=== PATIENT | male | born 1960 | race Caucasian/White ===

== ENCOUNTER 2018-01-18 13:53 | Outpatient (REF) | payer OTHER, SELFPAY ==
[2018-01-18 18:58] LABS: Iron 99 ug/dL (50-175); Total Iron Binding Capacity 292 ug/dL (250-450); Transferrin Sat 34 % (20-55)
[2018-01-18 19:47] LABS: COMMENT (LAB VIEW ONLY) 59.36 mg/dL; Microalb ug/mg Crea 23.8 ug/mg Cr
[2018-01-23 16:55] LABS: Testosterone, Bioavailable 18 ng/dL (50-190); Testosterone, Free 2.06 ng/dL (3.87-14.7); Testosterone, Total 42 ng/dL (240-950)
== END 2018-01-18 14:13 ==
LOC: NCHCN 13:53
PROVIDERS: PCP Family Medicine; Visit Provider Family Medicine
DX: E11.9 Type 2 diabetes mellitus without complications (principal); D64.9 Anemia, unspecified; E29.1 Testicular hypofunction
CPT/HCPCS: 84402; 84403; 84410; 82043; 82570; 83540; 83550

== ENCOUNTER 2018-02-23 00:25 | Outpatient (CLI) | payer OTHER, SELFPAY ==
--- NOTE | 2018-02-23 09:50 | DI.MRI_ITS ---
SYMPTOMS/DIAGNOSIS: ARM WEAKNESS, CERVICAL RADICULOPATHY, DECREASED DEXTERITY, HAND WEAKNESS, R29.898, M54.12, R27.8 MRI OF THE CERVICAL SPINE: Routine noncontrast examination. Comparison is 05/14/17. The study is compromised due to patient motion artifact. There is a scoliotic curvature of the cervical spine. Note is also again made of reversal of the normal cervical lordosis centered at C4-C5. There is normal signal in the spinal cord. No tonsillar ectopia is present. At C7-T1, there is 5 mm of anterolisthesis of C7 on T1. There is severe bilateral neural foraminal stenosis present. Mild narrowing of the central spinal canal is noted. At C6-C7, 2 mm of retrolisthesis of C6 on C7 is noted. There is marked bilateral neural foraminal stenosis present. No significant central spinal canal stenosis is seen. At C5-C6, 2 mm of retrolisthesis is noted. Marked bilateral neural foraminal stenosis is seen. There is mild central spinal canal stenosis with effacement of the anterior subarachnoid space noted. At C4-C5, there is prominence of the osteophyte-disc complex with effacement of the anterior subarachnoid space. There is CSF seen surrounding the cord. Marked bilateral neural foraminal stenosis is present. At C3-C4, there is 2 mm of anterolisthesis of C3 on C4. No significant central spinal canal stenosis is seen. Moderately severe bilateral neural foraminal stenosis is present. At C2-C3, no focal disc herniation or central spinal canal stenosis is seen. Mild bilateral neural foraminal stenosis is present. IMPRESSION: 1. Stable scoliosis and reversal of the normal cervical lordosis is seen. 2. Multilevel degenerative changes in the cervical spine are noted resulting in multilevel central spinal canal and neural foraminal stenosis as described above.
== END 2018-02-23 00:45 ==
PROVIDERS: PCP Family Medicine; Visit Provider Neurological Surgery
DX: M54.12 Radiculopathy, cervical region (principal); R27.8 Other lack of coordination; R29.898 Other symptoms and signs involving the musculoskeletal system; M50.120 Mid-cervical disc disorder, unspecified level; M25.78 Osteophyte, vertebrae; M99.41 Connective tissue stenosis of neural canal of cervical region
CPT/HCPCS: 72141

== ENCOUNTER 2018-03-31 01:17 | Outpatient (CLI) | payer OTHER, SELFPAY ==
--- NOTE | 2018-03-31 10:00 | DI.RAD_ITS ---
SYMPTOM/DIAGNOSIS: S/P C4, C5 CORPECTOMIES W/C7 TI. HAND WEAKNESS 728.87, R29.898 LIMITED CERVICAL SPINE: 03/31/18 AP and lateral views were obtained. The patient has reportedly had C4 and C5 corpectomies since most recent cervical spine MRI of 02/2018. There is fixation plate and screw anteriorly with vertebral body prosthesis in position from C3 through what appears to be C6 and there is anterior fixation plate also present in what appears to be C7-T1. There is approximately 5 mm anterior subluxation of C2 on C3, this is increased from approximately 4 mm seen on previous MR of 02/23/18. C3 vertebral body appears to be subluxed anteriorly on remaining C4 vertebral body elements by about 4 mm, probably unchanged from previous exam. Correlation with immediate post operative films suggested if there is a question of instability. I would note that the bone of C3 and C6 adjacent to the fixation screws is poorly defined and I cannot accurately assess for potential loosening of the fixation screws. Again, correlation with immediate postoperative imaging is recommended.
== END 2018-03-31 01:37 ==
PROVIDERS: PCP Family Medicine; Visit Provider Neurological Surgery
DX: R29.898 Other symptoms and signs involving the musculoskeletal system (principal); M54.12 Radiculopathy, cervical region; Z98.1 Arthrodesis status
CPT/HCPCS: 72040

== ENCOUNTER 2018-04-02 13:21 | Emergency (ER) | payer OTHER, SELFPAY ==
[2018-04-02 13:26] VITALS: BP 113/81; PULSE 100; RESP 18; TEMP 36.4
[2018-04-02 14:09] LABS: Bilirubin Negative (Negative); Blood Moderate (Negative); Clarity Cloudy; Glucose 100 mg/dL (Negative); Ketones Negative (Negative); Leukocyte Esterase Large (Negative); Nitrite Positive (Negative); Specific Gravity 1.025 (1.005-1.025); Urobilinogen 0.2 EU/dL (Up TO 0.2)
--- NOTE | 2018-04-02 14:12 | ED.GENADUL_ITS ---
Discharge Plan Disposition Patient Disposition: HOME Discharge Details Chief Complaint: Urinary Clinical Impression: Acute UTI Reason For Visit: urine discomfort Primary Care Provider: Garcia Fonseca ED Provider: Sd Jimenez Home Meds and New Rx's Prescriptions: New cephalexin [Keflex] 500 mg capsule 500 mg PO QID 7 Days Qty: 28 RF: 0 No Action folic acid 1 MG tablet 1.5 mg PO HS RF: 0 apixaban [Eliquis] 5 MG tablet 5 mg PO BID RF: 0 mirabegron [Myrbetriq] 50 MG tablet extended release 24 hr 50 mg PO DAILY Qty: 90 RF: 4 aspirin [Adult Low Dose Aspirin] 81 MG tablet,delayed release (DR/EC) 81 mg PO DAILY RF: 0 ascorbic acid (vitamin C) [Vitamin C] 500 MG tablet 500 mg PO QPM RF: 0 metformin [Glucophage] 1,000 MG tablet 1,000 mg PO BID RF: 0 testosterone cypionate [Depo-Testosterone] 200 MG/ML oil 200 mg IM Q14D RF: 0 multivitamin 1 EACH capsule 1 ea PO DAILY RF: 0 cholecalciferol (vitamin D3) 1,000 UNITS tablet 2,000 units PO QPM RF: 0 metoprolol tartrate 25 MG tablet 50 mg PO HS RF: 0 gabapentin 600 MG tablet 1,200 mg PO TID RF: 0 atorvastatin [Lipitor] 40 MG tablet 40 mg PO HS RF: 0 oxybutynin chloride 15 MG tablet extended release 24hr 15 mg PO DAILY RF: 0 ferrous sulfate 325 MG tablet 325 mg PO HS RF: 0 omega-3 fatty acids 1,250 mg Capsule 1 cap PO DAILY RF: 0 bupropion HCl 450 mg Tablet Extended Release 24 Hr 450 mg PO DAILY RF: 0 lisinopril 5 MG tablet 5 mg PO DAILY RF: 0 magnesium 200 MG tablet 400 mg PO RF: 0 hydrocodone-acetaminophen 1 EACH tablet 1 tab PO Q6H PRN PRNQty: 5 RF: 0 ibuprofen 600 MG tablet 600 mg PO Q8H PRN PRNQty: 30 RF: 0 acetaminophen [Mapap Extra Strength] 500 MG tablet 1,000 mg PO Q8H PRN PRNQty: 100 RF: 0 Discharge Instructions Instructions: Urinary Tract Infection in Men (ED) Additional Instructions: Please contact your primary care physician to arrange follow-up. Call on Wednesday. Return to the ER for any worsening or new concerning symptoms. Referrals: Garcia Fonseca [Primary Care Provider] - Medical Decision Making 14:10 -- 57yo m 3 weeks s/p cervical spinal decompression surgery, remote UTI, DM, here with dysuria and urgency. Not septic appearing. Fingerstick nl. Plan to check UA. 16:25 -- UA consistent with UTI. Will treat with keflex 500mg QID x 7 days. Urine cx pending. Will have patient follow-up with PCP. HPI General Mode of arrival: ambulatory . Date/Time Provider Initiated Documentation: 04/02/18 13:36 . Limitations to Documentation: no limitations . Information obtained by: patient . HPI Narrative: 57-year-old male here with painful urination. Patient states that over the past 48 hours he has had burning discomfort with urination. He notes that he has sense of urgency, increased frequency and low volume urination. He does not feel as though his bladder is full. No associated fever but does note he has had some chills recently. He also notes that a few years ago he had a urinary tract infection that was treated with abx. No flank pain. No nausea/vomiting. Related Data Home Medications Medication Instructions Recorded Confirmed ascorbic acid (vitamin C) [Vitamin 500 mg PO QPM 05/11/14 04/02/18 C] aspirin [Adult Low Dose Aspirin] 81 mg PO DAILY 05/11/14 04/02/18 cholecalciferol (vitamin D3) 2,000 units PO QPM 05/11/14 04/02/18 metformin [Glucophage] 1,000 mg PO BID 05/11/14 04/02/18 multivitamin 1 ea PO DAILY 05/11/14 04/02/18 testosterone cypionate 200 mg IM Q14D 05/11/14 04/02/18 [Depo-Testosterone] metoprolol tartrate 50 mg PO HS 06/14/15 04/02/18 gabapentin 1,200 mg PO TID 12/13/15 04/02/18 atorvastatin [Lipitor] 40 mg PO HS 04/13/17 04/02/18 ferrous sulfate 325 mg PO HS 04/13/17 04/02/18 oxybutynin chloride 15 mg PO DAILY 04/13/17 04/02/18 folic acid 1.5 mg PO HS tab-cap 04/19/17 04/02/18 lisinopril 5 mg PO DAILY 06/15/17 04/02/18 acetaminophen [Mapap Extra 1,000 mg PO Q8H PRN PRN #100 tab 06/17/17 04/02/18 Strength] hydrocodone-acetaminophen 1 tab PO Q6H PRN PRN #5 tablet 06/17/17 04/02/18 ibuprofen 600 mg PO Q8H PRN PRN #30 tablet 06/17/17 04/02/18 magnesium 400 mg PO 06/17/17 apixaban [Eliquis] 5 mg PO BID 07/14/17 04/02/18 mirabegron [Myrbetriq] 50 mg PO DAILY #90 tab-cap 11/09/17 04/02/18 bupropion HCl 450 mg PO DAILY 04/02/18 04/02/18 cephalexin [Keflex] 500 mg PO QID 7 Days #28 cap 04/02/18 omega-3 fatty acids 1 cap PO DAILY 04/02/18 04/02/18 Previous Rx's Medication Instructions Recorded acetaminophen [Mapap Extra 1,000 mg PO Q8H PRN PRN #100 tab 06/17/17 Strength] hydrocodone-acetaminophen 1 tab PO Q6H PRN PRN #5 tablet 06/17/17 ibuprofen 600 mg PO Q8H PRN PRN #30 tablet 06/17/17 mirabegron [Myrbetriq] 50 mg PO DAILY #90 tab-cap 11/09/17 cephalexin [Keflex] 500 mg PO QID 7 Days #28 cap 04/02/18 Allergies Allergy/AdvReac Type Severity Reaction Status Date / Time nitroglycerin Allergy Hives Unverified 04/02/18 13:32 pioglitazone HCl [From Actos] AdvReac Mild leg Unverified 04/02/18 13:32 swelling General Stated Complaint: Urinary PORTILLO: 3 Review of Systems Review of Systems All systems reviewed & are unremarkable except as noted in HPI and below Constitutional Reports chills and Reports weakness Genitourinary Reports as per HPI Neurologic Reports weakness PFSH Medical History Anxiety and depression Diabetes mellitus type II, controlled Diabetic neuropathy Essential hypertension History of colon polyps History of gastroesophageal reflux (GERD) Hyperlipidemia Hypogonadism in male Urge incontinence Social History Smoking/Tobacco Use Status: Never Surgical History Cholecystectomy Colonoscopy - IV Sedation (10/28/16) EGD - IV Sedation Kallie Fundoplication Exam Const General: cooperative and no acute distress HENMT Head: normocephalic and atraumatic Mouth: moist mucous membranes Eyes Conjunctivae: normal conjunctivae Sclera: normal sclerae Neck Lymphatic: other (ccollar intact) Resp Auscultation: clear to auscultation bilaterally, no rales, no rhonchi and no wheezes Cardio Jugular venous pressure: no JVD Rate: regular rate and not tachycardic Rhythm: regular rhythm GI Palpation: soft, not firm, no guarding, no masses, not rigid and nontender Male General Exam: No edema and No lesions Meatus: meatus normal (mild erythema) Scrotum: scrotum normal Testes: normal Skin General skin exam: no rashes or lesions noted Neuro General: alert, awake, oriented x3 and tone normal Extrem General: no edema Psych Appearance: grossly normal Mental Status: mental status grossly normal Course Vital Signs Temperature 36.4 C L 04/02/18 13:26 Pulse 100 H 04/02/18 13:26 Respiratory Rate 18 04/02/18 13:26 Blood Pressure 113/81 04/02/18 13:26 Temperature 36.4 C L 04/02/18 13:26 Temperature Source Temporal Artery Scan 04/02/18 13:26 Pulse 100 H 04/02/18 13:26 Respiratory Rate 18 04/02/18 13:26 Blood Pressure 113/81 04/02/18 13:26 Blood Pressure Position Sitting 04/02/18 13:26 Oxygen Delivery Method Room Air 04/02/18 13:26 Oxygen Flow Rate 0 04/02/18 13:26 Pain Level 0 04/02/18 13:26
[2018-04-02 14:20] LABS: C & S Indicated? Yes
[2018-04-02] MEDS: Cephalexin 500 MG CAP PO (16:30)
[2018-04-02 16:55] VITALS: BP 143/87; PULSE 110; RESP 16; TEMP 37.3; O2SAT 94
== END 2018-04-02 16:52 | disposition home or self-care (01) ==
PROVIDERS: Emergency Provider Student in an Organized Health Care Education/Training Program; PCP Family Medicine
DX: N39.0 Urinary tract infection, site not specified (principal); B95.61 Methicillin susceptible Staphylococcus aureus infection as the cause of diseases classified elsewhere; E11.9 Type 2 diabetes mellitus without complications; Z79.84 Long term (current) use of oral hypoglycemic drugs; I10 Essential (primary) hypertension
CPT/HCPCS: 36416; 82947; 82962; 87077; 99283; 81003; 81015; 87086; 87186

== ENCOUNTER 2018-04-06 00:32 | Outpatient (CLI) | payer OTHER, SELFPAY ==
--- NOTE | 2018-04-06 06:46 | DI.COMBO_ITS ---
SYMPTOM/DIAGNOSIS: SPINAL STENOSIS, M48.02, S/P SURGERY, INCREASED WEAKNESS AND DECONDITIONING, NUMBNESS LT LEG AND ARM. CERVICAL SPINE CT: CT examination of the cervical spine was performed utilizing multi slice acquisition and multi planar reconstruction. The examination is compared with preoperative CT of 03/11/18. The patient appears to have had an interval anterior fusion with bone graft placement. The fixation screws in the C 3 and C 6 vertebral bodies appear well seated with no evidence of loosening. The anterior fusion at C 7-T 1 also shows no evidence of screw loosening. The overall posterior vertebral contour in comparison with the preoperative images appears grossly unchanged. No evidence of bone erosion or destruction. Partial resection of vertebral bodies C 4 and C 5 centrally is noted. CONCLUSION: Apparent intact fusion hardware and graft in position, please see above discussion. CERVICAL SPINE MRI: MRI examination of the cervical spine was performed according to the usual protocol with additional pre and post contrast T 1 fat sat axial and sagittal imaging. The examination is compared with preoperative MR of 02/23/18. No gross enhancing lesion identified on the current examination. The degree of curvature of the cervical spinal cord appears grossly unchanged or mildly decreased. No cord compression identified. Intra cord signal abnormality appears within normal limits. Anterior fusion and graft from C 3 through C 6 noted although more clearly visualized on CT examination. No overall change in alignment of the posterior aspects over the vertebral bodies through the cervical region. CONCLUSION: Anterior C spine fusion in place from C 3 to C 6 and also at C 7- T 1. No evidence of cord edema, compression, or significant change in the spinal canal contour since examination of 02/23/18.
[2018-04-06] MEDS: Gadoterate meglumine 20 ML VIAL 14 ML IVP (11:41)
== END 2018-04-06 00:52 ==
PROVIDERS: PCP Family Medicine; Visit Provider Internal Medicine
DX: M48.02 Spinal stenosis, cervical region (principal); Z98.890 Other specified postprocedural states; R20.0 Anesthesia of skin; Z98.1 Arthrodesis status; R68.89 Other general symptoms and signs
CPT/HCPCS: 72125; 72156

== ENCOUNTER 2018-04-27 14:37 | Outpatient (REF) | payer OTHER, SELFPAY ==
[2018-04-27 18:37] LABS: Bilirubin Negative (Negative); Blood Trace-intact (Negative); Clarity Cloudy; Glucose Negative (Negative); Ketones Negative (Negative); Leukocyte Esterase Large (Negative); Nitrite Negative (Negative); Specific Gravity 1.025 (1.005-1.025); Urobilinogen 0.2 EU/dL (Up TO 0.2); pH 5.5 (5-8)
[2018-04-27 18:57] LABS: WBC >50 HPF (0-5)
[2018-04-27 18:58] LABS: C & S Indicated? C&S Done As Ordered
== END 2018-04-27 14:57 ==
LOC: NCHCN 14:37
PROVIDERS: PCP Family Medicine; Visit Provider Family Medicine
DX: N39.0 Urinary tract infection, site not specified (principal)
CPT/HCPCS: 87077; 81003; 81015; 87086; 87186

== ENCOUNTER 2018-05-02 00:21 | Outpatient (CLI) | payer OTHER, SELFPAY ==
--- NOTE | 2018-05-02 15:43 | DI.US_ITS ---
SYMPTOM/DIAGNOSIS: RECURRENT UTI, N39.0 RENAL ULTRASOUND: The right kidney measures 10.4 x 4.7 x 5.5 cm There are small nonobstructing hyperechoic foci suspicious for multiple calculi. The left kidney measures 10.7 x 5.1 x 4.7 cm. Again noted are multiple small hyperechoic foci and no evidence of obstruction is seen. The prostate measures 4.8 x 4.8 x 5.7 cm with a volume of 69 cm cubed. Also the gland is irregular and heterogeneous with calcifications identified. The pre-void bladder contains 101 cc. The post-void bladder is 76 cc. The bladder wall measures 6.9 mm in thickness. There is no localized bladder wall mass. SUMMARY: Findings consistent with bilateral nephrolithiasis and prostatic enlargement. There is no evidence of obstruction (incidentally bilateral ureteral jets were visualized in this patient). The evaluation of the bladder would be consistent with bladder outlet obstruction.
== END 2018-05-02 00:41 ==
PROVIDERS: PCP Family Medicine; Visit Provider Family Medicine
DX: N39.0 Urinary tract infection, site not specified (principal); N20.0 Calculus of kidney; N40.1 Benign prostatic hyperplasia with lower urinary tract symptoms
CPT/HCPCS: 76770

== ENCOUNTER 2018-06-16 12:03 | Emergency (ER) | payer OTHER, SELFPAY ==
[2018-06-16 12:08] VITALS: BP 125/83; PULSE 69; RESP 16; TEMP 36.8; O2SAT 98
--- NOTE | 2018-06-16 12:29 | DI.RAD_ITS ---
SYMPTOM/DIAGNOSIS: SWELLING, PAIN, REDNESS RIGHT SECOND TOE; There are no prior comparison exams. There is soft tissue swelling of the distal aspect of the second toe. There is air within the soft tissue swelling. There is destruction of the tuft of the distal phalanx, consistent with osteomyelitis. There has been previous resection of the first metatarsal head. There is also callous formation around the mid second metatarsal and proximal phalanx of the third toe. IMPRESSION: The findings are consistent with osteomyelitis of the tuft of the distal phalanx of the second toe.
--- NOTE | 2018-06-16 12:30 | W.ED.GENAD ---
Discharge Plan Disposition Patient Disposition: HOME Discharge Details Chief Complaint: Cellulitis Clinical Impression: Osteomyelitis of toe of right foot Primary Care Provider: Garcia Fonseca ED Provider: Sd Jimenez Home Meds and New Rx's Prescriptions: New amoxicillin-pot clavulanate [Augmentin] 875-125 mg tablet 1 tab PO BID Qty: 19 RF: 0 Continued folic acid 1 MG tablet 1.5 mg PO HS RF: 0 Eliquis 5 MG tablet 5 mg PO BID RF: 0 Myrbetriq 50 MG tablet extended release 24 hr 50 mg PO DAILY Qty: 90 RF: 4 ascorbic acid (vitamin C) [Vitamin C] 500 MG tablet 500 mg PO QPM RF: 0 metformin [Glucophage] 1,000 MG tablet 1,000 mg PO BID RF: 0 testosterone cypionate [Depo-Testosterone] 200 MG/ML oil 200 mg IM Q14D RF: 0 multivitamin 1 EACH capsule 1 ea PO DAILY RF: 0 cholecalciferol (vitamin D3) 1,000 UNITS tablet 2,000 units PO QPM RF: 0 metoprolol tartrate 25 MG tablet 50 mg PO HS RF: 0 gabapentin 600 MG tablet 1,200 mg PO TID RF: 0 atorvastatin [Lipitor] 40 MG tablet 40 mg PO HS RF: 0 oxybutynin chloride 15 MG tablet extended release 24hr 15 mg PO DAILY RF: 0 bupropion HCl 450 mg Tablet Extended Release 24 Hr 450 mg PO DAILY RF: 0 Myrbetriq 50 mg Tablet Extended Release 24 Hr 50 mg PO DAILY RF: 0 lisinopril 5 MG tablet 5 mg PO DAILY RF: 0 ibuprofen 600 MG tablet 600 mg PO Q8H PRN PRNQty: 30 RF: 0 acetaminophen [Mapap Extra Strength] 500 MG tablet 1,000 mg PO Q8H PRN PRNQty: 100 RF: 0 Discharge Instructions Additional Instructions: Please follow-up tomorrow with Dr. Aleman, podiatry, at 10:45a in his office. Please contact your primary care physician to arrange follow-up. Return to the ER for any worsening or new concerning symptoms. Referrals: Garcia Fonseca [Primary Care Provider] - Aniceto Aleman DPM [[facility] STAFF PHYSICIAN] - Medical Decision Making 57-year-old male with non-insulin dependent diabetes, here with ulcer of his right second toe over the past 2-3 months and now with associated cellulitis extending up to his mid foot. Otherwise well appearing. Afebrile with no systemic illness. Patient has not been on oral antibiotics for this infection. Concern for osteomyelitis. foot xray reviewed and interpreted by radiology: Osteomyelitis of the distal tuft of the second digit I called and spoke with Dr. Aleman, podiatry, who agrees with starting Augmentin and recommends outpatient follow-up in clinic tomorrow. Patient notes glucose was 98 when he checked this AM and has been monitored and well controlled. HPI General Mode of arrival: ambulatory. Date/Time Provider Initiated Documentation: 06/16/18 12:18. Limitations to Documentation: no limitations. Information obtained by: patient. HPI Narrative: 57yo m with history of type 2 diabetes, controlled on metformin, here with right second toe inflammation. He notes he had a ulcer bottom of his distal right second toe for 2-3 months. He was seen by podiatry 06/13/17 at [facility] and started on antibiotic cream. He states that over the past couple days he has developed worsening redness of the toe and dorsal foot. Inflammation is moderate. No modifiers. No associated fevers. Related Data Home Medications Medication Instructions Recorded Confirmed ascorbic acid (vitamin C) [Vitamin 500 mg PO QPM 05/11/14 06/16/18 C] cholecalciferol (vitamin D3) 2,000 units PO QPM 05/11/14 06/16/18 metformin [Glucophage] 1,000 mg PO BID 05/11/14 06/16/18 multivitamin 1 ea PO DAILY 05/11/14 06/16/18 testosterone cypionate 200 mg IM Q14D 05/11/14 06/16/18 [Depo-Testosterone] metoprolol tartrate 50 mg PO HS 06/14/15 06/16/18 gabapentin 1,200 mg PO TID 12/13/15 06/16/18 atorvastatin [Lipitor] 40 mg PO HS 04/13/17 06/16/18 oxybutynin chloride 15 mg PO DAILY 04/13/17 06/16/18 folic acid 1.5 mg PO HS tab-cap 04/19/17 06/16/18 lisinopril 5 mg PO DAILY 06/15/17 06/16/18 acetaminophen [Mapap Extra 1,000 mg PO Q8H PRN PRN #100 tab 06/17/17 06/16/18 Strength] ibuprofen 600 mg PO Q8H PRN PRN #30 tab 06/17/17 06/16/18 Eliquis 5 mg PO BID 07/14/17 06/16/18 Myrbetriq 50 mg PO DAILY #90 tab-cap 11/09/17 06/16/18 bupropion HCl 450 mg PO DAILY 04/02/18 06/16/18 Myrbetriq 50 mg PO DAILY 06/16/18 06/16/18 amoxicillin-pot clavulanate 1 tab PO BID #19 tab 06/16/18 [Augmentin] Previous Rx's Medication Instructions Recorded acetaminophen [Mapap Extra 1,000 mg PO Q8H PRN PRN #100 tab 06/17/17 Strength] ibuprofen 600 mg PO Q8H PRN PRN #30 tab 06/17/17 Myrbetriq 50 mg PO DAILY #90 tab-cap 11/09/17 amoxicillin-pot clavulanate 1 tab PO BID #19 tab 06/16/18 [Augmentin] Allergies Allergy/AdvReac Type Severity Reaction Status Date / Time nitroglycerin Allergy Hives Unverified 06/16/18 12:15 pioglitazone HCl [From Actos] AdvReac Mild leg Unverified 06/16/18 12:15 swelling General Stated Complaint: Cellulitis PORTILLO: 3 Review of Systems Constitutional Denies fever(s) Musculoskeletal Reports as per HPI Integumentary/Breasts Reports as per HPI and Reports skin ulcer PFSH Medical History Anxiety and depression Diabetes mellitus type II, controlled Diabetic neuropathy Essential hypertension History of colon polyps History of gastroesophageal reflux (GERD) Hyperlipidemia Hypogonadism in male Urge incontinence Surgical History Cholecystectomy Colonoscopy - IV Sedation (10/28/16) EGD - IV Sedation Kallie Fundoplication Social History Smoking/Tobacco Use Status: Never Exam Const General: cooperative and no acute distress HENMT Mouth: moist mucous membranes Cardio Rate: regular rate and not tachycardic Rhythm: regular rhythm Skin Rashes: rashes noted (erythema right 2nd toe and dorsal foot) Neuro General: alert, awake, oriented x3 and tone normal Extrem General: no edema Right lower extremity: foot Details: normal capillary refill, vascular exam Details: posterior tibial pulse present (2+) and other (1cm ulcer distal 2nd toe, no d/c, erythema extending up to dorsal midfoot) Course Vital Signs Temperature 36.8 C 06/16/18 12:08 Pulse 69 06/16/18 12:08 Respiratory Rate 16 06/16/18 12:08 Blood Pressure 125/83 06/16/18 12:08 Pulse Oximetry 98 06/16/18 12:08 Temperature 36.8 C 06/16/18 12:08 Temperature Source Temporal Artery Scan 06/16/18 12:08 Pulse 69 06/16/18 12:08 Respiratory Rate 16 06/16/18 12:08 Respiratory Effort Non-Labored 06/16/18 12:14 Blood Pressure 125/83 06/16/18 12:08 Blood Pressure Position Supine 06/16/18 12:08 Pulse Oximetry 98 06/16/18 12:08 Oxygen Delivery Method Room Air 06/16/18 12:08 Oxygen Flow Rate 0 06/16/18 12:08 Pain Level 1 06/16/18 12:08
--- NOTE | 2018-06-16 12:34 | ED.GENADUL_ITS ---
Discharge Plan Disposition Patient Disposition: HOME Discharge Details Chief Complaint: Cellulitis Clinical Impression: Osteomyelitis of toe of right foot Primary Care Provider: Garcia Fonseca ED Provider: Sd Jimenez Home Meds and New Rx's Prescriptions: New amoxicillin-pot clavulanate [Augmentin] 875-125 mg tablet 1 tab PO BID Qty: 19 RF: 0 Continued folic acid 1 MG tablet 1.5 mg PO HS RF: 0 Eliquis 5 MG tablet 5 mg PO BID RF: 0 Myrbetriq 50 MG tablet extended release 24 hr 50 mg PO DAILY Qty: 90 RF: 4 ascorbic acid (vitamin C) [Vitamin C] 500 MG tablet 500 mg PO QPM RF: 0 metformin [Glucophage] 1,000 MG tablet 1,000 mg PO BID RF: 0 testosterone cypionate [Depo-Testosterone] 200 MG/ML oil 200 mg IM Q14D RF: 0 multivitamin 1 EACH capsule 1 ea PO DAILY RF: 0 cholecalciferol (vitamin D3) 1,000 UNITS tablet 2,000 units PO QPM RF: 0 metoprolol tartrate 25 MG tablet 50 mg PO HS RF: 0 gabapentin 600 MG tablet 1,200 mg PO TID RF: 0 atorvastatin [Lipitor] 40 MG tablet 40 mg PO HS RF: 0 oxybutynin chloride 15 MG tablet extended release 24hr 15 mg PO DAILY RF: 0 bupropion HCl 450 mg Tablet Extended Release 24 Hr 450 mg PO DAILY RF: 0 Myrbetriq 50 mg Tablet Extended Release 24 Hr 50 mg PO DAILY RF: 0 lisinopril 5 MG tablet 5 mg PO DAILY RF: 0 ibuprofen 600 MG tablet 600 mg PO Q8H PRN PRNQty: 30 RF: 0 acetaminophen [Mapap Extra Strength] 500 MG tablet 1,000 mg PO Q8H PRN PRNQty: 100 RF: 0 Discharge Instructions Additional Instructions: Please follow-up tomorrow with Dr. Aleman, podiatry, at 10:45a in his office. Please contact your primary care physician to arrange follow-up. Return to the ER for any worsening or new concerning symptoms. Referrals: Garcia Fonseca [Primary Care Provider] - Aniceto lAeman DPM [[facility] STAFF PHYSICIAN] - Medical Decision Making 57-year-old male with non-insulin dependent diabetes, here with ulcer of his right second toe over the past 2-3 months and now with associated cellulitis extending up to his mid foot. Otherwise well appearing. Afebrile with no systemic illness. Patient has not been on oral antibiotics for this infection. Concern for osteomyelitis. foot xray reviewed and interpreted by radiology: Osteomyelitis of the distal tuft of the second digit I called and spoke with Dr. Aleman, podiatry, who agrees with starting Augmentin and recommends outpatient follow-up in clinic tomorrow. Patient notes glucose was 98 when he checked this AM and has been monitored and well controlled. HPI General Mode of arrival: ambulatory . Date/Time Provider Initiated Documentation: 06/16/18 12:18 . Limitations to Documentation: no limitations . Information obtained by: patient . HPI Narrative: 57yo m with history of type 2 diabetes, controlled on metformin, here with right second toe inflammation. He notes he had a ulcer bottom of his distal right second toe for 2-3 months. He was seen by podiatry 06/13/17 at [facility] and started on antibiotic cream. He states that over the past couple days he has developed worsening redness of the toe and dorsal foot. Inflammation is moderate. No modifiers. No associated fevers. Related Data Home Medications Medication Instructions Recorded Confirmed ascorbic acid (vitamin C) [Vitamin 500 mg PO QPM 05/11/14 06/16/18 C] cholecalciferol (vitamin D3) 2,000 units PO QPM 05/11/14 06/16/18 metformin [Glucophage] 1,000 mg PO BID 05/11/14 06/16/18 multivitamin 1 ea PO DAILY 05/11/14 06/16/18 testosterone cypionate 200 mg IM Q14D 05/11/14 06/16/18 [Depo-Testosterone] metoprolol tartrate 50 mg PO HS 06/14/15 06/16/18 gabapentin 1,200 mg PO TID 12/13/15 06/16/18 atorvastatin [Lipitor] 40 mg PO HS 04/13/17 06/16/18 oxybutynin chloride 15 mg PO DAILY 04/13/17 06/16/18 folic acid 1.5 mg PO HS tab-cap 04/19/17 06/16/18 lisinopril 5 mg PO DAILY 06/15/17 06/16/18 acetaminophen [Mapap Extra 1,000 mg PO Q8H PRN PRN #100 tab 06/17/17 06/16/18 Strength] ibuprofen 600 mg PO Q8H PRN PRN #30 tab 06/17/17 06/16/18 Eliquis 5 mg PO BID 07/14/17 06/16/18 Myrbetriq 50 mg PO DAILY #90 tab-cap 11/09/17 06/16/18 bupropion HCl 450 mg PO DAILY 04/02/18 06/16/18 Myrbetriq 50 mg PO DAILY 06/16/18 06/16/18 amoxicillin-pot clavulanate 1 tab PO BID #19 tab 06/16/18 [Augmentin] Previous Rx's Medication Instructions Recorded acetaminophen [Mapap Extra 1,000 mg PO Q8H PRN PRN #100 tab 06/17/17 Strength] ibuprofen 600 mg PO Q8H PRN PRN #30 tab 06/17/17 Myrbetriq 50 mg PO DAILY #90 tab-cap 11/09/17 amoxicillin-pot clavulanate 1 tab PO BID #19 tab 06/16/18 [Augmentin] Allergies Allergy/AdvReac Type Severity Reaction Status Date / Time nitroglycerin Allergy Hives Unverified 06/16/18 12:15 pioglitazone HCl [From Actos] AdvReac Mild leg Unverified 06/16/18 12:15 swelling General Stated Complaint: Cellulitis PORTILLO: 3 Review of Systems Constitutional Denies fever(s) Musculoskeletal Reports as per HPI Integumentary/Breasts Reports as per HPI and Reports skin ulcer PFSH Medical History Anxiety and depression Diabetes mellitus type II, controlled Diabetic neuropathy Essential hypertension History of colon polyps History of gastroesophageal reflux (GERD) Hyperlipidemia Hypogonadism in male Urge incontinence Surgical History Cholecystectomy Colonoscopy - IV Sedation (10/28/16) EGD - IV Sedation Kallie Fundoplication Social History Smoking/Tobacco Use Status: Never Exam Const General: cooperative and no acute distress HENMT Mouth: moist mucous membranes Cardio Rate: regular rate and not tachycardic Rhythm: regular rhythm Skin Rashes: rashes noted (erythema right 2nd toe and dorsal foot) Neuro General: alert, awake, oriented x3 and tone normal Extrem General: no edema Right lower extremity: foot Details: normal capillary refill, vascular exam Details: posterior tibial pulse present (2+) and other (1cm ulcer distal 2nd toe, no d/c, erythema extending up to dorsal midfoot) Course Vital Signs Temperature 36.8 C 06/16/18 12:08 Pulse 69 06/16/18 12:08 Respiratory Rate 16 06/16/18 12:08 Blood Pressure 125/83 06/16/18 12:08 Pulse Oximetry 98 06/16/18 12:08 Temperature 36.8 C 06/16/18 12:08 Temperature Source Temporal Artery Scan 06/16/18 12:08 Pulse 69 06/16/18 12:08 Respiratory Rate 16 06/16/18 12:08 Respiratory Effort Non-Labored 06/16/18 12:14 Blood Pressure 125/83 06/16/18 12:08 Blood Pressure Position Supine 06/16/18 12:08 Pulse Oximetry 98 06/16/18 12:08 Oxygen Delivery Method Room Air 06/16/18 12:08 Oxygen Flow Rate 0 06/16/18 12:08 Pain Level 1 06/16/18 12:08
[2018-06-16] MEDS: Amoxicillin 875/Clav. 125 TAB PO (13:02)
== END 2018-06-16 13:22 | disposition home or self-care (01) ==
PROVIDERS: Emergency Provider Student in an Organized Health Care Education/Training Program; PCP Family Medicine
DX: M86.171 Other acute osteomyelitis, right ankle and foot (principal); E11.9 Type 2 diabetes mellitus without complications; Z79.84 Long term (current) use of oral hypoglycemic drugs
CPT/HCPCS: 99283; 73660

== ENCOUNTER 2018-06-17 13:17 | Inpatient (IN) | payer OTHER, SELFPAY ==
[2018-06-17 12:53] VITALS: BP 142/97; PULSE 107; RESP 20; TEMP 37.2; O2SAT 100
[2018-06-17 13:12] VITALS: BP 142/97; PULSE 107; RESP 20; TEMP 37.2; O2SAT 100
--- NOTE | 2018-06-17 16:16 | W.PM.HP.N ---
Date of service: 06/17/18 Time of Service: 16:15 Assessment and Plan (1) Osteomyelitis: Current visit: Yes Status: Acute Evidence of Osteo of the right second toe, with signs of surrounding infection. Admit and initiate broad spectrum antibiotics in diabetic male with a non-healing foot ulcer, Osteo, and surrounding cellulitis. Please note history of MSSA and VRE - will need to rely on tissue culture post-op for final determination of antibiotic regimen. Will check blood cultures as well. (2) History of DVT (deep vein thrombosis): Current visit: Yes Status: Chronic Prior history of DVT in the right leg 07/2017, unknown circumstances surrounding this. Patient was anticoagulated until October, and upon stoppage developed recurrence of swelling in the RLE. He was restarted on blood thinners, and according to him a repeat ultrasound was not ordered. Currently with evidence of mild erythema overlying the right calf as well as some swelling in the effected limb - unsure if this is recurrence of DVT or if related to current infection. Discussed with Podiatry - plan is to check an ultrasound of the leg, hold anticoagulation until tomorrow morning, and reinitiate promptly after surgery pending results of the ultrasound. Monitor. (3) Hypertension: Current visit: Yes Status: Chronic Continue VADIM-I with hold parameters. Check renal function. (4) Dyslipidemia: Current visit: Yes Status: Chronic (5) Diabetes mellitus: Current visit: Yes Status: Chronic Check HgA1C, hold metformin, monitor blood sugars, and consider initiation of sliding scale if warranted. ADA diet, but with NPO > midnight. History of Present Illness Chief Complaint: Toe infection, osteomyelitis Narrative: Very pleasant 57-year-old man with past medical history significant for diabetes presents to [facility] as a direct admission from Dr. Aniceto Aleman of podiatry, for planned debridement and potential resection of a second digit, right foot osteomyelitis. is a with a 28-year former service in the [employer]. He has a history of diabetes, hypertension, and dyslipidemia. He was diagnosed with a DVT in his right leg in July of 2017, and restarted on anticoagulation 4 months after for presumed recurrence of a blood clot with discontinuation of blood thinners. Review of his prior culture data shows evidence of infections in the past with both MSSA and VRE. He also has a history of depression, hypogonadism, DJD, urinary incontinence, nephrolithiasis, and BPH. Prior history of GERD was treated with Kallie fundoplication per verbal history. Mr. Agosto has reportedly had an ulcer of his right second toe over the last 2-3 months. He initially was seen at the [facility] 4 days ago, and prescribed topical therapy and advised to go to the ED if his symptoms worsen. Yesterday he presented to [facility] emergency department with evidence of worsening symptoms, including what appeared to be potential surrounding cellulitis. At that time he underwent imaging that showed likely osteomyelitis of the distal phalanx of the second toe. He was prescribed Augmentin, and discharged with scheduled for today follow-up with podiatry. After his evaluation by Dr. Aleman from podiatry, direct admission to the hospital was recommended for a planned debridement and likely resection of the affected digit. He presents in stable condition and appearing nontoxic. He currently denies any fevers, chills, or systemic symptoms. 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) History of cellulitis (Chronic) Thermal injury (Acute) Cellulitis of right hand (Resolved 12/23/15) Anxiety and depression Diabetes mellitus type II, controlled Diabetic neuropathy Essential hypertension History of colon polyps History of gastroesophageal reflux (GERD) Hyperlipidemia Hypogonadism in male Urge incontinence Surgical History H/O hand surgery (Chronic) History of repair of hiatal hernia (Chronic) History of cholecystectomy (Chronic) History of lumbosacral spine surgery (Chronic) H/O cervical spine surgery (Chronic) History of Kallie fundoplication (Chronic) Cholecystectomy Colonoscopy - IV Sedation (10/28/16) EGD - IV Sedation Kallie Fundoplication Social History household members: spouse Smoking/Tobacco Use Status: Never additional social history: Patient is and has 2 grown daughters. Originally from [place], moved to [place] approximately a decade ago. 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 He also denies any illicit drug use. Meds Home Medications Medication Instructions Recorded Confirmed Type ascorbic acid (vitamin C) [Vitamin 500 mg PO QPM 05/11/14 06/17/18 History C] cholecalciferol (vitamin D3) 2,000 units PO QPM 05/11/14 06/17/18 History metformin [Glucophage] 1,000 mg PO BID 05/11/14 06/17/18 History multivitamin 1 ea PO DAILY 05/11/14 06/17/18 History testosterone cypionate 200 mg IM Q14D 05/11/14 06/17/18 History [Depo-Testosterone] metoprolol tartrate 50 mg PO HS 06/14/15 06/17/18 History gabapentin 1,200 mg PO TID 12/13/15 06/17/18 History atorvastatin [Lipitor] 40 mg PO HS 04/13/17 06/17/18 History oxybutynin chloride 15 mg PO DAILY 04/13/17 06/17/18 History folic acid 1.5 mg PO DAILY tab-cap 04/19/17 06/17/18 History lisinopril 5 mg PO DAILY 06/15/17 06/17/18 History acetaminophen [Mapap Extra 1,000 mg PO Q8H PRN PRN #100 tab 06/17/17 06/17/18 Rx Strength] ibuprofen 600 mg PO Q8H PRN PRN #30 tab 06/17/17 06/17/18 Rx Eliquis 5 mg PO BID 07/14/17 06/17/18 History Myrbetriq 50 mg PO DAILY #90 tab-cap 11/09/17 06/16/18 Rx bupropion HCl 450 mg PO DAILY 04/02/18 06/17/18 History Myrbetriq 50 mg PO DAILY 06/16/18 06/17/18 History amoxicillin-pot clavulanate 1 tab PO BID #19 tab 06/16/18 06/17/18 Rx [Augmentin] Allergies Allergy/AdvReac Type Severity Reaction Status Date / Time nitroglycerin Allergy Hives Unverified 06/16/18 12:15 pioglitazone HCl [From Actos] AdvReac Mild leg Unverified 06/16/18 12:15 swelling Exam Narrative Exam Narrative: General: Patient appears comfortable, AAOX3, NAD Neck: Supple CV: Regular, minimally tachycardic, S1S2, No rubs, murmurs, or gallops. Pulmonary: Clear to auscultation bilaterally, no crackles, wheezing, or rhonchi Abdomen: + Bowel Sounds, soft, nontender, nondistended Vascular: Mild RLE edema Skin: Mild area of erythema without warmth overlying right medial gordillo, at site of prior DVT. Musculoskeletal: Right food with bandage in place, c/d/i. Neurologic: CN II-XII grossly intact. No focal deficits. Psych: Normal mood and affect. Results Imaging Additional studies: Exam(s) a RAD:XR toe RT second SYMPTOM/DIAGNOSIS: SWELLING, PAIN, REDNESS RIGHT SECOND TOE; There are no prior comparison exams. There is soft tissue swelling of the distal aspect of the second toe. There is air within the soft tissue swelling. There is destruction of the tuft of the distal phalanx, consistent with osteomyelitis. There has been previous resection of the first metatarsal head. There is also callous formation around the mid second metatarsal and proximal phalanx of the third toe. IMPRESSION: The findings are consistent with osteomyelitis of the tuft of the distal phalanx of the second toe. Last Vital Signs Temp 37.2 C 06/17/18 13:12 Pulse 107 H 06/17/18 13:12 Resp 20 06/17/18 13:12 BP 142/97 H 06/17/18 13:12 Pulse Ox 100 06/17/18 13:12
--- NOTE | 2018-06-17 16:21 | HPE_ITS ---
Date of service: 06/17/18 Time of Service: 16:15 Assessment and Plan (1) Osteomyelitis: Current visit: Yes Status: Acute Evidence of Osteo of the right second toe, with signs of surrounding infection. Admit and initiate broad spectrum antibiotics in diabetic male with a non-healing foot ulcer, Osteo, and surrounding cellulitis. Please note history of MSSA and VRE - will need to rely on tissue culture post-op for final determination of antibiotic regimen. Will check blood cultures as well. (2) History of DVT (deep vein thrombosis): Current visit: Yes Status: Chronic Prior history of DVT in the right leg 07/2017, unknown circumstances surrounding this. Patient was anticoagulated until October, and upon stoppage developed recurrence of swelling in the RLE. He was restarted on blood thinners, and according to him a repeat ultrasound was not ordered. Currently with evidence of mild erythema overlying the right calf as well as some swelling in the effected limb - unsure if this is recurrence of DVT or if related to current infection. Discussed with Podiatry - plan is to check an ultrasound of the leg, hold anticoagulation until tomorrow morning, and reinitiate promptly after surgery pending results of the ultrasound. Monitor. (3) Hypertension: Current visit: Yes Status: Chronic Continue VADIM-I with hold parameters. Check renal function. (4) Dyslipidemia: Current visit: Yes Status: Chronic (5) Diabetes mellitus: Current visit: Yes Status: Chronic Check HgA1C, hold metformin, monitor blood sugars, and consider initiation of sliding scale if warranted. ADA diet, but with NPO > midnight. History of Present Illness Chief Complaint: Toe infection, osteomyelitis Narrative: Very pleasant 57-year-old man with past medical history significant for diabetes presents to [facility] as a direct admission from Dr. Aniceto Aleman of podiatry, for planned debridement and potential resection of a second digit, right foot osteomyelitis. is a with a 28-year former service in the [employer]. He has a history of diabetes, hypertension, and dyslipidemia. He was diagnosed with a DVT in his right leg in July of 2017, and restarted on anticoagulation 4 months after for presumed recurrence of a blood clot with discontinuation of blood thinners. Review of his prior culture data shows evidence of infections in the past with both MSSA and VRE. He also has a history of depression, hypogonadism, DJD, urinary incontinence, nephrolithiasis, and BPH. Prior history of GERD was treated with Kallie fundoplication per verbal history. Mr. Agosto has reportedly had an ulcer of his right second toe over the last 2-3 months. He initially was seen at the [facility] 4 days ago, and prescribed topical therapy and advised to go to the ED if his symptoms worsen. Yesterday he presented to [facility] emergency department with evidence of worsening symptoms, including what appeared to be potential surrounding cellulitis. At that time he underwent imaging that showed likely osteomyelitis of the distal phalanx of the second toe. He was prescribed Augmentin, and discharged with scheduled for today follow-up with podiatry. After his evaluation by Dr. Aleman from podiatry, direct admission to the hospital was recommended for a planned debridement and likely resection of the affected digit. He presents in stable condition and appearing nontoxic. He currently denies any fevers, chills, or systemic symptoms. 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) History of cellulitis (Chronic) Thermal injury (Acute) Cellulitis of right hand (Resolved 12/23/15) Anxiety and depression Diabetes mellitus type II, controlled Diabetic neuropathy Essential hypertension History of colon polyps History of gastroesophageal reflux (GERD) Hyperlipidemia Hypogonadism in male Urge incontinence Surgical History H/O hand surgery (Chronic) History of repair of hiatal hernia (Chronic) History of cholecystectomy (Chronic) History of lumbosacral spine surgery (Chronic) H/O cervical spine surgery (Chronic) History of Kallie fundoplication (Chronic) Cholecystectomy Colonoscopy - IV Sedation (10/28/16) EGD - IV Sedation Kallie Fundoplication Social History household members: spouse Smoking/Tobacco Use Status: Never additional social history: Patient is and has 2 grown daughters. Originally from [place], moved to [place] approximately a decade ago. 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 He also denies any illicit drug use. Meds Home Medications Medication Instructions Recorded Confirmed Type ascorbic acid (vitamin C) [Vitamin 500 mg PO QPM 05/11/14 06/17/18 History C] cholecalciferol (vitamin D3) 2,000 units PO QPM 05/11/14 06/17/18 History metformin [Glucophage] 1,000 mg PO BID 05/11/14 06/17/18 History multivitamin 1 ea PO DAILY 05/11/14 06/17/18 History testosterone cypionate 200 mg IM Q14D 05/11/14 06/17/18 History [Depo-Testosterone] metoprolol tartrate 50 mg PO HS 06/14/15 06/17/18 History gabapentin 1,200 mg PO TID 12/13/15 06/17/18 History atorvastatin [Lipitor] 40 mg PO HS 04/13/17 06/17/18 History oxybutynin chloride 15 mg PO DAILY 04/13/17 06/17/18 History folic acid 1.5 mg PO DAILY tab-cap 04/19/17 06/17/18 History lisinopril 5 mg PO DAILY 06/15/17 06/17/18 History acetaminophen [Mapap Extra 1,000 mg PO Q8H PRN PRN #100 tab 06/17/17 06/17/18 Rx Strength] ibuprofen 600 mg PO Q8H PRN PRN #30 tab 06/17/17 06/17/18 Rx Eliquis 5 mg PO BID 07/14/17 06/17/18 History Myrbetriq 50 mg PO DAILY #90 tab-cap 11/09/17 06/16/18 Rx bupropion HCl 450 mg PO DAILY 04/02/18 06/17/18 History Myrbetriq 50 mg PO DAILY 06/16/18 06/17/18 History amoxicillin-pot clavulanate 1 tab PO BID #19 tab 06/16/18 06/17/18 Rx [Augmentin] Allergies Allergy/AdvReac Type Severity Reaction Status Date / Time nitroglycerin Allergy Hives Unverified 06/16/18 12:15 pioglitazone HCl [From Actos] AdvReac Mild leg Unverified 06/16/18 12:15 swelling Exam Narrative Exam Narrative: General: Patient appears comfortable, AAOX3, NAD Neck: Supple CV: Regular, minimally tachycardic, S1S2, No rubs, murmurs, or gallops. Pulmonary: Clear to auscultation bilaterally, no crackles, wheezing, or rhonchi Abdomen: + Bowel Sounds, soft, nontender, nondistended Vascular: Mild RLE edema Skin: Mild area of erythema without warmth overlying right medial gordillo, at site of prior DVT. Musculoskeletal: Right food with bandage in place, c/d/i. Neurologic: CN II-XII grossly intact. No focal deficits. Psych: Normal mood and affect. Results Imaging Additional studies: Exam(s) a RAD:XR toe RT second SYMPTOM/DIAGNOSIS: SWELLING, PAIN, REDNESS RIGHT SECOND TOE; There are no prior comparison exams. There is soft tissue swelling of the distal aspect of the second toe. There is air within the soft tissue swelling. There is destruction of the tuft of the distal phalanx, consistent with osteomyelitis. There has been previous resection of the first metatarsal head. There is also callous formation around the mid second metatarsal and proximal phalanx of the third toe. IMPRESSION: The findings are consistent with osteomyelitis of the tuft of the distal phalanx of the second toe. Last Vital Signs Temp 37.2 C 06/17/18 13:12 Pulse 107 H 06/17/18 13:12 Resp 20 06/17/18 13:12 BP 142/97 H 06/17/18 13:12 Pulse Ox 100 06/17/18 13:12
[2018-06-17 16:47] VITALS: BP 108/68; PULSE 110; RESP 18; TEMP 37.2; O2SAT 96
--- NOTE | 2018-06-17 17:03 | DI.US_ITS ---
SYMPTOM/DIAGNOSIS: DVT RT LOWER EXTREMITY ULTRASOUND: Femoral and popliteal veins and visualized calf veins are freely compressible. No thrombus is visible. Doppler venous wave form augments normally. No Rodriguez's cyst or hematoma is seen. IMPRESSION: Negative right lower extremity ultrasound No evidence of DVT.
--- NOTE | 2018-06-17 17:43 | DI.VRAD_ITS ---
EXAM: US Duplex Right Lower Extremity Veins, Limited EXAM DATE/TIME: 06/17/2018 5:05 PM CLINICAL HISTORY: 57 years old, male; Condition or disease; Other: History of dvt, calf swelling TECHNIQUE: Real-time Duplex ultrasound of the Right Lower Extremity with 2-D herrera scale, color Doppler flow and spectral waveform analysis. Limited exam was focused on the right lower extremity veins. COMPARISON: No relevant prior studies available. FINDINGS: No evidence of deep venous thrombosis. No abnormal fluid collections. IMPRESSION: No evidence of deep venous thrombosis. Dictated and Authenticated by: Robson Arora MD. Ordering:JAIMEE Siddiqi MD
[2018-06-17 19:53] VITALS: BP 131/87; PULSE 101; RESP 19; TEMP 37.2; O2SAT 95
[2018-06-17] MEDS: Metoprolol 25 MG TAB 50 MG PO (20:30)
[2018-06-17] MEDS: PIPERACILLIN/TAZO 3.375 GM in Normal Saline 50 ML IVPB (20:44)
[2018-06-17] MEDS: Ascorbic Acid 500 MG TAB PO (20:58)
[2018-06-17] MEDS: Gabapentin 600 MG TAB 1200 MG PO (20:58)
[2018-06-17] MEDS: Acetaminophen 325 MG TAB PO (21:00)
[2018-06-17] MEDS: SODIUM CHLORIDE 0.45% 1,000 ML 75 ML IV (22:00)
[2018-06-17] MEDS: Atorvastatin 40 MG TAB PO (22:21)
[2018-06-18 00:17] VITALS: BP 118/80; PULSE 65; RESP 17; TEMP 36.6; O2SAT 97
[2018-06-18] MEDS: PIPERACILLIN/TAZO 3.375 GM in Normal Saline 50 ML IVPB ×4 (00:58→17:23)
[2018-06-18] MEDS: Acetaminophen 325 MG TAB PO ×4 (02:39→20:09)
[2018-06-18 07:30] LABS: Abs Immature Grans 0.12 k/cumm (0.0-0.09); Absolute Basophil Count 0.04 k/cumm (0.0-0.2); Absolute Eosinophil Count 0.31 k/cumm (0.0-0.7); Absolute Lymphocyte Count 0.93 k/cumm (1.2-3.4); Absolute Monocyte Count 0.64 k/cumm (0.11-0.7); Absolute Neutrophil Count 5.12 k/cumm (1.2-6.7); Basophils % 0.6; Eosinophils % 4.3; HCT 43.4 % (40.0-50.0); Immature Grans % 1.7; Mean Corpuscular Hemoglobin 28.9 pg (27.0-33.0); Mean Corpuscular Volume 96.4 fL (80-95); Mean Platelet Volume 10.7 fL (8.0-11.0); Monocytes % 8.9; Neutrophils % 71.5; Platelet Count 235 x1000/uL (130-400); RBC Distribution Width 17.4 % (11.8-14.1); White Blood Cell Count 7.16 k/cumm (4.4-10.8)
[2018-06-18 07:36] VITALS: BP 134/91; PULSE 58; RESP 18; TEMP 36.7; O2SAT 94
[2018-06-18 07:52] LABS: Anion Gap 8.6 mmol/L (3-11); BUN 17 mg/dL (7-18); CO2 28.4 mmol/L (21.0-32.0); Calcium 9.2 mg/dL (8.5-10.1); Chloride 104 mmol/L (98-107); Glucose 160 mg/dL (70-100); Potassium 4.1 mmol/L (3.5-5.1); Sodium 141 mmol/L (136-145)
--- NOTE | 2018-06-18 08:24 | W.PODCONSULT ---
Date of service: 06/18/18 Time of Service: 08:25 History of Present Illness Chief Complaint: Ulceration right second toe with osteomyelitis Narrative: Benigno is a 57-year-old white male who I had seen in July 2017 for hammertoe deformity with pre-ulcerative callusing at the distal tip of the digit. Palliative treatments were initiated and a recommendation for surgical repair of the hammertoe was recommended. He failed to keep any of his follow-up appointments and subsequently resurfaced in the emergency department and 2 days ago with cellulitis ulceration with clinical and radiologic signs of osteomyelitis affecting the right second toe. He was admitted to the hospital yesterday from my office and is being prepared for debridement of his right foot?amputation of the right second toe. 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) History of cellulitis (Chronic) Thermal injury (Acute) Cellulitis of right hand (Resolved 12/23/15) Anxiety and depression Diabetes mellitus type II, controlled Diabetic neuropathy Essential hypertension History of colon polyps History of gastroesophageal reflux (GERD) Hyperlipidemia Hypogonadism in male Urge incontinence Surgical History H/O hand surgery (Chronic) History of repair of hiatal hernia (Chronic) History of cholecystectomy (Chronic) History of lumbosacral spine surgery (Chronic) H/O cervical spine surgery (Chronic) History of Kallie fundoplication (Chronic) Cholecystectomy Colonoscopy - IV Sedation (10/28/16) EGD - IV Sedation Kallie Fundoplication Social History household members: spouse Smoking/Tobacco Use Status: Never additional social history: Patient is and has 2 grown daughters. Originally from [place], moved to [place] approximately a decade ago. 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 He also denies any illicit drug use. Exam Narrative Exam Narrative: Benigno is a pleasant white male looking older than his stated age in no acute distress. Vitals BP is 134/91, pulse 58, respiration 18, temp 36.7, O2 sat at room air is 94% Morning labs show WBCs normal at 7.16 RBCs 4.5 hemoglobin 13 MCV 96.4 glucose 160 Peripheral pulses are palpable at the ankle. Open wound is noted at the distal tip of the right second toe with bone exposed. Necrosis of the distal and plantar aspect of the digit is occurring. The erythema and cellulitis that was originally marked off in the emergency department approximately 2 days ago has markedly receded secondary to bedrest elevation and IV antibiotics. Muscle groups are 5 out of 5 bilaterally although he does ambulate with the use of a cane. Skeletal examination reveals a rigidly contracted right second hammertoe deformity. The distal tip of the toe is degloved with the distal phalanx exposed. There is no necrosis appreciated affecting the tip and plantar aspect of the skin. Erythema is noted extending to the MPJ level. This has cooled down significantly since yesterday's exam. Neurologically he displays peripheral neuropathy likely secondary to his diabetes History of DVT in his right lower extremity is appreciated and has been discussed with Dr. Hamilton. Chart review previous cultures reveals methicillin sensitive staph aureus and VRE. His current antibiotics will continue pending results of bone cultures which we will obtain today. Patient understands potential risks and complications of surgery pertaining the pain, scarring, persistent infection requiring revision and multiple debridements as well as more proximal loss of tissue. He understands that today's debridement will most likely result in the loss of the second toe. The permanency of the procedure is understood. All questions have been answered in detail. Informed consent is obtained. Results Last Vital Signs Temp 36.7 C 06/18/18 07:36 Pulse 58 L 06/18/18 07:36 Resp 18 06/18/18 07:36 BP 134/91 H 06/18/18 07:36 Pulse Ox 94 L 06/18/18 07:36 Labs : 06/18/18 06:45 06/18/18 06:45 Laboratory Results - last 24 hr 06/18/18 06/18/18 06:45 06:45 WBC 7.16 RBC 4.50 Hgb 13.0 L Hct 43.4 MCV 96.4 H MCH 28.9 MCHC 30.0 L RDW 17.4 H Plt Count 235 MPV 10.7 Immature Gran % 1.7 Neutrophils % 71.5 Lymphocytes % 13.0 Monocytes % 8.9 Eosinophils % 4.3 Basophils % 0.6 Absolute Neutrophils 5.12 Absolute Lymphocytes 0.93 L Absolute Monocytes 0.64 Absolute Eosinophils 0.31 Absolute Basophils 0.04 Sodium 141 Potassium 4.1 Chloride 104 Carbon Dioxide 28.4 Anion Gap 8.6 BUN 17 Creatinine 0.80 Estimated GFR/1.73 m2 >= 60.00 Glucose 160 H Calcium 9.2 Magnesium 2.0
[2018-06-18] MEDS: Lisinopril 5 MG TAB PO (08:47)
[2018-06-18] MEDS: Normal Saline Flush 10 ML SYR (08:47)
[2018-06-18] MEDS: Metoprolol CR 50 MG TABCR PO (08:47)
[2018-06-18] MEDS: Pantoprazole 40 MG VIAL IVP (08:47)
[2018-06-18] MEDS: Lactated Ringers 1,000 ML 75 ML IV (09:10)
[2018-06-18] MEDS: Lidocaine 1% Pres-Free 5 ML VIAL (09:20)
[2018-06-18] MEDS: Bupivacaine 0.5% Pres-Free 30 ML VIAL (09:20)
--- NOTE | 2018-06-18 09:43 | AMP_PTH ---
PATIENT: BRANDIN SANTIAGO LOC: U#:[id number] AGE/SX: 57/M ROOM: 215 RE06/17/[address]: Devang Lazo : 1960 BED: A DIS: 06/21/2018 SPEC #: [id number] RECD: 06/20/18 12:50 STATUS: WINTER FREEMAN #: [id number] KRISTOFER: 06/18/18 09:[address]: Devang Lazo DEPT: Surgical Specimen RECD BY: Sobeida Chisholm ENTERED: 06/20/18 12:51 SP TYPE: Amputation OTHR DR: Garcia Fonseca Craig S Tissues: 1 - AMPUTATION FINGERS/TOES(NOT TRAUMA) Procedures: GROSS AND MICRO LEVEL 4 DECALCIFICATION Comments: [id number]
[2018-06-18 10:10] VITALS: BP 117/79; PULSE 76; RESP 17; TEMP 36.5; O2SAT 92
--- NOTE | 2018-06-18 10:41 | PDOC.CMIN ---
- If Service Date Differs Date of service: 06/18/18 Time of Service: 10:41 Care Management Initial Assess REASON FOR HOSPITALIZATION:: Osteomyelitis (R) Foot PAST MEDICAL HISTORY/PAST SURGICAL HISTORY:: Recurrent UTI (urinary tract infection) (Chronic). BPH (benign prostatic hyperplasia) (Chronic). Nephrolithiasis (Chronic). History of DVT (deep vein thrombosis) (Chronic). GERD (gastroesophageal reflux disease) (Chronic). Urinary incontinence (Chronic). DJD (degenerative joint disease) (Chronic). Hypogonadism (Chronic). Dyslipidemia (Chronic). Hypertension (Chronic). Depression (Chronic). Diabetes mellitus (Chronic). 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 History of cellulitis (Chronic). Thermal injury (Acute). Cellulitis of right hand (Resolved 12/23/15). Anxiety and depression. Diabetes mellitus type II, controlled. Diabetic neuropathy. Essential hypertension. History of colon polyps. History of gastroesophageal reflux (GERD). Hyperlipidemia. Hypogonadism in male. Urge incontinence. H/O hand surgery (Chronic). History of repair of hiatal hernia (Chronic). History of cholecystectomy (Chronic). History of lumbosacral spine surgery (Chronic). H/O cervical spine surgery (Chronic). History of Kallie fundoplication (Chronic). Cholecystectomy. Colonoscopy - IV Sedation (10/28/16). EGD - IV Sedation. Kallie Fundoplication PREVIOUS FUNCTIONAL STATUS/SOCIAL/FAMILY SUPPORTS:: Benigno resides with his Oma in [place]. He has a daughter Anabel in [place], and another daughter Na whom resides in their home. Benigno has recently been cleared to drive. CURRENT FUNCTIONAL STATUS:: Benigno is lying in bed when this freelance writer visits. He is pleasant and receptive to discussion. Benigno's Oma is in the room with him, both are pleasant and receptive to discussion. ADVANCE DIRECTIVES:: ON file - Oma Agosto is agent. Anabel Jaime alternate agent. Has patient been provided with information about the portal?: Yes Did the patient sign up for the portal?: No (Already signed up) CODE STATUS:: Full Code INSURANCE COVERAGE / FINANCIAL ISSUES:: [facility], [facility], [facility] CURRENT HOME/COMMUNITY SERVICES/EQUIPMENT:: Cane, Walker, Glucometer. Benigno is receiving home health RN services through the [place]. He states that he was receiving PT/OT, however this has been discontinued. PRIMARY CARE PHYSICIAN:: Dr. Fonseca POTENTIAL DISCHARGE NEEDS:: F/U appointment with Dr. Aleman. [facility] - RN/PT/OT. PATIENT/FAMILY EDUCATION NEEDS:: Review DC instructions, any limitations, and ongoing DC planning discussion. Discuss 'Ask Me Three' ANTICIPATED BARRIERS TO DISCHARGE:: None identified at this time. TRANSPORTATION:: Via private vehicle with family PLAN:: Benigno will return home with an increase in his home health services. He currently receives RN services, and will need PT/OT at time of DC. Benigno will F/U with Dr. Aleman and plan of care as prescribed. His family will transport him when ready.
--- NOTE | 2018-06-18 11:04 | INITIAL_ITS ---
- If Service Date Differs Date of service: 06/18/18 Time of Service: 10:41 Care Management Initial Assess REASON FOR HOSPITALIZATION:: Osteomyelitis (R) Foot PAST MEDICAL HISTORY/PAST SURGICAL HISTORY:: Recurrent UTI (urinary tract infection) (Chronic). BPH (benign prostatic hyperplasia) (Chronic). Nephrolithiasis (Chronic). History of DVT (deep vein thrombosis) (Chronic). GERD (gastroesophageal reflux disease) (Chronic). Urinary incontinence (Chron ic). DJD (degenerative joint disease) (Chronic). Hypogonadism (Chronic). Dyslipidemia (Chronic). Hypertension (Chronic). Depression (Chronic). Diabetes mellitus (Chronic). 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 History of cellulitis (Chronic). Thermal injury (Acute). Cellulitis of right hand (Resolved 12/23/15). Anxiety and depression. Diabetes mellitus type II, controlled. Diabetic neuropathy. Essential hypertension. History of colon polyps. History of gastroesophageal reflux (GERD). Hyperlipidemia. Hypogonadism in male. Urge incontinence. H/O hand surgery (Chronic). History of repair of hiatal hernia (Chronic). History of cholecystectomy (Chronic). History of lumbosacral spine surgery (Chronic). H/O cervical spine surgery (Chronic). History of Kallie fundoplication (Chronic). Cholecystectomy. Colonoscopy - IV Sedation (10/28/16). EGD - IV Sedation. Kallie Fundoplication PREVIOUS FUNCTIONAL STATUS/SOCIAL/FAMILY SUPPORTS:: Benigno resides with his Oma in [place]. He has a daughter Anabel in [place], and another daughter Na whom resides in their home. Benigno has recently been cleared to drive. CURRENT FUNCTIONAL STATUS:: Benigno is lying in bed when this sign writer letterer or painter visits. He is pleasant and receptive to discussion. Benigno's Oma is in the room with him, both are pleasant and receptive to discussion. ADVANCE DIRECTIVES:: ON file - Oma Agosto is agent. Anabel Jaime alternate agent. Has patient been provided with information about the portal?: Yes Did the patient sign up for the portal?: No (Already signed up) CODE STATUS:: Full Code INSURANCE COVERAGE / FINANCIAL ISSUES:: [facility], [facility], [facility] CURRENT HOME/COMMUNITY SERVICES/EQUIPMENT:: Cane, Walker, Glucometer. Benigno is receiving home health RN services through the [place]. He states that he was receiving PT/OT, however this has been discontinued. PRIMARY CARE PHYSICIAN:: Dr. Fonseca POTENTIAL DISCHARGE NEEDS:: F/U appointment with Dr. Aleman. [facility] - RN/PT/OT. PATIENT/FAMILY EDUCATION NEEDS:: Review DC instructions, any limitations, and ongoing DC planning discussion. Discuss 'Ask Me Three' ANTICIPATED BARRIERS TO DISCHARGE:: None identified at this time. TRANSPORTATION:: Via private vehicle with family PLAN:: Benigno will return home with an increase in his home health services. He currently receives RN services, and will need PT/OT at time of DC. Benigno will F/U with Dr. Aleman and plan of care as prescribed. His family will transport him when ready.
[2018-06-18 11:15] VITALS: BP 147/85; PULSE 64; RESP 18; TEMP 36.2; O2SAT 98
[2018-06-18] MEDS: Gabapentin 600 MG TAB 1200 MG PO ×2 (13:15→20:09)
[2018-06-18 15:58] VITALS: BP 135/87; PULSE 82; RESP 20; TEMP 36.5; O2SAT 95
--- NOTE | 2018-06-18 17:01 | W.PM.PROGNOT ---
Date of Service Date of service: 06/18/18 Time of Service: 17:01 Assessment and Plan (1) Osteomyelitis: Current visit: Yes Status: Acute Of the 2nd digit RLE, s/p I&D today, doing better. Continue empiric vancomycin/zosyn (h/o MSSA and VRE ), f/u cultures, CRP (2) History of DVT (deep vein thrombosis): Current visit: Yes Status: Chronic Venous doppler done this morning is negative for DVT. Per podiatry, safe to resume anticoagulation today. Would continue until follow up with hematology as outpatient. (3) Hypertension: Current visit: Yes Status: Chronic Continue VADIM-I with hold parameters. (4) Dyslipidemia: Current visit: Yes Status: Chronic No change in tx (5) Diabetes mellitus: Current visit: Yes Status: Chronic So far not requiring insulin - will continue to monitor Subjective Interval history since last seen: S/p I&D of his R 2nd toe today - uncomplicated. Postoperatively, he has no pain. Denies dizziness, chest pain, shortness of breath, nausea, vomiting. US RLE venous was negative for a DVT. Exam Narrative Exam Narrative: General: very pleasant male, sitting up in bed HEENT: EOMI, MMM Heart: RRR, no m/r/g Lungs: CTAB GI: abdomen is soft, nontender, nondistended Extremities: R foot dressed - c/d/i Objective Objective Clinical Data: Abnormal lab results 06/18/18 06/18/18 Range/Units 06:45 06:45 Hgb 13.0 L (13.5-17.5) g/dL MCV 96.4 H (80-95) fL MCHC 30.0 L (32.0-36.0) g/dL RDW 17.4 H (11.8-14.1) % Absolute Lymphocytes 0.93 L (1.2-3.4) k/cumm Glucose 160 H (70-100) mg/dL Vital Signs Temperature 36.5 C 06/18/18 15:58 Temperature Source Tympanic 06/18/18 15:58 Pulse 82 06/18/18 15:58 Pulse Rhythm Regular 06/18/18 08:40 Respiratory Rate 20 06/18/18 15:58 Respiratory Effort Non-Labored 06/18/18 08:40 Respiratory Depth Normal 06/18/18 08:40 Respiratory Pattern Normal 06/18/18 08:40 Blood Pressure 135/87 06/18/18 15:58 Pulse Oximetry 95 06/18/18 15:58 Oxygen Delivery Method Room Air 06/18/18 15:58 Oxygen Flow Rate 0 06/18/18 15:58 Pain Level 0 06/17/18 13:12 Intake & Output 06/17/18 06/18/18 06/18/18 23:59 11:59 23:59 Intake Total 850 / 850 1763.75 / 2053.75 290 / 2053.75 Output Total 900 / 900 480 / 1480 1000 / 1480 Balance -50 / -50 1283.75 / 573.75 -710 / 573.75 Weight 63.8 kg Intake: IV 250 / 250 1763.75 / 1813.75 50 / 1813.75 Oral 600 / 600 240 / 240 Output: Urine 900 / 900 480 / 1480 1000 / 1480 Other: Urine Color Yellow Yellow Yellow Urine Appearance Clear Clear Clear Urine Odor Normal Normal Comment Pt voiding in urinal, can be incontinent at times. Stool Size Moderate Stool Characteristics Soft Formed Brown Voiding Methods Urinal Urinal Urinal Laboratory Results WBC 7.16 k/cumm (4.4-10.8) 06/18/18 06:45 RBC 4.50 m/cumm (4.50-6.00) 06/18/18 06:45 Hgb 13.0 g/dL (13.5-17.5) L 06/18/18 06:45 Hct 43.4 % (40.0-50.0) 06/18/18 06:45 MCV 96.4 fL (80-95) H 06/18/18 06:45 MCH 28.9 pg (27.0-33.0) 06/18/18 06:45 MCHC 30.0 g/dL (32.0-36.0) L 06/18/18 06:45 RDW 17.4 % (11.8-14.1) H 06/18/18 06:45 Plt Count 235 x1000/uL (130-400) 06/18/18 06:45 MPV 10.7 fL (8.0-11.0) 06/18/18 06:45 Immature Gran % 1.7 06/18/18 06:45 Neutrophils % 71.5 06/18/18 06:45 Lymphocytes % 13.0 06/18/18 06:45 Monocytes % 8.9 06/18/18 06:45 Eosinophils % 4.3 06/18/18 06:45 Basophils % 0.6 06/18/18 06:45 Absolute Neutrophils 5.12 k/cumm (1.2-6.7) 06/18/18 06:45 Absolute Lymphocytes 0.93 k/cumm (1.2-3.4) L 06/18/18 06:45 Absolute Monocytes 0.64 k/cumm (0.11-0.7) 06/18/18 06:45 Absolute Eosinophils 0.31 k/cumm (0.0-0.7) 06/18/18 06:45 Absolute Basophils 0.04 k/cumm (0.0-0.2) 06/18/18 06:45 Sodium 141 mmol/L (136-145) 06/18/18 06:45 Potassium 4.1 mmol/L (3.5-5.1) 06/18/18 06:45 Chloride 104 mmol/L (98-107) 06/18/18 06:45 Carbon Dioxide 28.4 mmol/L (21.0-32.0) 06/18/18 06:45 Anion Gap 8.6 mmol/L (3-11) 06/18/18 06:45 BUN 17 mg/dL (7-18) 06/18/18 06:45 Creatinine 0.80 mg/dL (0.70-1.30) 06/18/18 06:45 Estimated GFR/1.73 m2 >= 60.00 (mL/min/1.73m2) 06/18/18 06:45 Glucose 160 mg/dL (70-100) H 06/18/18 06:45 Calcium 9.2 mg/dL (8.5-10.1) 06/18/18 06:45 Magnesium 2.0 mg/dL (1.8-2.4) 06/18/18 06:45
[2018-06-18] MEDS: SODIUM CHLORIDE 0.45% 1,000 ML 75 ML IV (17:22)
[2018-06-18] MEDS: Apixaban 5 MG TAB PO (20:05)
[2018-06-18] MEDS: Ascorbic Acid 500 MG TAB PO (20:09)
[2018-06-18] MEDS: Atorvastatin 40 MG TAB PO (21:59)
[2018-06-18 23:31] VITALS: BP 122/85; PULSE 67; RESP 18; TEMP 36; O2SAT 94
[2018-06-19] MEDS: PIPERACILLIN/TAZO 3.375 GM in Normal Saline 50 ML IVPB ×5 (00:23→23:44)
[2018-06-19] MEDS: Acetaminophen 325 MG TAB PO ×3 (02:45→21:31)
[2018-06-19 07:14] LABS: Abs Immature Grans 0.14 k/cumm (0.0-0.09); Absolute Basophil Count 0.03 k/cumm (0.0-0.2); Absolute Eosinophil Count 0.08 k/cumm (0.0-0.7); Absolute Lymphocyte Count 0.81 k/cumm (1.2-3.4); Absolute Monocyte Count 0.63 k/cumm (0.11-0.7); Absolute Neutrophil Count 4.38 k/cumm (1.2-6.7); Basophils % 0.5; Eosinophils % 1.3; HCT 43.7 % (40.0-50.0); HGB 13.1 g/dL (13.5-17.5); Immature Grans % 2.3; Lymphocytes % 13.3; Mean Corpuscular Hemoglobin 28.9 pg (27.0-33.0); Mean Corpuscular Volume 96.5 fL (80-95); Mean Platelet Volume 10.6 fL (8.0-11.0); Monocytes % 10.4; Neutrophils % 72.2; Platelet Count 248 x1000/uL (130-400); RBC 4.53 m/cumm (4.50-6.00); RBC Distribution Width 17.4 % (11.8-14.1); White Blood Cell Count 6.07 k/cumm (4.4-10.8)
[2018-06-19 07:30] VITALS: BP 136/92; PULSE 64; RESP 18; TEMP 36; O2SAT 96
[2018-06-19 07:32] LABS: Anion Gap 4.2 mmol/L (3-11); BUN 18 mg/dL (7-18); C-Reactive Protein 0.86 mg/dL (0.0-0.3); CO2 31.8 mmol/L (21.0-32.0); CREATININE 0.85 mg/dL (0.70-1.30); Calcium 9.1 mg/dL (8.5-10.1); Chloride 105 mmol/L (98-107); Glucose 193 mg/dL (70-100); Magnesium 2.1 mg/dL (1.8-2.4); Sodium 141 mmol/L (136-145)
[2018-06-19 08:04] LABS: Diff Comment Agrees w/ Instrument
[2018-06-19 08:06] LABS: Poikilocytes 1+
[2018-06-19] MEDS: Mirabegron 50 MG TABCR PO (09:01)
[2018-06-19] MEDS: buPROPion-XL 150 MG TABCR 450 MG PO (09:01)
[2018-06-19] MEDS: Lisinopril 5 MG TAB PO (09:01)
[2018-06-19] MEDS: Folic Acid 1 MG TAB 1.5 MG PO (09:01)
[2018-06-19] MEDS: Multivitamin TAB 1 TAB PO (09:01)
[2018-06-19] MEDS: Apixaban 5 MG TAB PO ×2 (09:01→19:26)
[2018-06-19] MEDS: Oxybutynin-CR 5 MG TABCR 15 MG PO (09:01)
[2018-06-19] MEDS: Pantoprazole 40 MG VIAL IVP (09:02)
[2018-06-19] MEDS: Normal Saline Flush 10 ML SYR ×2 (09:02→11:54)
[2018-06-19] MEDS: Gabapentin 600 MG TAB 1200 MG PO ×3 (09:02→19:25)
[2018-06-19] MEDS: Metoprolol CR 50 MG TABCR PO (09:02)
--- NOTE | 2018-06-19 09:28 | PHARADMIT ---
Admission Pharmacy Clinical Review OSTEOMYE;ITIS RIGHT FOOT Code Status Full Code Current Weight Wgt- 63.8 kg Renally Cleared and Narrow Therapeutic Index Meds CrCl~ 85 mL/min Meds-OK QTc Value / Action Taken none BP Control, Fever BP- 122/85 Tmax- 37.2C Electrolytes reviewed Na- 141 K+4.0 Mag-2.1 DVT Prophylaxis Apixaban Opiate Usage / Scheduled Bowel Regimen Ordered No Yes Plt/SCr for Heparin / Enoxaparin Plts-248 SCr-0.85 INR for Warfarin H/H stable, WBC/Bands H&H- 13.1/43.7 WBC- 6.07 Antibiotic appropriateness Zosyn, Vancomycin Cultures and Sensitivities Foot,Blood, Toe-Pending Surgical ABX d/c within 24 hr NA DM control / Insulin Dosing BG- 193 Heart Failure (Check EF%) (VADIM's, B-Block, Diuretics) Lisinopril, Toprol-XL IV to PO Switch No Home Meds Reviewed Yes Home Meds Not Ordered AUGMENTIN, IBUPROFEN, METFORMIN, Depo-Testosterone Comments
--- NOTE | 2018-06-19 11:17 | W.PM.PROGNOT ---
Date of Service Date of service: 06/19/18 Time of Service: 11:17 Subjective Patient reports: no new complaints Interval history since last seen: Wolf is seen at bedside. Right lower extremity is elevated. He has no complaints of pain in his right foot at all. Exam Narrative Exam Narrative: Subjective: Postop day #1. Benigno is seen in his room, he is lying in bed comfortably. Right lower extremity is elevated on 2 pillows. A surgical shoe is on the foot. He has no complaints of pain or discomfort in his right foot or lower extremities. Objective: Vitals BP is 136/92 pulse 64 respiration 18 temp 36 O2 sat at room air is 96%. Morning labs WBCs remained normal at 6.07, hemoglobin 13.1 MCV 96.5 glucose 193 CRP 0.86. The dressings were clean dry and intact. The dressings are removed and the incision looks good. The skin margins are pink, no cellulitis is appreciated and the erythema is minimal. Microbiology Gram stain shows WBCs no organisms; ultrasound right lower extremity negative for DVT Assessment: Postop day #1 uncomplicated status post debridement?amputation right second toe Plan: Betadine was applied to the incision followed by Xeroform gauze fluff compression dressings. Dressings should be left intact unless they become soiled. He may ambulate ad denise. in a surgical shoe but I would like to keep the activity down to a minimum to promote healing of the incision. He indicates he is scheduled to be seen at podiatry at the [place] on as well as 2 other medical appointments and they can certainly reassess the wound at that time. I am happy to see him back in the office sometime in the next 2 weeks. I would recommend 2 weeks of oral antibiotics at discharge. Decision for antibiotic coverage will need to wait until microbiology results, hopefully tomorrow. I did discuss the case with Dr. Chiang. Objective Objective Clinical Data: Abnormal lab results 06/19/18 06/19/18 Range/Units 06:40 06:40 Hgb 13.1 L (13.5-17.5) g/dL MCV 96.5 H (80-95) fL MCHC 30.0 L (32.0-36.0) g/dL RDW 17.4 H (11.8-14.1) % Absolute Lymphocytes 0.81 L (1.2-3.4) k/cumm Glucose 193 H (70-100) mg/dL C-Reactive Protein 0.86 H (0.0-0.3) mg/dL Vital Signs Temperature 36 C L 06/19/18 07:30 Temperature Source Tympanic 06/19/18 07:30 Pulse 64 06/19/18 07:30 Pulse Rhythm Regular 06/19/18 03:36 Respiratory Rate 18 06/19/18 07:30 Respiratory Effort Non-Labored 06/19/18 03:36 Respiratory Depth Normal 06/19/18 03:36 Respiratory Pattern Normal 06/19/18 03:36 Blood Pressure 136/92 H 06/19/18 07:30 Pulse Oximetry 96 06/19/18 07:30 Oxygen Delivery Method Room Air 06/19/18 07:30 Oxygen Flow Rate 0 06/19/18 07:30 Pain Level 4 06/19/18 07:30 Intake & Output 06/18/18 06/19/18 06/19/18 18:59 06:59 18:59 Intake Total 2265.00 / 2565.00 300 / 2565.00 Output Total 1880 / 3180 1300 / 3180 550 / 550 Balance 385.00 / -615.00 -1000 / -615.00 -550 / -550 Intake: IV 2025.00 / 2325.00 300 / 2325.00 Oral 240 / 240 Output: Urine 1880 / 3180 1300 / 3180 550 / 550 Other: Urine Color Yellow Yellow Pale Yellow Urine Appearance Clear Clear Clear Urine Odor Normal Normal None Comment Pt voiding in urinal, can be incontinent at times. Void x1 in the toilet. Stool Size Moderate Moderate Moderate Stool Characteristics Soft Soft Soft Liquid Formed Liquid Brown Brown Brown Voiding Methods Toilet Urinal Toilet Urinal Laboratory Results WBC 6.07 k/cumm (4.4-10.8) 06/19/18 06:40 RBC 4.53 m/cumm (4.50-6.00) 06/19/18 06:40 Hgb 13.1 g/dL (13.5-17.5) L 06/19/18 06:40 Hct 43.7 % (40.0-50.0) 06/19/18 06:40 MCV 96.5 fL (80-95) H 06/19/18 06:40 MCH 28.9 pg (27.0-33.0) 06/19/18 06:40 MCHC 30.0 g/dL (32.0-36.0) L 06/19/18 06:40 RDW 17.4 % (11.8-14.1) H 06/19/18 06:40 Plt Count 248 x1000/uL (130-400) 06/19/18 06:40 MPV 10.6 fL (8.0-11.0) 06/19/18 06:40 Immature Gran % 2.3 06/19/18 06:40 Neutrophils % 72.2 06/19/18 06:40 Lymphocytes % 13.3 06/19/18 06:40 Monocytes % 10.4 06/19/18 06:40 Eosinophils % 1.3 06/19/18 06:40 Basophils % 0.5 06/19/18 06:40 Absolute Neutrophils 4.38 k/cumm (1.2-6.7) 06/19/18 06:40 Absolute Lymphocytes 0.81 k/cumm (1.2-3.4) L 06/19/18 06:40 Absolute Monocytes 0.63 k/cumm (0.11-0.7) 06/19/18 06:40 Absolute Eosinophils 0.08 k/cumm (0.0-0.7) 06/19/18 06:40 Absolute Basophils 0.03 k/cumm (0.0-0.2) 06/19/18 06:40 Differential Comment Agrees w/ instrument 06/19/18 06:40 RBC Morphology See below 06/19/18 06:40 Poikilocytosis 1+ 06/19/18 06:40 Sodium 141 mmol/L (136-145) 06/19/18 06:40 Potassium 4.0 mmol/L (3.5-5.1) 06/19/18 06:40 Chloride 105 mmol/L (98-107) 06/19/18 06:40 Carbon Dioxide 31.8 mmol/L (21.0-32.0) 06/19/18 06:40 Anion Gap 4.2 mmol/L (3-11) 06/19/18 06:40 BUN 18 mg/dL (7-18) 06/19/18 06:40 Creatinine 0.85 mg/dL (0.70-1.30) 06/19/18 06:40 Estimated GFR/1.73 m2 >= 60.00 (mL/min/1.73m2) 06/19/18 06:40 Glucose 193 mg/dL (70-100) H 06/19/18 06:40 Calcium 9.1 mg/dL (8.5-10.1) 06/19/18 06:40 Magnesium 2.1 mg/dL (1.8-2.4) 06/19/18 06:40 C-Reactive Protein 0.86 mg/dL (0.0-0.3) H 06/19/18 06:40
--- NOTE | 2018-06-19 13:15 | PDOC.CMPRO ---
- If Service Date Differs Date of service: 06/19/18 Time of Service: 13:15 Care Management Progress Note S/O: Benigno is in the restroom today when this commercial underwriter visits. Per morning meeting ? length of need of antibiotics as well as whether antibiotics will be PO or IV. Awaiting cultures at this time to determine the above. A: 57 y/o male admitted 06/17/18 for osteomyelitis of (R) foot P: Benigno will return home with home health RN/PT/[facility] Benigno will F/U with Dr. Aleman and plan of care as prescribed. Benigno's Oma to transport when ready.
--- NOTE | 2018-06-19 13:26 | CMPROGNOTE_ITS ---
- If Service Date Differs Date of service: 06/19/18 Time of Service: 13:15 Care Management Progress Note S/O: Benigno is in the restroom today when this fiction and nonfiction prose writer visits. Per morning meeting ? length of need of antibiotics as well as whether antibiotics will be PO or IV. Awaiting cultures at this time to determine the above. A: 57 y/o male admitted 06/17/18 for osteomyelitis of (R) foot P: Benigno will return home with home health RN/PT/OT [facility]. Benigno will F/U with Dr. Aleman and plan of care as prescribed. Benigno's Oma to transport when ready.
[2018-06-19 15:36] VITALS: BP 118/77; PULSE 87; RESP 20; TEMP 36.4; O2SAT 96
--- NOTE | 2018-06-19 17:25 | W.PM.PROGNOT ---
Date of Service Date of service: 06/19/18 Time of Service: 17:25 Assessment and Plan (1) Osteomyelitis: Current visit: Yes Status: Acute Of the 2nd digit RLE, s/p I&D 06/18/18, Clinically doing well Continue empiric vancomycin/zosyn until sensitivites are known. Growing Staph aureus (?MRSA) and strep spp. (2) History of DVT (deep vein thrombosis): Current visit: Yes Status: Chronic RLE venous doppler negative. Continue anticoagulation until follow up with hematology as outpatient. (3) Hypertension: Current visit: Yes Status: Chronic Continue VADIM-I with hold parameters. (4) Dyslipidemia: Current visit: Yes Status: Chronic No change in tx (5) Diabetes mellitus: Current visit: Yes Status: Chronic So far not requiring insulin - will continue to monitor (6) DVT prophylaxis: Current visit: Yes Status: Acute therapeutic eliquis (7) Discharge planning issues: Current visit: Yes Status: Acute Depending on cultures/sensitivities, the need for IV abx may need to be discussed. To get a total of 2 weeks of antibiotics. Subjective Interval history since last seen: Mr Agosto denies any pain in his foot. He was evaluated today and his dressing was changed by Dr Aleman. He denies dizziness, chest pain, shortness of breath, nausea, vomiting. Exam Narrative Exam Narrative: General: very pleasant male, sitting up in bed HEENT: EOMI, MMM Heart: RRR, no m/r/g Lungs: CTAB GI: abdomen is soft, nontender, nondistended Extremities: R foot dressed - c/d/i Objective Objective Clinical Data: Abnormal lab results 06/19/18 06/19/18 Range/Units 06:40 06:40 Hgb 13.1 L (13.5-17.5) g/dL MCV 96.5 H (80-95) fL MCHC 30.0 L (32.0-36.0) g/dL RDW 17.4 H (11.8-14.1) % Absolute Lymphocytes 0.81 L (1.2-3.4) k/cumm Glucose 193 H (70-100) mg/dL C-Reactive Protein 0.86 H (0.0-0.3) mg/dL Vital Signs Temperature 36.4 C L 06/19/18 15:36 Temperature Source Tympanic 02/03/19 15:36 Pulse 87 06/19/18 15:36 Pulse Rhythm Regular 06/19/18 09:00 Respiratory Rate 20 06/19/18 15:36 Respiratory Effort Non-Labored 06/19/18 09:00 Respiratory Depth Normal 06/19/18 09:00 Respiratory Pattern Normal 06/19/18 09:00 Blood Pressure 118/77 06/19/18 15:36 Pulse Oximetry 96 06/19/18 15:36 Oxygen Delivery Method Room Air 06/19/18 15:36 Oxygen Flow Rate 0 06/19/18 15:36 Pain Level 4 06/19/18 07:30 Intake & Output 06/18/18 06/19/18 06/19/18 23:59 11:59 23:59 Intake Total 601.25 / 2365.00 690 / 1190 500 / 1190 Output Total 2200 / 2680 1350 / 1550 200 / 1550 Balance -1598.75 / -315.00 -660 / -360 300 / -360 Intake: IV 361.25 / 2125.00 330 / 590 260 / 590 Oral 240 / 240 360 / 600 240 / 600 Output: Urine 2200 / 2680 1350 / 1550 200 / 1550 Other: Urine Color Pale Yellow Yellow Yellow Urine Appearance Clear Clear Urine Odor None None Comment Void x1 in the toilet. Stool Size Moderate Moderate Stool Characteristics Soft Soft Formed Liquid Brown Brown Voiding Methods Urinal Urinal Urinal Laboratory Results WBC 6.07 k/cumm (4.4-10.8) 06/19/18 06:40 RBC 4.53 m/cumm (4.50-6.00) 06/19/18 06:40 Hgb 13.1 g/dL (13.5-17.5) L 06/19/18 06:40 Hct 43.7 % (40.0-50.0) 06/19/18 06:40 MCV 96.5 fL (80-95) H 06/19/18 06:40 MCH 28.9 pg (27.0-33.0) 06/19/18 06:40 MCHC 30.0 g/dL (32.0-36.0) L 06/19/18 06:40 RDW 17.4 % (11.8-14.1) H 06/19/18 06:40 Plt Count 248 x1000/uL (130-400) 06/19/18 06:40 MPV 10.6 fL (8.0-11.0) 06/19/18 06:40 Immature Gran % 2.3 06/19/18 06:40 Neutrophils % 72.2 06/19/18 06:40 Lymphocytes % 13.3 06/19/18 06:40 Monocytes % 10.4 06/19/18 06:40 Eosinophils % 1.3 06/19/18 06:40 Basophils % 0.5 06/19/18 06:40 Absolute Neutrophils 4.38 k/cumm (1.2-6.7) 06/19/18 06:40 Absolute Lymphocytes 0.81 k/cumm (1.2-3.4) L 06/19/18 06:40 Absolute Monocytes 0.63 k/cumm (0.11-0.7) 06/19/18 06:40 Absolute Eosinophils 0.08 k/cumm (0.0-0.7) 06/19/18 06:40 Absolute Basophils 0.03 k/cumm (0.0-0.2) 06/19/18 06:40 Differential Comment Agrees w/ instrument 06/19/18 06:40 RBC Morphology See below 06/19/18 06:40 Poikilocytosis 1+ 06/19/18 06:40 Sodium 141 mmol/L (136-145) 06/19/18 06:40 Potassium 4.0 mmol/L (3.5-5.1) 06/19/18 06:40 Chloride 105 mmol/L (98-107) 06/19/18 06:40 Carbon Dioxide 31.8 mmol/L (21.0-32.0) 06/19/18 06:40 Anion Gap 4.2 mmol/L (3-11) 06/19/18 06:40 BUN 18 mg/dL (7-18) 06/19/18 06:40 Creatinine 0.85 mg/dL (0.70-1.30) 06/19/18 06:40 Estimated GFR/1.73 m2 >= 60.00 (mL/min/1.73m2) 06/19/18 06:40 Glucose 193 mg/dL (70-100) H 06/19/18 06:40 Calcium 9.1 mg/dL (8.5-10.1) 06/19/18 06:40 Magnesium 2.1 mg/dL (1.8-2.4) 06/19/18 06:40 C-Reactive Protein 0.86 mg/dL (0.0-0.3) H 06/19/18 06:40 Vancomycin Trough 16.0 ug/mL (10.0-20.0) 06/19/18 11:10 Surgical culture: Staph Aureus/Strep spp, sensitivities pending
[2018-06-19] MEDS: Normal Saline Flush 10 ML SYR IVP ×2 (17:53→21:32)
[2018-06-19] MEDS: Ascorbic Acid 500 MG TAB PO (19:25)
[2018-06-19 20:11] VITALS: BP 105/72; PULSE 79; RESP 17; TEMP 36.8; O2SAT 95
[2018-06-19] MEDS: Atorvastatin 40 MG TAB PO (21:31)
[2018-06-19 23:55] VITALS: BP 133/93; PULSE 64; RESP 18; TEMP 37.2; O2SAT 95
[2018-06-20] MEDS: Acetaminophen 325 MG TAB PO ×3 (03:46→14:21)
[2018-06-20] MEDS: PIPERACILLIN/TAZO 3.375 GM in Normal Saline 50 ML IVPB ×4 (06:15→23:36)
[2018-06-20] MEDS: Normal Saline Flush 10 ML SYR IVP ×5 (06:24→23:36)
[2018-06-20 07:25] LABS: Abs Immature Grans 0.18 k/cumm (0.0-0.09); HCT 42.4 % (40.0-50.0); HGB 12.7 g/dL (13.5-17.5); Mean Corpuscular Hemoglobin 29.5 pg (27.0-33.0); Mean Corpuscular Volume 98.4 fL (80-95); Mean Platelet Volume 10.5 fL (8.0-11.0); Platelet Count 254 x1000/uL (130-400); RBC 4.31 m/cumm (4.50-6.00); RBC Distribution Width 17.3 % (11.8-14.1); White Blood Cell Count 6.22 k/cumm (4.4-10.8)
[2018-06-20 07:41] LABS: Anion Gap 4.4 mmol/L (3-11); BUN 18 mg/dL (7-18); C-Reactive Protein 0.36 mg/dL (0.0-0.3); CO2 32.6 mmol/L (21.0-32.0); CREATININE 0.82 mg/dL (0.70-1.30); Calcium 8.7 mg/dL (8.5-10.1); Chloride 101 mmol/L (98-107); Glucose 219 mg/dL (70-100); Potassium 3.5 mmol/L (3.5-5.1); Sodium 138 mmol/L (136-145)
--- NOTE | 2018-06-20 07:51 | ROE_ITS ---
REPORT OF OPERATIVE PROCEDURE DATE OF SURGERY June 18, 2018 PREOPERATIVE DIAGNOSES Osteomyelitis, diabetic ulceration right second toe. POSTOPERATIVE DIAGNOSES Osteomyelitis, diabetic ulceration right second toe. PROCEDURE Debridement of the right second toe through the proximal phalanx. Surgeon Aniceto Aleman DPM ANESTHESIA Monitored Anesthesia Care with local block of the second toe utilizing 9 cc of a 50:50 mixture 1% lidocaine plain, 0.5% Marcaine plain. ANETHESIA PROVIDER Imtiaz García C.R.N.A. OPERATIVE INDICATIONS A 57-year-old diabetic male with ulceration affecting the distal tip of the right second toe with subsequent osteomyelitis, erythema, cellulitis of the toe. He is being brought to the OR for debridement of the right second toe. He understands the permanency of the procedure. The risks and complications including ongoing infection, wound dehiscence, more proximal debridement required, all discussed. Informed consent has been obtained. No promises made to the final outcome of surgery. REPORT OF OPERATION Benigno was brought to the Operative Suite, placed in the supine position. The right foot prepped and draped in the usual podiatric fashion. Anesthesia being obtained, the right foot was addressed. The right second toe, the erythema and cellulitis has resolved for the most part, now being confined to the distal aspect of the digit. A large ulcer with local necrosis is appreciated. The bone is noted at the base of the wound. Undermining is appreciated. The digit is rigidly contracted at the DIPJ and semiflexibly at the PIPJ. A towel clamp was then used to mechanically support the toe through the distal tip of the toe. Dorsal and plantar incisions were placed so as to create a dorsal and plantar flap. The dorsal incision was made through the skin retracting proximally. The extensor tendon was severed. The joint capsule was released. The medial and lateral collaterals were released. No purulence was identified at this level and modest bleeding was encountered. The incision was then carried down plantarly, going plantar distal so as to raise a plantar flap. The incision was carried through the skin with the flexor tendons being released. The plantar joint capsule at the PIPJ was released and the distal portion of the toe removed from the field and placed on the back table. With double action bone cutting forceps, I resected the head of the proximal phalanx at its anatomic neck. All roughened bony edges were rasped smooth. Copious irrigation was performed. Once again, good bleeding tissue was appreciated. There were no obvious signs of sepsis at this level. I decided to close the wound. The extensor and flexor tendons were repaired end-to-end with #4-0 Vicryl. The skin was then coapted with a combination of [id number] suture in simple interrupted, all #3-0 Nylon. Good opposition of the skin edges was appreciated. No blanching noted. Xeroform gauze fluff, compression dressings were applied. I then addressed the back table. The bone through the ulcer was nipped with a rongeur and specimens obtained for cultures both aerobic and anaerobic sent to microbiology. The remaining portion of toe was then sent in formalin to Pathology. Benigno left the OR with vital signs stable, vascular status intact. Sharp and sponge counts were correct. He will remain in house for bed rest, IV antibiotics.
[2018-06-20] MEDS: Pantoprazole 40 MG VIAL IVP (07:59)
[2018-06-20] MEDS: Lisinopril 5 MG TAB PO (08:00)
[2018-06-20] MEDS: buPROPion-XL 150 MG TABCR 450 MG PO (08:00)
[2018-06-20] MEDS: Mirabegron 50 MG TABCR PO (08:00)
[2018-06-20] MEDS: Oxybutynin-CR 5 MG TABCR 15 MG PO (08:00)
[2018-06-20] MEDS: Metoprolol CR 50 MG TABCR PO (08:00)
[2018-06-20] MEDS: Apixaban 5 MG TAB PO ×2 (08:00→19:38)
[2018-06-20] MEDS: Gabapentin 600 MG TAB 1200 MG PO ×3 (08:00→19:38)
[2018-06-20] MEDS: Folic Acid 1 MG TAB 1.5 MG PO (08:00)
[2018-06-20] MEDS: Multivitamin TAB 1 TAB PO (08:01)
[2018-06-20 08:05] LABS: Absolute Eosinophil Count 0.25 k/cumm (0.0-0.7); Absolute Lymphocyte Count 0.93 k/cumm (1.2-3.4); Absolute Monocyte Count 0.62 k/cumm (0.11-0.7); Absolute Neutrophil Count 4.23 k/cumm (1.2-6.7); Atypical Lymphocytes % 2
[2018-06-20 08:06] LABS: Diff Comment Manual Differential; Poikilocytes 2+
[2018-06-20 08:56] VITALS: BP 155/85; PULSE 60; RESP 18; TEMP 35.6; O2SAT 94
--- NOTE | 2018-06-20 12:52 | PDOC.CMPRO ---
Care Management Progress Note S/O: Benigno was sitting up on the side of the bed when CM met with him. He was pleasant in interaction and reported hoping he could discharge soon, CM reviewed need for sensitivities of cultures collected; per MD. CM will continue to follow. A: 57 y/o male admitted 06/17/18 for osteomyelitis of (R) foot P: Benigno will return home with home health RN/PT/OT [facility] Benigno will F/U with Dr. Aleman and plan of care as prescribed. Benigno's [facility] to transport when ready.
[2018-06-20 15:30] VITALS: BP 114/72; PULSE 74; RESP 18; TEMP 35.8; O2SAT 98
--- NOTE | 2018-06-20 17:22 | W.PM.PROGNOT ---
Date of Service Date of service: 06/20/18 Time of Service: 17:22 Assessment and Plan (1) Osteomyelitis: Current visit: Yes Status: Acute S/p partial amputation of the right second toe. Clinically doing well. Continue empiric IV vancomycin and Zosyn pending sensitivities. Wound culture currently growing staph aureus and strep species. He will need a 2-week course of antibiotics. (2) History of DVT (deep vein thrombosis): Current visit: Yes Status: Chronic He had a right lower extremity ultrasound on admission which was negative for DVT. Continue apixaban. He will follow-up with hematology as scheduled as an outpatient. (3) Hypertension: Current visit: Yes Status: Chronic Blood pressure within acceptable range. Continue VADIM inhibitor. (4) Diabetes mellitus: Current visit: Yes Status: Chronic Blood glucose glucose has been within acceptable range. Consider adding mealtime insulin if blood glucose is elevated. Continue to monitor blood glucose before meals and at bedtime. Continue ADA diet. (5) DVT prophylaxis: Current visit: Yes Status: Acute On therapeutic apixaban. (6) Discharge planning issues: Current visit: Yes Status: Acute He is a full code. Continue to monitor cultures/sensitivities. He will need a 2-week course of antibiotics. This case was discussed with Dr. Chinag who is in agreement. Subjective Interval history since last seen: Mr. Agosto is a 57 year old man with a history of diabetes, HTN, dyslipidemia, DVT on anticoagulation currently being treated for osteomyelitis. He is status post partial amputation of the right second toe by Dr. Aleman. He is currently being treated with IV vanco and zosyn pending sensitivities. He reports that he is doing well today. He denies any pain in the right foot. He denies any bleeding at the surgical site. He denies shortness of breath, cough, wheezing, chest pain/pressure, palpitations. He reports that his appetite is decreased but he is eating and drinking and tolerating his diet. He had some loose stools yesterday. No nausea or vomiting. He is eager for discharge home. Exam Narrative Exam Narrative: General: very pleasant male, sitting up in bed with right foot elevated, in NAD. HEENT: atraumatic, normocephalic, EOMs intact, pupils equal and round, mucous membranes moist. Heart: regular rate and rhythm, no murmur appreciated. Lungs: respirations even and unlabored, lung sounds clear throughout. GI: normoactive bowel sounds, abdomen is soft, nontender, nondistended Extremities: R foot with dressing clean, dry and intact. No edema to lower extremities. Objective Objective Clinical Data: Abnormal lab results 06/20/18 06/20/18 Range/Units 06:30 06:30 RBC 4.31 L (4.50-6.00) m/cumm Hgb 12.7 L (13.5-17.5) g/dL MCV 98.4 H (80-95) fL MCHC 30.0 L (32.0-36.0) g/dL RDW 17.3 H (11.8-14.1) % Absolute Lymphocytes 0.93 L (1.2-3.4) k/cumm Carbon Dioxide 32.6 H (21.0-32.0) mmol/L Glucose 219 H (70-100) mg/dL C-Reactive Protein 0.36 H (0.0-0.3) mg/dL Vital Signs Temperature 35.8 C L 06/20/18 15:30 Temperature Source Tympanic 06/20/18 15:30 Pulse 74 06/20/18 15:30 Pulse Rhythm Regular 06/20/18 08:00 Respiratory Rate 18 06/20/18 15:30 Respiratory Effort Non-Labored 06/20/18 08:00 Respiratory Depth Normal 06/20/18 08:00 Respiratory Pattern Normal 06/20/18 08:00 Blood Pressure 114/72 06/20/18 15:30 Pulse Oximetry 98 06/20/18 15:30 Oxygen Delivery Method Room Air 06/20/18 15:30 Oxygen Flow Rate 0 06/20/18 15:30 Pain Level 0 06/20/18 15:30 Intake & Output 06/19/18 06/20/18 06/20/18 23:59 11:59 23:59 Intake Total 1270 / 1960 880 / 1190 310 / 1190 Output Total 800 / 2150 850 / 1300 450 / 1300 Balance 470 / -190 30 / -110 -140 / -110 Intake: IV 550 / 880 340 / 410 70 / 410 Oral 720 / 1080 540 / 780 240 / 780 Output: Urine 800 / 2150 850 / 1300 450 / 1300 Other: Urine Color Yellow Yellow Yellow Urine Appearance Clear Clear Clear Urine Odor Normal Voiding Methods Urinal Urinal Urinal Laboratory Results WBC 6.22 k/cumm (4.4-10.8) 06/20/18 06:30 RBC 4.31 m/cumm (4.50-6.00) L 06/20/18 06:30 Hgb 12.7 g/dL (13.5-17.5) L 06/20/18 06:30 Hct 42.4 % (40.0-50.0) 06/20/18 06:30 MCV 98.4 fL (80-95) H 06/20/18 06:30 MCH 29.5 pg (27.0-33.0) 06/20/18 06:30 MCHC 30.0 g/dL (32.0-36.0) L 06/20/18 06:30 RDW 17.3 % (11.8-14.1) H 06/20/18 06:30 Plt Count 254 x1000/uL (130-400) 06/20/18 06:30 MPV 10.5 fL (8.0-11.0) 06/20/18 06:30 Immature Gran % See Differential 06/20/18 06:30 Neutrophils % 68.0 06/20/18 06:30 Lymphocytes % 13.0 06/20/18 06:30 Atypical Lymphs % 2 06/20/18 06:30 Monocytes % 10.0 06/20/18 06:30 Eosinophils % 4.0 06/20/18 06:30 Basophils % 0.0 06/20/18 06:30 Absolute Neutrophils 4.23 k/cumm (1.2-6.7) 06/20/18 06:30 Absolute Lymphocytes 0.93 k/cumm (1.2-3.4) L 06/20/18 06:30 Absolute Monocytes 0.62 k/cumm (0.11-0.7) 06/20/18 06:30 Absolute Eosinophils 0.25 k/cumm (0.0-0.7) 06/20/18 06:30 Absolute Basophils 0.00 k/cumm (0.0-0.2) 06/20/18 06:30 Metamyelocytes 2.0 % 06/20/18 06:30 Myelocytes 1.0 % 06/20/18 06:30 Differential Comment Manual differential 06/20/18 06:30 RBC Morphology See below 06/20/18 06:30 Poikilocytosis 2+ 06/20/18 06:30 Sodium 138 mmol/L (136-145) 06/20/18 06:30 Potassium 3.5 mmol/L (3.5-5.1) 06/20/18 06:30 Chloride 101 mmol/L (98-107) 06/20/18 06:30 Carbon Dioxide 32.6 mmol/L (21.0-32.0) H 06/20/18 06:30 Anion Gap 4.4 mmol/L (3-11) 06/20/18 06:30 BUN 18 mg/dL (7-18) 06/20/18 06:30 Creatinine 0.82 mg/dL (0.70-1.30) 06/20/18 06:30 Estimated GFR/1.73 m2 >= 60.00 (mL/min/1.73m2) 06/20/18 06:30 Glucose 219 mg/dL (70-100) H 06/20/18 06:30 Calcium 8.7 mg/dL (8.5-10.1) 06/20/18 06:30 Magnesium 2.0 mg/dL (1.8-2.4) 06/20/18 06:30 C-Reactive Protein 0.36 mg/dL (0.0-0.3) H 06/20/18 06:30 Vancomycin Trough 16.0 ug/mL (10.0-20.0) 06/19/18 11:10
[2018-06-20] MEDS: Ascorbic Acid 500 MG TAB PO (19:38)
[2018-06-20] MEDS: Lactobacillus Acidophilus CAP 1 CAP PO (19:38)
[2018-06-20] MEDS: Atorvastatin 40 MG TAB PO (20:33)
[2018-06-21 00:08] VITALS: BP 115/72; PULSE 72; RESP 17; TEMP 36.3; O2SAT 95
[2018-06-21] MEDS: Acetaminophen 325 MG TAB PO ×4 (00:15→15:04)
[2018-06-21] MEDS: PIPERACILLIN/TAZO 3.375 GM in Normal Saline 50 ML IVPB ×3 (05:34→17:07)
[2018-06-21] MEDS: Gabapentin 600 MG TAB 1200 MG PO ×2 (07:37→14:06)
[2018-06-21] MEDS: Folic Acid 1 MG TAB 1.5 MG PO (07:37)
[2018-06-21] MEDS: buPROPion-XL 150 MG TABCR 450 MG PO (07:38)
[2018-06-21] MEDS: Lisinopril 5 MG TAB PO (07:38)
[2018-06-21] MEDS: Oxybutynin-CR 5 MG TABCR 15 MG PO (07:38)
[2018-06-21] MEDS: Normal Saline Flush 10 ML SYR IVP ×4 (07:38→17:07)
[2018-06-21] MEDS: Apixaban 5 MG TAB PO (07:38)
[2018-06-21] MEDS: Multivitamin TAB 1 TAB PO (07:38)
[2018-06-21] MEDS: Mirabegron 50 MG TABCR PO (07:38)
[2018-06-21] MEDS: Lactobacillus Acidophilus CAP 1 CAP PO ×2 (07:38→14:06)
[2018-06-21] MEDS: Metoprolol CR 50 MG TABCR PO (07:38)
[2018-06-21] MEDS: Pantoprazole 40 MG VIAL IVP (07:39)
[2018-06-21 07:55] VITALS: BP 136/86; PULSE 52; RESP 18; TEMP 36.5; O2SAT 98
[2018-06-21 09:15] VITALS: O2SAT 96
[2018-06-21 13:21] LABS: Vancomycin, Trough 18.4 ug/mL (10.0-20.0)
--- NOTE | 2018-06-21 14:53 | W.PM.DS.N ---
Date of service: 06/21/18 Time of Service: 14:53 DS: Diagnosis Discharge Diagnosis (1) Osteomyelitis: Status: Acute (2) History of DVT (deep vein thrombosis): Status: Chronic (3) Hypertension: Status: Chronic (4) Diabetes mellitus: Status: Chronic Discharge Plan Disposition Patient Disposition: HOME Condition: Improving Discharge Details Reason For Visit: OSTEOMYELITIS RIGHT FOOT Admit Date/Time: 06/17/18 17:20 Admit Provider: Devang Lazo Attending Provider: Devang Lazo [facility] Course: Mr. Agosto is a 57 year old man with a past medical history significant for diabetes, hypertension, and dyslipidemia, depression, hypogonadism, DJD, urinary incontinence, nephrolithiasis, and BPH. Prior history of GERD was treated with Kallie fundoplication. He was diagnosed with a DVT in his right leg in July of 2017, and restarted on anticoagulation 4 months after for presumed recurrence of a blood clot with discontinuation of anticoagulation. He had a RLE ultrasound which was negative for DVT. He was directly admitted to the Med/surg floor on 06/17/18 for a planned debridement of the right second toe due to osteomyelitis of the digit. He had been [facility] by at [facility] and then in the emergency department and had follow up with Podiatry prior to this for a diabetic ulceration to the right second toe. He went to the operating room the following day on 06/18/2018 for debridement of the right second toe through the proximal phalanx by Dr. Aleman. He was initiated on broad-spectrum antibiotics with vancomycin and Zosyn, he is currently on day #5 of antibiotic therapy. Surgical cultures grew MSSA and group B strep. Blood cultures yielded no growth at 72 hours. CRP improved. Renal function remained within normal limits. He had no leukocytosis. He will transition to oral Keflex for discharge home to complete a full 14 day course. He remained on an ADA diet, his blood glucose was monitored and remained within an acceptable range. He will resume his oral diabetic regimen upon discharge home. Dr. Aleman recommends Dressings remain in place unless they become soiled, he may ambulate ad denise. in a surgical shoe but keep the activity down to a minimum to promote healing of the incision. Elevate the right lower extremity at rest. [facility]. He will follow-up with podiatry as scheduled on 06/27/2018. He will have home health services to include PT/OT and nursing. Home Meds and New Rx's Prescriptions: New acidophilus-pectin, citrus 25 million cell -100 mg Tablet 1 cap PO TID Qty: 60 RF: 0 cephalexin [Keflex] 500 mg capsule 500 mg PO TID Qty: 27 RF: 0 omeprazole 40 mg capsule,delayed release(DR/EC) 40 mg PO DAILY Qty: 30 RF: 0 Continued folic acid 1 MG tablet 1.5 mg PO DAILY RF: 0 Eliquis 5 MG tablet 5 mg PO BID RF: 0 ascorbic acid (vitamin C) [Vitamin C] 500 MG tablet 500 mg PO QPM RF: 0 metformin [Glucophage] 1,000 MG tablet 1,000 mg PO BID RF: 0 testosterone cypionate [Depo-Testosterone] 200 MG/ML oil 200 mg IM Q14D RF: 0 multivitamin 1 EACH capsule 1 ea PO DAILY RF: 0 cholecalciferol (vitamin D3) 1,000 UNITS tablet 2,000 units PO QPM RF: 0 metoprolol tartrate 25 MG tablet 50 mg PO HS RF: 0 gabapentin 600 MG tablet 1,200 mg PO TID RF: 0 atorvastatin [Lipitor] 40 MG tablet 40 mg PO HS RF: 0 oxybutynin chloride 15 MG tablet extended release 24hr 15 mg PO DAILY RF: 0 bupropion HCl 450 mg Tablet Extended Release 24 Hr 450 mg PO DAILY RF: 0 Myrbetriq 50 mg Tablet Extended Release 24 Hr 50 mg PO DAILY RF: 0 lisinopril 5 MG tablet 5 mg PO DAILY RF: 0 acetaminophen [Mapap Extra Strength] 500 MG tablet 1,000 mg PO Q8H PRN PRNQty: 100 RF: 0 Discontinued Myrbetriq 50 MG tablet extended release 24 hr 50 mg PO DAILY Qty: 90 RF: 4 amoxicillin-pot clavulanate [Augmentin] 875-125 mg tablet 1 tab PO BID Qty: 19 RF: 0 ibuprofen 600 MG tablet 600 mg PO Q8H PRN PRNQty: 30 RF: 0 Discharge Instructions Instructions: Osteomyelitis (DC) Additional Instructions: Take all of the antibiotics until they are gone, 9 more days. You will need to start taking Omeprazole to protect your stomach. Take Probiotics 3 times daily while taking antibiotics, may help with diarrhea. Eat yogurt. Ambulate with surgical shoe, limit walking. Elevated Right foot when at rest. Watch for bleeding. Resume your regular medications. Follow up at [facility] and with Podiatry as scheduled. Take care! Stand Alone Forms: Nursing Discharge Form Referrals: Garcia Fonseca [Primary Care Provider] - 07/05/18 11:20 am Activity:: Activity as Tolerated Equipment/Supplies:: No Equipment Needed Diet:: Carb Counting Discharge Orders Discharge Orders: Discharge Order (Routine); Ordered 06/21/18 Ordered By: Gena Tipton Exam Narrative Exam Narrative: General: very pleasant male, sitting up in bed with right foot elevated, in NAD. HEENT: atraumatic, normocephalic, EOMs intact, pupils equal and round, mucous membranes moist. Heart: regular rate and rhythm, no murmur appreciated. Lungs: respirations even and unlabored, lung sounds clear throughout. GI: normoactive bowel sounds, abdomen is soft, nontender, nondistended Extremities: R foot with dressing clean, dry and intact. No edema to lower extremities. DS: Data Vitals/I&O Vitals and I&O: Vital Signs Temperature 36.5 C 06/21/18 07:55 Temperature Source Tympanic 06/21/18 07:55 Pulse 52 L 06/21/18 07:55 Pulse Rhythm Regular 06/21/18 07:30 Respiratory Rate 18 06/21/18 07:55 Respiratory Effort Non-Labored 06/21/18 07:30 Respiratory Depth Normal 06/21/18 07:30 Respiratory Pattern Normal 06/21/18 07:30 Blood Pressure 136/86 06/21/18 07:55 Pulse Oximetry 96 06/21/18 09:15 Oxygen Delivery Method Room Air 06/21/18 09:15 Oxygen Flow Rate 0 06/21/18 09:15 Pain Level 3 06/21/18 10:42 Intake & Output 06/20/18 06/21/18 06/21/18 23:59 11:59 23:59 Intake Total 820 / 1700 1080 / 1500 420 / 1500 Output Total 1350 / 2200 1800 / 2500 700 / 2500 Balance -530 / -500 -720 / -1000 -280 / -1000 Intake: IV 340 / 680 340 / 410 70 / 410 Oral 480 / 1020 740 / 1090 350 / 1090 Output: Urine 1350 / 2200 1800 / 2500 700 / 2500 Other: Urine Color Yellow Pale Yellow Yellow Urine Appearance Clear Clear Clear Urine Odor Normal Normal Normal Stool Size Moderate Stool Characteristics Soft Brown Voiding Methods Toilet Urinal Toilet Urinal Completed studies during hospitalization [Text1]: 06/17/18: RT LOWER EXTREMITY ULTRASOUND: Femoral and popliteal veins and visualized calf veins are freely compressible. No thrombus is visible. Doppler venous wave form augments normally. No Rodriguez's cyst or hematoma is seen. IMPRESSION: Negative right lower extremity ultrasound No evidence of DVT. Labs on day of discharge: Labs from last 24 hours 06/21/18 12:55 Vancomycin Trough 18.4 Preliminary micro results at discharge 06/18/18 10:30 Anaerobic Culture - Preliminary Foot - Right 06/18/18 10:30 Surgical Culture - Preliminary Foot - Right Staphylococcus Aureus Streptococcus Agalactiae(Gp B) 06/17/18 17:52 Blood Culture - Preliminary Blood NO GROWTH 72 HOURS 06/17/18 17:45 Blood Culture - Preliminary Blood NO GROWTH 72 HOURS [facility] Medical History Osteomyelitis (Acute) Recurrent UTI (urinary tract infection) (Chronic) BPH (benign prostatic hyperplasia) (Chronic) Nephrolithiasis (Chronic) History of DVT (deep vein thrombosis) (Chronic) GERD (gastroesophageal reflux disease) (Chronic) Urinary incontinence (Chronic) DJD (degenerative joint disease) (Chronic) Hypogonadism (Chronic) Dyslipidemia (Chronic) Hypertension (Chronic) Depression (Chronic) Diabetes mellitus (Chronic) 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) History of cellulitis (Chronic) Thermal injury (Acute) Cellulitis of right hand (Resolved 12/23/15) Anxiety and depression Diabetes mellitus type II, controlled Diabetic neuropathy Essential hypertension History of colon polyps History of gastroesophageal reflux (GERD) Hyperlipidemia Hypogonadism in male Urge incontinence Surgical History H/O hand surgery (Chronic) History of repair of hiatal hernia (Chronic) History of cholecystectomy (Chronic) History of lumbosacral spine surgery (Chronic) H/O cervical spine surgery (Chronic) History of Kallie fundoplication (Chronic) Cholecystectomy Colonoscopy - IV Sedation (10/28/16) EGD - IV Sedation Kallie Fundoplication Social History household members: spouse Smoking/Tobacco Use Status: Never additional social history: Patient is and has 2 grown daughters. Originally from [place], moved to [place] approximately a decade ago. 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 He also denies any illicit drug use.
--- NOTE | 2018-06-21 15:05 | DSE_ITS ---
Date of service: 06/21/18 Time of Service: 14:53 DS: Diagnosis Discharge Diagnosis (1) Osteomyelitis: Status: Acute (2) History of DVT (deep vein thrombosis): Status: Chronic (3) Hypertension: Status: Chronic (4) Diabetes mellitus: Status: Chronic Discharge Plan Disposition Patient Disposition: HOME Condition: Improving Discharge Details Reason For Visit: OSTEOMYELITIS RIGHT FOOT Admit Date/Time: 06/17/18 17:20 Admit Provider: Devang Lazo Attending Provider: Devang Lazo [facility]: Mr. Agosto is a 57 year old man with a past medical history significant for diabetes, hypertension, and dyslipidemia, depression, hypogonadism, DJD, urinary incontinence, nephrolithiasis, and BPH. Prior history of GERD was treated with Kallie fundoplication. He was diagnosed with a DVT in his right leg in July of 2017, and restarted on anticoagulation 4 months after for presumed recurrence of a blood clot with discontinuation of anticoagulation. He had a RLE ultrasound which was negative for DVT. He was directly admitted to the Med/surg floor on 06/17/18 for a planned debridement of the right second toe due to osteomyelitis of the digit. He had been seen by at the OR and then in the emergency department and had follow up with Podiatry prior to this for a diabetic ulceration to the right second toe. He went to the operating room the following day on 06/18/2018 for debridement of the right second toe through the proximal phalanx by Dr. Aleman. He was initiated on broad-spectrum antibiotics with vancomycin and Zosyn, he is currently on day #5 of antibiotic therapy. Surgical cultures grew MSSA and group B strep. Blood cultures yielded no growth at 72 hours. CRP improved. Renal function remained within normal limits. He had no leukoc ytosis. He will transition to oral Keflex for discharge home to complete a full 14 day course. He remained on an ADA diet, his blood glucose was monitored and remained within an acceptable range. He will resume his oral diabetic regimen upon discharge home. Dr. Aleman recommends Dressings remain in place unless they become soiled, he may ambulate ad denise. in a surgical shoe but keep the activity down to a minimum to promote healing of the incision. Elevate the right lower extremity at rest. He will have follow-up at the OR in 2 days time on 06/23/2018. He will follow-up with podiatry as scheduled on 06/27/2018. He will have home health services to include PT/OT and nursing. Home Meds and New Rx's Prescriptions: New acidophilus-pectin, citrus 25 million cell -100 mg Tablet 1 cap PO TID Qty: 60 RF: 0 cephalexin [Keflex] 500 mg capsule 500 mg PO TID Qty: 27 RF: 0 omeprazole 40 mg capsule,delayed release(DR/EC) 40 mg PO DAILY Qty: 30 RF: 0 Continued folic acid 1 MG tablet 1.5 mg PO DAILY RF: 0 Eliquis 5 MG tablet 5 mg PO BID RF: 0 ascorbic acid (vitamin C) [Vitamin C] 500 MG tablet 500 mg PO QPM RF: 0 metformin [Glucophage] 1,000 MG tablet 1,000 mg PO BID RF: 0 testosterone cypionate [Depo-Testosterone] 200 MG/ML oil 200 mg IM Q14D RF: 0 multivitamin 1 EACH capsule 1 ea PO DAILY RF: 0 cholecalciferol (vitamin D3) 1,000 UNITS tablet 2,000 units PO QPM RF: 0 metoprolol tartrate 25 MG tablet 50 mg PO HS RF: 0 gabapentin 600 MG tablet 1,200 mg PO TID RF: 0 atorvastatin [Lipitor] 40 MG tablet 40 mg PO HS RF: 0 oxybutynin chloride 15 MG tablet extended release 24hr 15 mg PO DAILY RF: 0 bupropion HCl 450 mg Tablet Extended Release 24 Hr 450 mg PO DAILY RF: 0 Myrbetriq 50 mg Tablet Extended Release 24 Hr 50 mg PO DAILY RF: 0 lisinopril 5 MG tablet 5 mg PO DAILY RF: 0 acetaminophen [Mapap Extra Strength] 500 MG tablet 1,000 mg PO Q8H PRN PRNQty: 100 RF: 0 Discontinued Myrbetriq 50 MG tablet extended release 24 hr 50 mg PO DAILY Qty: 90 RF: 4 amoxicillin-pot clavulanate [Augmentin] 875-125 mg tablet 1 tab PO BID Qty: 19 RF: 0 ibuprofen 600 MG tablet 600 mg PO Q8H PRN PRNQty: 30 RF: 0 Discharge Instructions Instructions: Osteomyelitis (DC) Additional Instructions: Take all of the antibiotics until they are gone, 9 more days. You will need to start taking Omeprazole to protect your stomach. Take Probiotics 3 times daily while taking antibiotics, may help with diarrhea. Eat yogurt. Ambulate with surgical shoe, limit walking. Elevated Right foot when at rest. Watch for bleeding. Resume your regular medications. Follow up at OR and with Podiatry as scheduled. Take care! Stand Alone Forms: Nursing Discharge Form Referrals: Garcia Fonseca [Primary Care Provider] - 07/05/18 11:20 am Activity:: Activity as Tolerated Equipment/Supplies:: No Equipment Needed Diet:: Carb Counting Discharge Orders Discharge Orders: Discharge Order (Routine); Ordered 06/21/18 Ordered By: Gena Tipton Exam Narrative Exam Narrative: General: very pleasant male, sitting up in bed with right foot elevated, in NAD. HEENT: atraumatic, normocephalic, EOMs intact, pupils equal and round, mucous membranes moist. Heart: regular rate and rhythm, no murmur appreciated. Lungs: respirations even and unlabored, lung sounds clear throughout. GI: normoactive bowel sounds, abdomen is soft, nontender, nondistended Extremities: R foot with dressing clean, dry and intact. No edema to lower extremities. DS: Data Vitals/I&O Vitals and I&O: Vital Signs Temperature 36.5 C 06/21/18 07:55 Temperature Source Tympanic 06/21/18 07:55 Pulse 52 L 06/21/18 07:55 Pulse Rhythm Regular 06/21/18 07:30 Respiratory Rate 18 06/21/18 07:55 Respiratory Effort Non-Labored 06/21/18 07:30 Respiratory Depth Normal 06/21/18 07:30 Respiratory Pattern Normal 06/21/18 07:30 Blood Pressure 136/86 06/21/18 07:55 Pulse Oximetry 96 06/21/18 09:15 Oxygen Delivery Method Room Air 06/21/18 09:15 Oxygen Flow Rate 0 06/21/18 09:15 Pain Level 3 06/21/18 10:42 Intake & Output 06/20/18 06/21/18 06/21/18 23:59 11:59 23:59 Intake Total 820 / 1700 1080 / 1500 420 / 1500 Output Total 1350 / 2200 1800 / 2500 700 / 2500 Balance -530 / -500 -720 / -1000 -280 / -1000 Intake: IV 340 / 680 340 / 410 70 / 410 Oral 480 / 1020 740 / 1090 350 / 1090 Output: Urine 1350 / 2200 1800 / 2500 700 / 2500 Other: Urine Color Yellow Pale Yellow Yellow Urine Appearance Clear Clear Clear Urine Odor Normal Normal Normal Stool Size Moderate Stool Characteristics Soft Brown Voiding Methods Toilet Urinal Toilet Urinal Completed studies during hospitalization [Text1]: 06/17/18: RT LOWER EXTREMITY ULTRASOUND: Femoral and popliteal veins and visualized calf veins are freely compressible. No thrombus is visible. Doppler venous wave form augments normally. No Rodriguez's cyst or hematoma is seen. IMPRESSION: Negative right lower extremity ultrasound No evidence of DVT. Labs on day of discharge: Labs from last 24 hours 06/21/18 12:55 Vancomycin Trough 18.4 Preliminary micro results at discharge 06/18/18 10:30 Anaerobic Culture - Preliminary Foot - Right 06/18/18 10:30 Surgical Culture - Preliminary Foot - Right Staphylococcus Aureus Streptococcus Agalactiae(Gp B) 06/17/18 17:52 Blood Culture - Preliminary Blood NO GROWTH 72 HOURS 06/17/18 17:45 Blood Culture - Preliminary Blood NO GROWTH 72 HOURS [facility] Medical History Osteomyelitis (Acute) Recurrent UTI (urinary tract infection) (Chronic) BPH (benign prostatic hyperplasia) (Chronic) Nephrolithiasis (Chronic) History of DVT (deep vein thrombosis) (Chronic) GERD (gastroesophageal reflux disease) (Chronic) Urinary incontinence (Chronic) DJD (degenerative joint disease) (Chronic) Hypogonadism (Chronic) Dyslipidemia (Chronic) Hypertension (Chronic) Depression (Chronic) Diabetes mellitus (Chronic) 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) History of cellulitis (Chronic) Thermal injury (Acute) Cellulitis of right hand (Resolved 12/23/15) Anxiety and depression Diabetes mellitus type II, controlled Diabetic neuropathy Essential hypertension History of colon polyps History of gastroesophageal reflux (GERD) Hyperlipidemia Hypogonadism in male Urge incontinence Surgical History H/O hand surgery (Chronic) History of repair of hiatal hernia (Chronic) History of cholecystectomy (Chronic) History of lumbosacral spine surgery (Chronic) H/O cervical spine surgery (Chronic) History of Kallie fundoplication (Chronic) Cholecystectomy Colonoscopy - IV Sedation (10/28/16) EGD - IV Sedation Kallie Fundoplication Social History household members: spouse Smoking/Tobacco Use Status: Never additional social history: Patient is and has 2 grown daughters. Originally from [place], moved to [place] approximately a decade ago. 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 He also denies any illicit drug use.
[2018-06-21 16:00] VITALS: BP 152/78; PULSE 76; RESP 20; TEMP 36.1; O2SAT 98
--- NOTE | 2018-06-21 18:04 | PDOC.CMDIS ---
LACE Index Scoring Tool - Questions: Length of Stay (in days): 4 - 6 Acuity (Admit via E.D.?): Yes Comorbidities: Diabetes w/o Complication E.D. 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 Aleman. CM notified Rhianna Spears CM at [facility] who requested clincial information; CM faxed information for follow up. Benigno's Oma will transport via private vehicle when ready. Patient/Family Education Needs: Review discharge instructions, discuss self care needs upon discharge. Services Needed at Discharge: Home Health Care Services (New orders-resumption)
--- NOTE | 2018-06-21 18:20 | CMDISCH_ITS ---
LACE Index Scoring Tool - Questions: Length of Stay (in days): 4 - 6 Acuity (Admit via E.D.?): Yes Comorbidities: Diabetes w/o Complication E.D. 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 Aleman. CM notified Rhianna Spears CM at [facility] who requested clincial information; CM faxed information for follow up. Benigno's Oma will transport via private vehicle when ready. Patient/Family Education Needs: Review discharge instructions, discuss self care needs upon discharge. Services Needed at Discharge: Home Health Care Services (New orders-resumption)
== END 2018-06-21 17:55 | disposition home or self-care (01) | DRG 617 ==
PROVIDERS: Internal Medicine; Podiatrist; Admitting Provider Internal Medicine; PCP Family Medicine; Visit Provider Internal Medicine
PROC: 0Y6R0Z1 Detachment at Right 2nd Toe, High, Open Approach (ICD-10-PCS; CPT 28825; principal; 2018-06-18 09:00)
DX: E11.69 Type 2 diabetes mellitus with other specified complication (principal); M86.171 Other acute osteomyelitis, right ankle and foot; E11.621 Type 2 diabetes mellitus with foot ulcer; L97.514 Non-pressure chronic ulcer of other part of right foot with necrosis of bone; L03.031 Cellulitis of right toe; B95.61 Methicillin susceptible Staphylococcus aureus infection as the cause of diseases classified elsewhere; B95.1 Streptococcus, group B, as the cause of diseases classified elsewhere; Z16.29 Resistance to other single specified antibiotic; Z79.84 Long term (current) use of oral hypoglycemic drugs; E11.42 Type 2 diabetes mellitus with diabetic polyneuropathy; I10 Essential (primary) hypertension; E78.5 Hyperlipidemia, unspecified; Z86.718 Personal history of other venous thrombosis and embolism
CPT/HCPCS: 28825; 36415; 80048; 87040; 87077; 88300; 88305; 99222; 99232; 99233; 99239; 80202; 83735; 85025; 86140; 87070; 87075; 87186; 87205; 88311; 93971; J2543

== ENCOUNTER 2018-07-05 13:07 | Day surgery (SDC) | payer OTHER, SELFPAY ==
[2018-07-05 13:40] VITALS: BP 115/74; PULSE 93; RESP 18; TEMP 36.1; O2SAT 92
[2018-07-05] MEDS: Lactated Ringers 1,000 ML 80 ML IV (14:00)
[2018-07-05] MEDS: Lidocaine 1% Multi-Dose 50 ML VIAL (14:42)
[2018-07-05] MEDS: Bupivacaine 0.25% Pres-Free 30 ML VIAL (15:02)
--- NOTE | 2018-07-05 15:14 | PDOC.DSDIS_ITS ---
Discharge Plan Disposition Patient Disposition: HOME Condition: Good Discharge Details Reason For Visit: Right Thumb Thermal Necrosis Attending Provider: Pasquale Allen Primary Care Provider: Garcia Fonseca Arnold Meds and New Rx's Prescriptions: Continued folic acid 1 MG tablet 1.5 mg PO DAILY RF: 0 Eliquis 5 MG tablet 5 mg PO BID RF: 0 ascorbic acid (vitamin C) [Vitamin C] 500 MG tablet 500 mg PO QPM RF: 0 metformin [Glucophage] 1,000 MG tablet 1,000 mg PO BID RF: 0 testosterone cypionate [Depo-Testosterone] 200 MG/ML oil 200 mg IM Q14D RF: 0 multivitamin 1 EACH capsule 1 ea PO DAILY RF: 0 cholecalciferol (vitamin D3) 1,000 UNITS tablet 2,000 units PO QPM RF: 0 metoprolol tartrate 25 MG tablet 50 mg PO HS RF: 0 gabapentin 600 MG tablet 1,200 mg PO TID RF: 0 atorvastatin [Lipitor] 40 MG tablet 40 mg PO HS RF: 0 oxybutynin chloride 15 MG tablet extended release 24hr 15 mg PO DAILY RF: 0 bupropion HCl 450 mg Tablet Extended Release 24 Hr 450 mg PO DAILY RF: 0 Myrbetriq 50 mg Tablet Extended Release 24 Hr 50 mg PO DAILY RF: 0 lisinopril 5 MG tablet 5 mg PO DAILY RF: 0 acetaminophen [Mapap Extra Strength] 500 MG tablet 1,000 mg PO Q8H PRN PRNQty: 100 RF: 0 hydroxychloroquine 200 mg Tablet 200 mg PO BID RF: 0 sulfasalazine 500 mg Tablet 0.5 g PO BID RF: 0 acidophilus-pectin, citrus 25 million cell -100 mg Tablet 1 cap PO TID Qty: 60 RF: 0 cephalexin [Keflex] 500 mg capsule 500 mg PO TID Qty: 27 RF: 0 omeprazole 40 mg capsule,delayed release(DR/EC) 40 mg PO DAILY Qty: 30 RF: 0 Discharge Instructions Additional Instructions: Activity: Keep the initial dressing on for 2-3 days. With the dressing on, you may use the thumb but avoid direct pressure or heavy gripping/grasping. Dressings: Your operative dressing should stay on for 2-3 days. After this time it may be removed. It may get wet after the initial dressing is removed. You should keep the wound covered with bandaid or light gauze. Referrals: Pasquale Allen MD [ [facility] STAFF PHYSICIAN] - Activity:: Elevate Remove Dressings/Wound Care:: 72 hours Shower/Bathe:: 72 hours Diet:: As Tolerated Discharge Orders Discharge Orders: Discharge Order (Routine); Ordered 07/05/18 Ordered By: Pasquale Allen DS: Diagnosis Discharge Diagnosis (1) Thermal injury: Status: Acute
--- NOTE | 2018-07-06 09:44 | ROE_ITS ---
REPORT OF OPERATIVE PROCEDURE DATE OF SURGERY July 05, 2018 PREOPERATIVE DIAGNOSIS Right thumb tip thermal necrosis. POSTOPERATIVE DIAGNOSIS Right thumb tip thermal necrosis. SURGERY Right thumb tip revision amputation. SURGEON Pasquale Allen M.D. ESTIMATED BLOOD LOSS 5 cc ANESTHESIA Local. COMPLICATIONS None. DISPOSITION The patient was taken back to the Same Day Surgery in stable condition. INDICATION FOR PROCEDURE Benigno is a 57-year old, who has multiple medical issues. He has been dealing with some hand contrac tures. In the efforts to work on his hand contractures, he was using a heating pad. Unfortunately, he fell asleep with the heating pad on the fingers. When he awoke, he noted significant pain about the tips of his thumb, index and ring fingers. Over the few weeks that followed, he noted blistering and eventual necrosis developed. The ring finger and index finger were able to be treated conservatively. However, the thumb continued to necrose and was left with a mummified tip of the thumb. Given this a ppearance, I recommended completion amputation of the right thumb tip. I reviewed the risks of the pr ocedure to include bleeding, infection, pain, stiffness, need for repeat procedures, nail deformity. Despite these risks, he elected to proceed. PROCEDURE DESCRIPTION Benigno was greeted in the preoperative holding area. His identity was confirmed and the correct side was identified and marked. The consent was reviewed with the patient and signed. He was taken back to the Operating Room and placed in the supine position. All bony prominences were well padded. The r ight arm was placed onto the hand table. The right hand was prepped with ChloraPrep and draped in a s tandard fashion. Prophylactic antibiotics in the form of cefazolin were given. He does have a history of infections with other surgeries and therefore I administered antibiotics. Timeout was performed f or safe surgery. The right thumb was identified as the correct site and a digital block was performed using 1% lidocaine. After the digital block had set up fully, I then evaluated the thumb tip. The mu mmified tip was slowly removed from the base of the thumb. There was excellent bleeding tissue seen. The nail did have significant deformity and was quite soft. This nail was resected back to just proxi mal to the level of the mummified skin. The tip of the thumb was fully removed using sharp dissection . This exposed healthy, bleeding tissue underneath. There was a small amount of bone, which was palp able and prominent. Therefore, this needed to be resected. In general, I was quite pleased with the l ook of the tissue. There was bleeding edges seen throughout and therefore I did not perform any signi ficant resection, nor did I perform any Preet or other advancement flap for coverage. Using bone rongeurs, I removed bone from the wound and resected it about 3 to 4 millimeters proximal to the skin edge. I used a freer and a knife to free up the soft tissue from around the palmar aspect of the distal phalanx. I also incised the skin at the level of the paronychia to allow some advancem ent of the volar tissue. The bone was smoothed with a rasp. The nail bed seemed to be intact; however , the nail plate itself was significantly dysmorphic, thickened and soft. However, then this allowed me to place sutures through it quite easily, which I did use to pull the palmar skin over the edge of the thumb tip. I was able to utilize his palmar skin to reapproximate to the edge of the nail bed wi thout any tension on the nail bed itself. The wound was thoroughly irrigated. Two Chromic sutures wer e placed through the nail and through the volar tip of the thumb in order to reapproximate this tissu e. There was no excessive bleeding. The wound was dressed with Xeroform, 4x4s and a confirm dressing. At the end of the case, all counts were correct. Benigno was taken back to the Same Day Surgery in s table condition.
== END 2018-07-05 16:05 | disposition home or self-care (01) ==
PROVIDERS: PCP Family Medicine; Visit Provider Student in an Organized Health Care Education/Training Program
PROC: (CPT 26951; principal; 2018-07-05 14:30)
DX: T23.311A Burn of third degree of right thumb (nail), initial encounter (principal); T31.0 Burns involving less than 10% of body surface; X16.XXXA Contact with hot heating appliances, radiators and pipes, initial encounter
CPT/HCPCS: 26236; 99211; J0690

== ENCOUNTER 2018-08-30 18:44 | Inpatient (IN) | payer OTHER, SELFPAY ==
[2018-08-30] VITALS (9 sets, daily range): BP systolic 126–150; BP diastolic 75–91; PULSE 88–96; RESP 16–22; TEMP 37.1–37.2; O2SAT 94–96
--- NOTE | 2018-08-30 18:56 | W.ED.GENAD ---
Discharge Plan Disposition Patient Disposition: [facility] INPATIENT Condition: Fair Discharge Details Chief Complaint: GenMedical Clinical Impression: Diabetic infection of right foot Primary Care Provider: Garcia Fonseca ED Provider: Kt Browning [place] Meds and New Rx's Prescriptions: No Action folic acid 1 MG tablet 1.5 mg PO DAILY RF: 0 Eliquis 5 MG tablet 5 mg PO BID RF: 0 ascorbic acid (vitamin C) [Vitamin C] 500 MG tablet 500 mg PO QPM RF: 0 testosterone cypionate [Depo-Testosterone] 200 MG/ML oil 200 mg IM Q14D RF: 0 multivitamin 1 EACH capsule 1 ea PO DAILY RF: 0 cholecalciferol (vitamin D3) 1,000 UNITS tablet 2,000 units PO QPM RF: 0 metoprolol tartrate 25 MG tablet 50 mg PO HS RF: 0 gabapentin 600 MG tablet 1,200 mg PO TID RF: 0 atorvastatin [Lipitor] 40 MG tablet 40 mg PO HS RF: 0 bupropion HCl 450 mg Tablet Extended Release 24 Hr 450 mg PO DAILY RF: 0 Myrbetriq 50 mg Tablet Extended Release 24 Hr 50 mg PO DAILY RF: 0 lisinopril 5 MG tablet 5 mg PO DAILY RF: 0 acetaminophen [Mapap Extra Strength] 500 MG tablet 1,000 mg PO Q8H PRN PRNQty: 100 RF: 0 hydroxychloroquine 200 mg Tablet 200 mg PO BID RF: 0 sulfasalazine 500 mg Tablet 0.5 g PO BID RF: 0 sertraline [Zoloft] 50 mg Tablet 50 mg PO DAILY RF: 0 alogliptin 12.5 mg Tablet 12.5 mg PO QAM RF: 0 Medical Decision Making Patient looks chronically ill. He is not in distress. He is afebrile. He has acute worsening of chronic pain in the upper extremities with significant atrophy which I cannot really address in the ED. However, he has a diabetic right foot infection which in my opinion is pretty significant. In 24 hours he has gone from essentially no symptoms to a right foot that is swollen, red with ulceration to the big toe. There is a foul smell emanating from it. He has a prior history of getting septic and ill relatively quickly with infections. Going to place an IV and repeat labs. We will give some fluids and a CT scan of the foot. Unasyn ordered. I plan on admitting to hospitalist with podiatry consult for tomorrow. Patient's white count, sed rate and C-reactive protein are normal suggesting soft tissue infection only. Kidney function is normal. Hemoglobin has dropped since last month. He is on Eliquis but denies bleeding, black stool. CT scan of the foot shows no abscess. Questionable changes to the first and second metatarsal. Spoke with nursing water maintenance supervisor [place]. Patient has and can be admitted here under that as private insurance. Discussed with hospitalist. Patient accepted for admission. Medical Records Medical records reviewed: Yes I reviewed the patient's medical records. Lab Data Lab results reviewed: Yes I reviewed the patient's lab results. HPI General Mode of arrival: ambulatory (with walker). Date/Time Provider Initiated Documentation: 08/30/18 18:45. Limitations to Documentation: no limitations. Information obtained by: patient and family. HPI Narrative: Patient presents to ED for evaluation of right foot pain and swelling. He also has right shoulder pain with pain running down the right arm. The shoulder and upper extremity pain is chronic although worse. The right foot was recently operated on by podiatry. Infection did clear up although has had some discomfort in it. In the last 24 hours his big toe and second toe has become swollen and red. The foot has become swollen. He has not had fevers or chills. He was seen at [facility] today. He was referred up to the primary care clinic. There was no podiatry or orthopedics available. He had appointments scheduled for tomorrow. His brought him here for evaluation after going back down to the [place] to pick him up and bring him home. He has no complaint of chest pain, shortness of breath, cough, abdominal pain. He has chronic wasting and muscle atrophy which is been an issue since back and spinal surgery. Related Data Home Medications Medication Instructions Recorded Confirmed ascorbic acid (vitamin C) [Vitamin 500 mg PO QPM 05/11/14 08/30/18 C] cholecalciferol (vitamin D3) 2,000 units PO QPM 05/11/14 08/30/18 multivitamin 1 ea PO DAILY 05/11/14 08/30/18 testosterone cypionate 200 mg IM Q14D 05/11/14 08/30/18 [Depo-Testosterone] metoprolol tartrate 50 mg PO HS 06/14/15 08/30/18 gabapentin 1,200 mg PO TID 12/13/15 08/30/18 atorvastatin [Lipitor] 40 mg PO HS 04/13/17 08/30/18 folic acid 1.5 mg PO DAILY tab-cap 04/19/17 08/30/18 lisinopril 5 mg PO DAILY 06/15/17 08/30/18 acetaminophen [Mapap Extra 1,000 mg PO Q8H PRN PRN #100 tab 06/17/17 08/30/18 Strength] Eliquis 5 mg PO BID 07/14/17 08/30/18 bupropion HCl 450 mg PO DAILY 04/02/18 08/30/18 Myrbetriq 50 mg PO DAILY 06/16/18 08/30/18 hydroxychloroquine 200 mg PO BID 07/05/18 08/30/18 sulfasalazine 0.5 g PO BID 07/05/18 08/30/18 alogliptin 12.5 mg PO QAM 08/30/18 08/30/18 sertraline [Zoloft] 50 mg PO DAILY 08/30/18 08/30/18 Previous Rx's Medication Instructions Recorded acetaminophen [Mapap Extra 1,000 mg PO Q8H PRN PRN #100 tab 06/17/17 Strength] Allergies Allergy/AdvReac Type Severity Reaction Status Date / Time nitroglycerin Allergy Hives Unverified 08/30/18 18:56 pioglitazone HCl [From Actos] AdvReac Mild leg Unverified 08/30/18 18:56 swelling General Stated Complaint: GenMedical PORTILLO: 3 Review of Systems Review of Systems 02/27 Review of Systems completed and is negative except as stated above in HPI (Systems reviewed: Const, Eyes, ENT, Resp, CV, GI, , MSK, Skin, Neuro) [facility] Medical History Osteomyelitis (Acute) Recurrent UTI (urinary tract infection) (Chronic) BPH (benign prostatic hyperplasia) (Chronic) Nephrolithiasis (Chronic) History of DVT (deep vein thrombosis) (Chronic) GERD (gastroesophageal reflux disease) (Chronic) Urinary incontinence (Chronic) DJD (degenerative joint disease) (Chronic) Hypogonadism (Chronic) Dyslipidemia (Chronic) Hypertension (Chronic) Depression (Chronic) Diabetes mellitus (Chronic) 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) Thermal injury (Resolved) Cellulitis of right hand (Resolved 12/23/15) Diabetic neuropathy (Chronic) History of colon polyps (Chronic) Surgical History H/O hand surgery (Chronic) History of repair of hiatal hernia (Chronic) History of cholecystectomy (Chronic) History of lumbosacral spine surgery (Chronic) H/O cervical spine surgery (Chronic) History of Kallie fundoplication (Chronic) Colonoscopy - IV Sedation (Inactive 10/28/16) EGD - IV Sedation (Inactive) Social History Smoking/Tobacco Use Status: Never Drug use: Never Household members: spouse Do you feel safe at home: Yes Do you feel safe in your relationship?: Yes Additional Social history: Patient is and has 2 grown daughters. Originally from [place], moved to [place] approximately a decade ago. 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 He also denies any illicit drug use. Exam Narrative Exam Narrative: Vitals: Patient mildly tachy and hypertensive. He is afebrile. He looks chronically ill. Const: Frail appearing male in NAD. HEENT: NC/AT. Normal facial exam. Eyes: Normal conjunctiva and sclera. Neck: Supple. Trachea midline. Lungs: Normal respiratory effort. Lungs are clear. Cor: RRR without murmur/gallop. Good distal pulses palpated including in feet. GI: Soft. NT/ND. No guarding or rebound. Back: No CVAT. Neuro: A+O x 3. CN grossly in tact. No focal motor deficit. Decreased sensation in feet chronic. Ext: No C/C. RLE larger than LLE (chronic and unchanged). Right foot with ulcer at tip of big toe. Redness of 1st, 2nd, 3rd toe with swelling of 1st and 2nd toe extending down into foot. Foul smell present. No drainage. Severe muscle atrophy of upper extremities. Skin: Warm and dry. Erythema of right foot. Course Vital Signs Temperature 98.8 F 08/30/18 18:49 Pulse 94 H 08/30/18 18:49 Respiratory Rate 16 08/30/18 18:49 Blood Pressure 146/89 H 08/30/18 18:49 Pulse Oximetry 95 08/30/18 18:49 Temperature 98.8 F 08/30/18 18:49 Temperature Source Skin 08/30/18 18:49 Pulse 94 H 08/30/18 18:49 Respiratory Rate 16 08/30/18 18:49 Respiratory Effort Non-Labored 08/30/18 18:53 Blood Pressure 146/89 H 08/30/18 18:49 Blood Pressure Position Sitting 08/30/18 18:49 Pulse Oximetry 95 08/30/18 18:49 Oxygen Delivery Method Room Air 08/30/18 18:49 Oxygen Flow Rate 0 08/30/18 18:49 Pain Level 8 08/30/18 18:49
--- NOTE | 2018-08-30 19:02 | ED.GENADUL_ITS ---
Discharge Plan Disposition Patient Disposition: [facility] INPATIENT Condition: Fair Discharge Details Chief Complaint: GenMedical Clinical Impression: Diabetic infection of right foot Primary Care Provider: Garcia Fonseca ED Provider: Kt Browning [place] Meds and New Rx's Prescriptions: No Action folic acid 1 MG tablet 1.5 mg PO DAILY RF: 0 Eliquis 5 MG tablet 5 mg PO BID RF: 0 ascorbic acid (vitamin C) [Vitamin C] 500 MG tablet 500 mg PO QPM RF: 0 testosterone cypionate [Depo-Testosterone] 200 MG/ML oil 200 mg IM Q14D RF: 0 multivitamin 1 EACH capsule 1 ea PO DAILY RF: 0 cholecalciferol (vitamin D3) 1,000 UNITS tablet 2,000 units PO QPM RF: 0 metoprolol tartrate 25 MG tablet 50 mg PO HS RF: 0 gabapentin 600 MG tablet 1,200 mg PO TID RF: 0 atorvastatin [Lipitor] 40 MG tablet 40 mg PO HS RF: 0 bupropion HCl 450 mg Tablet Extended Release 24 Hr 450 mg PO DAILY RF: 0 Myrbetriq 50 mg Tablet Extended Release 24 Hr 50 mg PO DAILY RF: 0 lisinopril 5 MG tablet 5 mg PO DAILY RF: 0 acetaminophen [Mapap Extra Strength] 500 MG tablet 1,000 mg PO Q8H PRN PRNQty: 100 RF: 0 hydroxychloroquine 200 mg Tablet 200 mg PO BID RF: 0 sulfasalazine 500 mg Tablet 0.5 g PO BID RF: 0 sertraline [Zoloft] 50 mg Tablet 50 mg PO DAILY RF: 0 alogliptin 12.5 mg Tablet 12.5 mg PO QAM RF: 0 Medical Decision Making Patient looks chronically ill. He is not in distress. He is afebrile. He has acute worsening of chronic pain in the upper extremities with significant atrophy which I cannot really address in the ED. However, he has a diabetic right foot infection which in my opinion is pretty significant. In 24 hours he has gone from essentially no symptoms to a right foot that is swollen, red with ulceration to the big toe. There is a foul smell emanating from it. He has a prior history of getting septic and ill relatively quickly with infections. Going to place an IV and repeat labs. We will give some fluids and a CT scan of the foot. Unasyn ordered. I plan on admitting to hospitalist with podiatry consult for tomorrow. Patient's white count, sed rate and C-reactive protein are normal suggesting sof t tissue infection only. Kidney function is normal. Hemoglobin has dropped since last month. He is on Eliquis but denies bleeding, black stool. CT scan of the foot shows no abscess. Questionable changes to the first and second metatarsal. 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 Patient has and can be admitted here under that as private insurance. Discussed with hospitalist. Patient accepted for admission. Medical Records Medical records reviewed: Yes I reviewed the patient's medical records. Lab Data Lab results reviewed: Yes I reviewed the patient's lab results. HPI General Mode of arrival: ambulatory (with walker) . Date/Time Provider Initiated Documentation: 08/30/18 18:45 . Limitations to Documentation: no limitations . Information obtained by: patient and family . HPI Narrative: Patient presents to ED for evaluation of right foot pain and swelling. He also has right shoulder pain with pain running down the right arm. The shoulder and upper extremity pain is chronic although worse. The right foot was recently operated on by podiatry. Infection did clear up although has had some discomfort in it. In the last 24 hours his big toe and second toe has become swollen and red. The foot has become swollen. He has not had fevers or chills. He was seen at [facility] today. He was referred up to the primary care clinic. There was no podiatry or orthopedics available. He had appointments scheduled for tomorrow. His brought him here for evaluation after going back down to the [place] to pick him up and bring him home. He has no complaint of chest pain, shortness of breath, cough, abdominal pain. He has chronic wasting and muscle atrophy which is been an issue since back and spinal surgery. Related Data Home Medications Medication Instructions Recorded Confirmed ascorbic acid (vitamin C) [Vitamin 500 mg PO QPM 05/11/14 08/30/18 C] cholecalciferol (vitamin D3) 2,000 units PO QPM 05/11/14 08/30/18 multivitamin 1 ea PO DAILY 05/11/14 08/30/18 testosterone cypionate 200 mg IM Q14D 05/11/14 08/30/18 [Depo-Testosterone] metoprolol tartrate 50 mg PO HS 06/14/15 08/30/18 gabapentin 1,200 mg PO TID 12/13/15 08/30/18 atorvastatin [Lipitor] 40 mg PO HS 04/13/17 08/30/18 folic acid 1.5 mg PO DAILY tab-cap 04/19/17 08/30/18 lisinopril 5 mg PO DAILY 06/15/17 08/30/18 acetaminophen [Mapap Extra 1,000 mg PO Q8H PRN PRN #100 tab 06/17/17 08/30/18 Strength] Eliquis 5 mg PO BID 07/14/17 08/30/18 bupropion HCl 450 mg PO DAILY 04/02/18 08/30/18 Myrbetriq 50 mg PO DAILY 06/16/18 08/30/18 hydroxychloroquine 200 mg PO BID 07/05/18 08/30/18 sulfasalazine 0.5 g PO BID 07/05/18 08/30/18 alogliptin 12.5 mg PO QAM 08/30/18 08/30/18 sertraline [Zoloft] 50 mg PO DAILY 08/30/18 08/30/18 Previous Rx's Medication Instructions Recorded acetaminophen [Mapap Extra 1,000 mg PO Q8H PRN PRN #100 tab 06/17/17 Strength] Allergies Allergy/AdvReac Type Severity Reaction Status Date / Time nitroglycerin Allergy Hives Unverified 08/30/18 18:56 pioglitazone HCl [From Actos] AdvReac Mild leg Unverified 08/30/18 18:56 swelling General Stated Complaint: GenMedical PORTILLO: 3 Review of Systems Review of Systems 02/27 Review of Systems completed and is negative except as stated above in HPI (Systems reviewed: Const, Eyes, ENT, Resp, CV, GI, , MSK, Skin, Neuro) [facility] Medical History Osteomyelitis (Acute) Recurrent UTI (urinary tract infection) (Chronic) BPH (benign prostatic hyperplasia) (Chronic) Nephrolithiasis (Chronic) History of DVT (deep vein thrombosis) (Chronic) GERD (gastroesophageal reflux disease) (Chronic) Urinary incontinence (Chronic) DJD (degenerative joint disease) (Chronic) Hypogonadism (Chronic) Dyslipidemia (Chronic) Hypertension (Chronic) Depression (Chronic) Diabetes mellitus (Chronic) 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) Thermal injury (Resolved) Cellulitis of right hand (Resolved 12/23/15) Diabetic neuropathy (Chronic) History of colon polyps (Chronic) Surgical History H/O hand surgery (Chronic) History of repair of hiatal hernia (Chronic) History of cholecystectomy (Chronic) History of lumbosacral spine surgery (Chronic) H/O cervical spine surgery (Chronic) History of Kallie fundoplication (Chronic) Colonoscopy - IV Sedation (Inactive 10/28/16) EGD - IV Sedation (Inactive) Social History Smoking/Tobacco Use Status: Never Drug use: Never Household members: spouse Do you feel safe at home: Yes Do you feel safe in your relationship?: Yes Additional Social history: Patient is and has 2 grown daughters. Originally from [place], moved to [place] approximately a decade ago. 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 He also denies any illicit drug use. Exam Narrative Exam Narrative: Vitals: Patient mildly tachy and hypertensive. He is afebrile. He looks chronically ill. Const: Frail appearing male in NAD. HEENT: NC/AT. Normal facial exam. Eyes: Normal conjunctiva and sclera. Neck: Supple. Trachea midline. Lungs: Normal respiratory effort. Lungs are clear. Cor: RRR without murmur/gallop. Good distal pulses palpated including in feet. GI: Soft. NT/ND. No guarding or rebound. Back: No CVAT. Neuro: A+O x 3. CN grossly in tact. No focal motor deficit. Decreased sensation in feet chronic. Ext: No C/C. RLE larger than LLE (chronic and unchanged). Right foot with ulcer at tip of big toe. Redness of 1st, 2nd, 3rd toe with swelling of 1st and 2nd toe extending down into foot. Foul smell present. No drainage. Severe muscle atrophy of upper extremities. Skin: Warm and dry. Erythema of right foot. Course Vital Signs Temperature 98.8 F 08/30/18 18:49 Pulse 94 H 08/30/18 18:49 Respiratory Rate 16 08/30/18 18:49 Blood Pressure 146/89 H 08/30/18 18:49 Pulse Oximetry 95 08/30/18 18:49 Temperature 98.8 F 08/30/18 18:49 Temperature Source Skin 08/30/18 18:49 Pulse 94 H 08/30/18 18:49 Respiratory Rate 16 08/30/18 18:49 Respiratory Effort Non-Labored 08/30/18 18:53 Blood Pressure 146/89 H 08/30/18 18:49 Blood Pressure Position Sitting 08/30/18 18:49 Pulse Oximetry 95 08/30/18 18:49 Oxygen Delivery Method Room Air 08/30/18 18:49 Oxygen Flow Rate 0 08/30/18 18:49 Pain Level 8 08/30/18 18:49
--- NOTE | 2018-08-30 19:14 | DI.CT_ITS ---
SYMPTOM/DIAGNOSIS: RT FOOT INFECTION RIGHT FOOT CT: The study was carried out with an intravenous administration of 100 cc's of Omnipaque 350. The patient is status post partial amputation of the second toe. Post surgical changes involving the distal aspect of the first metatarsal are identified. There is deformity of the second metatarsal bone where there is a possible healing fracture. Soft tissue swelling is identified. Vascular calcifications are noted. There is no localized soft tissue abnormality. If there is a strong further clinical question regarding the possibility of osteomyelitis in this patient, then an MRI could be considered.
[2018-08-30 19:28] LABS: Abs Immature Grans 0.03 k/cumm (0.0-0.09); Absolute Basophil Count 0.02 k/cumm (0.0-0.2); Absolute Eosinophil Count 0.12 k/cumm (0.0-0.7); Absolute Lymphocyte Count 0.77 k/cumm (1.2-3.4); Absolute Monocyte Count 0.55 k/cumm (0.11-0.7); Absolute Neutrophil Count 6.57 k/cumm (1.2-6.7); Basophils % 0.2; Eosinophils % 1.5; HCT 31.9 % (40.0-50.0); Immature Grans % 0.4; Lymphocytes % 9.6; Mean Corp. HGB Concentration 28.2 g/dL (32.0-36.0); Mean Corpuscular Hemoglobin 27.7 pg (27.0-33.0); Mean Corpuscular Volume 98.2 fL (80-95); Mean Platelet Volume 9.2 fL (8.0-11.0); Monocytes % 6.8; Neutrophils % 81.5; Platelet Count 294 x1000/uL (130-400); RBC 3.25 m/cumm (4.50-6.00); RBC Distribution Width 16.8 % (11.8-14.1); White Blood Cell Count 8.06 k/cumm (4.4-10.8)
[2018-08-30] MEDS: Omnipaque 350 MG/ML 100 ML BTL IV (19:36)
[2018-08-30 19:37] LABS: Anion Gap 9.4 mmol/L (3-11); BUN 18 mg/dL (7-18); C-Reactive Protein 0.09 mg/dL (0.0-0.3); CO2 26.6 mmol/L (21.0-32.0); CREATININE 0.79 mg/dL (0.70-1.30); Calcium 8.6 mg/dL (8.5-10.1); Chloride 104 mmol/L (98-107); Glucose 232 mg/dL (70-100); Potassium 3.6 mmol/L (3.5-5.1); Sodium 140 mmol/L (136-145)
[2018-08-30] MEDS: Normal Saline 1,000 ML 125 ML IV (19:41)
[2018-08-30 20:00] LABS: ESR 16 MM/HR (1-20)
[2018-08-30] MEDS: PIPERACILLIN/TAZO 4.5 GM in Normal Saline 100 ML IVPB (20:00)
[2018-08-30 20:08] LABS: Diff Comment Diff Reviewed; Nucleated RBC 2 /100WBC
[2018-08-30 20:09] LABS: Hypochromasia 2+
--- NOTE | 2018-08-30 20:22 | DI.VRAD_ITS ---
EXAM: CT Right Lower Extremity With Contrast, Foot EXAM DATE/TIME: 08/30/2018 7:16 PM CLINICAL HISTORY: 57 years old, male; Pain; Foot and toes; Right; Patient HX: Right foot infection, pain, most of the pain in the first and second phalanges/metatarsals. ; Additional info: PT is diabetic TECHNIQUE: Imaging protocol: CT of the Right lower extremity with intravenous contrast was performed. Exam focused on the foot. Coronal and sagittal reformatted images were created and reviewed. Radiation optimization: All CT scans at this facility use at least one of these dose optimization techniques: automated exposure control; mA and/or kV adjustment per patient size (includes targeted exams where dose is matched to clinical indication); or iterative reconstruction. Contrast material: Omnipaque 350 Contrast volume: 100 ml Contrast route: IV COMPARISON: CR XR toe RT second 06/16/2018 12:39 PM FINDINGS: Bones/joints: Status post partial amputation of the second digit. Postsurgical changes involving distal aspect of the first metatarsal bone. Deformity of the second metatarsal bone, possible healing fracture. Soft tissues: Soft tissue swelling. Vasculature: Vascular arterial calcifications. IMPRESSION: 1. Status post resection/debridement of the distal aspect of the first metatarsal bone. 2. Status post partial amputation of the second digit. 3. Periosteal reaction and possibly healing fracture involving the second metatarsal bone. If further evaluation for osteomyelitis is desired, consider MRI Dictated and Authenticated by: Forest Goodman MD. Ordering:DEMETRICE Meraz MD
--- NOTE | 2018-08-30 22:02 | W.PM.HP.N ---
Date of service: 08/30/18 Time of Service: 22:03 Assessment and Plan (1) Cellulitis: Current visit: Yes Status: Acute cellulitis iin setting of diabetic foot ulcer. Unclear whether might be underlying osteo. Will continue broad specttrum antibiotics and consult podiatry. History of Present Illness Chief Complaint: swollen toe Narrative: 57 male with DM, neuropathy, here with three days of increasing pain and swelling in right hallux -- this is beyond what is otherwise a chronic swelling. Seen at [place], advised f/u podiatry, comes here for further evaluation. In ER findings c/w cellulitis noted, patient given dose of Zosyn and admitted for furtheer management. 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) Thermal injury (Resolved) Cellulitis of right hand (Resolved 12/23/15) Diabetic neuropathy (Chronic) History of colon polyps (Chronic) Surgical History H/O hand surgery (Chronic) History of repair of hiatal hernia (Chronic) History of cholecystectomy (Chronic) History of lumbosacral spine surgery (Chronic) H/O cervical spine surgery (Chronic) History of Kallie fundoplication (Chronic) Colonoscopy - IV Sedation (Inactive 10/28/16) EGD - IV Sedation (Inactive) Social History Smoking/Tobacco Use Status: Never Drug use: Never Household members: spouse Do you feel safe at home: Yes Do you feel safe in your relationship?: Yes Additional Social history: Patient is and has 2 grown daughters. Originally from [place], moved to [place] approximately a decade ago. 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 He also denies any illicit drug use. Meds Home Medications Medication Instructions Recorded Confirmed Type ascorbic acid (vitamin C) [Vitamin 500 mg PO QPM 05/11/14 08/30/18 History C] cholecalciferol (vitamin D3) 2,000 units PO QPM 05/11/14 08/30/18 History multivitamin 1 ea PO DAILY 05/11/14 08/30/18 History testosterone cypionate 200 mg IM Q14D 05/11/14 08/30/18 History [Depo-Testosterone] metoprolol tartrate 50 mg PO HS 06/14/15 08/30/18 History gabapentin 1,200 mg PO TID 12/13/15 08/30/18 History atorvastatin [Lipitor] 40 mg PO HS 04/13/17 08/30/18 History folic acid 1.5 mg PO DAILY tab-cap 04/19/17 08/30/18 History lisinopril 5 mg PO DAILY 06/15/17 08/30/18 History acetaminophen [Mapap Extra 1,000 mg PO Q8H PRN PRN #100 tab 06/17/17 08/30/18 Rx Strength] Eliquis 5 mg PO BID 07/14/17 08/30/18 History bupropion HCl 450 mg PO DAILY 04/02/18 08/30/18 History Myrbetriq 50 mg PO DAILY 06/16/18 08/30/18 History hydroxychloroquine 200 mg PO BID 07/05/18 08/30/18 History sulfasalazine 0.5 g PO BID 07/05/18 08/30/18 History alogliptin 12.5 mg PO QAM 08/30/18 08/30/18 History sertraline [Zoloft] 50 mg PO DAILY 08/30/18 08/30/18 History Allergies Allergy/AdvReac Type Severity Reaction Status Date / Time nitroglycerin Allergy Hives Unverified 08/30/18 18:56 pioglitazone HCl [From Actos] AdvReac Mild leg Unverified 08/30/18 18:56 swelling Exam Narrative Exam Narrative: 37.1, 126/75, 95, 20. HEENT unremarkable. Neck supple. Lungs clear. Heart occasional ecttopic. Abdomen soft and non-tendeer. Extremities: right hallux swollen, with mild erythema involving entire digit but no warmth or tenderness, with scab or eschar overlying the distal aspect of the toe. right pedal pulses only faintly palpable if at all but capillary refill prompt. There is a right femoral bruit. Results Labs : 08/30/18 19:20 08/30/18 19:20 Laboratory Results - last 24 hr 08/30/18 08/30/18 19:20 19:20 WBC 8.06 RBC 3.25 L Hgb 9.0 L Hct 31.9 L MCV 98.2 H MCH 27.7 MCHC 28.2 L RDW 16.8 H Plt Count 294 MPV 9.2 Immature Gran % 0.4 Neutrophils % 81.5 Lymphocytes % 9.6 Monocytes % 6.8 Eosinophils % 1.5 Basophils % 0.2 Absolute Neutrophils 6.57 Absolute Lymphocytes 0.77 L Absolute Monocytes 0.55 Absolute Eosinophils 0.12 Absolute Basophils 0.02 Nucleated RBCs 2 Differential Comment Diff reviewed RBC Morphology See below Hypochromasia 2+ ESR 16 Sodium 140 Potassium 3.6 Chloride 104 Carbon Dioxide 26.6 Anion Gap 9.4 BUN 18 Creatinine 0.79 Estimated GFR/1.73 m2 >= 60.00 Glucose 232 H Calcium 8.6 C-Reactive Protein 0.09 Last Vital Signs Temp 37.1 C 08/30/18 18:49 Pulse 95 H 08/30/18 21:30 Resp 20 08/30/18 21:00 BP 126/75 08/30/18 21:30 Pulse Ox 95 08/30/18 21:30
[2018-08-30] MEDS: Gabapentin 600 MG TAB 1200 MG PO (23:52)
[2018-08-30] MEDS: oxyCODONE 5 MG TAB PO (23:52)
[2018-08-30] MEDS: Acetaminophen 500 MG TAB 1000 MG PO (23:56)
--- NOTE | 2018-08-31 00:14 | NUR.NOTE ---
Patient was admitted to the Med/Surg unit from the Emergency Room. He is AxOx3. [facility] pain that radiates down the arm. He also has what he feels beginings of an infection in his right foot. On assessment patient noted with inability to fully extend bilateral arms, swelling noted to his finger joints. Swelling, redness noted to bilateral knees, scratch brittani noted to the right gordillo, said lower extremity warm to touch and purulent secretion noted in the right under great toe, and partial amputation noted to the second toe. Pt voice decrease sensation to both upper and lower extremities. He is oriented to the room and made comfortable in bed
[2018-08-31 00:35] VITALS: BP 150/91; PULSE 92; RESP 16; TEMP 37.2; O2SAT 96
[2018-08-31] MEDS: Normal Saline 1,000 ML 125 ML IV ×2 (01:29→10:55)
[2018-08-31] MEDS: PIPERACILLIN/TAZO 3.375 GM in Normal Saline 50 ML IVPB ×4 (01:30→19:15)
[2018-08-31] MEDS: oxyCODONE 5 MG TAB PO ×4 (05:13→19:52)
[2018-08-31 07:15] VITALS: BP 161/97; PULSE 76; RESP 19; TEMP 37; O2SAT 98
[2018-08-31] MEDS: Sertraline 50 MG TAB PO (08:40)
[2018-08-31] MEDS: Mirabegron 50 MG TABCR PO (08:40)
[2018-08-31] MEDS: Hydroxychloroquine 200 MG TAB PO ×2 (08:40→19:14)
[2018-08-31] MEDS: Apixaban 5 MG TAB PO ×2 (08:40→19:14)
[2018-08-31] MEDS: buPROPion-XL 150 MG TABCR 450 MG PO (08:41)
[2018-08-31] MEDS: Gabapentin 600 MG TAB 1200 MG PO ×3 (08:41→19:14)
[2018-08-31] MEDS: sulfaSALAzine 500 MG TAB PO ×2 (08:42→19:14)
[2018-08-31] MEDS: Multivitamin TAB 1 TAB PO (08:42)
[2018-08-31] MEDS: Folic Acid 1 MG TAB 1.5 MG PO (08:42)
[2018-08-31] MEDS: Lisinopril 5 MG TAB PO (08:42)
[2018-08-31] MEDS: Normal Saline Flush 10 ML SYR IVP (08:43)
[2018-08-31] MEDS: Pantoprazole 40 MG VIAL IVP (08:43)
--- NOTE | 2018-08-31 09:41 | PDOC.CMIN ---
Care Management Initial Assess REASON FOR HOSPITALIZATION:: Diabetic Foot Infection PAST MEDICAL HISTORY/PAST SURGICAL HISTORY:: Recurrent UTI (urinary tract infection) (Chronic). BPH (benign prostatic hyperplasia) (Chronic). Nephrolithiasis (Chronic). History of DVT (deep vein thrombosis) (Chronic). GERD (gastroesophageal reflux disease) (Chronic). Urinary incontinence (Chronic). DJD (degenerative joint disease) (Chronic). Hypogonadism (Chronic). Dyslipidemia (Chronic). Hypertension (Chronic). Depression (Chronic). Diabetes mellitus (Chronic). 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 History of cellulitis (Chronic). Thermal injury (Acute). Cellulitis of right hand (Resolved 12/23/15). Anxiety and depression. Diabetes mellitus type II, controlled. Diabetic neuropathy. Essential hypertension. History of colon polyps. History of gastroesophageal reflux (GERD). Hyperlipidemia. Hypogonadism in male. Urge incontinence. H/O hand surgery (Chronic). History of repair of hiatal hernia (Chronic). History of cholecystectomy (Chronic). History of lumbosacral spine surgery (Chronic). H/O cervical spine surgery (Chronic). History of Kallie fundoplication (Chronic). Cholecystectomy. Colonoscopy - IV Sedation (10/28/16). EGD - IV Sedation. Kallie Fundoplication PREVIOUS FUNCTIONAL STATUS/SOCIAL/FAMILY SUPPORTS:: Benigno resides with his Oma in [place]. He has a daughter Anabel in [place], and another daughter Na whom resides in their home. Benigno has recently been cleared to drive. CURRENT FUNCTIONAL STATUS:: Benigno was ambulating independently in his room. He sat down in the chair for CM meeting. He was pleasant in interaction and forthcoming with information. ADVANCE DIRECTIVES:: On file - Oma Harveyilleux is agent. Anabel Sandoval alternate agent. Has patient been provided with information about the portal?: Yes Did the patient sign up for the portal?: Yes (Previously ) CODE STATUS:: Full Code INSURANCE COVERAGE / FINANCIAL ISSUES:: [facility], [facility], [facility] CURRENT HOME/COMMUNITY SERVICES/EQUIPMENT:: Cane, Walker, Glucometer. Benigno reports HC RN continues; will need to confirm with [facility] as roster listed only MOW which Benigno reports he discontinued two weeks ago. He also reports PT/OT were discontinued as well. PRIMARY CARE PHYSICIAN:: Dr. Fonseca POTENTIAL DISCHARGE NEEDS:: F/U appointment with Dr. Aleman. PALMAA - RN/PT/OT. PATIENT/FAMILY EDUCATION NEEDS:: Review DC instructions, any limitations, and ongoing DC planning discussion. Discuss 'Ask Me Three' ANTICIPATED BARRIERS TO DISCHARGE:: None identified at this time. TRANSPORTATION:: Via private vehicle with family PLAN:: Benigno will be closely monitored; plan for podiatry consult. Per MD, in event consult unavailable-resulting consideration for [facility]. CM will continue to follow and confirm current service supports and further needs per discharge plan.
--- NOTE | 2018-08-31 09:49 | INITIAL_ITS ---
Care Management Initial Assess REASON FOR HOSPITALIZATION:: Diabetic Foot Infection PAST MEDICAL HISTORY/PAST SURGICAL HISTORY:: Recurrent UTI (urinary tract infection) (Chronic). BPH (benign prostatic hyperplasia) (Chronic). Nephrolithiasis (Chronic). History of DVT (deep vein thrombosis) (Chronic). GERD (gastroesophageal reflux disease) (Chronic). Urinary incontinence (Chronic). DJD (degenerative joint disease) (Chronic). Hypogonadism (Chronic). Dyslipidemia (Chronic). Hypertension (Chronic). Depression (Chronic). Diabetes mellitus (Chronic). 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 History of cellulitis (Chronic). Thermal injury (Acute). Cellulitis of right hand (Resolved 12/23/15). Anxiety and depression. Diabetes mellitus type II, controlled. Diabetic neuropathy. Essential hypertension. History of colon polyps. History of gastroesophageal reflux (GERD). Hyperlipidemia. Hypogonadism in male. Urge incontinence. H/O hand surgery (Chronic). History of repair of hiatal hernia (Chronic). History of cholecystectomy (Chronic). History of lumbosacral spine surgery (Chronic). H/O cervical spine surgery (Chronic). History of Kallie fundoplication (Chronic). Cholecystectomy. Colonoscopy - IV Sedation (10/28/16). EGD - IV Sedation. Kallie Fundoplication PREVIOUS FUNCTIONAL STATUS/SOCIAL/FAMILY SUPPORTS:: Benigno resides with his Oma in [place]. He has a daughter Anabel in [place], and another daughter Na whom resides in their home. Benigno has recently been cleared to drive. CURRENT FUNCTIONAL STATUS:: Benigno was ambulating independently in his room. He sat down in the chair for CM meeting. He was pleasant in interaction and forthcoming with information. ADVANCE DIRECTIVES:: On file - Oma Harveyilleux is agent. Anabel Sandoval alternate agent. Has patient been provided with information about the portal?: Yes Did the patient sign up for the portal?: Yes (Previously ) CODE STATUS:: Full Code INSURANCE COVERAGE / FINANCIAL ISSUES:: [facility], [facility], [facility] CURRENT HOME/COMMUNITY SERVICES/EQUIPMENT:: Cane, Walker, Glucometer. Benigno reports HC RN continues; will need to confirm with [facility] as roster listed only MOW which Benigno reports he discontinued two weeks ago. He also reports PT/OT were discontinued as well. PRIMARY CARE PHYSICIAN:: Dr. Fonseca POTENTIAL DISCHARGE NEEDS:: F/U appointment with Dr. Aleman. PALMAA - RN/PT/OT. PATIENT/FAMILY EDUCATION NEEDS:: Review DC instructions, any limitations, and ongoing DC planning discussion. Discuss 'Ask Me Three' ANTICIPATED BARRIERS TO DISCHARGE:: None identified at this time. TRANSPORTATION:: Via private vehicle with family PLAN:: Benigno will be closely monitored; plan for podiatry consult. Per MD, in event consult unavailable-resulting consideration for [facility]. CM will continue to follow and confirm current service supports and further needs per discharge plan.
[2018-08-31] MEDS: Potassium Chloride 20 MEQ TABCR 40 MEQ PO (10:55)
[2018-08-31] MEDS: Magnesium Oxide 400 MG TAB PO (10:56)
--- NOTE | 2018-08-31 11:26 | W.PM.PROGNOT ---
Date of Service Date of service: 08/31/18 Time of Service: 12:18 Assessment and Plan (1) Diabetic foot ulcer: Current visit: Yes Status: Acute Non-healing diabetic wound to right great toe with surrounding cellulitis. With CT showing soft tissue swelling, no findings to suggest osteomyelitis. CRP normal at 0.09, ESR normal at 16, no leukocytosis, afebrile. Appears to be localized, superficial infection. Podiatry consulted but not available at this time. Wound consult placed. Culture drainage. Previous culture grew Group B strep and MSSA. Continue broad spectrum antibiotics with Vanco and Zosyn. Monitor culture results. Elevate lower extremities. (2) Cellulitis: Current visit: Yes Status: Acute Treat as above. (3) Right arm pain: Current visit: Yes Status: Acute In the setting of recent cervical spine surgery in 03/2018. Continue ocycodone for pain, consult PT/OT. Consider imaging as indicated. Will need outpatient follow up with cervical spine surgeon, Dr. Donovan. (4) H/O cervical spine surgery: Current visit: No Status: Chronic As above. Will need follow up with Dr. Donovan, [facility]. (5) Diabetes mellitus: Current visit: No Status: Chronic Blood glucose 124 this morning. Continue sliding scale insulin and carbohydrate counting diet. Monitor blood glucose at . Hgb A1c in the morning. (6) Hypogonadism: Current visit: No Status: Chronic Testosterone as ordered. (7) Hypertension: Current visit: No Status: Chronic Continue lisinopril and metoprolol. Discontinue IV fluids. Continue to monitor blood pressures. (8) BPH (benign prostatic hyperplasia): Current visit: No Status: Chronic Continue myrbetriq. (9) GERD (gastroesophageal reflux disease): Current visit: No Status: Chronic Does not appear to be on PPI therapy as an outpatient. Protonix 40 mg IV q24 hours. (10) Anemia: Current visit: Yes Status: Chronic Labs reveal worsening anemia. Assess Iron/TIBC, ferritin, folate, B12, TSH, hematest stools. PPI for GI protection. (11) History of DVT (deep vein thrombosis): Current visit: No Status: Chronic Continue eliquis. (12) DVT prophylaxis: Current visit: No Status: Acute Therapeutic on eliquis. (13) Discharge planning issues: Current visit: No Status: Acute He is a Full code. This case was discussed with Dr. Lazo who is in agreement. Subjective Interval history since last seen: Mr. Agosto continues to report shooting pain down his right arm, the pain is 4/10 at rest and up to 9/10 with activity after taking oxycodone. He recently (03/2018) had cervical spine surgery at [facility]. He reports that since his surgery he has had bilateral upper arm weakness and numbness and tingling to his fingertips. He reports onset of right arm pain over the past 2 weeks that has progressively worsened. He also reports that he noticed a wound to his right great toe beginning 5 days ago with progressively worsening edema and erythema extending into his second toe and foot. He now notes thick, green drainage on the dressing. He does not have pain in the right toes due to diabetic neuropathy. He was seen yesterday [facility] the [facility], he left there and came to the [facility] ED for further treatment. He denies any other concerns such as fever, chills, dizziness, shortness of breath, wheezing, coughing, chest pain/pressure, palpitations, he is eating and drinking and tolerating his diet, no nausea, vomiting or diarrhea. His bowels are moving normally. Denies dysuria or hematuria. Exam Narrative Exam Narrative: General: Awake and alert, sitting up in the chair, in NAD. Answers questions appropriately. HEENT: normocephalic, atraumatic, pupils equal and round, EOMI, mucous membranes moist. Neck: supple, no JVD, no pain or symptom reproduction on palpation of posterior neck/cervical spine. Cardiovascular: heart has regular rate and rhythm, no murmur appreciated. Respiratory: respirations even and unlabored, lung sounds clear to auscultation throughout. Abdomen: normoactive bowel sounds, soft, nondistended, nontender on plapation. Extremities: great toe to right foot edematous, with erythema, approximately 2 cm wound with 1 cm oval area of eschar, thick green drainage on dressing, no active drainage, no expressible drainage. Second toe on right foot with erythema and edema, no drainage. 2+ pitting edema to right foot. Left foot without edema or wounds. Pedal pulses palpable bilaterally. Objective Objective Clinical Data: Abnormal lab results 08/30/18 08/30/18 Range/Units 19:20 19:20 RBC 3.25 L (4.50-6.00) m/cumm Hgb 9.0 L (13.5-17.5) g/dL Hct 31.9 L (40.0-50.0) % MCV 98.2 H (80-95) fL MCHC 28.2 L (32.0-36.0) g/dL RDW 16.8 H (11.8-14.1) % Absolute Lymphocytes 0.77 L (1.2-3.4) k/cumm Glucose 232 H (70-100) mg/dL Vital Signs Temperature 37.0 C 08/31/18 07:15 Temperature Source Tympanic 08/31/18 07:15 Pulse 76 08/31/18 07:15 Pulse Rhythm Regular 08/31/18 07:30 Respiratory Rate 19 08/31/18 07:15 Respiratory Effort Non-Labored 08/31/18 07:30 Respiratory Depth Normal 08/31/18 07:30 Respiratory Pattern Normal 08/31/18 07:30 Blood Pressure 161/97 H 08/31/18 07:15 Blood Pressure Position Sitting 08/30/18 18:49 Pulse Oximetry 98 08/31/18 07:15 Oxygen Delivery Method Room Air 08/31/18 07:15 Oxygen Flow Rate 0 08/31/18 07:15 Pain Level 8 08/31/18 10:56 Intake & Output 08/30/18 08/30/18 08/31/18 11:59 23:59 11:59 Intake Total 100 / 100 2605 / 2605 Output Total 200 / 200 1800 / 1800 Balance -100 / -100 805 / 805 Weight 66.7 kg Intake: IV 100 / 100 1775 / 1775 Oral 830 / 830 Output: Urine 200 / 200 1800 / 1800 Other: Urine Color Pale Yellow Urine Appearance Clear Urine Odor Normal Voiding Methods Urinal Laboratory Results WBC 8.06 k/cumm (4.4-10.8) 08/30/18 19:20 RBC 3.25 m/cumm (4.50-6.00) L 08/30/18 19:20 Hgb 9.0 g/dL (13.5-17.5) L 08/30/18 19:20 Hct 31.9 % (40.0-50.0) L 08/30/18 19:20 MCV 98.2 fL (80-95) H 08/30/18 19:20 MCH 27.7 pg (27.0-33.0) 08/30/18 19:20 MCHC 28.2 g/dL (32.0-36.0) L 08/30/18 19:20 RDW 16.8 % (11.8-14.1) H 08/30/18 19:20 Plt Count 294 x1000/uL (130-400) 08/30/18 19:20 MPV 9.2 fL (8.0-11.0) 08/30/18 19:20 Immature Gran % 0.4 08/30/18 19:20 Neutrophils % 81.5 08/30/18 19:20 Lymphocytes % 9.6 08/30/18 19:20 Monocytes % 6.8 08/30/18 19:20 Eosinophils % 1.5 08/30/18 19:20 Basophils % 0.2 08/30/18 19:20 Absolute Neutrophils 6.57 k/cumm (1.2-6.7) 08/30/18 19:20 Absolute Lymphocytes 0.77 k/cumm (1.2-3.4) L 08/30/18 19:20 Absolute Monocytes 0.55 k/cumm (0.11-0.7) 08/30/18 19:20 Absolute Eosinophils 0.12 k/cumm (0.0-0.7) 08/30/18 19:20 Absolute Basophils 0.02 k/cumm (0.0-0.2) 08/30/18 19:20 Nucleated RBCs 2 /100WBC 08/30/18 19:20 Differential Comment Diff reviewed 08/30/18 19:20 RBC Morphology See below 08/30/18 19:20 Hypochromasia 2+ 08/30/18 19:20 ESR 16 MM/HR (1-20) 08/30/18 19:20 Sodium 140 mmol/L (136-145) 08/30/18 19:20 Potassium 3.6 mmol/L (3.5-5.1) 08/30/18 19:20 Chloride 104 mmol/L (98-107) 08/30/18 19:20 Carbon Dioxide 26.6 mmol/L (21.0-32.0) 08/30/18 19:20 Anion Gap 9.4 mmol/L (3-11) 08/30/18 19:20 BUN 18 mg/dL (7-18) 08/30/18 19:20 Creatinine 0.79 mg/dL (0.70-1.30) 08/30/18 19:20 Estimated GFR/1.73 m2 >= 60.00 (mL/min/1.73m2) 08/30/18 19:20 Glucose 232 mg/dL (70-100) H 08/30/18 19:20 Calcium 8.6 mg/dL (8.5-10.1) 08/30/18 19:20 C-Reactive Protein 0.09 mg/dL (0.0-0.3) 08/30/18 19:20
[2018-08-31 11:30] VITALS: BP 158/90; PULSE 78; RESP 20; TEMP 36.5; O2SAT 97
[2018-08-31] MEDS: Acetaminophen 500 MG TAB 1000 MG PO (15:53)
--- NOTE | 2018-08-31 16:09 | CHAPLAIN ---
Benigno was sitting up in his bed watching tv when visited. He said he has received good news that the bone in his foot is not infected, however he needs to be seen by a tree driller and Dr. Tai isn't available until Wednesday. Benigno's will visit after work and Benigno has been passing the time by watching tv.
--- NOTE | 2018-08-31 16:50 | PHARADMIT ---
Addendum entered by Golden Moreno III 09/02/18 14:55: Pharmacy Note Subjective Diabetic foot ulcer (Great right toe) improving, Vancomycin & Zosyn dc'd changed to Keflex Objective VS-OK pain: 09/23 K+3.8 Mag-1.9 SCr, H&H,,Plts,WBC-OK CRP-normal Assessment Nursing noted Heme(+) stool (not documented) MD started Carafate & PPi Iron deficient Iron & Vit-C added Plan PT working on arm & neck pain (chronic). Podiatry consult as outpatient. Original Note: Admission Pharmacy Clinical Review DIABETIC FOOT INFECTION Code Status Full Code Current Weight 66.7 kg Renally Cleared and Narrow Therapeutic Index Meds CRCL ~90ML/MIN QTc Value / Action Taken NA BP Control, Fever 158/90 AFEBRILE Electrolytes reviewed OK DVT Prophylaxis APIXABAN Opiate Usage / Scheduled Bowel Regimen Ordered PRN/NO Plt/SCr for Heparin / Enoxaparin 294/0.79 INR for Warfarin NA H/H stable, WBC/Bands 9.0/31.9 WBC 8.06 Antibiotic appropriateness PIP/TAZO AND VANCOMYCIN Cultures and Sensitivities WOUND CULTURE PENDING Surgical ABX d/c within 24 hr NA DM control / Insulin Dosing FS 102, INSULIN ASPART, PATIENTS OWN ALOGLIPTIN TO BE BROUGHT IN Heart Failure (Check EF%) (VADIM's, B-Block,Diuretics) IV to PO Switch IV ABX Home Meds Reviewed Home Meds Not Ordered ALL ORDERED Comments
[2018-08-31 16:51] VITALS: BP 133/82; PULSE 92; RESP 18; TEMP 36.3; O2SAT 97
--- NOTE | 2018-08-31 17:30 | PT.INIE ---
Date of service: 08/31/18 Time of Service: 15:38 PT Notes Inpatient Physical Therapy Evaluation Date: 08/31/2018 Referring Doctor: Gena Tipton NP PT Orders: PT CONSULT: R UE pain, history of cervical spine surgery 03/2018 Precautions: Fall. Standard. WBAT on right LE Patient Profile/Admitting Diagnosis: Patient is a 57-year-old right-hand dominant male with diabetes mellitus who is admitted for management of right hallux cellulitis. CT scan result suggested no findings of osteomyelitis. Patient has also complained of shooting right arm pain that started Wednesday night with intensity of about 3-4/10 at rest but goes up to 9/10 with movement and with placement of right UE in a dependent position. Patient had cervical spine surgery on March 14, 2018 at the [place] and was prescribed by orthopedic surgeon to wear a cervical collar until seen for follow-up after 3 months post operatively. Patient stated that after said surgery, he has had worsening bilateral upper extremities with the right being more affected than the left. He further reports that for the past 2 weeks weakness, numbness, and tingling to BUE have gotten worse as well. 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) Thermal injury (Resolved) Cellulitis of right hand (Resolved 12/23/15) Diabetic neuropathy (Chronic) History of colon polyps (Chronic) Surgical History H/O hand surgery (Chronic) History of repair of hiatal hernia (Chronic) History of cholecystectomy (Chronic) History of lumbosacral spine surgery (Chronic) H/O cervical spine surgery (Chronic) History of Kallie fundoplication (Chronic) Colonoscopy - IV Sedation (Inactive 10/28/16) EGD - IV Sedation (Inactive) Social History/Home Situation: Patient lives with a in a house in [place] with 1 step to enter. Benigno states that home health PT had been seeing him for 3 months and discontinued him from services 3 weeks ago with an exercise program. He states that he gets Meals on Wheels. Current Functional Limitations: Patient requires an assistive ambulatory device to reduce fall risk for all transfers and ambulation task performance. Equipment Owned/DME: 4WW, SC, glucometer. Subjective: Patient is pleasant and cooperative, very much welcoming of PT evaluation and consult. He states that the shooting pain started on the night of Wednesday with the right upper extremity more affected than the left. He states that pain radiates from the neck down to the tips of his fingers. Objective: General Observation: Patient seen lying in bed with HOB elevated. 2 pillows under the right LE. IV in the right UE. Swelling and erythema noted on bilateral knees with left knee more affected than the right. Arthritic finger deformity seen on both sides. Mental Status: Alert and oriented x3 Pain: 4/10 at rest from neck down to the tips of fingers, 9/10 with movement, Right UE >> L UE. ROM: Right Upper Extremity: Unable to hold right shoulder forward in flexion due to pain and weakness. Unable to extend elbow from a fully flexed position. Fingers on the right unable to extend at the MCP joints. Functional closing of of fingers present. Left Upper Extremity: Shoulder Flexion WFL. Shoulder abduction WFL. Elbow flexion WFL. Wrist flexion WFL. Functional opening and closing of hand WFL. Right Lower Extremity: Hip flexion WFL. Hip abduction WFL. Knee flexion WFL. Ankle dorsiflexion WFL. Ankle plantarflexion WFL. Left Lower Extremity: Hip flexion WFL. Hip abduction WFL. Knee flexion WFL. Ankle dorsiflexion WFL. Ankle plantarflexion WFL. Strength: Right Upper Extremity: Shoulder flexors 3 /5. Shoulder abductors 3- /5. Elbow flexors 3+/5. Elbow extensors 2-/5. Wrist extensors 2-/5. Final Tester weak but functional. Left Upper Extremity: Shoulder flexors 4-/5. Shoulder abductors 3-/5. Elbow flexors 3+/5. Elbow extensors 3+/5. Wrist extensors 3-/5. Final Tester strong. Right Lower Extremity: Hip flexors 4/5. Hip abductor 4/5. Knee flexors 4- /5. Knee extensors 4- /5. Ankle dorsiflexors 4 /5. Ankle plantarflexors 4/5. Left Lower Extremity: Hip flexors 4/5. Hip abductor 4/5. Knee flexors 4- /5. Knee extensors 4- /5. Ankle dorsiflexors 4 /5. Ankle plantarflexors 4/5. Sensation: Patient complains of increasing numbness and tingling on bilateral upper extremities with right being more affected than the left. BED MOBILITY LEVELS/TRANSFERS Rolling independent Supine to sit CGA Sit to supine CGA Sit to stand CGA Stand to sit CGA Bed to chair CGA Chair to bed CGA Gait: Patient is able to tolerate ambulation from bedside to bathroom without an assistive device while holding onto IV pole with SBA, WBAT on right LE. Balance: Static Sitting: Good Dynamic Sitting: Good Static Standing: Good Dynamic Standing: Fair Special Tests: Mobility Limitations Standardized Measure [facility] 6 clicks Basic Mobility Inpatient Short Form: Raw Score: 19 CMS Score: 42% deficit Upper Limb Tension Test positive for both sides suggestive of C6-C7 cervical radiculopathy which may have resulted from progression of pre-existing cervical spine pathology. Imaging studies may provide true extent of existing pathology. Patient may benefit from consultation with [place] orthopedic surgeon for appropriate follow-up. Informed Consent/Education: Patient instructed in purpose of PT consult and plan of care. Assessment: Patient is a 57 year old male referred to physical therapy services with the diagnosis of progression of her right hallux diabetic foot ulcer and cellulitis. Patient presents with clinical signs and symptoms consistent with cervical radiculopathy and current/admitting diagnoses that have resulted to mobility limitations, gait instability, generalized weakness, and impairment of motor control as demonstrated by the following impairment level findings: 1. Decreased strength to right elbow extensors, right wrist extensors and be LE major muscle groups 2. Impaired sitting/standing balance 3. Impaired activity tolerance 4. Limitation of joint range of motion in right elbow extension Impairments are contributing to the following functional limitations: 1. Dependent bed mobility skills 2. Increased dependence with transfers 3. Inability to safely ambulate without assistive device and physical assistance 4. Increase completion time for mobility ADL performance 5. Increased fall risk 6. Inability to negotiate steps alone safely Patient is assessed as a Moderate 63027 complexity based on the following: History: 57-year old male with right upper extremity pain and history of cervical spine surgery in February 2018 along with past medical history and co-morbidities as indicated above Examination: Underlying impairments and functional limitations with AM-PAC score of 19 and a CMS equivalent score of 42% deficit Presentation: Evolving Decision Makin moderate complexity Goals: Goals X1 week 1. Patient will report 0-1/10 pain in bilateral upper extremities during functional mobility tasks performance 2. Patient will increase right elbow extensor strength to 3/5 in order to increase functional performance 3. Supine-Sit independent 4. Sit-Supine independent 5. Sit-Stand independent 6. Stand-Sit independent 7. Bed-Chair independent 8. Chair-Bed independent 9. Independent gait on level surface with use of least restrictive device for at least 100 feet without report of pain nor dyspnea 10. Independent stair negotiation while holding onto bilateral rails for at least 3 steps without report of pain nor dyspnea 11. Independent with home exercise program 12. Good static and dynamic standing balance/tolerance Plan of Care/Treatment Plan: 1-2x/day, 7 days/week x 1 week. Plan of care has been reviewed with the VALVING MACHINE OPERATOR providing the service under Physical Therapy direction. Initiate Physical Therapy intervention for strengthening, bed mobility, transfers, gait, stairs, balance training, use of assistive device. DISCHARGE RECOMMENDATIONS: Patient may benefit from resumption of home health physical therapy services in order to manage BUE pain, maximize home safety, or establish functional maintenance program for strengthening and fall reduction. No anticipated equipment needs at this time. TREATMENT CODE/TIME: 9716 225 minutes, 65031 25 minutes, beginning at 15:38 PM. Thank you for this referral. Brianne Eugene, PT, DPT, CLT [facility]
--- NOTE | 2018-08-31 17:33 | IN_ITS ---
Date of service: 08/31/18 Time of Service: 15:38 PT Notes Inpatient Physical Therapy Evaluation Date: 08/31/2018 Referring Doctor: Gena Tipton NP PT Orders: PT CONSULT: R UE pain, history of cervical spine surgery 03/2018 Precautions: Fall. Standard. WBAT on right LE Patient Profile/Admitting Diagnosis: Patient is a 57-year-old right-hand dominant male with diabetes mellitus who is admitted for management of right hallux cellulitis. CT scan result suggested no findings of osteomyelitis. Patient has also complained of shooting right arm pain that started Wednesday night with intensity of about 3-4/10 at rest but goes up to 9/10 with movement and w ith placement of right UE in a dependent position. Patient had cervical spine surgery on March 14, 2018 at the [place] and was prescribed by orthopedic surgeon to wear a cervical collar until seen for follow-up after 3 months post operatively. Patient stated that after said surgery, he has had worsening bilateral upper extremities with the right being more affected than the left. He further reports that for the past 2 weeks weakness, numbness, and tingling to BUE have gotten worse as well. 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) Thermal injury (Resolved) Cellulitis of right hand (Resolved 12/23/15) Diabetic neuropathy (Chronic) History of colon polyps (Chronic) Surgical History H/O hand surgery (Chronic) History of repair of hiatal hernia (Chronic) History of cholecystectomy (Chronic) History of lumbosacral spine surgery (Chronic) H/O cervical spine surgery (Chronic) History of Kallie fundoplication (Chronic) Colonoscopy - IV Sedation (Inactive 10/28/16) EGD - IV Sedation (Inactive) Social History/Home Situation: Patient lives with a in a house in [place] with 1 step to enter. Benigno states that home health PT had been seeing him for 3 months and discontinued him from services 3 weeks ago with an exercise program. He states that he gets Meals on Wheels. Current Functional Limitations: Patient requires an assistive ambulatory device to reduce fall risk for all transfers and ambulation task performance. Equipment Owned/DME: 4WW, SC, glucometer. Subjective: Patient is pleasant and cooperative, very much welcoming of PT evaluation and consult. He states that the shooting pain started on the night of Wednesday with the right upper extremity more affected than the left. He states that pain radiates from the neck down to the tips of his fingers. Objective: General Observation: Patient seen lying in bed with HOB elevated. 2 pillows under the right LE. IV in the right UE. Swelling and erythema noted on bilateral knees with left knee more affected than the right. Arthritic finger deformity seen on both sides. Mental Status: Alert and oriented x3 Pain: 4/10 at rest from neck down to the tips of fingers, 9/10 with movement, Right UE >> L UE. ROM: Right Upper Extremity: Unable to hold right shoulder forward in flexion due to pain and weakness. Unable to extend elbow from a fully flexed position. Fingers on the right unable to extend at the MCP joints. Functional closing of of fingers present. Left Upper Extremity: Shoulder Flexion WFL. Shoulder abduction WFL. Elbow flexion WFL. Wrist flexion WFL. Functional opening and closing of hand WFL. Right Lower Extremity: Hip flexion WFL. Hip abduction WFL. Knee flexion WFL. Ankle dorsiflexion WFL. Ankle plantarflexion WFL. Left Lower Extremity: Hip flexion WFL. Hip abduction WFL. Knee flexion WFL. Ankle dorsiflexion WFL. Ankle plantarflexion WFL. Strength: Right Upper Extremity: Shoulder flexors 3 /5. Shoulder abductors 3- /5. Elbow flexors 3+/5. Elbow extensors 2-/5. Wrist extensors 2-/5. Taper/Finisher weak but functional. Left Upper Extremity: Shoulder flexors 4-/5. Shoulder abductors 3-/5. Elbow flexors 3+/5. Elbow extensors 3+/5. Wrist extensors 3-/5. Taper/Finisher strong. Right Lower Extremity: Hip flexors 4/5. Hip abductor 4/5. Knee flexors 4- /5. Knee extensors 4- /5. Ankle dorsiflexors 4 /5. Ankle plantarflexors 4/5. Left Lower Extremity: Hip flexors 4/5. Hip abductor 4/5. Knee flexors 4- /5. Knee extensors 4- /5. Ankle dorsiflexors 4 /5. Ankle plantarflexors 4/5. Sensation: Patient complains of increasing numbness and tingling on bilateral upper extremities with right being more affected than the left. BED MOBILITY LEVELS/TRANSFERS Rolling independent Supine to sit CGA Sit to supine CGA Sit to stand CGA Stand to sit CGA Bed to chair CGA Chair to bed CGA Gait: Patient is able to tolerate ambulation from bedside to bathroom without an assistive device while holding onto IV pole with SBA, WBAT on right LE. Balance: Static Sitting: Good Dynamic Sitting: Good Static Standing: Good Dynamic Standing: Fair Special Tests: Mobility Limitations Standardized Measure [facility] 6 clicks Basic Mobility Inpatient Short Form: Raw Score: 19 CMS Score: 42% deficit Upper Limb Tension Test positive for both sides suggestive of C6-C7 cervical radiculopathy which may have resulted from progression of pre-existing cervical spine pathology. Imaging studies may provide true extent of existing pathology. Patient may benefit from consultation with [place] orthopedic surgeon for appropriate follow-up. Informed Consent/Education: Patient instructed in purpose of PT consult and plan of care. Assessment: Patient is a 57 year old male referred to physical therapy services with the diagnosis of progression of her right hallux diabetic foot ulcer and cellulitis. Patient presents with clinical signs and symptoms consistent with cervical radiculopathy and current/admitting diagnoses that have resulted to mobility limitations, gait instability, generalized weakness, and impairment of motor control as demonstrated by the following impairment level findings: 1. Decreased strength to right elbow extensors, right wrist extensors and be LE major muscle groups 2. Impaired sitting/standing balance 3. Impaired activity tolerance 4. Limitation of joint range of motion in right elbow extension Impairments are contributing to the following functional limitations: 1. Dependent bed mobility skills 2. Increased dependence with transfers 3. Inability to safely ambulate without assistive device and physical assistance 4. Increase completion time for mobility ADL performance 5. Increased fall risk 6. Inability to negotiate steps alone safely Patient is assessed as a Moderate 22883 complexity based on the following: History: 57-year old male with right upper extremity pain and history of cervical spine surgery in February 2018 along with past medical history and co- morbidities as indicated above Examination: Underlying impairments and functional limitations with AM-PAC score of 19 and a CMS equivalent score of 42% deficit Presentation: Evolving Decision Makin moderate complexity Goals: Goals X1 week 1. Patient will report 0-1/10 pain in bilateral upper extremities during functional mobility tasks performance 2. Patient will increase right elbow extensor strength to 3/5 in order to increase functional performance 3. Supine-Sit independent 4. Sit-Supine independent 5. Sit-Stand independent 6. Stand-Sit independent 7. Bed-Chair independent 8. Chair-Bed independent 9. Independent gait on level surface with use of least restrictive device for at least 100 feet without report of pain nor dyspnea 10. Independent stair negotiation while holding onto bilateral rails for at least 3 steps without report of pain nor dyspnea 11. Independent with home exercise program 12. Good static and dynamic standing balance/tolerance Plan of Care/Treatment Plan: 1-2x/day, 7 days/week x 1 week. Plan of care has been reviewed with the PHOTO PRINT SPECIALIST providing the service under Physical Therapy direction. Initiate Physical Therapy intervention for strengthening, bed mobility, transfers, gait, stairs, balance training, use of assistive device. DISCHARGE RECOMMENDATIONS: Patient may benefit from resumption of home health physical therapy services in order to manage BUE pain, maximize home safety, or establish functional maintenance program for strengthening and fall reduction. No anticipated equipment needs at this time. TREATMENT CODE/TIME: 9716 225 minutes, 95069 25 minutes, beginning at 15:38 PM. Thank you for this referral. Brianne Eugene, PT, DPT, CLT [facility]
[2018-08-31] MEDS: Ascorbic Acid 500 MG TAB PO (19:14)
--- NOTE | 2018-08-31 19:23 | WOUNDCARE ---
Wound Care Report: This nurse was consulted on the care of this patient's right great toe wound. This was discussed with Gena Tipton, LABEL FOLDER, and Dr. Lazo, and the goal of the consult was to provide patient with wound care until podiatry is available on Wednesday to consult on wound care. Chart review completed, including medical history, vital signs, labs, and medications. Noted to patient's right great toe is a diabetic ulcer measuring 1 x 1.6 x <0.1 cm. Upon inspection of wound this morning prior to consultation, wound bed appeared dry but appeared to draft roller picker quite a few fibers from his nonskid socks. At that time, wound was cleansed with saline and gauze, fibers were successfully removed, and mepilex with borders was placed to wound for protection. At time of consultation, dressing was removed to reveal a minimal amount of creamy drainage and the wound bed is now moist and 100% white firmly adherent slough. In slough is noted to be some blue fibers imbedded in wound, which patient identifies as being from his diabetic socks that he wears at home. This nurse used debrisoft to assist in cleaning the wound bed and successfully removed all of the blue fibers. After debrisoft use the wound bed is now 80% firmly adherent white slough and 20% red nongranulating tissue. Wound edges are callused. Periwound skin is dry and callused. Redness to foot has significantly receded from drawn borders and there is now a dark pink area noted to the superior aspect of right great toe. This nurse recommends the followin. Wash bilateral feet with soap and water, avoiding contact with right great toe wound, and dry thoroughly. 2. Cleanse wound with anasept cleanser and gauze. 3. Apply skin prep to periwound skin and allow to dry. 4. Apply mepilex with borders to wound and change QD and PRN. This nurse discussed with patient and his the importance of daily foot care and inspections, and the importance of protecting any wounds from contamination by covering with a dressing until he can be seen by his parking ramp attendant/PCP.
[2018-08-31] MEDS: Metoprolol 25 MG TAB 50 MG PO (21:13)
[2018-08-31] MEDS: Atorvastatin 40 MG TAB PO (21:13)
[2018-08-31 23:56] VITALS: BP 133/84; PULSE 78; RESP 18; TEMP 36; O2SAT 97
[2018-09-01] MEDS: Acetaminophen 500 MG TAB 1000 MG PO ×3 (00:06→16:19)
[2018-09-01] MEDS: oxyCODONE 5 MG TAB PO ×5 (00:06→20:16)
[2018-09-01] MEDS: PIPERACILLIN/TAZO 3.375 GM in Normal Saline 50 ML IVPB ×4 (02:03→19:38)
[2018-09-01 07:26] LABS: Abs Immature Grans 0.04 k/cumm (0.0-0.09); Absolute Basophil Count 0.03 k/cumm (0.0-0.2); Absolute Lymphocyte Count 1.04 k/cumm (1.2-3.4); Absolute Monocyte Count 0.85 k/cumm (0.11-0.7); Absolute Neutrophil Count 4.58 k/cumm (1.2-6.7); Basophils % 0.4; HCT 33.5 % (40.0-50.0); HGB 9.3 g/dL (13.5-17.5); Immature Grans % 0.6; Lymphocytes % 15.4; Mean Corp. HGB Concentration 27.8 g/dL (32.0-36.0); Mean Corpuscular Hemoglobin 27.1 pg (27.0-33.0); Mean Corpuscular Volume 97.7 fL (80-95); Mean Platelet Volume 9.7 fL (8.0-11.0); Monocytes % 12.6; Platelet Count 284 x1000/uL (130-400); RBC 3.43 m/cumm (4.50-6.00); RBC Distribution Width 16.9 % (11.8-14.1); White Blood Cell Count 6.74 k/cumm (4.4-10.8)
[2018-09-01 07:44] LABS: Anion Gap 7.1 mmol/L (3-11); BUN 11 mg/dL (7-18); CO2 28.9 mmol/L (21.0-32.0); CREATININE 0.76 mg/dL (0.70-1.30); Calcium 8.9 mg/dL (8.5-10.1); Chloride 103 mmol/L (98-107); Ferritin 13 ng/mL (8-388); Glucose 128 mg/dL (70-100); Potassium 4.4 mmol/L (3.5-5.1); Sodium 139 mmol/L (136-145); TSH 1.27 uIU/mL (0.358-3.74)
[2018-09-01 07:55] LABS: Hemoglobin A1C 6.5 % (4.5-6.2)
[2018-09-01 08:15] VITALS: BP 143/98; PULSE 65; RESP 16; TEMP 36; O2SAT 98
[2018-09-01 08:31] LABS: Iron 15 ug/dL (50-175); Total Iron Binding Capacity 366 ug/dL (250-450)
[2018-09-01 09:03] LABS: Vitamin B12 433 pg/mL (193-986)
[2018-09-01 09:04] LABS: Folate > 20.0 ng/mL (8.6-20.0)
[2018-09-01] MEDS: Normal Saline Flush 10 ML SYR IVP ×3 (09:05→14:37)
[2018-09-01] MEDS: buPROPion-XL 150 MG TABCR 450 MG PO (09:07)
[2018-09-01] MEDS: Mirabegron 50 MG TABCR PO (09:07)
[2018-09-01] MEDS: Gabapentin 600 MG TAB 1200 MG PO ×3 (09:07→19:39)
[2018-09-01] MEDS: sulfaSALAzine 500 MG TAB PO ×2 (09:08→19:39)
[2018-09-01] MEDS: Folic Acid 1 MG TAB 1.5 MG PO (09:08)
[2018-09-01] MEDS: Sertraline 50 MG TAB PO (09:08)
[2018-09-01] MEDS: Hydroxychloroquine 200 MG TAB PO ×2 (09:08→19:39)
[2018-09-01] MEDS: Multivitamin TAB 1 TAB PO (09:09)
[2018-09-01] MEDS: Apixaban 5 MG TAB PO ×2 (09:09→19:39)
[2018-09-01] MEDS: Lisinopril 5 MG TAB PO (09:09)
[2018-09-01] MEDS: Pantoprazole 40 MG VIAL IVP (10:27)
--- NOTE | 2018-09-01 12:36 | PT.INTREAT ---
Date of service: 09/01/18 Time of Service: 12:36 PT Notes Inpatient Physical Therapy Treatment Note [facility] Date: 09/01/18 PRECAUTIONS: Fall, WBAT on R SUBJECTIVE: Benigno is pleasant and agreeable to participating in PT. He reports that he has been working with [facility] PT, prior to his admission. OBJECTIVE: PAIN: Patient c/o R UE pain BED MOBILITY/TRANSFERS Supine-sit: I Sit-stand: I Stand-sit:I GAIT Assistive Device: 4WW Weight bearing: WBAT R Assist: S Distance: Approx. 400'; approx. 300' THEREX: Patient completed an UE and LE strengthening program, in both seated and standing positions, as per flow sheet. Patient was issued green Theraband for UE exercises. ASSESSMENT: Patient tolerated session with c/o increased fatigue and R UE pain. He was able to tolerate a progression in gait distance with 4WW support and supervision. He would benefit from continued participation in a global strengthening program for improved ability to perform daily functional tasks and activity tolerance. PLAN: Continue with PT's POC TREATMENT CODE/TIME: 30 minutes; 70908, 93576 40 minutes; 55139, 03958 x2
--- NOTE | 2018-09-01 12:43 | W.PM.PROGNOT ---
Date of Service Date of service: 09/01/18 Time of Service: 12:43 Assessment and Plan (1) Diabetic foot ulcer: Current visit: Yes Status: Acute Non-healing diabetic wound to right great toe with surrounding cellulitis. With CT showing soft tissue swelling, no findings to suggest osteomyelitis. CRP normal at 0.09, ESR normal at 16, no leukocytosis on admission. Remains afebrile. Appears to be localized, superficial infection. Podiatry consulted but not available at this time. Wound consult placed. Wound Culture growing Staph Aureus. Previous culture grew Group B strep and MSSA. Continue broad spectrum antibiotics with Vanco and Zosyn. Conintue to monitor culture results. Consider transition to oral antibiotics. Elevate lower extremities. Will need close follow up with Podiatry after discharge. (2) Cellulitis: Current visit: Yes Status: Acute Treat as above. (3) Right arm pain: Current visit: Yes Status: Acute Imporving. In the setting of recent cervical spine surgery in 03/2018. Continue oxycodone for pain, continue PT/OT. Hold off on imaging as pain improving. Will need outpatient follow up with cervical spine surgeon, Dr. Donovan. (4) H/O cervical spine surgery: Current visit: No Status: Chronic As above. Will need follow up with Dr. Donovan, [facility]. (5) Diabetes mellitus: Current visit: No Status: Chronic Blood glucose 123 this morning. Hgb A1c 6.5. Continue sliding scale insulin and carbohydrate counting diet. Monitor blood glucose at . (6) Hypogonadism: Current visit: No Status: Chronic Received Testosterone as ordered outpatient. (7) Hypertension: Current visit: No Status: Chronic Blood pressure acceptable. Continue lisinopril and metoprolol. Continue to monitor blood pressures. (8) BPH (benign prostatic hyperplasia): Current visit: No Status: Chronic Continue myrbetriq. (9) GERD (gastroesophageal reflux disease): Current visit: No Status: Chronic Does not appear to be on PPI therapy as an outpatient. Protonix 40 mg IV q24 hours. (10) Anemia: Current visit: Yes Status: Chronic Labs reveal worsening anemia from baseline. Heme + stools. Iron low. Add iron supplement. PPI for GI protection. Monitor H&H. (11) History of DVT (deep vein thrombosis): Current visit: No Status: Chronic Continue eliquis. (12) DVT prophylaxis: Current visit: No Status: Acute Therapeutic on eliquis. (13) Discharge planning issues: Current visit: No Status: Acute He is a Full code. This case was discussed with Dr. Lazo who is in agreement. Subjective Interval history since last seen: Mr. Agosto reports that his right arm feels OK today. He reports some discomfort in his RUE when he is getting up and moving it but at rest it is comfortable. He continues to have bilateral upper arm weakness, and numbness and tingling to his fingers which has been present since his cervical spine surgery 5 months ago. He had a wound consult on his right great toe wound. He has peripheral neuropathy and denies any discomfort to the foot/right great toe. He denies any other concerns including fever, chills, dizziness, shortness of breath, wheezing, coughing, chest pain/pressure, palpitations, he is eating and drinking and tolerating his diet, no nausea, vomiting or diarrhea. His bowels have been loose. Denies dysuria or hematuria. Exam Narrative Exam Narrative: General: Awake and alert, sitting up in bed, in NAD. Answers questions appropriately. HEENT: normocephalic, atraumatic, pupils equal and round, EOMI, mucous membranes moist. Neck: supple, no JVD, no pain or symptom reproduction on palpation of posterior neck/cervical spine. Cardiovascular: heart has regular rate and rhythm, no murmur appreciated. Respiratory: respirations even and unlabored, lung sounds clear to auscultation throughout. Abdomen: normoactive bowel sounds, soft, nondistended, nontender on plapation. Extremities: Moves BUEs freely, weakness noted bilaterally, atrophy noted to BUEs. Great toe to right foot edematous, with erythema, approximately 2 cm wound, wound bed with adherent slough, no eschar, no active drainage, no expressible drainage. Second toe on right foot with erythema and edema, no drainage. 1-2+ pitting edema to right foot. Left foot without edema or wounds. Pedal pulses faint but palpable bilaterally. Objective Objective Clinical Data: Abnormal lab results 09/01/18 09/01/18 09/01/18 Range/Units 07:02 07:02 07:02 RBC 3.43 L (4.50-6.00) m/cumm Hgb 9.3 L (13.5-17.5) g/dL Hct 33.5 L (40.0-50.0) % MCV 97.7 H (80-95) fL MCHC 27.8 L (32.0-36.0) g/dL RDW 16.9 H (11.8-14.1) % Absolute Lymphocytes 1.04 L (1.2-3.4) k/cumm Absolute Monocytes 0.85 H (0.11-0.7) k/cumm Glucose 128 H D (70-100) mg/dL Hemoglobin A1c (4.5-6.2) % Iron 15 L (50-175) ug/dL Folate (8.6-20.0) ng/mL 09/01/18 09/01/18 Range/Units 07:02 07:02 RBC (4.50-6.00) m/cumm Hgb (13.5-17.5) g/dL Hct (40.0-50.0) % MCV (80-95) fL MCHC (32.0-36.0) g/dL RDW (11.8-14.1) % Absolute Lymphocytes (1.2-3.4) k/cumm Absolute Monocytes (0.11-0.7) k/cumm Glucose (70-100) mg/dL Hemoglobin A1c 6.5 H (4.5-6.2) % Iron (50-175) ug/dL Folate > 20.0 H (8.6-20.0) ng/mL Vital Signs Temperature 36.0 C L 09/01/18 08:15 Temperature Source Tympanic 09/01/18 08:15 Pulse 65 09/01/18 08:15 Pulse Rhythm Regular 09/01/18 07:50 Respiratory Rate 16 09/01/18 08:15 Respiratory Effort Non-Labored 09/01/18 07:50 Respiratory Depth Normal 09/01/18 07:50 Respiratory Pattern Normal 09/01/18 07:50 Blood Pressure 143/98 H 09/01/18 08:15 Blood Pressure Position Sitting 08/30/18 18:49 Pulse Oximetry 98 09/01/18 08:15 Oxygen Delivery Method Room Air 09/01/18 08:15 Oxygen Flow Rate 0 09/01/18 08:15 Pain Level 7 09/01/18 09:55 Intake & Output 08/31/18 09/01/18 09/01/18 23:59 11:59 23:59 Intake Total 1350 / 4255 550 / 550 Output Total 650 / 2450 1000 / 1000 Balance 700 / 1805 -450 / -450 Intake: IV 1350 / 3425 300 / 300 Oral 250 / 250 Output: Urine 650 / 2450 1000 / 1000 Other: Urine Color Yellow Yellow Urine Appearance Clear Clear Urine Odor Normal Normal Voiding Methods Urinal Urinal Laboratory Results WBC 6.74 k/cumm (4.4-10.8) 09/01/18 07:02 RBC 3.43 m/cumm (4.50-6.00) L 09/01/18 07:02 Hgb 9.3 g/dL (13.5-17.5) L 09/01/18 07:02 Hct 33.5 % (40.0-50.0) L 09/01/18 07:02 MCV 97.7 fL (80-95) H 09/01/18 07:02 MCH 27.1 pg (27.0-33.0) 09/01/18 07:02 MCHC 27.8 g/dL (32.0-36.0) L 09/01/18 07:02 RDW 16.9 % (11.8-14.1) H 09/01/18 07:02 Plt Count 284 x1000/uL (130-400) 09/01/18 07:02 MPV 9.7 fL (8.0-11.0) 09/01/18 07:02 Immature Gran % 0.6 09/01/18 07:02 Neutrophils % 68.0 09/01/18 07:02 Lymphocytes % 15.4 09/01/18 07:02 Monocytes % 12.6 09/01/18 07:02 Eosinophils % 3.0 09/01/18 07:02 Basophils % 0.4 09/01/18 07:02 Absolute Neutrophils 4.58 k/cumm (1.2-6.7) 09/01/18 07:02 Absolute Lymphocytes 1.04 k/cumm (1.2-3.4) L 09/01/18 07:02 Absolute Monocytes 0.85 k/cumm (0.11-0.7) H 09/01/18 07:02 Absolute Eosinophils 0.20 k/cumm (0.0-0.7) 09/01/18 07:02 Absolute Basophils 0.03 k/cumm (0.0-0.2) 09/01/18 07:02 Nucleated RBCs 2 /100WBC 08/30/18 19:20 Differential Comment Diff reviewed 08/30/18 19:20 RBC Morphology See below 08/30/18 19:20 Hypochromasia 2+ 08/30/18 19:20 ESR 16 MM/HR (1-20) 08/30/18 19:20 Sodium 139 mmol/L (136-145) 09/01/18 07:02 Potassium 4.4 mmol/L (3.5-5.1) D 09/01/18 07:02 Chloride 103 mmol/L (98-107) 09/01/18 07:02 Carbon Dioxide 28.9 mmol/L (21.0-32.0) 09/01/18 07:02 Anion Gap 7.1 mmol/L (3-11) 09/01/18 07:02 BUN 11 mg/dL (7-18) D 09/01/18 07:02 Creatinine 0.76 mg/dL (0.70-1.30) 09/01/18 07:02 Estimated GFR/1.73 m2 >= 60.00 (mL/min/1.73m2) 09/01/18 07:02 Glucose 128 mg/dL (70-100) H D 09/01/18 07:02 Hemoglobin A1c 6.5 % (4.5-6.2) H 09/01/18 07:02 Calcium 8.9 mg/dL (8.5-10.1) 09/01/18 07:02 Magnesium 2.0 mg/dL (1.8-2.4) 09/01/18 07:02 Iron 15 ug/dL (50-175) L 09/01/18 07:02 TIBC 366 ug/dL (250-450) 09/01/18 07:02 Ferritin 13 ng/mL (8-388) 09/01/18 07:02 C-Reactive Protein 0.09 mg/dL (0.0-0.3) 08/30/18 19:20 Vitamin B12 433 pg/mL (193-986) 09/01/18 07:02 Folate > 20.0 ng/mL (8.6-20.0) H 09/01/18 07:02 TSH 1.27 uIU/mL (0.358-3.74) 09/01/18 07:02 Vancomycin Trough Cancelled 09/01/18 15:00
--- NOTE | 2018-09-01 12:45 | PTTR_ITS ---
Date of service: 09/01/18 Time of Service: 12:36 PT Notes Inpatient Physical Therapy Treatment Note [facility] Date: 09/01/18 PRECAUTIONS: Fall, WBAT on R SUBJECTIVE: Benigno is pleasant and agreeable to participating in PT. He re ports that he has been working with [facility] PT, prior to his admission. OBJECTIVE: PAIN: Patient c/o R UE pain BED MOBILITY/TRANSFERS Supine-sit: I Sit-stand: I Stand-sit:I GAIT Assistive Device: 4WW Weight bearing: WBAT R Assist: S Distance: Approx. 400'; approx. 300' THEREX: Patient completed an UE and LE strengthening program, in both seated and standing positions, as per flow sheet. Patient was issued green Theraband for UE exercises. ASSESSMENT: Patient tolerated session with c/o increased fatigue and R UE pain. He was able to tolerate a progression in gait distance with 4WW support and supervision. He would benefit from continued participation in a global strengthening program for improved ability to perform daily functional tasks and activity tolerance. PLAN: Continue with PT's POC TREATMENT CODE/TIME: 30 minutes; 33363, 72301 40 minutes; [id number], 14649 x2
[2018-09-01] MEDS: Ferrous Sulfate 325 MG TAB PO (14:38)
[2018-09-01] MEDS: Lactobacillus Acidophilus CAP 1 CAP PO ×2 (14:39→19:39)
[2018-09-01 15:50] VITALS: BP 122/79; PULSE 86; RESP 16; TEMP 36.8; O2SAT 93
[2018-09-01 17:03] LABS: Vancomycin, Trough 24.2 ug/mL (10.0-20.0)
--- NOTE | 2018-09-01 17:07 | PDOC.CMPRO ---
Care Management Progress Note S/O: Benigno was sitting up in his chair when CM met with him. He remains pleasant in interaction. He reported being open to the idea of transfer if recommended. Per provider, Benigno will discharge [facility] with [facility]. CM will continue to follow. A: 57 year old male admitted to [facility] P: Benigno will discharge home with [facility] follow up per MD. No additional services anticipated at this time. He will transport via private vehicle with family.
--- NOTE | 2018-09-01 17:10 | CMPROGNOTE_ITS ---
Care Management Progress Note S/O: Benigno was sitting up in his chair when CM met with him. He remains pleasant in interaction. He reported being open to the idea of transfer if recommended. Per provider, Bneigno will discharge with close follow up with [facility] providers. CM will continue to follow. A: 57 year old male admitted to [facility] P: Benigno will discharge home with [facility] follow up per MD. No additional services anticipated at this time. He will transport via private vehicle with family.
[2018-09-01] MEDS: Insulin Aspart 300 UNITS/3 ML PEN SC (17:32)
[2018-09-01] MEDS: Ascorbic Acid 500 MG TAB PO (19:39)
[2018-09-01] MEDS: Metoprolol 25 MG TAB 50 MG PO (21:49)
[2018-09-01] MEDS: Atorvastatin 40 MG TAB PO (21:49)
[2018-09-02] MEDS: Acetaminophen 500 MG TAB 1000 MG PO ×3 (00:35→21:16)
[2018-09-02] MEDS: oxyCODONE 5 MG TAB PO ×5 (00:35→21:16)
[2018-09-02] MEDS: PIPERACILLIN/TAZO 3.375 GM in Normal Saline 50 ML IVPB ×2 (02:35→08:34)
[2018-09-02 07:11] LABS: Abs Immature Grans 0.05 k/cumm (0.0-0.09); Absolute Basophil Count 0.04 k/cumm (0.0-0.2); Absolute Eosinophil Count 0.21 k/cumm (0.0-0.7); Absolute Lymphocyte Count 1.39 k/cumm (1.2-3.4); Absolute Monocyte Count 0.93 k/cumm (0.11-0.7); Basophils % 0.5; Eosinophils % 2.8; HGB 9.2 g/dL (13.5-17.5); Immature Grans % 0.7; Lymphocytes % 18.7; Mean Corp. HGB Concentration 27.9 g/dL (32.0-36.0); Mean Corpuscular Hemoglobin 27.1 pg (27.0-33.0); Mean Corpuscular Volume 97.1 fL (80-95); Mean Platelet Volume 9.7 fL (8.0-11.0); Monocytes % 12.5; Neutrophils % 64.8; Platelet Count 296 x1000/uL (130-400); RBC Distribution Width 16.8 % (11.8-14.1); White Blood Cell Count 7.42 k/cumm (4.4-10.8)
[2018-09-02 07:20] VITALS: BP 149/94; PULSE 77; RESP 20; TEMP 36.8; O2SAT 99
[2018-09-02 07:21] LABS: Anion Gap 7.8 mmol/L (3-11); BUN 9 mg/dL (7-18); CO2 28.2 mmol/L (21.0-32.0); CREATININE 0.81 mg/dL (0.70-1.30); Calcium 8.8 mg/dL (8.5-10.1); Chloride 104 mmol/L (98-107); Glucose 136 mg/dL (70-100); Magnesium 1.9 mg/dL (1.8-2.4); Potassium 3.8 mmol/L (3.5-5.1); Sodium 140 mmol/L (136-145)
--- NOTE | 2018-09-02 08:22 | PDOC.CMPRO ---
Care Management Progress Note S/O: Benigno was sitting up in his chair when CM met with him. He remains pleasant in interaction. He reported being open to the idea of transfer if recommended. Per provider, Benigno will discharge with close follow up with [facility] providers. CM will continue to follow. A: 57 year old male admitted to [facility] P: Benigno will discharge home with [facility] follow up per MD. No additional services anticipated at this time. He will transport via private vehicle with family.
[2018-09-02] MEDS: Hydroxychloroquine 200 MG TAB PO ×2 (08:32→19:48)
[2018-09-02] MEDS: buPROPion-XL 150 MG TABCR 450 MG PO (08:32)
[2018-09-02] MEDS: Mirabegron 50 MG TABCR PO (08:33)
[2018-09-02] MEDS: sulfaSALAzine 500 MG TAB PO ×2 (08:33→19:49)
[2018-09-02] MEDS: Ascorbic Acid 500 MG TAB PO ×2 (08:33→19:48)
[2018-09-02] MEDS: Lisinopril 5 MG TAB PO (08:33)
[2018-09-02] MEDS: Sertraline 50 MG TAB PO (08:33)
[2018-09-02] MEDS: Lactobacillus Acidophilus CAP 1 CAP PO ×3 (08:34→19:49)
[2018-09-02] MEDS: Gabapentin 600 MG TAB 1200 MG PO ×3 (08:34→19:50)
[2018-09-02] MEDS: Ferrous Sulfate 325 MG TAB PO (08:34)
[2018-09-02] MEDS: Folic Acid 1 MG TAB 1.5 MG PO (08:34)
[2018-09-02] MEDS: Normal Saline Flush 10 ML SYR IVP (08:34)
[2018-09-02] MEDS: Apixaban 5 MG TAB PO ×2 (08:34→19:48)
[2018-09-02] MEDS: Multivitamin TAB 1 TAB PO (08:34)
[2018-09-02] MEDS: Pantoprazole 40 MG VIAL IVP (08:35)
--- NOTE | 2018-09-02 08:44 | PDOC.CMPRO ---
Care Management Progress Note S/O: Benigno was lying in bed, visiting with his neighbor when CM met with him. He remains pleasant in interaction. Per MD, he will switch to orals today and continue to be monitored. He has had heme positive stools though his H&H remains stable at this time per MD. He verbalized understanding of his discharge plan and anticipates he will discharge home tomorrow if he remains stable overnight. CM will continue to follow. A: 57 year old male admitted to [facility] P: Benigno will discharge home with [facility] follow up per MD. Discharge summary will be faxed to Dr. Donovan's office at time of discharge at [phone] and they will then contact Benigno with follow up appointment. No additional services anticipated at this time. He will transport via private vehicle with family.
--- NOTE | 2018-09-02 08:57 | CMPROGNOTE_ITS ---
Care Management Progress Note S/O: Benigno was sitting up in his chair when CM met with him. He remains pleasant in interaction. He reported being open to the idea of transfer if recommended. Per provider, Benigno will discharge with close follow up with [facility] providers. CM will continue to follow. A: 57 year old male admitted to [facility] P: Benigno will discharge home with [facility] follow up per MD. No additional services anticipated at this time. He will transport via private vehicle with family.
[2018-09-02] MEDS: Potassium Chloride 20 MEQ TABCR PO (09:20)
[2018-09-02] MEDS: Magnesium Oxide 400 MG TAB PO (09:20)
--- NOTE | 2018-09-02 11:09 | PT.INTREAT ---
Date of service: 09/02/18 Time of Service: 11:09 PT Notes Inpatient Physical Therapy Treatment Note [facility] Date: 09/02/18 PRECAUTIONS: Fall, WBAT on R SUBJECTIVE: Benigno is pleasant and agreeable to participating in PT. He reports feeling a little tired and sore following yesterday's PT sessions. OBJECTIVE: PAIN: Patient c/o R UE pain BED MOBILITY/TRANSFERS Supine-sit: I Sit-supine: I Sit-stand: I Stand-sit:I GAIT Assistive Device: 4WW Weight bearing: WBAT R Assist: I Distance: Approx. 400' THEREX: Patient completed an UE and LE strengthening program, in seated, supine, and standing positions, as per flow sheet. Patient utilized green Theraband for UE exercises, as well as 4WW for UE balance and minimal support with standing LE exercises. He tolerated the addition of bridging and alternating hook-lying marches, well, without complaint. ASSESSMENT: Patient tolerated session with c/o increased fatigue and R UE pain. He was able to tolerate a progression in his ther ex program, tolerating the addition of core strengthening exercises, as well as increase repetitions, as noted on flow sheet. He would benefit from continued participation in a global strengthening program for improved ability to perform daily functional tasks and activity tolerance. PLAN: Continue with PT's POC TREATMENT CODE/TIME: 40 minutes; 14485, [id number] x2
--- NOTE | 2018-09-02 11:14 | PTTR_ITS ---
Date of service: 09/02/18 Time of Service: 11:09 PT Notes Inpatient Physical Therapy Treatment Note [facility] Date: 09/02/18 PRECAUTIONS: Fall, WBAT on R SUBJECTIVE: Benigno is pleasant and agreeable to participating in PT. He re ports feeling a little tired and sore following yesterday's PT sessions. OBJECTIVE: PAIN: Patient c/o R UE pain BED MOBILITY/TRANSFERS Supine-sit: I Sit-supine: I Sit-stand: I Stand-sit:I GAIT Assistive Device: 4WW Weight bearing: WBAT R Assist: I Distance: Approx. 400' THEREX: Patient completed an UE and LE strengthening program, in seated, supine, and standing positions, as per flow sheet. Patient utilized green Theraband for UE exercises, as well as 4WW for UE balance and minimal support with standing LE exercises. He tolerated the addition of bridging and alternating hook-lying marches, well, without complaint. ASSESSMENT: Patient tolerated session with c/o increased fatigue and R UE pain. He was able to tolerate a progression in his ther ex program, tolerating the addition of core strengthening exercises, as well as increase repetitions, as noted on flow sheet. He would benefit from continued participation in a global strengthening program for improved ability to perform daily functional tasks and activity tolerance. PLAN: Continue with PT's POC TREATMENT CODE/TIME: 40 minutes; 00336, [id number] x2
--- NOTE | 2018-09-02 11:16 | PGE_ITS ---
Date of Service Date of service: 09/02/18 Time of Service: 11:09 Assessment and Plan (1) Diabetic foot ulcer: Current visit: Yes Status: Acute Non-healing diabetic wound to right great toe with surrounding cellulitis. With CT showing soft tissue swelling, no findings to suggest osteomyelitis. CRP normal at 0.09, ESR normal at 16, no leukocytosis on admission. Remains afebrile. Appears to be localized, superficial infection. Podiatry consulted but not available at this time. Wound consult placed. Wound Culture growing MSSA. Previous culture grew Group B strep and MSSA. Transition to oral Keflex. Elevate lower extremities. Will need close follow up with Podiatry after discharge- scheduled to see Dr. Aleman on 09/08. (2) Cellulitis: Current visit: Yes Status: Acute Improving. Treat as above. (3) Right arm pain: Current visit: Yes Status: Acute Imporving. In the setting of recent cervical spine surgery in 03/[address] Spine surgeon, Dr. Donovan's office was contacted and her nurse reports that the patient was seen in May 2018 and reported symptoms of pain, numbness and tingling. Dr. Donovan's office states that these are not new symptoms, they are aware of his symptoms, and state that this may take one year to resolve. They request discharge summary be faxed to Dr. Donovan's office at time of discharge at [phone] and they will contact the patient with follow up appointment. Continue oxycodone for pain, continue PT/OT. Hold off on imaging as pain improving and this appears chronic. Will need to follow up with cervical spine surgeon, Dr. Donovan. (4) H/O cervical spine surgery: Current visit: No Status: Chronic As above. Will need follow up with Dr. Donovan, [facility]. (5) Diabetes mellitus: Current visit: No Status: Chronic Blood glucose 136 this morning. Hgb A1c 6.5. Continue sliding scale insulin and carbohydrate counting diet. Monitor blood glucose at . (6) Hypogonadism: Current visit: No Status: Chronic Received Testosterone as ordered outpatient. (7) Hypertension: Current visit: No Status: Chronic Blood pressure acceptable. Continue lisinopril and metoprolol. Continue to monitor blood pressures. (8) BPH (benign prostatic hyperplasia): Current visit: No Status: Chronic Continue myrbetriq. (9) GERD (gastroesophageal reflux disease): Current visit: No Status: Chronic Does not appear to be on PPI therapy as an outpatient. Protonix 40 mg IV q24 hours. (10) Anemia: Current visit: Yes Status: Chronic Stable. Labs reveal worsening anemia from baseline. Appears to be iron deficient with Heme + stools. Add iron supplement with vitamin C. PPI for GI protection. Add carafate. Monitor H&H. (11) History of DVT (deep vein thrombosis): Current visit: No Status: Chronic Continue eliquis. (12) DVT prophylaxis: Current visit: No Status: Acute Therapeutic on eliquis. (13) Discharge planning issues: Current visit: No Status: Acute He is a Full code. This case was discussed with Dr. Lazo who is in agreement. Subjective Interval history since last seen: Mr. Agosto reports doing better today. He reports improvement in his right upper extremity pain, he describes the pain as shooting and sharp with activity, improves with rest. The pain is now 5/10 at most, it was up to 10/10 when he presented to the ED. He continues to have bilateral upper arm weakness, and numbness and tingling to his fingers which has been present since his cervical spine surgery 5 months ago. He has not tried heat or ice yet. He is working with PT. He reports decrease edema in his right foot, the erythema has resolved. He has no pain in the right foot/toe, he has periperal neuropathy. He denies any other concerns including fever, chills, dizziness, shortness of breath, wheezing, coughing, chest pain/pressure, pal pitations, he is eating and drinking and tolerating his diet, no nausea, vomiting or diarrhea. He is having normal bowel movements, no dysuria or hematuria. Exam Narrative Exam Narrative: General: Awake and alert, sitting at edge of bed, in NAD. Answers questions appropriately. HEENT: normocephalic, atraumatic, pupils equal and round, EOMI, mucous membranes moist. Neck: supple, no JVD, no pain or symptom reproduction on palpation of posterior neck/cervical spine. Cardiovascular: heart has regular rate and rhythm, no murmur appreciated. Respiratory: respirations even and unlabored, lung sounds clear to auscultation throughout. Abdomen: normoactive bowel sounds, soft, nondistended, nontender on palpation. Extremities: Moves BUEs freely, weakness noted bilaterally, atrophy noted to BUEs. Erythema and edema to right great toe largely resolved. Right great toe wound not visualized today. Second toe on right foot without erythema or edema, no drainage. Erythema to dorsal aspect of right foot resolved, trace RLE edema. Left foot without open wounds, callous to left great toe. Pedal pulses +1 bilaterally. Objective Objective Clinical Data: Abnormal lab results 09/01/18 09/02/18 09/02/18 Range/Units 16:25 06:45 06:45 RBC 3.40 L (4.50-6.00) m/cumm Hgb 9.2 L (13.5-17.5) g/dL Hct 33.0 L (40.0-50.0) % MCV 97.1 H (80-95) fL MCHC 27.9 L (32.0-36.0) g/dL RDW 16.8 H (11.8-14.1) % Absolute Monocytes 0.93 H (0.11-0.7) k/cumm Glucose 136 H (70-100) mg/dL Vancomycin Trough 24.2 H* (10.0-20.0) ug/mL Vital Signs Temperature 36.8 C 09/02/18 07:20 Temperature Source Tympanic 09/02/18 07:20 Pulse 77 09/02/18 07:20 Pulse Rhythm Regular 09/02/18 09:31 Respiratory Rate 20 09/02/18 07:20 Respiratory Effort Non-Labored 09/02/18 09:31 Respiratory Depth Normal 09/02/18 09:31 Respiratory Pattern Normal 09/02/18 09:31 Blood Pressure 149/94 H 09/02/18 07:20 Blood Pressure Position Sitting 08/30/18 18:49 Pulse Oximetry 99 09/02/18 07:20 Oxygen Delivery Method Room Air 09/02/18 07:20 Oxygen Flow Rate 0 09/02/18 07:20 Pain Level 5 09/02/18 08:33 Intake & Output 09/01/18 09/01/18 09/02/18 11:59 23:59 11:59 Intake Total 550 / 1580 1030 / 1580 1230 / 1230 Output Total 1000 / 2300 1300 / 2300 1900 / 1900 Balance -450 / -720 -270 / -720 -670 / -670 Intake: IV 300 / 850 550 / 850 270 / 270 Oral 250 / 730 480 / 730 960 / 960 Output: Urine 1000 / 2300 1300 / 2300 1900 / 1900 Other: Urine Color Yellow Pale Yellow Urine Appearance Clear Clear Clear Urine Odor Normal Voiding Methods Urinal Urinal Urinal Laboratory Results WBC 7.42 k/cumm (4.4-10.8) 09/02/18 06:45 RBC 3.40 m/cumm (4.50-6.00) L 09/02/18 06:45 Hgb 9.2 g/dL (13.5-17.5) L 09/02/18 06:45 Hct 33.0 % (40.0-50.0) L 09/02/18 06:45 MCV 97.1 fL (80-95) H 09/02/18 06:45 MCH 27.1 pg (27.0-33.0) 09/02/18 06:45 MCHC 27.9 g/dL (32.0-36.0) L 09/02/18 06:45 RDW 16.8 % (11.8-14.1) H 09/02/18 06:45 Plt Count 296 x1000/uL (130-400) 09/02/18 06:45 MPV 9.7 fL (8.0-11.0) 09/02/18 06:45 Immature Gran % 0.7 09/02/18 06:45 Neutrophils % 64.8 09/02/18 06:45 Lymphocytes % 18.7 09/02/18 06:45 Monocytes % 12.5 09/02/18 06:45 Eosinophils % 2.8 09/02/18 06:45 Basophils % 0.5 09/02/18 06:45 Absolute Neutrophils 4.80 k/cumm (1.2-6.7) 09/02/18 06:45 Absolute Lymphocytes 1.39 k/cumm (1.2-3.4) 09/02/18 06:45 Absolute Monocytes 0.93 k/cumm (0.11-0.7) H 09/02/18 06:45 Absolute Eosinophils 0.21 k/cumm (0.0-0.7) 09/02/18 06:45 Absolute Basophils 0.04 k/cumm (0.0-0.2) 09/02/18 06:45 Nucleated RBCs 2 /100WBC 08/30/18 19:20 Differential Comment Diff reviewed 08/30/18 19:20 RBC Morphology See below 08/30/18 19:20 Hypochromasia 2+ 08/30/18 19:20 ESR 16 MM/HR (1-20) 08/30/18 19:20 Sodium 140 mmol/L (136-145) 09/02/18 06:45 Potassium 3.8 mmol/L (3.5-5.1) 09/02/18 06:45 Chloride 104 mmol/L (98-107) 09/02/18 06:45 Carbon Dioxide 28.2 mmol/L (21.0-32.0) 09/02/18 06:45 Anion Gap 7.8 mmol/L (3-11) 09/02/18 06:45 BUN 9 mg/dL (7-18) 09/02/18 06:45 Creatinine 0.81 mg/dL (0.70-1.30) 09/02/18 06:45 Estimated GFR/1.73 m2 >= 60.00 (mL/min/1.73m2) 09/02/18 06:45 Glucose 136 mg/dL (70-100) H 09/02/18 06:45 Hemoglobin A1c 6.5 % (4.5-6.2) H 09/01/18 07:02 Calcium 8.8 mg/dL (8.5-10.1) 09/02/18 06:45 Magnesium 1.9 mg/dL (1.8-2.4) 09/02/18 06:45 Iron 15 ug/dL (50-175) L 09/01/18 07:02 TIBC 366 ug/dL (250-450) 09/01/18 07:02 Ferritin 13 ng/mL (8-388) 09/01/18 07:02 C-Reactive Protein 0.09 mg/dL (0.0-0.3) 08/30/18 19:20 Vitamin B12 433 pg/mL (193-986) 09/01/18 07:02 Folate > 20.0 ng/mL (8.6-20.0) H 09/01/18 07:02 TSH 1.27 uIU/mL (0.358-3.74) 09/01/18 07:02 Vancomycin Trough 24.2 ug/mL (10.0-20.0) H* 09/01/18 16:25 Path Cons Comment See comment 08/30/18 19:20
[2018-09-02] MEDS: Cephalexin 500 MG CAP PO ×3 (12:03→19:50)
[2018-09-02] MEDS: Sucralfate 1 GM TAB PO ×3 (12:03→21:17)
--- NOTE | 2018-09-02 13:49 | PT.INTREAT ---
Date of service: 09/02/18 Time of Service: 12:50 PT Notes Inpatient Physical Therapy Treatment Note [facility] Date: 09/02/18 PRECAUTIONS:Fall, standard SUBJECTIVE: Benigno states that he is feeling well. He has had ongoing right UE pain, although states that he can get it to quiet down with positional changes. He's feeling good about his UE exercises and has been working on his closing manager strength with foam cubes between PT sessions. He is currently in the process of having his dressing changed on his right foot. OBJECTIVE: BED MOBILITY/TRANSFERS Deferred on transfers due to undressed wound on right foot. GAIT: Held pending dressing change THEREX: Patient was instructed in a therapeutic exercise program as noted on flowsheet. He was able to tolerate introduction of active triceps activation in gravity eliminated position on the right; tolerated with Thera-Band resistance on the left. Modified his foam cube exercises to include pinching exercises, which patient dependently between sessions. He was instructed in chin tuck exercises for centralization of symptoms, although without significant pain reduction; these were discontinued after 5 repetitions due to parascapular pain. Performed suboccipital release with gentle unloading of the cervical spine, where he gets immediate symptom alleviation. ASSESSMENT: Patient is tolerating treatment well. Although he continues to have radicular pain to the upper extremities, he is able to get rapid symptom alleviation with positional changes. We were unable to progress gait training today due to patient being mid dressing change. He was encouraged to walk with nursing if possible during the evening. PLAN: We will decrease frequency to 1 time per day, with patient continuing with his independent exercise program. He has foam cubes and Thera-Band in his room for independent completion, and has demonstrated good compliance with exercises between PT sessions. TREATMENT CODE/TIME: 72383x3 (12:45?1:15) Marianne Mercedes, PT, DPT [facility]
--- NOTE | 2018-09-02 13:57 | PTTR_ITS ---
Date of service: 09/02/18 Time of Service: 12:50 PT Notes Inpatient Physical Therapy Treatment Note [facility] Date: 09/02/18 PRECAUTIONS:Fall, standard SUBJECTIVE: Benigno states that he is feeling well. He has had ongoing right UE pain, although states that he can get it to quiet down with positional changes. 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 He is currently in the process of having his dressing changed on his right foot. OBJECTIVE: BED MOBILITY/TRANSFERS Deferred on transfers due to undressed wound on right foot. GAIT: Held pending dressing change THEREX: Patient was instructed in a therapeutic exercise program as noted on flowsheet. He was able to tolerate introduction of active triceps activation in gravity eliminated position on the right; tolerated with Thera-Band resistance on the left. Modified his foam cube exercises to include pinching exercises, which patient dependently between sessions. He was instructed in chin tuck exercises for centralization of symptoms, although without significant pain reduction; these were discontinued after 5 repetitions due to parascapular pain. Performed suboccipital release with gentle unloading of the cervical spine, where he gets immediate symptom alleviation. ASSESSMENT: Patient is tolerating treatment well. Although he continues to have radicular pain to the upper extremities, he is able to get rapid symptom alleviation with positional changes. We were unable to progress gait training today due to patient being mid dressing change. He was encouraged to walk with nursing if possible during the evening. PLAN: We will decrease frequency to 1 time per day, with patient continuing with his independent exercise program. He has foam cubes and Thera-Band in his room for independent completion, and has demonstrated good compliance with exercises between PT sessions. TREATMENT CODE/TIME: [id number] (12:45?1:15) Marianne Mercedes, PT, DPT [facility]
[2018-09-02 15:35] VITALS: BP 131/88; PULSE 92; RESP 17; TEMP 36.6; O2SAT 97
[2018-09-02] MEDS: Insulin Aspart 300 UNITS/3 ML PEN SC (16:53)
[2018-09-02] MEDS: Metoprolol 25 MG TAB 50 MG PO (21:16)
[2018-09-02] MEDS: Atorvastatin 40 MG TAB PO (21:16)
[2018-09-02 23:15] VITALS: BP 129/84; PULSE 80; RESP 16; TEMP 37; O2SAT 98
[2018-09-03] MEDS: oxyCODONE 5 MG TAB PO ×2 (01:14→07:44)
[2018-09-03 07:23] VITALS: BP 155/88; PULSE 83; RESP 19; TEMP 36.3; O2SAT 98
[2018-09-03 07:39] LABS: Abs Immature Grans 0.08 k/cumm (0.0-0.09); Absolute Basophil Count 0.03 k/cumm (0.0-0.2); Absolute Eosinophil Count 0.26 k/cumm (0.0-0.7); Absolute Lymphocyte Count 1.31 k/cumm (1.2-3.4); Absolute Neutrophil Count 5.35 k/cumm (1.2-6.7); Basophils % 0.4; Eosinophils % 3.2; HCT 34.1 % (40.0-50.0); HGB 9.7 g/dL (13.5-17.5); Lymphocytes % 16.1; Mean Corp. HGB Concentration 28.4 g/dL (32.0-36.0); Mean Corpuscular Hemoglobin 27.4 pg (27.0-33.0); Mean Corpuscular Volume 96.3 fL (80-95); Mean Platelet Volume 9.6 fL (8.0-11.0); Monocytes % 13.5; Neutrophils % 65.8; Platelet Count 312 x1000/uL (130-400); RBC 3.54 m/cumm (4.50-6.00); RBC Distribution Width 16.9 % (11.8-14.1); White Blood Cell Count 8.13 k/cumm (4.4-10.8)
[2018-09-03] MEDS: Pantoprazole 40 MG VIAL IVP (07:43)
[2018-09-03] MEDS: Normal Saline Flush 10 ML SYR IVP (07:43)
[2018-09-03] MEDS: Cephalexin 500 MG CAP PO ×2 (07:44→11:58)
[2018-09-03] MEDS: Hydroxychloroquine 200 MG TAB PO (07:44)
[2018-09-03] MEDS: Ascorbic Acid 500 MG TAB PO (07:44)
[2018-09-03] MEDS: Multivitamin TAB 1 TAB PO (07:44)
[2018-09-03] MEDS: Sertraline 50 MG TAB PO (07:44)
[2018-09-03] MEDS: Lisinopril 5 MG TAB PO (07:45)
[2018-09-03] MEDS: sulfaSALAzine 500 MG TAB PO (07:45)
[2018-09-03] MEDS: Folic Acid 1 MG TAB 1.5 MG PO (07:45)
[2018-09-03] MEDS: Ferrous Sulfate 325 MG TAB PO (07:45)
[2018-09-03] MEDS: Apixaban 5 MG TAB PO (07:45)
[2018-09-03] MEDS: buPROPion-XL 150 MG TABCR 450 MG PO (07:45)
[2018-09-03] MEDS: Acetaminophen 500 MG TAB 1000 MG PO (07:45)
[2018-09-03] MEDS: Mirabegron 50 MG TABCR PO (07:45)
[2018-09-03] MEDS: Gabapentin 600 MG TAB 1200 MG PO (07:45)
[2018-09-03] MEDS: Lactobacillus Acidophilus CAP 1 CAP PO (07:45)
[2018-09-03] MEDS: Sucralfate 1 GM TAB PO ×2 (07:45→11:57)
[2018-09-03 07:49] LABS: Anion Gap 8.1 mmol/L (3-11); BUN 11 mg/dL (7-18); CO2 28.9 mmol/L (21.0-32.0); CREATININE 0.68 mg/dL (0.70-1.30); Calcium 8.8 mg/dL (8.5-10.1); Chloride 104 mmol/L (98-107); Glucose 131 mg/dL (70-100); Magnesium 1.9 mg/dL (1.8-2.4); Potassium 3.8 mmol/L (3.5-5.1); Sodium 141 mmol/L (136-145)
--- NOTE | 2018-09-03 10:00 | PDOC.CMDIS ---
- If Service Date Differs Date of service: 09/03/18 Time of Service: 10:00 LACE Index Scoring Tool - Questions: Length of Stay (in days): 4 - 6 Acuity (Admit via E.D.?): Yes Comorbidities: Diabetes w/o Complication E.D. Visits: 3 - Answers: Total Score: 11 Risk of Readmission: High Risk Care Management Discharge Reason for Hospitalization: Diabetic Foot Infection Discharge Plan: Benigno will be discharged home today on oral antibiotics. He will follow up with podiatry as directed. [facility]. He declines any addtional services at this time he states he is feeling ready to return home. CM reviewed self management with patient including medications and follow up. Benigno will be transported home with his spouse at time of discharge. Patient/Family Education Needs: Discharge education, limitations and follow up plan of care including ask me three and self management. Services Needed at Discharge: DME Agency
--- NOTE | 2018-09-03 11:12 | W.PM.DS.N ---
Date of service: 09/03/18 Time of Service: 11:13 DS: Diagnosis Discharge Diagnosis (1) Diabetic foot ulcer: Status: Acute (2) Cellulitis: Status: Acute (3) Right arm pain: Status: Acute (4) H/O cervical spine surgery: Status: Chronic (5) Diabetes mellitus: Status: Chronic (6) Hypogonadism: Status: Chronic (7) Hypertension: Status: Chronic (8) BPH (benign prostatic hyperplasia): Status: Chronic (9) GERD (gastroesophageal reflux disease): Status: Chronic (10) Anemia: Status: Chronic (11) History of DVT (deep vein thrombosis): Status: Chronic (12) DVT prophylaxis: Status: Acute (13) Discharge planning issues: Status: Acute Discharge Plan Disposition Patient Disposition: HOME Condition: Improving Discharge Details Chief Complaint: GenMedical Reason For Visit: DIABETIC FOOT INFECTION Admit Date/Time: 08/30/18 22:14 Admit Provider: Imtiaz Rausch Attending Provider: Imtiaz Rausch Primary Care Provider: Garcia Fonseca ED Provider: Kt Brow[facility] Hospital Course: 57 male with DM, neuropathy, here with three days of increasing pain and swelling in right hallux -- this is beyond what is otherwise a chronic swelling. Seen at [facility], advised f/u podiatry, comes here for further evaluation. In ER findings c/w cellulitis noted, patient given dose of Zosyn and admitted for further management. During his course of stay he did have arm weakness and numbness, post cervical spine surgery [address] Donovan made aware per previous provider note this is possible until 1 year after surgery and recommends he continue Physical Therapy. Today he is feeling better. His right great toe appears to be healing. Very little erythema and swelling. Continue Kefelx 500 mg TID x [address] Aleman feels his foot is healed. Follow up with Dr. Rothman in 1 week. He was afebrile with a normalized WBC. Recommend off his foot as much as possible while healing and elevated foot when not mobilized. 1) Diabetic foot ulcer: Non-healing diabetic wound to right great toe with surrounding cellulitis. With CT showing soft tissue swelling, no findings to suggest osteomyelitis. CRP normal at 0.09, ESR normal at 16, no leukocytosis on admission. Remains afebrile. Appears to be localized, superficial infection. Podiatry consulted but not available at this time. Wound consult placed. Wound Culture growing Staph Aureus. Previous culture grew Group B strep and MSSA. ID at [facility] recommends Keflex 500 TID will continue for four weeks or until Dr. Rothman feels this is healed. (2) Cellulitis: Treat as above. (3) Right arm pain: Improving. In the setting of recent cervical spine surgery in 03/2018. Continue oxycodone for pain, continue PT/OT. Hold off on imaging as pain improving. Will need outpatient follow up with cervical spine surgeon, Dr. Donovan. (4) H/O cervical spine surgery: As above. Will need follow up with Dr. Donovan, [facility]. (5) Diabetes mellitus: Hgb A1c 6.5. Continue sliding scale insulin and carbohydrate counting diet. Monitor blood glucose at . (6) Hypogonadism: Received Testosterone as ordered outpatient. (7) Hypertension: Blood pressure acceptable. Continue lisinopril and metoprolol. Continue to monitor blood pressures. (8) BPH (benign prostatic hyperplasia): Continue myrbetriq. (9) GERD (gastroesophageal reflux disease): Does not appear to be on PPI therapy as an outpatient. Protonix 40 mg IV q24 hours. (10) Anemia: Labs reveal anemia H/H stable at this time Heme + stools. Iron low. Add iron supplement. PPI for GI protection. Monitor H&H. (11) History of DVT (deep vein thrombosis): Continue eliquis. (12) DVT prophylaxis: Therapeutic on eliquis. (13) Discharge planning issues: He is a Full code. Home Meds and New Rx's Prescriptions: New gabapentin [Neurontin] 600 mg Tablet 1,200 mg PO TID Qty: 60 RF: 0 sucralfate 1 gram Tablet 1 g PO AC & HS Qty: 30 RF: 0 cephalexin 500 mg Capsule 500 mg PO TID Qty: 84 RF: 0 ferrous sulfate 325 mg (65 mg iron) Tablet 325 mg PO DAILY Qty: 30 RF: 0 Continued folic acid 1 MG tablet 1.5 mg PO DAILY RF: 0 Eliquis 5 MG tablet 5 mg PO BID RF: 0 ascorbic acid (vitamin C) [Vitamin C] 500 MG tablet 500 mg PO QPM RF: 0 testosterone cypionate [Depo-Testosterone] 200 MG/ML oil 200 mg IM Q14D RF: 0 multivitamin 1 EACH capsule 1 ea PO DAILY RF: 0 cholecalciferol (vitamin D3) 1,000 UNITS tablet 2,000 units PO QPM RF: 0 metoprolol tartrate 25 MG tablet 50 mg PO HS RF: 0 gabapentin 600 MG tablet 1,200 mg PO TID RF: 0 atorvastatin [Lipitor] 40 MG tablet 40 mg PO HS RF: 0 Myrbetriq 50 mg Tablet Extended Release 24 Hr 50 mg PO DAILY RF: 0 lisinopril 5 MG tablet 5 mg PO DAILY RF: 0 acetaminophen [Mapap Extra Strength] 500 MG tablet 1,000 mg PO Q8H PRN PRNQty: 100 RF: 0 hydroxychloroquine 200 mg Tablet 200 mg PO BID RF: 0 sulfasalazine 500 mg Tablet 0.5 g PO BID RF: 0 sertraline [Zoloft] 50 mg Tablet 50 mg PO DAILY RF: 0 alogliptin 12.5 mg Tablet 12.5 mg PO QAM RF: 0 No Action bupropion HCl 450 mg Tablet Extended Release 24 Hr 450 mg PO DAILY RF: 0 Discharge Instructions Instructions: Cellulitis (GEN), Diabetic Foot Ulcers (GEN) Additional Instructions: Limit amount of time on right foot. Wear post op shoe until foot is healed. Elevate when off foot. Take keflex three times a day for four weeks or until Dr. Aleman feels you foot is healed. Follow up with Dr. Fong in 1 week. Follow up with your PCP in 1-2 weeks. Monitor blood sugars. Report to the emergency room immediately if you have fevers, chills, nausea, vomiting, chest pain, or shortness of breath. Stand Alone Forms: Nursing Discharge Form Referrals: [facility] [Other] (Fax discharge summary to when available. w/ attn: Dr Donovan) Garcia Fonseca [Primary Care Provider] - (Please call Dr. Fonseca's office for a 2 week follow up appointment. [phone]) Aniceto Aleman DPM [[facility] STAFF PHYSICIAN] - 09/08/18 3:15 pm Activity:: Activity as Tolerated Equipment/Supplies:: post op shoe Diet:: Carb Counting Discharge Orders Discharge Orders: Discharge Order (Routine); Ordered 09/03/18 Ordered By: Hope Randall Exam Narrative Exam Narrative: General: Awake and alert, sitting at edge of bed, in NAD. Answers questions appropriately. HEENT: normocephalic, atraumatic, pupils equal and round, EOMI, mucous membranes moist. Neck: supple, no JVD, no pain or symptom reproduction on palpation of posterior neck/cervical spine. Cardiovascular: heart has regular rate and rhythm, no murmur appreciated. Respiratory: respirations even and unlabored, lung sounds clear to auscultation throughout. Abdomen: normoactive bowel sounds, soft, nondistended, nontender on palpation. Extremities: Moves BUEs freely, weakness noted bilaterally, atrophy noted to BUEs. slight Erythema and edema to right great toe largely resolved. Second toe on right foot without erythema or edema, no drainage. Erythema to dorsal aspect of right foot resolved, trace RLE edema. Left foot without open wounds, callous to left great toe. Pedal pulses +1 bilaterally. DS: Data Vitals/I&O Vitals and I&O: Vital Signs Temperature 36.3 C L 09/03/18 07:23 Temperature Source Tympanic 09/03/18 07:23 Pulse 83 09/03/18 07:23 Pulse Rhythm Regular 09/03/18 08:00 Respiratory Rate 19 09/03/18 07:23 Respiratory Effort Non-Labored 09/03/18 08:00 Respiratory Depth Normal 09/03/18 08:00 Respiratory Pattern Normal 09/03/18 08:00 Blood Pressure 155/88 H 09/03/18 07:23 Blood Pressure Position Sitting 08/30/18 18:49 Pulse Oximetry 98 09/03/18 07:23 Oxygen Delivery Method Room Air 09/03/18 07:23 Oxygen Flow Rate 0 09/03/18 07:23 Pain Level 6 09/03/18 07:45 Comment 09/02/18 23:15 Intake & Output 09/02/18 09/02/18 09/03/18 11:59 23:59 11:59 Intake Total 1280 / 2477 1197 / 2477 1470 / 1470 Output Total 1900 / 3900 1999 / 3900 1750 / 1750 Balance -620 / -1423 -803 / -1423 -280 / -280 Intake: IV 320 / 320 Oral 960 / 2157 1197 / 2157 1450 / 1450 Output: Urine 1900 / 3900 2000 / 3900 1750 / 1750 Other: Urine Color Yellow Yellow Yellow Urine Appearance Clear Clear Clear Urine Odor None Normal Voiding Methods Urinal Urinal Urinal Completed studies during hospitalization [Text1]: RIGHT FOOT CT: The study was carried out with an intravenous administration of 100 cc's of Omnipaque 350. The patient is status post partial amputation of the second toe. Post surgical changes involving the distal aspect of the first metatarsal are identified. There is deformity of the second metatarsal bone where there is a possible healing fracture. Soft tissue swelling is identified. Vascular calcifications are noted. There is no localized soft tissue abnormality. If there is a strong further clinical question regarding the possibility of osteomyelitis in this patient, then an MRI could be considered. FINDINGS: Bones/joints: Status post partial amputation of the second digit. Postsurgical changes involving distal aspect of the first metatarsal bone. Deformity of the second metatarsal bone, possible healing fracture. Soft tissues: Soft tissue swelling. Vasculature: Vascular arterial calcifications. IMPRESSION: 1. Status post resection/debridement of the distal aspect of the first metatarsal bone. 2. Status post partial amputation of the second digit. 3. Periosteal reaction and possibly healing fracture involving the second metatarsal bone. If further evaluation for osteomyelitis is desired, consider MRI Labs on day of discharge: Labs from last 24 hours 09/03/18 09/03/18 07:10 07:10 WBC 8.13 RBC 3.54 L Hgb 9.7 L Hct 34.1 L MCV 96.3 H MCH 27.4 MCHC 28.4 L RDW 16.9 H Plt Count 312 MPV 9.6 Immature Gran % 1.0 Neutrophils % 65.8 Lymphocytes % 16.1 Monocytes % 13.5 Eosinophils % 3.2 Basophils % 0.4 Absolute Neutrophils 5.35 Absolute Lymphocytes 1.31 Absolute Monocytes 1.10 H Absolute Eosinophils 0.26 Absolute Basophils 0.03 Sodium 141 Potassium 3.8 Chloride 104 Carbon Dioxide 28.9 Anion Gap 8.1 BUN 11 Creatinine 0.68 L Estimated GFR/1.73 m2 >= 60.00 Glucose 131 H Calcium 8.8 Magnesium 1.9 PFSH Medical History Osteomyelitis (Acute) Recurrent UTI (urinary tract infection) (Chronic) BPH (benign prostatic hyperplasia) (Chronic) Nephrolithiasis (Chronic) History of DVT (deep vein thrombosis) (Chronic) GERD (gastroesophageal reflux disease) (Chronic) Urinary incontinence (Chronic) DJD (degenerative joint disease) (Chronic) Hypogonadism (Chronic) Dyslipidemia (Chronic) Hypertension (Chronic) Depression (Chronic) Diabetes mellitus (Chronic) 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) Thermal injury (Resolved) Cellulitis of right hand (Resolved 12/23/15) Diabetic neuropathy (Chronic) History of colon polyps (Chronic) Surgical History H/O hand surgery (Chronic) History of repair of hiatal hernia (Chronic) History of cholecystectomy (Chronic) History of lumbosacral spine surgery (Chronic) H/O cervical spine surgery (Chronic) History of Kallie fundoplication (Chronic) Colonoscopy - IV Sedation (Inactive 10/28/16) EGD - IV Sedation (Inactive) Social History Smoking/Tobacco Use Status: Never Drug use: Never Household members: spouse Do you feel safe at home: Yes Do you feel safe in your relationship?: Yes Additional Social history: Patient is and has 2 grown daughters. Originally from [place], moved to [place] approximately a decade ago. 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 He also denies any illicit drug use.
--- NOTE | 2018-09-03 11:43 | HHF2F_ITS ---
1. Encounter Date and Reason I certify that BRANDIN SANTIAGO was seen by Hope Randall on 09/03/18 and that I had a [id number] encounter with this patient that meets the physician face to face encounter requirements. 2. Clinical Findings Supporting Skilled Need and Homebound Status I certify that home health services are medically necessary, include either intermittent [place] [facility] and/or physical/speech therapy, and that this patient is homebound in that absences from the home require considerable and taxing effort and are infrequent or of short duration, or are attributable to the need to receive medical care. [X] (a) Attached documentation from encounter provides clinical findings supporting skilled need and homebound status (including what assistance patient requires to leave the home). The encounter with the patient was in whole, or in part, for the following medical condition, which is the primary reason for home health care: DIABETIC FOOT INFECTION Senior Living: Physical Therapy: Dr. Donovan recommends patient have physical therapy post cervical spine surgery to regain strength and feeling in upper extremities. Speech Therapy: Homebound: 3. Certification and Authentication I certify that I composed the above information based on my clinical judgement relating to this patient's medical condition and, if applicable, clinical findings communicated to me by the NPP or inpatient physician who performed the Home Health Referral. All further orders will be obtained through (Community Based Physician - PCP)
[2018-09-03] MEDS: Insulin Aspart 300 UNITS/3 ML PEN SC (11:58)
--- NOTE | 2018-09-09 05:51 | PT.INDS ---
Date of service: 09/03/18 PT Notes Inpatient Physical Therapy Discharge Summary Dates: 09/03/2018 Dates of Service: 08/31/2018 through 09/03/2018 Referring Doctor: Gena Tipton NP PT Orders: PT CONSULT: R UE pain, history of cervical spine surgery 03/2018 Precautions: Fall. Standard. WBAT on right LE Patient Profile/Admitting Diagnosis: Patient is a 57-year-old right-hand dominant male with diabetes mellitus who is admitted for management of right hallux cellulitis. CT scan result suggested no findings of osteomyelitis. Patient has also complained of shooting right arm pain that started Wednesday night with intensity of about 3-4/10 at rest but goes up to 9/10 with movement and with placement of right UE in a dependent position. Patient had cervical spine surgery on March 14, 2018 at the [place] and was prescribed by orthopedic surgeon to wear a cervical collar until seen for follow-up after 3 months post operatively. Patient stated that after said surgery, he has had worsening bilateral upper extremities with the right being more affected than the left. He further reports that for the past 2 weeks weakness, numbness, and tingling to BUE have gotten worse as well. 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) Thermal injury (Resolved) Cellulitis of right hand (Resolved 12/23/15) Diabetic neuropathy (Chronic) History of colon polyps (Chronic) Surgical History H/O hand surgery (Chronic) History of repair of hiatal hernia (Chronic) History of cholecystectomy (Chronic) History of lumbosacral spine surgery (Chronic) H/O cervical spine surgery (Chronic) History of Kallie fundoplication (Chronic) Colonoscopy - IV Sedation (Inactive 10/28/16) EGD - IV Sedation (Inactive) Social History/Home Situation: Patient lives with a in a house in [place] with 1 step to enter. Benigno states that home health PT had been seeing him for 3 months and discontinued him from services 3 weeks ago with an exercise program. He states that he gets Meals on Wheels. Current Functional Limitations: Patient requires an assistive ambulatory device to reduce fall risk for all transfers and ambulation task performance. Equipment Owned/DME: 4WW, SC, glucometer. This is a clinical summary of skilled services provided on the generation of dates listed above. No charge was made in completion of this documentation. Subjective: NT Objective: General Observation: NT Mental Status: Alert and oriented x3 Pain: 4/10 at rest from neck down to the tips of fingers, 9/10 with movement, Right UE >> L UE. ROM: Right Upper Extremity: Unable to hold right shoulder forward in flexion due to pain and weakness. Unable to extend elbow from a fully flexed position. Fingers on the right unable to extend at the MCP joints. Functional closing of of fingers present. Left Upper Extremity: Shoulder Flexion WFL. Shoulder abduction WFL. Elbow flexion WFL. Wrist flexion WFL. Functional opening and closing of hand WFL. Right Lower Extremity: Hip flexion WFL. Hip abduction WFL. Knee flexion WFL. Ankle dorsiflexion WFL. Ankle plantarflexion WFL. Left Lower Extremity: Hip flexion WFL. Hip abduction WFL. Knee flexion WFL. Ankle dorsiflexion WFL. Ankle plantarflexion WFL. Strength: Right Upper Extremity: Shoulder flexors 3 /5. Shoulder abductors 3- /5. Elbow flexors 3+/5. Elbow extensors 2-/5. Wrist extensors 2-/5. Hacksaw Inspector weak but functional. Left Upper Extremity: Shoulder flexors 4-/5. Shoulder abductors 3-/5. Elbow flexors 3+/5. Elbow extensors 3+/5. Wrist extensors 3-/5. Hacksaw Inspector strong. Right Lower Extremity: Hip flexors 4/5. Hip abductor 4/5. Knee flexors 4- /5. Knee extensors 4- /5. Ankle dorsiflexors 4 /5. Ankle plantarflexors 4/5. Left Lower Extremity: Hip flexors 4/5. Hip abductor 4/5. Knee flexors 4- /5. Knee extensors 4- /5. Ankle dorsiflexors 4 /5. Ankle plantarflexors 4/5. Sensation: Patient complains of increasing numbness and tingling on bilateral upper extremities with right being more affected than the left. BED MOBILITY LEVELS/TRANSFERS Rolling independent Supine to sit independent Sit to supine independent Sit to stand independent Stand to sit independent Bed to chair independent Chair to bed independent Gait: Patient is able to tolerate 300 to 400 feet supervision ambulation with 4WW per HISTORY INSTRUCTOR documentation. Balance: Static Sitting: Good Dynamic Sitting: Good Static Standing: Good Dynamic Standing: Fair Upper Limb Tension Test positive for both sides suggestive of C6-C7 cervical radiculopathy which may have resulted from progression of pre-existing cervical spine pathology. Imaging studies may provide true extent of existing pathology. Patient may benefit from consultation with [place] orthopedic surgeon for appropriate follow-up. Assessment: Patient is a 57 year old male referred to physical therapy services with the diagnosis of progression of her right hallux diabetic foot ulcer and cellulitis. Patient presents with clinical signs and symptoms consistent with cervical radiculopathy and current/admitting diagnoses that have resulted to mobility limitations, gait instability, generalized weakness, and impairment of motor control as demonstrated by the following impairment level findings: 1. Decreased strength to right elbow extensors, right wrist extensors and be LE major muscle groups 2. Impaired sitting/standing balance 3. Impaired activity tolerance 4. Limitation of joint range of motion in right elbow extension Impairments are contributing to the following functional limitations: 1. Dependent bed mobility skills 2. Increased dependence with transfers 3. Inability to safely ambulate without assistive device and physical assistance 4. Increase completion time for mobility ADL performance 5. Increased fall risk 6. Inability to negotiate steps alone safely Goals: Goals X1 week 1. Patient will report 0-1/10 pain in bilateral upper extremities during functional mobility tasks performance NOT MET 2. Patient will increase right elbow extensor strength to 3/5 in order to increase functional performance NOT MET 3. Supine-Sit independent MET 4. Sit-Supine independent MET 5. Sit-Stand independent MET 6. Stand-Sit independent MET 7. Bed-Chair independent MET 8. Chair-Bed independent MET 9. Independent gait on level surface with use of least restrictive device for at least 100 feet without report of pain nor dyspnea NOT MET 10. Independent stair negotiation while holding onto bilateral rails for at least 3 steps without report of pain nor dyspnea NOT MET 11. Independent with home exercise program MET 12. Good static and dynamic standing balance/tolerance NOT MET DISCHARGE RECOMMENDATIONS: Patient may benefit from resumption of home health physical therapy services in order to manage BUE pain, maximize home safety, or establish functional maintenance program for strengthening and fall reduction. No anticipated equipment needs at this time. TREATMENT CODE/TIME: N/A Thank you for this referral. Brianne Eugene, PT, DPT, CLT [facility]
--- NOTE | 2018-09-09 05:58 | INDS_ITS ---
Date of service: 09/03/18 PT Notes Inpatient Physical Therapy Discharge Summary Dates: 09/03/2018 Dates of Service: 08/31/2018 through 09/03/2018 Referring Doctor: Gena Tipton NP PT Orders: PT CONSULT: R UE pain, history of cervical spine surgery 03/2018 Precautions: Fall. Standard. WBAT on right LE Patient Profile/Admitting Diagnosis: Patient is a 57-year-old right-hand dominant male with diabetes mellitus who is admitted for management of right hallux cellulitis. CT scan result suggested no findings of osteomyelitis. Patient has also complained of shooting right arm pain that started Wednesday night with intensity of about 3-4/10 at rest but goes up to 9/10 with movement and with placement of right UE in a dependent position. Patient had cervical spine surgery on March 14, 2018 at the [place] and was prescribed by orthopedic surgeon to wear a cervical collar until seen for follow-up after 3 months post operatively. Patient stated that after said surgery, he has had worsening bilateral upper extremities with the right being more affected than the left. He further reports that for the past 2 weeks weakness, numbness, and tingling to BUE have gotten worse as well. 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) Thermal injury (Resolved) Cellulitis of right hand (Resolved 12/23/15) Diabetic neuropathy (Chronic) History of colon polyps (Chronic) Surgical History H/O hand surgery (Chronic) History of repair of hiatal hernia (Chronic) History of cholecystectomy (Chronic) History of lumbosacral spine surgery (Chronic) H/O cervical spine surgery (Chronic) History of Kallie fundoplication (Chronic) Colonoscopy - IV Sedation (Inactive 10/28/16) EGD - IV Sedation (Inactive) Social History/Home Situation: Patient lives with a in a house in [place] with 1 step to enter. Benigno states that home health PT had been seeing him for 3 months and discontinued him from services 3 weeks ago with an exercise program. He states that he gets Meals on Wheels. Current Functional Limitations: Patient requires an assistive ambulatory device to reduce fall risk for all transfers and ambulation task performance. Equipment Owned/DME: 4WW, SC, glucometer. This is a clinical summary of skilled services provided on the generation of dates listed above. No charge was made in completion of this documentation. Subjective: NT Objective: General Observation: NT Mental Status: Alert and oriented x3 Pain: 4/10 at rest from neck down to the tips of fingers, 9/10 with movement, Right UE >> L UE. ROM: Right Upper Extremity: Unable to hold right shoulder forward in flexion due to pain and weakness. Unable to extend elbow from a fully flexed position. Fingers on the right unable to extend at the MCP joints. Functional closing of of fingers present. Left Upper Extremity: Shoulder Flexion WFL. Shoulder abduction WFL. Elbow flexion WFL. Wrist flexion WFL. Functional opening and closing of hand WFL. Right Lower Extremity: Hip flexion WFL. Hip abduction WFL. Knee flexion WFL. Ankle dorsiflexion WFL. Ankle plantarflexion WFL. Left Lower Extremity: Hip flexion WFL. Hip abduction WFL. Knee flexion WFL. Ankle dorsiflexion WFL. Ankle plantarflexion WFL. Strength: Right Upper Extremity: Shoulder flexors 3 /5. Shoulder abductors 3- /5. Elbow flexors 3+/5. Elbow extensors 2-/5. Wrist extensors 2-/5. Proposal Review Analyst weak but functional. Left Upper Extremity: Shoulder flexors 4-/5. Shoulder abductors 3-/5. Elbow flexors 3+/5. Elbow extensors 3+/5. Wrist extensors 3-/5. Proposal Review Analyst strong. Right Lower Extremity: Hip flexors 4/5. Hip abductor 4/5. Knee flexors 4- /5. Knee extensors 4- /5. Ankle dorsiflexors 4 /5. Ankle plantarflexors 4/5. Left Lower Extremity: Hip flexors 4/5. Hip abductor 4/5. Knee flexors 4- /5. Knee extensors 4- /5. Ankle dorsiflexors 4 /5. Ankle plantarflexors 4/5. Sensation: Patient complains of increasing numbness and tingling on bilateral upper extremities with right being more affected than the left. BED MOBILITY LEVELS/TRANSFERS Rolling independent Supine to sit independent Sit to supine independent Sit to stand independent Stand to sit independent Bed to chair independent Chair to bed independent Gait: Patient is able to tolerate 300 to 400 feet supervision ambulation with 4WW per SOAPING DEPARTMENT SUPERVISOR documentation. Balance: Static Sitting: Good Dynamic Sitting: Good Static Standing: Good Dynamic Standing: Fair Upper Limb Tension Test positive for both sides suggestive of C6-C7 cervical rad iculopathy which may have resulted from progression of pre-existing cervical spine pathology. Imaging studies may provide true extent of existing pathology. Patient may benefit from consultation with [place] orthopedic surgeon for appropriate follow-up. Assessment: Patient is a 57 year old male referred to physical therapy services with the diagnosis of progression of her right hallux diabetic foot ulcer and cellulitis. Patient presents with clinical signs and symptoms consistent with cervical radiculopathy and current/admitting diagnoses that have resulted to mobility limitations, gait instability, generalized weakness, and impairment of motor control as demonstrated by the following impairment level findings: 1. Decreased strength to right elbow extensors, right wrist extensors and be LE major muscle groups 2. Impaired sitting/standing balance 3. Impaired activity tolerance 4. Limitation of joint range of motion in right elbow extension Impairments are contributing to the following functional limitations: 1. Dependent bed mobility skills 2. Increased dependence with transfers 3. Inability to safely ambulate without assistive device and physical assistance 4. Increase completion time for mobility ADL performance 5. Increased fall risk 6. Inability to negotiate steps alone safely Goals: Goals X1 week 1. Patient will report 0-1/10 pain in bilateral upper extremities during functional mobility tasks performance NOT MET 2. Patient will increase right elbow extensor strength to 3/5 in order to increase functional performance NOT MET 3. Supine-Sit independent MET 4. Sit-Supine independent MET 5. Sit-Stand independent MET 6. Stand-Sit independent MET 7. Bed-Chair independent MET 8. Chair-Bed independent MET 9. Independent gait on level surface with use of least restrictive device for at least 100 feet without report of pain nor dyspnea NOT MET 10. Independent stair negotiation while holding onto bilateral rails for at least 3 steps without report of pain nor dyspnea NOT MET 11. Independent with home exercise program MET 12. Good static and dynamic standing balance/tolerance NOT MET DISCHARGE RECOMMENDATIONS: Patient may benefit from resumption of home health physical therapy services in order to manage BUE pain, maximize home safety, or establish functional maintenance program for strengthening and fall reduction. No anticipated equipment needs at this time. TREATMENT CODE/TIME: N/A Thank you for this referral. Brianne Eugene, PT, DPT, CLT [facility]
== END 2018-09-03 13:34 | disposition home health service (06) | DRG 639 ==
LOC: ER 22:15 → MS 22:54
PROVIDERS: Internal Medicine; Nurse Practitioner; Admitting Provider General Practice; Emergency Provider Emergency Medicine; PCP Family Medicine; Visit Provider Internal Medicine
DX: L03.031 Cellulitis of right toe; B95.61 Methicillin susceptible Staphylococcus aureus infection as the cause of diseases classified elsewhere; E11.621 Type 2 diabetes mellitus with foot ulcer; E11.40 Type 2 diabetes mellitus with diabetic neuropathy, unspecified; L97.519 Non-pressure chronic ulcer of other part of right foot with unspecified severity; M79.601 Pain in right arm; Y83.8 Other surgical procedures as the cause of abnormal reaction of the patient, or of later complication, without mention of misadventure at the time of the procedure; I10 Essential (primary) hypertension; D64.9 Anemia, unspecified; R19.5 Other fecal abnormalities; Z86.718 Personal history of other venous thrombosis and embolism; Z79.01 Long term (current) use of anticoagulants; E29.1 Testicular hypofunction; Z71.3 Dietary counseling and surveillance; Z79.4 Long term (current) use of insulin
CPT/HCPCS: 36415; 80048; 85652; 87077; 96361; 96365; 97110; 97162; 97530; 99222; 99232; 99239; 99285; 73701; 80202; 82607; 82728; 82746; 83036; 83540; 83550; 83735; 84443; 85025; 86140; 87070; 87186; 87205; J2543; J3370; J3490

== ENCOUNTER 2018-10-20 18:47 | Emergency (ER) | payer OTHER, SELFPAY ==
[2018-10-20] VITALS (41 sets, daily range): BP systolic 103–133; BP diastolic 62–85; PULSE 63–117; RESP 13–27; TEMP 37.1; O2SAT 89–96
--- NOTE | 2018-10-20 19:21 | W.ED.GENAD ---
Discharge Plan Disposition Patient Disposition: HOME Condition: Good Discharge Details Chief Complaint: AMS/LOC Clinical Impression: Altered mental status, unspecified Primary Care Provider: Bruce Turner ED Provider: Kt Browning [place] Meds and New Rx's Prescriptions: Continued folic acid 1 MG tablet 1.5 mg PO DAILY RF: 0 Eliquis 5 MG tablet 5 mg PO BID RF: 0 ascorbic acid (vitamin C) [Vitamin C] 500 MG tablet 500 mg PO QPM RF: 0 testosterone cypionate [Depo-Testosterone] 200 MG/ML oil 200 mg IM Q14D RF: 0 multivitamin 1 EACH capsule 1 ea PO DAILY RF: 0 cholecalciferol (vitamin D3) 1,000 UNITS tablet 2,000 units PO QPM RF: 0 metoprolol tartrate 25 MG tablet 50 mg PO HS RF: 0 gabapentin 600 MG tablet 1,200 mg PO TID RF: 0 atorvastatin [Lipitor] 40 MG tablet 40 mg PO HS RF: 0 bupropion HCl 450 mg Tablet Extended Release 24 Hr 450 mg PO DAILY RF: 0 Myrbetriq 50 mg Tablet Extended Release 24 Hr 50 mg PO DAILY RF: 0 saxagliptin 5 mg Tablet 5 mg PO DAILY RF: 0 lisinopril 5 MG tablet 5 mg PO DAILY RF: 0 acetaminophen [Mapap Extra Strength] 500 MG tablet 1,000 mg PO Q8H PRN PRNQty: 100 RF: 0 hydroxychloroquine 200 mg Tablet 200 mg PO BID RF: 0 sulfasalazine 500 mg Tablet 0.5 g PO BID RF: 0 sertraline [Zoloft] 50 mg Tablet 50 mg PO DAILY RF: 0 alogliptin 12.5 mg Tablet 12.5 mg PO QAM RF: 0 gabapentin [Neurontin] 600 mg Tablet 1,200 mg PO TID Qty: 60 RF: 0 sucralfate 1 gram Tablet 1 g PO AC & HS Qty: 30 RF: 0 cephalexin 500 mg Capsule 500 mg PO TID Qty: 84 RF: 0 ferrous sulfate 325 mg (65 mg iron) Tablet 325 mg PO DAILY Qty: 30 RF: 0 Discharge Instructions Additional Instructions: Laboratory studies are unremarkable tonight. Head CT is unremarkable. Urinalysis is negative no sign of infection. [facility] Pursue outpatient follow up of cafeteria monitor and ECHO. Return to ED for fever, worsening mental status, focal neuro changes, other concerns. Referrals: Bruce Turner [Primary Care Provider] - Discharge Data Discharge Date/Time-TO BE ENTERED AT DEPARTURE: 10/20/18 23:10 Medical Decision Making <Sd Jimenez MD - Last Filed: 10/21/18 13:56> 19:29 --58-year-old male who presents with severe confusion today. This is an acute exacerbation of ongoing chronic mental status change. Recent work-up in [place] for neuropsychiatric illness has not been diagnostic. Patient has weakness of his right upper exterminated left lower extremity that is chronic. He notes no focal neurologic deficits. Plan to proceed to CT imaging of the brain. I will obtain labs to assess for electrolyte abnormalities. We will also check ammonia, TSH, urinalysis. Screening ECG was reviewed and interpreted by me: Sinus tachycardia 114 bpm, ST depressions noted in lead I and aVL, 1.[address] elevation noted lead III, LVH. Patient denies chest pain. He has recently had a ziopatch cafeteria monitor placed yesterday for tachycardia noted at home. I have obtained outside hospital records from the [place] [facility] system and reviewed EKG from September 27, 2018 that is limited secondary to artifact but similar to findings today. Cardiac echocardiogram that was performed at the [place] on 10/19/2018, report reviewed and interpreted by me: The left ventricle is normal in size. There is mild concentric left ventricular hypertrophy. Left ventricular systolic function is mildly to moderately reduced. The left ventricular ejection fraction is 40% by 3D assessment. There is diffuse left ventricular hypokinesis with focal hypokinesis or akinesis of the inferior and inferior lateral arceo. The right ventricle is normal in size. The global right ventricular systolic function is mildly reduced. The atria are normal in size. There is no hemodynamically significant valvular lesion. The aortic root is mildly dilated at 4.0 cm. Compared to prior study dated 05/06/2017 the global left ventricular systolic function has worsened, the inferior and inferior lateral wall motion abnormalities are new. The aortic root size has gone from 3.8 cm to 4.0 cm. <tK Browning MD - Last Filed: 10/20/18 22:35> Patient signed out to me from Dr. Jimenez for follow-up of labs. Patient had presented with exacerbation of confusion. Currently seems more back to baseline per the patient and the . Laboratory studies are unremarkable. His EKG was a little concerning but his troponin is negative. Suspect his EKG findings are related to LVH more than anything. CT head is negative. Urinalysis is completely clean and negative. At this point patient's vital signs are good. Heart rate is in the 80s. He is awake and alert and more cognizant. No indication for admission. Will be discharged [facility] I have spoke to the and patient regarding findings and plan for follow-up. Lab Data Lab results reviewed: Yes I reviewed the patient's lab results. HPI <Sd Jimenez MD - Last Filed: 10/21/18 13:56> General Mode of arrival: ambulatory. Date/Time Provider Initiated Documentation: 10/20/18 18:58. Information obtained by: patient and family (). HPI Narrative: 58-year-old male with multiple medical problems including history of unspecified neuropsychiatric illness, dxo-hqkpisa-[id number] diabetes, presents with chief complaint of confusion. Patient and his note significant increase in confusion since waking today. His notes that he has been recently worked up for neuropsychiatric illness at [place] and testing has been nondiagnostic to date. Today his confusion has been severe at times. His notes that he has been ranting and rambling and nonsensical at times. She specifically notes that he was questioning whether he was the father of his daughter and also seemed to perseverate on the #11. He notes that he has been forgetful in terms of remembering activities that he did today. Patient denies any new focal neurologic symptoms. He has no headache. No neck pain or stiffness. No recent fever. No dysuria or cough. Patient notes that he has chronic weakness of his right upper extremity as well as left lower extremity and is also had progressive muscle weakness of his hands. No new medication changes. Related Data Home Medications Medication Instructions Recorded Confirmed ascorbic acid (vitamin C) [Vitamin 500 mg PO QPM 05/11/14 10/20/18 C] cholecalciferol (vitamin D3) 2,000 units PO QPM 05/11/14 10/20/18 multivitamin 1 ea PO DAILY 05/11/14 10/20/18 testosterone cypionate 200 mg IM Q14D 05/11/14 10/20/18 [Depo-Testosterone] metoprolol tartrate 50 mg PO HS 06/14/15 10/20/18 gabapentin 1,200 mg PO TID 12/13/15 10/20/18 atorvastatin [Lipitor] 40 mg PO HS 04/13/17 10/20/18 folic acid 1.5 mg PO DAILY tab-cap 04/19/17 10/20/18 lisinopril 5 mg PO DAILY 06/15/17 10/20/18 acetaminophen [Mapap Extra 1,000 mg PO Q8H PRN PRN #100 tab 06/17/17 10/20/18 Strength] Eliquis 5 mg PO BID 07/14/17 10/20/18 bupropion HCl 450 mg PO DAILY 04/02/18 10/20/18 Myrbetriq 50 mg PO DAILY 06/16/18 10/20/18 hydroxychloroquine 200 mg PO BID 07/05/18 10/20/18 sulfasalazine 0.5 g PO BID 07/05/18 10/20/18 alogliptin 12.5 mg PO QAM 08/30/18 10/20/18 sertraline [Zoloft] 50 mg PO DAILY 08/30/18 10/20/18 cephalexin 500 mg PO TID #84 cap 09/03/18 10/20/18 ferrous sulfate 325 mg PO DAILY #30 tab 09/03/18 10/20/18 gabapentin [Neurontin] 1,200 mg PO TID #60 tab 09/03/18 10/20/18 sucralfate 1 g PO AC & HS #30 tab 09/03/18 10/20/18 saxagliptin 5 mg PO DAILY 10/20/18 10/20/18 Previous Rx's Medication Instructions Recorded acetaminophen [Mapap Extra 1,000 mg PO Q8H PRN PRN #100 tab 06/17/17 Strength] cephalexin 500 mg PO TID #84 cap 09/03/18 ferrous sulfate 325 mg PO DAILY #30 tab 09/03/18 gabapentin [Neurontin] 1,200 mg PO TID #60 tab 09/03/18 sucralfate 1 g PO AC & HS #30 tab 09/03/18 Allergies Allergy/AdvReac Type Severity Reaction Status Date / Time nitroglycerin Allergy Hives Unverified 10/20/18 19:15 pioglitazone HCl [From Actos] AdvReac Mild leg Unverified 10/20/18 19:15 swelling General Stated Complaint: AMS/LOC PORTILLO: 3 Review of Systems <Sd Jimenez MD - Last Filed: 10/21/18 13:56> Review of Systems All systems reviewed & are unremarkable except as noted in HPI and below Constitutional Denies fever(s) Integumentary/Breasts Denies rash PFSH <Sd Jimenez MD - Last Filed: 10/21/18 13:56> Medical History Osteomyelitis (Acute) Recurrent UTI (urinary tract infection) (Chronic) BPH (benign prostatic hyperplasia) (Chronic) Nephrolithiasis (Chronic) History of DVT (deep vein thrombosis) (Chronic) GERD (gastroesophageal reflux disease) (Chronic) Urinary incontinence (Chronic) DJD (degenerative joint disease) (Chronic) Hypogonadism (Chronic) Dyslipidemia (Chronic) Hypertension (Chronic) Depression (Chronic) Diabetes mellitus (Chronic) 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) Thermal injury (Resolved) Cellulitis of right hand (Resolved 12/23/15) Diabetic neuropathy (Chronic) History of colon polyps (Chronic) Surgical History H/O hand surgery (Chronic) History of repair of hiatal hernia (Chronic) History of cholecystectomy (Chronic) History of lumbosacral spine surgery (Chronic) H/O cervical spine surgery (Chronic) History of Kallie fundoplication (Chronic) Colonoscopy - IV Sedation (Inactive 10/28/16) EGD - IV Sedation (Inactive) Social History Smoking/Tobacco Use Status: Never Drug use: Never Household members: spouse Do you feel safe at home: Yes Do you feel safe in your relationship?: Yes Additional Social history: Patient is and has 2 grown daughters. Originally from [place], moved to [place] approximately a decade ago. 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 He also denies any illicit drug use. Exam <Sd Jimenez MD - Last Filed: 10/21/18 13:56> Const General: cooperative and no acute distress HENMT Head: normocephalic and atraumatic Mouth: moist mucous membranes Eyes Alignment and Position: alignment normal Conjunctivae: normal conjunctivae Sclera: normal sclerae Pupils: PERRL EOM: EOM intact bilaterally Neck Neck: trachea midline and supple Resp Auscultation: clear to auscultation bilaterally, no rales, no rhonchi and no wheezes Cardio Jugular venous pressure: no JVD Rate: regular rate and not tachycardic Rhythm: regular rhythm GI Palpation: soft, not firm, no guarding, no masses, not rigid and nontender Skin General skin exam: other (plethora of face) Neuro General: alert, awake, oriented x3 and tone normal Cognition: abnormal cognition (mild confusion) Speech: speech normal Motor: other (weakness on extension right arm 4/5, weakness on elevation LLE 4/5 ) Sensory Exam: no sensory deficits noted Extrem General: no edema Right upper extremity: hand (loss of muscle mass thenar eminence bilateral) Psych Appearance: grossly normal Mental Status: mental status grossly normal Speech and Movement: speech and movement normal Course <Sd Jimenez MD - Last Filed: 10/21/18 13:56> Vital Signs Temperature 37.1 C 10/20/18 19:04 Pulse 112 H 10/20/18 19:04 Respiratory Rate 16 10/20/18 19:04 Blood Pressure 133/85 10/20/18 19:04 Pulse Oximetry 94 L 10/20/18 19:04 Temperature 37.1 C 10/20/18 19:04 Temperature Source Temporal Artery Scan 10/20/18 19:04 Pulse 112 H 10/20/18 19:04 Respiratory Rate 16 10/20/18 19:10 Respiratory Effort 10/20/18 19:10 Respiratory Depth Normal 10/20/18 19:10 Respiratory Pattern Normal 10/20/18 19:10 Blood Pressure 133/85 10/20/18 19:04 Pulse Oximetry 94 L 10/20/18 19:04 Oxygen Delivery Method Room Air 10/20/18 19:04 Oxygen Flow Rate 0 10/20/18 19:04 Pain Level 0 10/20/18 19:04 Sign Out <Sd Jimenez MD - Last Filed: 10/21/18 13:56> Sign Out Data: Sign Out Comment: care signed out to Dr. Browning with plan to follow-up diagnostics and reassess patient for disposition. Last updated by Sd Jimenez MD at 10/20/18 20:10
[2018-10-20 19:37] LABS: Abs Immature Grans 0.12 k/cumm (0.0-0.09); Absolute Basophil Count 0.03 k/cumm (0.0-0.2); Absolute Eosinophil Count 0.13 k/cumm (0.0-0.7); Absolute Lymphocyte Count 0.84 k/cumm (1.2-3.4); Absolute Monocyte Count 0.62 k/cumm (0.11-0.7); Basophils % 0.4; Eosinophils % 1.6; HCT 44.4 % (40.0-50.0); HGB 13.2 g/dL (13.5-17.5); Immature Grans % 1.5; Lymphocytes % 10.6; Mean Corp. HGB Concentration 29.7 g/dL (32.0-36.0); Mean Corpuscular Hemoglobin 28.6 pg (27.0-33.0); Mean Corpuscular Volume 96.1 fL (80-95); Mean Platelet Volume 10.5 fL (8.0-11.0); Monocytes % 7.8; Neutrophils % 78.1; Platelet Count 255 x1000/uL (130-400); RBC 4.62 m/cumm (4.50-6.00); RBC Distribution Width 18.6 % (11.8-14.1); White Blood Cell Count 7.94 k/cumm (4.4-10.8)
--- NOTE | 2018-10-20 19:37 | ED.GENADUL_ITS ---
Discharge Plan Disposition Patient Disposition: HOME Condition: Good Discharge Details Chief Complaint: AMS/LOC Clinical Impression: Altered mental status, unspecified Primary Care Provider: Bruce Turner ED Provider: Kt Browning [place] Meds and New Rx's Prescriptions: Continued folic acid 1 MG tablet 1.5 mg PO DAILY RF: 0 Eliquis 5 MG tablet 5 mg PO BID RF: 0 ascorbic acid (vitamin C) [Vitamin C] 500 MG tablet 500 mg PO QPM RF: 0 testosterone cypionate [Depo-Testosterone] 200 MG/ML oil 200 mg IM Q14D RF: 0 multivitamin 1 EACH capsule 1 ea PO DAILY RF: 0 cholecalciferol (vitamin D3) 1,000 UNITS tablet 2,000 units PO QPM RF: 0 metoprolol tartrate 25 MG tablet 50 mg PO HS RF: 0 gabapentin 600 MG tablet 1,200 mg PO TID RF: 0 atorvastatin [Lipitor] 40 MG tablet 40 mg PO HS RF: 0 bupropion HCl 450 mg Tablet Extended Release 24 Hr 450 mg PO DAILY RF: 0 Myrbetriq 50 mg Tablet Extended Release 24 Hr 50 mg PO DAILY RF: 0 saxagliptin 5 mg Tablet 5 mg PO DAILY RF: 0 lisinopril 5 MG tablet 5 mg PO DAILY RF: 0 acetaminophen [Mapap Extra Strength] 500 MG tablet 1,000 mg PO Q8H PRN PRNQty: 100 RF: 0 hydroxychloroquine 200 mg Tablet 200 mg PO BID RF: 0 sulfasalazine 500 mg Tablet 0.5 g PO BID RF: 0 sertraline [Zoloft] 50 mg Tablet 50 mg PO DAILY RF: 0 alogliptin 12.5 mg Tablet 12.5 mg PO QAM RF: 0 gabapentin [Neurontin] 600 mg Tablet 1,200 mg PO TID Qty: 60 RF: 0 sucralfate 1 gram Tablet 1 g PO AC & HS Qty: 30 RF: 0 cephalexin 500 mg Capsule 500 mg PO TID Qty: 84 RF: 0 ferrous sulfate 325 mg (65 mg iron) Tablet 325 mg PO DAILY Qty: 30 RF: 0 Discharge Instructions Additional Instructions: Laboratory studies are unremarkable tonight. Head CT is unremarkable. Urinalysis is negative no sign of infection. [facility] Pursue outpatient follow up of freight brake operator and ECHO. Return to ED for fever, worsening mental status, focal neuro changes, other concerns. Referrals: Bruce Turner [Primary Care Provider] - Discharge Data Discharge Date/Time-TO BE ENTERED AT DEPARTURE: 10/20/18 23:10 Medical Decision Making <Sd Jimenez MD - Last Filed: 10/21/18 13:56> 19:29 --58-year-old male who presents with severe confusion today. This is an acute exacerbation of ongoing chronic mental status change. Recent work-up in [place] for neuropsychiatric illness has not been diagnostic. Patient has weakness of his right upper exterminated left lower extremity that is chronic. He notes no focal neurologic deficits. Plan to proceed to CT imaging of the brain. I will obtain labs to assess for electrolyte abnormalities. We will also check ammonia, TSH, urinalysis. Screening ECG was reviewed and interpreted by me: Sinus tachycardia 114 bpm, ST depressions noted in lead I and aVL, 1.[address] elevation noted lead III, LVH. Patient denies chest pain. He has recently had a ziopatch freight brake operator placed yesterday for tachycardia noted at home. I have obtained outside hospital records from the [place] healthcare system and revi ewed EKG from September 27, 2018 that is limited secondary to artifact but similar to findings today. Cardiac echocardiogram that was performed at the [place] on 10/19/2018, report reviewed and interpreted by me: The left ventricle is normal in size. There is mild concentric left ventricular hypertrophy. Left ventricular systolic function is mildly to moderately reduced. The left ventricular ejection fraction is 40% by 3D assessment. There is diffuse left ventricular hypokinesis with focal hypokinesis or akinesis of the inferior and inferior lateral arceo. The right ventricle is normal in size. The global right ventricular systolic function is mildly reduced. The atria are normal in size. There is no hemodynamically significant valvular lesion. The aortic root is mildly dilated at 4.0 cm. Compared to prior study dated 05/06/2017 the global left ventricular systolic function has worsened, the inferior and inferior lateral wall motion abnormalities are new. The aortic root size has gone from 3.8 cm to 4.0 cm. <Kt Browning MD - Last Filed: 10/20/18 22:35> Patient signed out to me from Dr. Jimenez for follow-up of labs. Patient had presented with exacerbation of confusion. Currently seems more back to baseline per the patient and the . Laboratory studies are unremarkable. His EKG was a little concerning but his troponin is negative. Suspect his EKG findings are related to LVH more than anything. CT head is negative. Urinalysis is completely clean and negative. At this point patient's vital signs are good. Heart rate is in the 80s. He is awake and alert and more cognizant. No indication for admission. Will be discharged [facility] I have spoke to the and patient regarding findings and plan for follow-up. Lab Data Lab results reviewed: Yes I reviewed the patient's lab results. HPI <Sd Jimenez MD - Last Filed: 10/21/18 13:56> General Mode of arrival: ambulatory . Date/Time Provider Initiated Documentation: 10/20/18 18:58 . Information obtained by: patient and family () . HPI Narrative: 58-year-old male with multiple medical problems including history of unspecified neuropsychiatric illness, swe-cpeaegf-cmlfwiinj diabetes, presents with chief complaint of confusion. Patient and his note significant increase in confusion since waking today. His notes that he has been recently worked up for neuropsychiatric illness at [place] and testing has been nondiagnostic to date. Today his confusion has been severe at times. His notes that he has been ranting and rambling and nonsensical at times. She specifically notes that he was questioning whether he was the father of his daughter and also seemed to perseverate on the #11. He notes that he has been forgetful in terms of remembering activities that he did today. Patient denies any new focal neurologic symptoms. He has no headache. No neck pain or stiffness. No recent fever. No dysuria or cough. Patient notes that he has chronic weakness of his right upper extremity as well as left lower extremity and is also had progressive muscle weakness of his hands. No new medication changes. Related Data Home Medications Medication Instructions Recorded Confirmed ascorbic acid (vitamin C) [Vitamin 500 mg PO QPM 05/11/14 10/20/18 C] cholecalciferol (vitamin D3) 2,000 units PO QPM 05/11/14 10/20/18 multivitamin 1 ea PO DAILY 05/11/14 10/20/18 testosterone cypionate 200 mg IM Q14D 05/11/14 10/20/18 [Depo-Testosterone] metoprolol tartrate 50 mg PO HS 06/14/15 10/20/18 gabapentin 1,200 mg PO TID 12/13/15 10/20/18 atorvastatin [Lipitor] 40 mg PO HS 04/13/17 10/20/18 folic acid 1.5 mg PO DAILY tab-cap 04/19/17 10/20/18 lisinopril 5 mg PO DAILY 06/15/17 10/20/18 acetaminophen [Mapap Extra 1,000 mg PO Q8H PRN PRN #100 tab 06/17/17 10/20/18 Strength] Eliquis 5 mg PO BID 07/14/17 10/20/18 bupropion HCl 450 mg PO DAILY 04/02/18 10/20/18 Myrbetriq 50 mg PO DAILY 06/16/18 10/20/18 hydroxychloroquine 200 mg PO BID 07/05/18 10/20/18 sulfasalazine 0.5 g PO BID 07/05/18 10/20/18 alogliptin 12.5 mg PO QAM 08/30/18 10/20/18 sertraline [Zoloft] 50 mg PO DAILY 08/30/18 10/20/18 cephalexin 500 mg PO TID #84 cap 09/03/18 10/20/18 ferrous sulfate 325 mg PO DAILY #30 tab 09/03/18 10/20/18 gabapentin [Neurontin] 1,200 mg PO TID #60 tab 09/03/18 10/20/18 sucralfate 1 g PO AC & HS #30 tab 09/03/18 10/20/18 saxagliptin 5 mg PO DAILY 10/20/18 10/20/18 Previous Rx's Medication Instructions Recorded acetaminophen [Mapap Extra 1,000 mg PO Q8H PRN PRN #100 tab 06/17/17 Strength] cephalexin 500 mg PO TID #84 cap 09/03/18 ferrous sulfate 325 mg PO DAILY #30 tab 09/03/18 gabapentin [Neurontin] 1,200 mg PO TID #60 tab 09/03/18 sucralfate 1 g PO AC & HS #30 tab 09/03/18 Allergies Allergy/AdvReac Type Severity Reaction Status Date / Time nitroglycerin Allergy Hives Unverified 10/20/18 19:15 pioglitazone HCl [From Actos] AdvReac Mild leg Unverified 10/20/18 19:15 swelling General Stated Complaint: AMS/LOC PORTILLO: 3 Review of Systems <Sd Jimenez MD - Last Filed: 10/21/18 13:56> Review of Systems All systems reviewed & are unremarkable except as noted in HPI and below Constitutional Denies fever(s) Integumentary/Breasts Denies rash PFSH <Sd Jimenez MD - Last Filed: 10/21/18 13:56> Medical History Osteomyelitis (Acute) Recurrent UTI (urinary tract infection) (Chronic) BPH (benign prostatic hyperplasia) (Chronic) Nephrolithiasis (Chronic) History of DVT (deep vein thrombosis) (Chronic) GERD (gastroesophageal reflux disease) (Chronic) Urinary incontinence (Chronic) DJD (degenerative joint disease) (Chronic) Hypogonadism (Chronic) Dyslipidemia (Chronic) Hypertension (Chronic) Depression (Chronic) Diabetes mellitus (Chronic) 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) Thermal injury (Resolved) Cellulitis of right hand (Resolved 12/23/15) Diabetic neuropathy (Chronic) History of colon polyps (Chronic) Surgical History H/O hand surgery (Chronic) History of repair of hiatal hernia (Chronic) History of cholecystectomy (Chronic) History of lumbosacral spine surgery (Chronic) H/O cervical spine surgery (Chronic) History of Kallie fundoplication (Chronic) Colonoscopy - IV Sedation (Inactive 10/28/16) EGD - IV Sedation (Inactive) Social History Smoking/Tobacco Use Status: Never Drug use: Never Household members: spouse Do you feel safe at home: Yes Do you feel safe in your relationship?: Yes Additional Social history: Patient is and has 2 grown daughters. Originally from [place], moved to [place] approximately a decade ago. 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 He also denies any illicit drug use. Exam <Sd Jimenez MD - Last Filed: 10/21/18 13:56> Const General: cooperative and no acute distress HENCT Head: normocephalic and atraumatic Mouth: moist mucous membranes Eyes Alignment and Position: alignment normal Conjunctivae: normal conjunctivae Sclera: normal sclerae Pupils: PERRL EOM: EOM intact bilaterally Neck Neck: trachea midline and supple Resp Auscultation: clear to auscultation bilaterally, no rales, no rhonchi and no wheezes Cardio Jugular venous pressure: no JVD Rate: regular rate and not tachycardic Rhythm: regular rhythm GI Palpation: soft, not firm, no guarding, no masses, not rigid and nontender Skin General skin exam: other (plethora of face) Neuro General: alert, awake, oriented x3 and tone normal Cognition: abnormal cognition (mild confusion) Speech: speech normal Motor: other (weakness on extension right arm 4/5, weakness on elevation LLE 4/5 ) Sensory Exam: no sensory deficits noted Extrem General: no edema Right upper extremity: hand (loss of muscle mass thenar eminence bilateral) Psych Appearance: grossly normal Mental Status: mental status grossly normal Speech and Movement: speech and movement normal Course <Sd Jimenez MD - Last Filed: 10/21/18 13:56> Vital Signs Temperature 37.1 C 10/20/18 19:04 Pulse 112 H 10/20/18 19:04 Respiratory Rate 16 10/20/18 19:04 Blood Pressure 133/85 10/20/18 19:04 Pulse Oximetry 94 L 10/20/18 19:04 Temperature 37.1 C 10/20/18 19:04 Temperature Source Temporal Artery Scan 10/20/18 19:04 Pulse 112 H 10/20/18 19:04 Respiratory Rate 16 10/20/18 19:10 Respiratory Effort 10/20/18 19:10 Respiratory Depth Normal 10/20/18 19:10 Respiratory Pattern Normal 10/20/18 19:10 Blood Pressure 133/85 10/20/18 19:04 Pulse Oximetry 94 L 10/20/18 19:04 Oxygen Delivery Method Room Air 10/20/18 19:04 Oxygen Flow Rate 0 10/20/18 19:04 Pain Level 0 10/20/18 19:04 Sign Out <Sd Jimenez MD - Last Filed: 10/21/18 13:56> Sign Out Data: Sign Out Comment: care signed out to Dr. Browning with plan to follow-up diagnostics and reassess patient for disposition. Last updated by Sd Jimenez MD at 10/20/18 20:10
[2018-10-20 19:48] LABS: Anisocytosis 2+; Diff Comment RBC Morph Reviewed; Polychromasia Present
[2018-10-20 19:49] LABS: Ammonia 18 umol/L (11-32)
[2018-10-20 19:54] LABS: ALT 44 U/L (12-78); AST 25 U/L (15-37); Albumin 2.5 g/dL (3.4-5.0); Alkaline Phosphatase 95 U/L (46-116); Anion Gap 7.7 mmol/L (3-11); BUN 23 mg/dL (7-18); Bilirubin, Total 0.1 mg/dL (0.2-1.0); CO2 30.3 mmol/L (21.0-32.0); Calcium 9.1 mg/dL (8.5-10.1); Chloride 104 mmol/L (98-107); Glucose 202 mg/dL (70-100); Magnesium 2.2 mg/dL (1.8-2.4); Potassium 3.8 mmol/L (3.5-5.1); Sodium 142 mmol/L (136-145); Total Protein 6.4 g/dL (6.4-8.2); Troponin I 0.03 ng/mL (0.00-0.06)
[2018-10-20 20:01] LABS: TSH (W/Ref FT4) 0.97 uIU/mL (0.358-3.74)
--- NOTE | 2018-10-20 20:10 | DI.CT_ITS ---
SYMPTOM/DIAGNOSIS: ALTERED MENTAL STATUS CT BRAIN: Noncontrast. No priors. The ventricles and sulci are consistent with the patient's age. There are areas of decreased attenuation in the white matter consistent with small vessel ischemic disease. No acute intracranial infarct, hemorrhage, midline shift or mass effect is identified. The visualized paranasal sinuses are clear. The mastoid air cells are well pneumatized. The calvarium is intact. IMPRESSION: No acute intracranial process.
--- NOTE | 2018-10-20 20:18 | DI.VRAD_ITS ---
EXAM: CT Head Without Contrast EXAM DATE/TIME: 10/20/2018 7:21 PM CLINICAL HISTORY: 58 years old, male; Signs and symptoms; Altered mental status/memory loss; Other: Not specified TECHNIQUE: Imaging protocol: Axial computed tomography images of the head without contrast. Coronal and sagittal reformatted images were created and reviewed. Radiation optimization: All CT scans at this facility use at least one of these dose optimization techniques: automated exposure control; mA and/or kV adjustment per patient size (includes targeted exams where dose is matched to clinical indication); or iterative reconstruction. COMPARISON: No relevant prior studies available. FINDINGS: Brain: Mild generalized atrophy with minimal periventricular white matter ischemic changes consistent with the patient's advanced age. No extra-axial fluid collections. No evidence of acute intracranial hemorrhage. No evidence of acute or subacute intracranial ischemia/infarct. No intracranial mass lesions. Midline shift: No midline shift or herniation. Ventricles: Ventricles normal. Bones/joints: The calvarium and visualized facial bones are intact. Sinuses: Visualized paranasal sinuses are clear. Mastoid air cells: Visualized mastoid air cells are clear. Orbits: Orbital contents demonstrate no evidence of acute abnormality. Soft tissues: The scalp and visualized soft tissues are unremarkable. Vasculature: The visualized major intracranial arterial segments demonstrate no gross abnormality by noncontrast CT. IMPRESSION: No acute intracranial process. Dictated and Authenticated by: Garcia Mccauley MD. Ordering:MARISSA Beaver MD
[2018-10-20 22:14] LABS: Bilirubin Negative (Negative); Blood Negative (Negative); Clarity Clear; Glucose Negative (Negative); Ketones Negative (Negative); Leukocyte Esterase Negative (Negative); Nitrite Negative (Negative); Specific Gravity 1.025 (1.005-1.025); Urobilinogen 0.2 EU/dL (Up TO 0.2)
[2018-10-20 22:23] LABS: *AMPHETAMINES SCREEN URINE Negative (Negative); *BARBITURATES SCREEN URINE Negative (Negative); *BENZODIAZEPINES SCREEN URINE Negative (Negative); Cannabinoids THC Negative (Negative); Cocaine Screen,Urine Negative (Negative); METHADONE URINE SCREEN Negative (Negative); OPIATES URINE SCREEN Negative (Negative)
[2018-10-20 22:30] LABS: Tricyclic Antidepressants Negative (Negative)
== END 2018-10-20 23:10 | disposition home or self-care (01) ==
PROVIDERS: Student in an Organized Health Care Education/Training Program; Emergency Provider Emergency Medicine; PCP Internal Medicine
DX: R41.82 Altered mental status, unspecified; R00.0 Tachycardia, unspecified
CPT/HCPCS: 36415; 36416; 80053; 80307; 93005; 99285; 70450; 81003; 82140; 83735; 84443; 84484; 85025; 93010

== ENCOUNTER 2018-11-15 19:29 | Emergency (ER) | payer OTHER, SELFPAY ==
[2018-11-15] VITALS (43 sets, daily range): BP systolic 109–141; BP diastolic 78–94; PULSE 77–100; RESP 11–32; TEMP 36.1; O2SAT 90–97
[2018-11-15 20:31] LABS: Abs Immature Grans 0.09 k/cumm (0.0-0.09); Absolute Basophil Count 0.03 k/cumm (0.0-0.2); Absolute Eosinophil Count 0.14 k/cumm (0.0-0.7); Absolute Lymphocyte Count 0.56 k/cumm (1.2-3.4); Absolute Monocyte Count 0.74 k/cumm (0.11-0.7); Absolute Neutrophil Count 6.26 k/cumm (1.2-6.7); Basophils % 0.4; Eosinophils % 1.8; HCT 44.4 % (40.0-50.0); HGB 13.3 g/dL (13.5-17.5); Immature Grans % 1.2; Lymphocytes % 7.2; Mean Corpuscular Hemoglobin 28.5 pg (27.0-33.0); Mean Corpuscular Volume 95.3 fL (80-95); Monocytes % 9.5; Neutrophils % 79.9; Platelet Count 250 x1000/uL (130-400); RBC 4.66 m/cumm (4.50-6.00); RBC Distribution Width 19.1 % (11.8-14.1); White Blood Cell Count 7.82 k/cumm (4.4-10.8)
--- NOTE | 2018-11-15 20:32 | W.ED.GENAD ---
Discharge Plan Disposition Patient Disposition: HOME Condition: Fair Discharge Details Chief Complaint: Seizure Clinical Impression: Altered mental status Primary Care Provider: Bruce Turner ED Provider: Cate Pacheco Home Meds and New Rx's Prescriptions: Continued ascorbic acid (vitamin C) [Vitamin C] 500 MG tablet 500 mg PO QPM RF: 0 testosterone cypionate [Depo-Testosterone] 200 MG/ML oil 200 mg IM Q14D RF: 0 cholecalciferol (vitamin D3) 1,000 UNITS tablet 2,000 units PO QPM RF: 0 metoprolol tartrate 25 MG tablet 50 mg PO HS RF: 0 atorvastatin [Lipitor] 40 MG tablet 40 mg PO HS RF: 0 bupropion HCl 450 mg Tablet Extended Release 24 Hr 150 mg PO DAILY RF: 0 saxagliptin 5 mg Tablet 5 mg PO DAILY RF: 0 cadexomer iodine 0.9 % Gel 1 RF: 0 apixaban 5 mg Tablet 5 mg PO BID RF: 0 tamsulosin 0.4 mg Capsule 0.4 mg PO DAILY RF: 0 carboxymethylcellulose sodium 0.5 % Drops 2 drp OPHTHALMIC (EYE) BID PRNRF: 0 mirabegron 50 mg Tablet Extended Release 24 Hr 50 mg PO DAILY RF: 0 lisinopril 5 MG tablet 5 mg PO DAILY RF: 0 sertraline [Zoloft] 50 mg Tablet 50 mg PO DAILY RF: 0 Discharge Instructions Instructions: Altered Mental Status (ED) Additional Instructions: Encourage hydration. Please keep upcoming appointment with [facility]. They should contact you with EEG appointment. If you do not hear from them please call [phone]. Please call home health to schedule follow up. Our care coordinators will contact them as well. If he develops fevers/chills, inability to stay hydrated, pain or other new/worsening symptoms please seek care urgently once again. Referrals: Bruce Turner [Primary Care Provider] - Discharge Data Discharge Date/Time-TO BE ENTERED AT DEPARTURE: 11/16/18 00:11 Medical Decision Making Patient is a 58-year-old male, brought in via EMS and accompanied by his , with chief complaint of altered mental status and seizure. reports that the patient has been having a mental decline over the past 6 months. He was recently hospitalized [facility] the [facility] with acute mental status change after being seen here last month. Patient had, per the 's report mild large work-up resulting in no definitive source of his change in mental status. He presents today after being found by his unable to speak with a repetitive motion leading her to be concerned for seizure. She reports that initially, the right leg was moving in a square on a repetitive basis. He was then stopped moving of the right leg and not his head in a repetitive beat like motion. Patient continues to have this motion with me intermittently. He does not answer questions verbally but is able to break his rhythmic movements and to shake his head yes or no as appropriate. The patient is not moving his head, he is flexing and extending his right leg. Patient is able to follow commands, is equal strength in all his extremities. Pupils are equal round and reactive. Patient does not attempt any verbal responses to questioning. Plan to obtain baseline labs and review recent discharge note from [facility] . This patient has had multiple CTs recently, I am hesitant to reimage emergently as this would require sedation with his head of motion. What I am examining at this time, is not consistent with a seizure but rather likely associated with his mental decline. was also concerned for possible stroke but exam findings at this time are not consitent with this etiology. Patient has history of inflammatory arthritis, cervical spine stenosis, DVT, anticoagulated on apixaban, diabetes, hypertension, hyperlipidemia, major depressive disorder, GERD. Recent note from the [facility] was obtained. At that time, the patient was endorsing hallucinations. At that time, is not endorsing any pain. No headache or visual changes, chest pain palpitations or shortness of breath. Patient continues to deny any pain or visual changes.At that time, evaluated CSF for autoimmune causes, PET scan, CT, MRI with and without contrast. Imaging was significant for a meningioma in the anterior aspect of the right middle cranial fossa without significant interval change from previous patient does have upcoming appointment with [facility] later this month. At the time of discharge, the working diagnosis was adverse reaction of self on the side of her hydrochlorothiazide quinolone or gabapentin, these medications were stopped prior to discharge. Patient remains off the medication. Patient spontaneously returned to baseline. He stopped his repetitive movements and speech is clear. Remains confused with reports this is baseline for him. He feels that he and I had a long discussion regarding his diabetes which is not the case. Is appropriate, aside from baseline confusion, denies any pain or feeling of unwell. Labs are reassuring without any acute changes compared to baseline. No leukocytosis. I was concerned for possible UTI exacerbating the symptoms as the patient is partially incontinent, no evidence of infection at this time. Discussed these findings with patient's . is concerned with the patient's recent decline and he may need further intervention. Plan is for patient to go to [facility] for follow-up to see Dr. Maher with EEG. Will consult with [facility]. Spoke with neurology at [facility]. Advised at this time there is no acute intervention warranted. Patient is returned to baseline and they agree that his symptoms are not consistent with stroke or typical seizure. Physician advised that they will order the EEG and attempt to have this completed the same day as the patient's upcoming appointment with neurology. Discussing this further with them, there is a possibility that this is frontal lobe seizure but unlikely as the patient never returned to baseline after his exacerbations and is continued to have this confusion for the past 6 months. Rather, they are more concern for Lewy body dementia. Discussed this plan for follow-up with the . At this point, there is no pressing reason for the patient to be admitted. is questioning if he may be admitted here for observation but as we do not have neurology available at this time, I do not feel that this is appropriate as will not add to the patient's care. I did offer to discuss this further with [facility]. However, the prefers to go home at this time. Did request rn urgent care to be involved as the needs more home resources. She reports that there is multiple referrals for home health and other resources for the patient that none of these have gone through as of yet. She seems quite frustrated with the current living situation and her 's decline. and I discussed the plan with follow-up with neurology and EEG in depth. She feels that this is an appropriate plan and feels comfortable bringing him home as he is currently back to his baseline. She was given strict return precautions and is aware that she may return anytime. All her questions and concerns were addressed and they are in agreement this plan HPI General Mode of arrival: EMS. Date/Time Provider Initiated Documentation: 11/15/18 19:43. Limitations to Documentation: altered mental status. Information obtained by: patient, family, EMS and RN notes reviewed. History of Present Illness 58 year old M presents to the emergency department with the chief complaint of AMS, seizure activity, described as moderate and similar to prior episodes (AMS ongoing x 6 months, movements are new), and is localized to the head (moving head). Patient started experiencing this minute(s) and it has been constant. No relieving factors improve symptom(s), No exacerbating factors reported . Related Data Home Medications Medication Instructions Recorded Confirmed ascorbic acid (vitamin C) [Vitamin 500 mg PO QPM 05/11/14 11/15/18 C] cholecalciferol (vitamin D3) 2,000 units PO QPM 05/11/14 11/15/18 testosterone cypionate 200 mg IM Q14D 05/11/14 11/15/18 [Depo-Testosterone] metoprolol tartrate 50 mg PO HS 06/14/15 11/15/18 atorvastatin [Lipitor] 40 mg PO HS 04/13/17 11/15/18 lisinopril 5 mg PO DAILY 06/15/17 11/15/18 bupropion HCl 150 mg PO DAILY 04/02/18 11/15/18 sertraline [Zoloft] 50 mg PO DAILY 08/30/18 11/15/18 saxagliptin 5 mg PO DAILY 10/20/18 11/15/18 apixaban 5 mg PO BID 11/15/18 11/15/18 cadexomer iodine 1 11/15/18 carboxymethylcellulose sodium 2 drp OPHTHALMIC (EYE) BID PRN 11/15/18 11/15/18 mirabegron 50 mg PO DAILY 11/15/18 11/15/18 tamsulosin 0.4 mg PO DAILY 11/15/18 11/15/18 Allergies Allergy/AdvReac Type Severity Reaction Status Date / Time nitroglycerin Allergy Hives Unverified 10/20/18 19:15 pioglitazone HCl [From Actos] AdvReac Mild leg Unverified 10/20/18 19:15 swelling General Stated Complaint: Seizure PORTILLO: 3 Review of Systems Review of Systems Unobtainable due to mental status Constitutional Denies fever(s) ( denies recent fevers/chills/illness) Integumentary/Breasts Reports wounds (chronic right great toe wound per ) Neurologic Reports as per HPI, Reports abnormal movements, Reports abnormal speech, Reports behavioral changes, Reports confusion and Denies focal weakness Psychiatric Reports behavioral changes and Reports confusion [facility] Medical History Osteomyelitis (Acute) Recurrent UTI (urinary tract infection) (Chronic) BPH (benign prostatic hyperplasia) (Chronic) Nephrolithiasis (Chronic) History of DVT (deep vein thrombosis) (Chronic) GERD (gastroesophageal reflux disease) (Chronic) Urinary incontinence (Chronic) DJD (degenerative joint disease) (Chronic) Hypogonadism (Chronic) Dyslipidemia (Chronic) Hypertension (Chronic) Depression (Chronic) Diabetes mellitus (Chronic) 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) Thermal injury (Resolved) Cellulitis of right hand (Resolved 12/23/15) Diabetic neuropathy (Chronic) History of colon polyps (Chronic) Surgical History H/O hand surgery (Chronic) History of repair of hiatal hernia (Chronic) History of cholecystectomy (Chronic) History of lumbosacral spine surgery (Chronic) H/O cervical spine surgery (Chronic) History of Kallie fundoplication (Chronic) Colonoscopy - IV Sedation (Inactive 10/28/16) EGD - IV Sedation (Inactive) Social History Smoking/Tobacco Use Status: Never Alcohol Intake: never Drug use: Never Household members: spouse Do you feel safe at home: Yes Do you feel safe in your relationship?: Yes Additional Social history: Patient is and has 2 grown daughters. Originally from [place], moved to [place] approximately a decade ago. 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 He also denies any illicit drug use. Exam Const General: cooperative, healthy appearing, uncomfortable (patient is aphasic, repetatively moving head and/or RLE), no acute distress, well developed and well groomed Nutritional Appearance: average body habitus and well nourished Orientation: alert, awake and not oriented x3 (unable/unwilling to speak at this time) [facility] Head: normal to inspection, no palpable skull fracture, normocephalic and atraumatic Ears: hearing grossly normal bilaterally, external ears normal and TM's normal bilaterally General nose exam: external nose normal Mouth: oral mucosae normal and moist mucous membranes Throat: posterior oropharynx normal Eyes General: appearance normal, both eyes and all related structures Alignment and Position: alignment normal Periorbital: periorbital findings normal Eyelids: eyelids normal Sclera: sclerae normal Cornea: corneas normal Pupils: PERRL EOM: EOM intact bilaterally Neck Neck: normal visual inspection, full ROM, no lymphadenopathy and no meningeal signs Resp Effort & Inspection: normal respiratory effort, able to speak in complete sentences and no respiratory distress Auscultation: clear to auscultation bilaterally, no rales, no rhonchi and no wheezes Cardio Rate: regular rate Rhythm: regular rhythm Heart Sounds: S1 normal and S2 normal GI Inspection: normal to inspection and non-distended Palpation: soft, no hepatosplenomegaly, not firm, no guarding, not rigid and nontender Percussion: normal to percussion Auscultation: normal bowel sounds Back/Spine/Pelvis Cervical Spine: normal cervical lordosis and cervical ROM normal Skin General skin exam: no rashes or lesions noted Neuro General: alert, awake and oriented x3 Cranial Nerves: CN's II-XI intact bilaterally Cognition: normal cognition Speech: speech normal Gait: normal gait Motor: muscle tone normal throughout, strength 5/5 throughout, no pronator drift, no movement abnormalities noted and no fasciculations Extrem General: normal to inspection, normal capillary refill, no pedal edema and no calf tenderness Psych Appearance: well kempt Mental Status: mental status grossly abnormal Speech and Movement: speech and movement abnormal Course Vital Signs Temperature 36.1 C L 11/15/18 19:31 Pulse 100 H 11/15/18 19:31 Respiratory Rate 18 11/15/18 19:31 Blood Pressure 134/94 H 11/15/18 19:31 Pulse Oximetry 96 11/15/18 19:31 Temperature 36.1 C L 11/15/18 19:31 Temperature Source Tympanic 11/15/18 19:31 Pulse 100 H 11/15/18 19:31 Pulse 95 H 11/15/18 19:53 Respiratory Rate 17 11/15/18 19:53 Respiratory Effort Non-Labored 11/15/18 19:55 Respiratory Depth Normal 11/15/18 19:55 Respiratory Pattern Normal 11/15/18 19:55 Blood Pressure 134/94 H 11/15/18 19:31 Pulse Oximetry 92 L 11/15/18 19:53 Oxygen Delivery Method Room Air 11/15/18 19:31 Oxygen Flow Rate 0 11/15/18 19:31 Pain Level 0 11/15/18 19:31
--- NOTE | 2018-11-15 20:38 | ED.GENADUL_ITS ---
Discharge Plan Disposition Patient Disposition: HOME Condition: Fair Discharge Details Chief Complaint: Seizure Clinical Impression: Altered mental status Primary Care Provider: Bruce Turner ED Provider: Cate Pacheco Home Meds and New Rx's Prescriptions: Continued ascorbic acid (vitamin C) [Vitamin C] 500 MG tablet 500 mg PO QPM RF: 0 testosterone cypionate [Depo-Testosterone] 200 MG/ML oil 200 mg IM Q14D RF: 0 cholecalciferol (vitamin D3) 1,000 UNITS tablet 2,000 units PO QPM RF: 0 metoprolol tartrate 25 MG tablet 50 mg PO HS RF: 0 atorvastatin [Lipitor] 40 MG tablet 40 mg PO HS RF: 0 bupropion HCl 450 mg Tablet Extended Release 24 Hr 150 mg PO DAILY RF: 0 saxagliptin 5 mg Tablet 5 mg PO DAILY RF: 0 cadexomer iodine 0.9 % Gel 1 RF: 0 apixaban 5 mg Tablet 5 mg PO BID RF: 0 tamsulosin 0.4 mg Capsule 0.4 mg PO DAILY RF: 0 carboxymethylcellulose sodium 0.5 % Drops 2 drp OPHTHALMIC (EYE) BID PRNRF: 0 mirabegron 50 mg Tablet Extended Release 24 Hr 50 mg PO DAILY RF: 0 lisinopril 5 MG tablet 5 mg PO DAILY RF: 0 sertraline [Zoloft] 50 mg Tablet 50 mg PO DAILY RF: 0 Discharge Instructions Instructions: Altered Mental Status (ED) Additional Instructions: Encourage hydration. Please keep upcoming [place] [facility] [place] They should contact you with EEG appointment. If you do not hear from them please call [phone]. Please call home health to schedule follow up. Our care coordinators will contact them as well. If he develops fevers/chills, inability to stay hydrated, pain or other new/worsening symptoms please seek care urgently once again. Referrals: Bruce Turner [Primary Care Provider] - Discharge Data Discharge Date/Time-TO BE ENTERED AT DEPARTURE: 11/16/18 00:11 Medical Decision Making Patient is a 58-year-old male, brought in via EMS and accompanied by his , with chief complaint of altered mental status and seizure. reports that the patient has been having a mental decline over the past 6 months. He was recently hospitalized [facility] with acute mental status change after being seen here last month. Patient had, per the 's report mild large work-up resulting in no definitive source of his change in mental status. He presents today after being found by his unable to speak with a repetitive motion leading her to be concerned for seizure. She reports that initially, the right leg was moving in a square on a repetitive basis. He was then stopped moving of the right leg and not his head in a repetitive beat like motion. Patient continues to have this motion with me intermittently. He does not answer questions verbally but is able to break his rhythmic movements and to shake his head yes or no as appropriate. The patient is not moving his head, he is flexin g and extending his right leg. Patient is able to follow commands, is equal strength in all his extremities. Pupils are equal round and reactive. Patient does not attempt any verbal responses to questioning. Plan to obtain baseline labs and review recent discharge note from [facility] . This patient has had multiple CTs recently, I am hesitant to reimage emergently as this would require sedation with his head of motion. What I am examining at this time, is not consistent with a seizure but rather likely associated with his mental decline. was also concerned for possible stroke but exam fin dings at this time are not consitent with this etiology. Patient has history of inflammatory arthritis, cervical spine stenosis, DVT, anticoagulated on apixaban, diabetes, hypertension, hyperlipidemia, major depressive disorder, GERD. Recent note from the [facility] was obtained. At that time, the patient was endorsing hallucinations. At that time, is not endorsing any pain. No headache or visual changes, chest pain palpitations or shortness of breath. Patient continues to deny any pain or visual changes.At that time, evaluated CSF for autoimmune causes, PET scan, CT, MRI with and without contrast. Imaging was significant for a meningioma in the anterior aspect of the right middle cranial fossa without significant interval change from previous patient does have upcoming appointment [place] [facility] [place] this month. At the time of discharge, the working diagnosis was adverse reaction of self on the side of her hydrochlorothiazide quinolone or gabapentin, these medications were stopped prior to discharge. Patient remains off the medication. Patient spontaneously returned to baseline. He stopped his repetitive movements and speech is clear. Remains confused with reports this is baseline for him. He feels that he and I had a long discussion regarding his diabetes which is not the case. Is appropriate, aside from baseline confusion, denies any pain or feeling of unwell. Labs are reassuring without any acute changes compared to baseline. No leukocytosis. I was concerned for possible UTI exacerbating the symptoms as the patient is partially incontinent, no evidence of infection at this time. Discussed these findings with patient's . is concerned with the patient's recent decline and he may need further intervention. Plan is for patient to go to [facility] [place] for follow-up to see Dr. Maher with EEG. Will consult with [facility] [place]. Spoke with neurology at [facility]. Advised at this time there is no acute intervention warranted. Patient is returned to baseline and they agree that his symptoms are not consistent with stroke or typical seizure. Physician advised that they will order the EEG and attempt to have this completed the same day as the patient's upcoming appointment with neurology. Discussing this further with them, there is a possibility that this is frontal lobe seizure but unlikely as the patient never returned to baseline after his exacerbations and is continued to have this confusion for the past 6 months. Rather, they are more concern for Lewy body dementia. Discussed this plan for follow-up with the . At this point, there is no pressing reason for the patient to be admitted. is questioning if he may be admitted here for observation but as we do not have neurology available at this time, I do not feel that this is appropriate as will not add to the patient's care. I did offer to discuss this further with [facility]. However, the prefers to go home at this time. Did request manager home healthcare to be involved as the needs more home resources. She reports that there is multiple referrals for home health and other resources for the patient that none of these have gone through as of yet. She seems quite frustrated with the current living situation and her 's decline. and I discussed the plan with follow-up with neurology and EEG in depth. She feels that this is an appropriate plan and feels comfortable bringing him home as he is currently back to his baseline. She was given strict return precautions and is aware that she may return anytime. All her questions and concerns were addressed and they are in agreement this plan HPI General Mode of arrival: EMS . Date/Time Provider Initiated Documentation: 11/15/18 19:43 . Limitations to Documentation: altered mental status . Information obtained by: patient, family, EMS and RN notes reviewed . History of Present Illness 58 year old M presents to the emergency department with the chief complaint of AMS, seizure activity, described as moderate and similar to prior episodes (AMS ongoing x 6 months, movements are new), and is localized to the head (moving head). Patient started experiencing this minute(s) and it has been constant. No relieving factors improve symptom(s), No exacerbating factors reported . Related Data Home Medications Medication Instructions Recorded Confirmed ascorbic acid (vitamin C) [Vitamin 500 mg PO QPM 05/11/14 11/15/18 C] cholecalciferol (vitamin D3) 2,000 units PO QPM 05/11/14 11/15/18 testosterone cypionate 200 mg IM Q14D 05/11/14 11/15/18 [Depo-Testosterone] metoprolol tartrate 50 mg PO HS 06/14/15 11/15/18 atorvastatin [Lipitor] 40 mg PO HS 04/13/17 11/15/18 lisinopril 5 mg PO DAILY 06/15/17 11/15/18 bupropion HCl 150 mg PO DAILY 04/02/18 11/15/18 sertraline [Zoloft] 50 mg PO DAILY 08/30/18 11/15/18 saxagliptin 5 mg PO DAILY 10/20/18 11/15/18 apixaban 5 mg PO BID 11/15/18 11/15/18 cadexomer iodine 1 11/15/18 carboxymethylcellulose sodium 2 drp OPHTHALMIC (EYE) BID PRN 11/15/18 11/15/18 mirabegron 50 mg PO DAILY 11/15/18 11/15/18 tamsulosin 0.4 mg PO DAILY 11/15/18 11/15/18 Allergies Allergy/AdvReac Type Severity Reaction Status Date / Time nitroglycerin Allergy Hives Unverified 10/20/18 19:15 pioglitazone HCl [From Actos] AdvReac Mild leg Unverified 10/20/18 19:15 swelling General Stated Complaint: Seizure PORTILLO: 3 Review of Systems Review of Systems Unobtainable due to mental status Constitutional Denies fever(s) ( denies recent fevers/chills/illness) Integumentary/Breasts Reports wounds (chronic right great toe wound per ) Neurologic Reports as per HPI, Reports abnormal movements, Reports abnormal speech, Reports behavioral changes, Reports confusion and Denies focal weakness Psychiatric Reports behavioral changes and Reports confusion REPLACED BY [facility] Medical History Osteomyelitis (Acute) Recurrent UTI (urinary tract infection) (Chronic) BPH (benign prostatic hyperplasia) (Chronic) Nephrolithiasis (Chronic) History of DVT (deep vein thrombosis) (Chronic) GERD (gastroesophageal reflux disease) (Chronic) Urinary incontinence (Chronic) DJD (degenerative joint disease) (Chronic) Hypogonadism (Chronic) Dyslipidemia (Chronic) Hypertension (Chronic) Depression (Chronic) Diabetes mellitus (Chronic) 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) Thermal injury (Resolved) Cellulitis of right hand (Resolved 12/23/15) Diabetic neuropathy (Chronic) History of colon polyps (Chronic) Surgical History H/O hand surgery (Chronic) History of repair of hiatal hernia (Chronic) History of cholecystectomy (Chronic) History of lumbosacral spine surgery (Chronic) H/O cervical spine surgery (Chronic) History of Kallie fundoplication (Chronic) Colonoscopy - IV Sedation (Inactive 10/28/16) EGD - IV Sedation (Inactive) Social History Smoking/Tobacco Use Status: Never Alcohol Intake: never Drug use: Never Household members: spouse Do you feel safe at home: Yes Do you feel safe in your relationship?: Yes Additional Social history: Patient is and has 2 grown daughters. Originally from [place], moved to [place] approximately a decade ago. 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 He also denies any illicit drug use. Exam Const General: cooperative, healthy appearing, uncomfortable (patient is aphasic, repetatively moving head and/or RLE), no acute distress, well developed and well groomed Nutritional Appearance: average body habitus and well nourished Orientation: alert, awake and not oriented x3 (unable/unwilling to speak at this time) [facility] Head: normal to inspection, no palpable skull fracture, normocephalic and atraumatic Ears: hearing grossly normal bilaterally, external ears normal and TM's normal bilaterally General nose exam: external nose normal Mouth: oral mucosae normal and moist mucous membranes Throat: posterior oropharynx normal Eyes General: appearance normal, both eyes and all related structures Alignment and Position: alignment normal Periorbital: periorbital findings normal Eyelids: eyelids normal Sclera: sclerae normal Cornea: corneas normal Pupils: PERRL EOM: EOM intact bilaterally Neck Neck: normal visual inspection, full ROM, no lymphadenopathy and no meningeal signs Resp Effort & Inspection: normal respiratory effort, able to speak in complete sentences and no respiratory distress Auscultation: clear to auscultation bilaterally, no rales, no rhonchi and no wheezes Cardio Rate: regular rate Rhythm: regular rhythm Heart Sounds: S1 normal and S2 normal GI Inspection: normal to inspection and non-distended Palpation: soft, no hepatosplenomegaly, not firm, no guarding, not rigid and nontender Percussion: normal to percussion Auscultation: normal bowel sounds Back/Spine/Pelvis Cervical Spine: normal cervical lordosis and cervical ROM normal Skin General skin exam: no rashes or lesions noted Neuro General: alert, awake and oriented x3 Cranial Nerves: CN's II-XI intact bilaterally Cognition: normal cognition Speech: speech normal Gait: normal gait Motor: muscle tone normal throughout, strength 5/5 throughout, no pronator drift, no movement abnormalities noted and no fasciculations Extrem General: normal to inspection, normal capillary refill, no pedal edema and no calf tenderness Psych Appearance: well kempt Mental Status: mental status grossly abnormal Speech and Movement: speech and movement abnormal Course Vital Signs Temperature 36.1 C L 11/15/18 19:31 Pulse 100 H 11/15/18 19:31 Respiratory Rate 18 11/15/18 19:31 Blood Pressure 134/94 H 11/15/18 19:31 Pulse Oximetry 96 11/15/18 19:31 Temperature 36.1 C L 11/15/18 19:31 Temperature Source Tympanic 11/15/18 19:31 Pulse 100 H 11/15/18 19:31 Pulse 95 H 11/15/18 19:53 Respiratory Rate 17 11/15/18 19:53 Respiratory Effort Non-Labored 11/15/18 19:55 Respiratory Depth Normal 11/15/18 19:55 Respiratory Pattern Normal 11/15/18 19:55 Blood Pressure 134/94 H 11/15/18 19:31 Pulse Oximetry 92 L 11/15/18 19:53 Oxygen Delivery Method Room Air 11/15/18 19:31 Oxygen Flow Rate 0 11/15/18 19:31 Pain Level 0 11/15/18 19:31
[2018-11-15] MEDS: Normal Saline 1,000 ML 150 ML IV (20:47)
[2018-11-15 20:53] LABS: ALT 49 U/L (12-78); AST 22 U/L (15-37); Albumin 3.1 g/dL (3.4-5.0); Alkaline Phosphatase 123 U/L (46-116); Anion Gap 6.1 mmol/L (3-11); BUN 11 mg/dL (7-18); Bilirubin, Total 0.3 mg/dL (0.2-1.0); CO2 28.9 mmol/L (21.0-32.0); CREATININE 0.68 mg/dL (0.70-1.30); Chloride 106 mmol/L (98-107); Glucose 175 mg/dL (70-100); Potassium 3.9 mmol/L (3.5-5.1); Sodium 141 mmol/L (136-145); TSH 1.14 uIU/mL (0.358-3.74); Total Protein 6.2 g/dL (6.4-8.2)
[2018-11-15 21:03] LABS: ETHANOL BLOOD < 3.0 mg/dL (<3)
[2018-11-15 22:15] LABS: Bilirubin Negative (Negative); Blood Negative (Negative); Clarity Clear (Clear); Glucose Negative (Negative); Ketones Negative (Negative); Leukocyte Esterase Negative (Negative); Nitrite Negative (Negative); Urobilinogen 0.2 EU/dL (Up TO 0.2)
[2018-11-16 00:09] VITALS: TEMP 36.7
== END 2018-11-16 00:11 | disposition home or self-care (01) ==
PROVIDERS: Emergency Provider Physician Assistant; PCP Internal Medicine
DX: R41.82 Altered mental status, unspecified (principal)
CPT/HCPCS: 36415; 80053; 96360; 96361; 99283; 80320; 81003; 84443; 85025

== ENCOUNTER 2019-04-27 09:19 | Outpatient (REF) | payer OTHER, SELFPAY ==
[2019-04-27 09:32] LABS: Mean Corp. HGB Concentration 30.5 g/dL (32.0-36.0); Mean Corpuscular Hemoglobin 29.3 pg (27.0-33.0); Mean Corpuscular Volume 96.1 fL (80-95); Mean Platelet Volume 10.5 fL (8.0-11.0); Platelet Count 229 x1000/uL (130-400); RBC 2.29 m/cumm (4.50-6.00); RBC Distribution Width 17.3 % (11.8-14.1)
[2019-04-27 10:15] LABS: HGB 6.7 g/dL (13.5-17.5)
[2019-04-27 10:16] LABS: Absolute Eosinophil Count 0.12 k/cumm (0.0-0.7); Absolute Lymphocyte Count 1.82 k/cumm (1.2-3.4); Absolute Monocyte Count 0.73 k/cumm (0.11-0.7)
[2019-04-27 10:17] LABS: Anisocytosis 1+; Diff Comment Manual Differential; Nucleated RBC 1 /100WBC; Polychromasia Present
== END 2019-04-27 09:39 ==
LOC: LBN 09:19
PROVIDERS: PCP Internal Medicine; Referring Provider Family Medicine; Visit Provider Family Medicine
DX: R19.5 Other fecal abnormalities (principal)
CPT/HCPCS: 85025

== ENCOUNTER 2019-04-27 11:04 | Observation (INO) | payer OTHER, SELFPAY ==
[2019-04-27] VITALS (43 sets, daily range): BP systolic 86–120; BP diastolic 56–86; PULSE 89–123; RESP 12–33; TEMP 36.5–38; O2SAT 90–100
--- NOTE | 2019-04-27 11:19 | W.ED.GENAD ---
Discharge Plan Disposition Patient Disposition: [facility] INPATIENT Condition: Critical Discharge Details Chief Complaint: GI Bleed Clinical Impression: Acute GI bleeding Primary Care Provider: Bruce Turner ED Provider: Grady Arias Home Meds and New Rx's Prescriptions: No Action sertraline 100 mg tablet 100 mg PO DAILY RF: 0 risperidone 4 mg tablet 2 mg PO BID RF: 0 tamsulosin 0.4 mg capsule 0.4 mg PO DAILY Qty: 90 RF: 4 bupropion HCl 75 mg tablet 75 mg PO DAILY RF: 0 metoprolol tartrate 25 MG tablet 50 mg PO DAILY RF: 0 atorvastatin [Lipitor] 40 MG tablet 40 mg PO HS RF: 0 apixaban 5 mg Tablet 5 mg PO BID RF: 0 carboxymethylcellulose sodium 0.5 % Drops 2 drp OPHTHALMIC (EYE) BID PRNRF: 0 mirabegron 50 mg Tablet Extended Release 24 Hr 50 mg PO DAILY RF: 0 multivitamin Tablet 1 tab PO DAILY RF: 0 acetaminophen 325 mg Tablet 650 mg PO Q4H PRN PRNRF: 0 polysaccharide iron complex 150 mg iron Capsule 150 mg PO DAILY RF: 0 ascorbic acid (vitamin C) 500 mg Tablet 500 mg PO DAILY RF: 0 bisacodyl [Dulcolax (bisacodyl)] 10 mg Suppository 10 mg OK DAILY PRNRF: 0 ibuprofen 400 mg Tablet 400 mg PO Q8H PRNRF: 0 gabapentin 300 mg Capsule 600 mg PO TID RF: 0 cyclobenzaprine 5 mg Tablet 5 mg PO QHS RF: 0 cholecalciferol (vitamin D3) [Vitamin D3] 2,000 unit Tablet 2,000 unit PO DAILY RF: 0 multivit,sruvmig-kzk-ycyuz acd 267 mcg Tablet 1 mcg PO RF: 0 alogliptin 25 mg Tablet 25 mg PO DAILY RF: 0 solifenacin [Vesicare] 10 mg tablet 5 mg PO DAILY RF: 0 Medical Decision Making This is a pleasant 58-year-old male with a past medical history of a rapidly progressing vascular dementia which is gotten a notably unremarkable work-up at [facility] recently, as well as a neuromuscular wasting syndrome also acute, who was recently transitioned to health [facility] rehab and is DNR/DNI. He is on Eliquis for chronic DVT in the past, he presents today for evaluation of GI bleed. At health and rehab he has had melanotic stools and bright red blood in his urine for the last day and 1/2 to 2 days. He has no complaints of pain or tenderness, no acute changes. On arrival by EMS his blood pressures in the 90s he is mildly tachycardic. EKG does show evidence of some mild strain, but no evidence of STEMI. Signs and symptoms are certainly concerning for GI bleed, bedside exam demonstrates notable melanotic stool. We will hold the Eliquis, as it has already been held for 24 hours, give 2 units of PRBCs, give proton pump therapy and famotidine, and admit. 1:[address] scan shows evidence of notable olinda GI bleeding, hemoglobin is low, BUN is elevated since patient is for an upper GI bleed in conjunction with potential lower GI bleed. Patient receiving blood, heart rate is notably improving, blood pressure is stable. I briefly discussed the case with Dr. Oh making her aware of the situation and went back and spoke with the family, at this time they do not want any EGD or aggressive management. They are okay with blood and medications though. I discussed my concern for life-threatening etiology and they are well aware of this, and would like the patient to be made comfortable. We will let Dr. Mcclellan know. I contact the hospitalist Dr. matt, he agrees with the assessment and plan. Patient will be admitted for further management. Additionally the family would like his priority to be control of his pain. We will give Dilaudid for pain control of his chronic pain. I have extensively reviewed the treatment plan with the patient. I have addressed all patient concerns at this time. I have also discussed the plan with the admitting physician and they agree with the current assessment and plan and have agreed to assume responsibility for the patient. All parties demonstrate verbal understanding and agreement with our assessment and plan at this time. EKG 11: 20 Rate 119, OK 152, QTc 447, QRS 100, sinus tachycardia, no significant ST elevation, nonspecific less than [address] depression in V2 as well as lead III, no inverted T waves, no evidence of STEMI, FINDINGS: Lungs: No acute basilar lung consolidation. Mediastinum: There is a moderate size hiatal hernia. There is an ill-defined foci of high attenuation within the dependent portion of the hiatal hernia which could be due to extravasated blood. There is a well-defined, focal high attenuation structure within the dependent portion of the lumen of the hiatal hernia. This could be due to something the patient ingested such as a pill. Liver: The liver is homogeneous and is not enlarged. Gallbladder and bile ducts: Prior cholecystectomy. No biliary ductal dilatation allowing for that. Pancreas: No pancreatic mass. No peripancreatic inflammation. No pancreatic ductal dilation. Spleen: The spleen is homogeneous and is not enlarged. Adrenals: No adrenal mass. Kidneys and ureters: There is bilateral nephrolithiasis. No hydronephrosis or hydroureter. No ureteral calculus. Stomach and bowel: No bowel obstruction. There is pancolonic diverticulosis, most prominently in the sigmoid colon, without evidence of acute diverticulitis. No signs of colitis. No sign of olinda intraluminal colonic hemorrhage. Appendix: No evidence of appendicitis. Intraperitoneal space: No ascites or pneumoperitoneum. Vasculature: No abdominal aortic aneurysm. No iliac or common femoral artery aneurysm. The mesenteric arteries are patent. The mesenteric, portal, and hepatic veins are patent. Lymph nodes: No enlarged lymph nodes. Bladder: No urinary bladder calculus or wall thickening. Reproductive: The prostate is enlarged. Bones/joints: There is a curvature lumbar spine convex to the right, associated with severe multilevel disc degeneration, along with facet arthropathy. There is a grade 1 degenerative anterolisthesis of L4 on L5, and retrolisthesis of L5 and S1. Chronic compression injuries involving the T10 and T12 vertebral bodies. Soft tissues: Unremarkable. IMPRESSION: 1. Moderate size hiatal hernia. Possibility of extravasated blood in the dependent portion the lumen. Is the patient having upper GI hemorrhage? 2. Diverticulosis without diverticulitis. This could be a source of hemorrhage. Is the patient having lower GI hemorrhage? Thank you for allowing us to participate in the care of your patient. Dictated and Authenticated by: Galindo Contreras MD HPI General Date/Time Provider Initiated Documentation: 04/27/19 11:05. HPI Narrative: This is a 58-year-old male with a past medical history of a new onset severely rapid vascular dementia and associated severe neuromuscular decline, as well as previous DVT for which she takes Eliquis regularly, who is recently been transitioned to a health and rehab and is on palliative care. He presents today for evaluation of GI bleed. Nothing rehab physician and staff noticed melena and blood in his urine starting yesterday. No recent traumas. The patient complains of no pain. No vomiting or significant diarrhea. Patient has no complaints whatsoever to speak of he denies abdominal tenderness chest pain shortness of breath. He has been taking his Eliquis course as directed. No other complaints modifying factors at this time. Of note he does prepare by EMS, Dr. Mcclellan has personally come to the ER to inform us of the patient requesting that he be admitted for blood and close observation. Related Data Home Medications Medication Instructions Recorded Confirmed metoprolol tartrate 50 mg PO DAILY 06/14/15 04/27/19 atorvastatin [Lipitor] 40 mg PO HS 04/13/17 04/27/19 apixaban 5 mg PO BID 11/15/18 04/27/19 carboxymethylcellulose sodium 2 drp OPHTHALMIC (EYE) BID PRN 11/15/18 04/27/19 mirabegron 50 mg PO DAILY 11/15/18 04/27/19 sertraline 100 mg tablet 100 mg PO DAILY tab 01/31/19 04/27/19 risperidone 4 mg tablet 2 mg PO BID tab 02/01/19 04/27/19 tamsulosin 0.4 mg capsule 0.4 mg PO DAILY #90 cap 02/02/19 04/27/19 bupropion HCl 75 mg tablet 75 mg PO DAILY tab 03/17/19 04/27/19 acetaminophen 650 mg PO Q4H PRN PRN 04/27/19 04/27/19 alogliptin 25 mg PO DAILY 04/27/19 04/27/19 ascorbic acid (vitamin C) 500 mg PO DAILY 04/27/19 04/27/19 bisacodyl [Dulcolax (bisacodyl)] 10 mg OK DAILY PRN 04/27/19 04/27/19 cholecalciferol (vitamin D3) 2,000 unit PO DAILY 04/27/19 04/27/19 [Vitamin D3] cyclobenzaprine 5 mg PO QHS 04/27/19 04/27/19 gabapentin 600 mg PO TID 04/27/19 04/27/19 ibuprofen 400 mg PO Q8H PRN 04/27/19 04/27/19 multivit,ajtvudg-diq-pjqtz acd 1 mcg PO 04/27/19 multivitamin 1 tab PO DAILY 04/27/19 04/27/19 polysaccharide iron complex 150 mg PO DAILY 04/27/19 04/27/19 solifenacin [Vesicare] 5 mg PO DAILY 04/27/19 04/27/19 Previous Rx's Medication Instructions Recorded tamsulosin 0.4 mg capsule 0.4 mg PO DAILY #90 cap 02/02/19 Allergies Allergy/AdvReac Type Severity Reaction Status Date / Time nitroglycerin Allergy Hives Unverified 04/27/19 11:18 pioglitazone HCl [From Actos] AdvReac Mild leg Unverified 04/27/19 11:18 swelling General Stated Complaint: GI Bleed PORTILLO: 2 Review of Systems All systems reviewed & are unremarkable except as noted in HPI and below PFSH Medical History Adenomatous polyp of colon (Acute) BPH (benign prostatic hyperplasia) (Chronic) Cellulitis of right hand (Resolved 12/23/15) Delirium (Acute) Depression (Chronic) Diabetes mellitus (Chronic) Diabetic neuropathy (Chronic) DJD (degenerative joint disease) (Chronic) Dyslipidemia (Chronic) Frequent falls (Acute) Generalized anxiety disorder (Acute) GERD (gastroesophageal reflux disease) (Chronic) Goals of care, counseling/discussion (Acute) History of colon polyps (Chronic) History of DVT (deep vein thrombosis) (Chronic) 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) Hyperlipidemia (Acute) Hypertension (Chronic) Hypogonadism (Chronic) Impaired mobility and ADLs (Acute) 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 (Acute) intermediate frame tender current use of anticoagulant (Acute) Lupus erythematosus (Acute) Major depressive disorder (Acute) Meralgia paresthetica (Acute) MSSA (methicillin susceptible Staphylococcus aureus) (Chronic) Muscle wasting (Chronic) Nephrolithiasis (Chronic) Olecranon bursitis (Acute) Osteoarthritis of lumbar spine (Acute) Osteomyelitis (Acute) Palliative care patient (Chronic) Psychosis (Acute) Recurrent UTI (urinary tract infection) (Chronic) SNHL (sensorineural hearing loss) (Acute) Testicular hypogonadism (Acute) Thermal injury (Resolved) s/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, 07/05/18 Urinary incontinence (Chronic) Vascular dementia (Chronic) 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 Brother Hyperlipidemia Hypertension Daughter No problems noted. 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 Pets and animals: No What is your relationship status?: How often do you talk on the phone with friends or family?: never How often do you get together with friends or relatives?: once per week Panel score (0-1 are the most socially isolated patients): 1 What type of physical activity do you participate in: none and other Details: goes up and down stairs slowly with help once a day; that is his exercise Duration: < 15 minutes/day Frequency: daily Special jennifer needs: No Seatbelt use: always Working smoke detector in home: Yes Fire extinguisher in home: Yes Do you feel safe at home: Yes Do you feel safe in your relationship?: Yes Additional Social history: Patient is and has 2 daughters; one bio, one adopted. Originally from [place], moved to [place] approximately a decade ago. 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 He is a lifelong non-smoker; denies alcohol use and illicit drug use. Unable to work now. Needs help with all ADLs. Wants [place]. Exam Narrative Exam Narrative: 1.Const: Well-nourished, Well-developed, appearing stated age 2.Eyes: PERRL, no conjunctival injection, and symmetrical lids. 3.ENT: Atraumatic external nose and ears. Moist MM. Neck: Symmetric, trachea midline, No thyromegaly. 4.CVS: +S1/S2, No murmurs or gallops. Peripheral pulses 2+ and equal in all extremities. Brisk capillary refill in all extremities. 5.RESP: Unlabored respiratory effort. Clear to auscultation bilaterally. No wheezes rales or rhonchi 6.GI: Soft, Nontender, mildly distended, no hepatosplenomegaly. No guarding or rebound. Rectal exam demonstrates no hemorrhoids, no gross red blood, he does demonstrate notably melanotic stool on digital rectal exam. 7.MSK: Normocephalic/Atraumatic, Extremities w/o deformity or ttp No cyanosis or clubbing, Normal movement of all extremities however he does demonstrate notable atrophy of the thenar eminences bilaterally. Generalized weakness throughout. 8.Skin: Warm, Dry. No rashes or lesions. 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 Sensation grossly intact, no focal neurologic deficits. 10.Psych: (AAO) x3. Appropriate mood and affect Course Vital Signs Vital signs: Vital Signs Temperature 37.1 C 04/27/19 11:05 Pulse 122 H 04/27/19 11:05 Respiratory Rate 24 04/27/19 11:05 Blood Pressure 96/60 L 04/27/19 11:05 Pulse Oximetry 97 04/27/19 11:05 Temperature 37.1 C 04/27/19 11:05 Temperature Source Skin 04/27/19 11:05 Pulse 122 H 04/27/19 11:05 Respiratory Rate 24 04/27/19 11:05 Blood Pressure 96/60 L 04/27/19 11:05 Pulse Oximetry 97 04/27/19 11:05 Oxygen Delivery Method Room Air 04/27/19 11:05 Oxygen Flow Rate 0 04/27/19 11:05 Comment 04/27/19 11:05 Lab/Test Results Lab/Test Results: Laboratory Tests Range/Units 04/27/19 11:05 Crossmatch See Detail
[2019-04-27] MEDS: Normal Saline 500 ML IV (11:20)
[2019-04-27 11:28] LABS: Abs Immature Grans 0.85 k/cumm (0.0-0.09); HCT 21.5 % (40.0-50.0); Mean Corp. HGB Concentration 30.2 g/dL (32.0-36.0); Mean Platelet Volume 10.2 fL (8.0-11.0); Platelet Count 235 x1000/uL (130-400); RBC 2.24 m/cumm (4.50-6.00); RBC Distribution Width 17.3 % (11.8-14.1)
[2019-04-27 11:35] LABS: Absolute Eosinophil Count 0.14 k/cumm (0.0-0.7)
[2019-04-27 11:36] LABS: HGB 6.5 g/dL (13.5-17.5)
[2019-04-27 11:43] LABS: PTT Activated 18.3 sec (21.0-31.4); Prothrombin Time 10.5 sec (9.3-11.0)
[2019-04-27 11:50] LABS: ALT 32 U/L (16-63); AST 14 U/L (15-37); Absolute Lymphocyte Count 0.95 k/cumm (1.2-3.4); Absolute Monocyte Count 1.22 k/cumm (0.11-0.7); Absolute Neutrophil Count 10.94 k/cumm (1.2-6.7); Albumin 2.4 g/dL (3.4-5.0); Alkaline Phosphatase 77 U/L (46-116); Anion Gap 9.5 mmol/L (3-11); BUN 50 mg/dL (7-18); Bilirubin, Total 0.1 mg/dL (0.2-1.0); CO2 24.5 mmol/L (21.0-32.0); CREATININE 0.83 mg/dL (0.70-1.30); Calcium 8.7 mg/dL (8.5-10.1); Chloride 104 mmol/L (98-107); Glucose 294 mg/dL (74-106); Potassium 4.2 mmol/L (3.5-5.1); Sodium 138 mmol/L (136-145); Total Protein 5.3 g/dL (6.4-8.2)
[2019-04-27 11:51] LABS: Anisocytosis 1+; Diff Comment Manual Differential
[2019-04-27 11:52] LABS: Polychromasia Present
[2019-04-27] MEDS: Omnipaque 350 MG/ML 100 ML BTL IJ (12:04)
--- NOTE | 2019-04-27 12:05 | DI.CT_ITS ---
EXAM: CT ABDOMEN PELVIS W CLINICAL HISTORY: GI bleed, abdominal distension TECHNIQUE: Post IV contrast. Without oral contrast. COMPARISON: CHEST 2 VIEWS PA,LAT from 05/22/2012 MRI - LUMBAR SPINE WO CONTRAST from 12/18/2014 MRI - LUMBAR SPINE WO CONTRAST from 04/13/2017 FINDINGS: There is a moderate sized paraesophageal hernia. The stomach is distended with air. No obstructing lesion is visible. The small bowel is not abnormally distended. There is prominent diverticulosis in the sigmoid colon as well as descending colon. There is no evidence of diverticulitis. There is a normal quantity of fecal material. The appendix appears normal. The prostate is enlarged and impr esses on the base of the bladder. There is mild diffuse bladder wall thickening. The liver, spleen, pancreas, adrenals and kidneys are unremarkable. The patient is status post cholecystectomy. There is no biliary dilatation. The aorta is normal in diameter. Extensive degenerative changes are seen in the lumbar spine. There are mild compression fractures of T10 and T12. IMPRESSION: Moderate-sized paraesophageal hernia. Distended stomach without obvious obstructing lesion or wall thickening. Diverticulosis without evidence of diverticulitis. Distended mildly thick-walled urinar y bladder likely secondary to bladder outlet obstruction.
[2019-04-27] MEDS: Pantoprazole 40 MG VIAL IVP (12:19)
[2019-04-27] MEDS: FAMOTIDINE 20 MG/50 ML BAG 100 MG IVPB (12:22)
[2019-04-27] MEDS: PANTOPRAZOLE 80 MG in Normal Saline 100 ML 10 MG IV (12:24)
[2019-04-27] MEDS: Normal Saline Flush 10 ML SYR (12:26)
--- NOTE | 2019-04-27 12:55 | DI.VRAD_ITS ---
Addendum created by Galindo Contreras MD on 04/27/2019 1:01:11 PM EST THIS REPORT CONTAINS FINDINGS THAT MAY BE CRITICAL TO PATIENT CARE. The exam findings were verbally communicated by me via telephone conference to ANGLE PURVIS at 12:57 PM EST on 04/27/2019. The findings were acknowledged and understood. Initial report created on 04/27/2019 12:55:25 PM EST PROCEDURE INFORMATION: Exam: CT Abdomen And Pelvis With Contrast Exam date and time: 04/27/2019 12:15 PM Age: 58 years old Clinical history: Abdominal pain; GI bleed, abdominal distension TECHNIQUE: Imaging protocol: Computed tomography of the abdomen and pelvis with intravenous contrast. Radiation optimization: All CT scans at this facility use at least one of these dose optimization techniques: automated exposure control; mA and/or kV adjustment per patient size (includes targeted exams where dose is matched to clinical indication); or iterative reconstruction. Contrast material: OMNIPAQUE 350; Contrast volume: 100 ml; Contrast route: IV; COMPARISON: US renal 05/02/2018 3:53 PM FINDINGS: Lungs: No acute basilar lung consolidation. Mediastinum: There is a moderate size hiatal hernia. There is an ill-defined foci of high attenuation within the dependent portion of the hiatal hernia which could be due to extravasated blood. There is a well-defined, focal high attenuation structure within the dependent portion of the lumen of the hiatal hernia. This could be due to something the patient ingested such as a pill. Liver: The liver is homogeneous and is not enlarged. Gallbladder and bile ducts: Prior cholecystectomy. No biliary ductal dilatation allowing for that. Pancreas: No pancreatic mass. No peripancreatic inflammation. No pancreatic ductal dilation. Spleen: The spleen is homogeneous and is not enlarged. Adrenals: No adrenal mass. Kidneys and ureters: There is bilateral nephrolithiasis. No hydronephrosis or hydroureter. No ureteral calculus. Stomach and bowel: No bowel obstruction. There is pancolonic diverticulosis, most prominently in the sigmoid colon, without evidence of acute diverticulitis. No signs of colitis. No sign of olinda intraluminal colonic hemorrhage. Appendix: No evidence of appendicitis. Intraperitoneal space: No ascites or pneumoperitoneum. Vasculature: No abdominal aortic aneurysm. No iliac or common femoral artery aneurysm. The mesenteric arteries are patent. The mesenteric, portal, and hepatic veins are patent. Lymph nodes: No enlarged lymph nodes. Bladder: No urinary bladder calculus or wall thickening. Reproductive: The prostate is enlarged. Bones/joints: There is a curvature lumbar spine convex to the right, associated with severe multilevel disc degeneration, along with facet arthropathy. There is a grade 1 degenerative anterolisthesis of L4 on L5, and retrolisthesis of L5 and S1. Chronic compression injuries involving the T10 and T12 vertebral bodies. Soft tissues: Unremarkable. IMPRESSION: 1. Moderate size hiatal hernia. Possibility of extravasated blood in the dependent portion the lumen. Is the patient having upper GI hemorrhage? 2. Diverticulosis without diverticulitis. This could be a source of hemorrhage. Is the patient having lower GI hemorrhage? Dictated and Authenticated by: Galindo Contreras MD. Ordering:DOMI Rasmussen MD
[2019-04-27] MEDS: Normal Saline Flush 10 ML SYR IVP ×2 (13:25→16:17)
[2019-04-27] MEDS: HYDROmorphone 2 MG/ML VIAL 1 MG IVP (13:25)
[2019-04-27] MEDS: Acetaminophen 500 MG TAB (13:45)
--- NOTE | 2019-04-27 15:12 | PDOC.CMPRO ---
- If Service Date Differs Date of service: 04/27/19 Time of Service: 15:12 Care Management Progress Note Patient is requesting to stay at [facility] for treatment he does not want to be transferred to any other facility. CM contacted [place] and spoke with Rhianna Spears RN [place] and she states that the patient is only 10% services connected and can be admitted to hospital of choice. Patient has and has the option to choose facility. Palliative care referral sent and met with the patient.
--- NOTE | 2019-04-27 16:38 | W.PM.HP.N ---
Date of service: 04/27/19 Time of Service: 16:38 Assessment and Plan Assessment and plan (1) GI bleeding: Status: Chronic Assessment and plan: Patient appears to have a GI bleed of unknown origin. The CT of his abdomen pelvis showed what could be blood in his stomach as well as diffuse diverticulosis. He is on the apixaban which is likely facilitating the bleed. At this point they do not want an aggressive work-up to find the source of bleeding. The plan is to discontinue the apixaban. Transfuse 1 unit of packed red cells. The goal is to maintain stable vital signs until the family can assemble. There is some chance we may need to transfuse a second unit if he becomes unstable. (2) buttermaker current use of anticoagulant: Status: Acute Assessment and plan: He was on a apixaban because of a DVT. Stop a apixaban. Avoid anticoagulants at this time. (3) Palliative care patient: Status: Chronic Assessment and plan: Patient is followed by Dr. Mcclellan. His is very clear that he does not want aggressive interventions at this time. She would like to direct most of his care toward comfort. He is DNR/DNI. Family members are being assembled. (4) Vascular dementia: Status: Chronic Assessment and plan: Progressive vascular dementia since 2011. There has not been anything that seems to have altered the course. (5) Muscle wasting: Status: Chronic Assessment and plan: Idiopathic muscle wasting disease. He was recently diagnosed with spinal stenosis that could be contributing to some of the muscle wasting. He is not going to pursue any further work-up. (6) Delirium: Status: Acute Assessment and plan: He had some acute delirium in November 2018. He has been on antipsychotic medication since that time with good result. Continue risperidone. (7) Diabetic foot ulcer: Status: Acute Assessment and plan: He had a diabetic ulcer on his right first toe. He had that amputated last month. The infection appears to have cleared. No new ulcerations. (8) Discharge planning issues: Status: Acute Assessment and plan: He is admitted to acute care status. He is DNR/DNI. Moving toward comfort measures only as we try to assemble family members. History of Present Illness History of Present Illness Chief Complaint: GI bleed/severe anemia Narrative: This is a 58-year-old man with a progressive muscle wasting disease along with a rapidly progressing dementia that was just admitted to [facility] rehab on 04/24/2019 after a 5-day stay at [facility]. He has been on a apixaban because of a remote DVT. His stay at [facility] was for further work-up of his progressive dementia and worsening right upper extremity and left lower extremity weakness. He was found to have severe spinal stenosis. His dementia was attributed to vascular dementia with a possible inflammatory/autoimmune etiology. 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 This was apparently not causing any new focal motor deficits. He began having bright red blood per rectum last evening. This morning his blood pressures were borderline low and he was sent to our emergency room for evaluation. In our emergency room his hemoglobin was low at 6.5 and he was hypotensive. He received IV fluid and was started on a transfusion of packed red cells. Dr. German saw him from palliative care. In consultation with his it was felt that we should proceed in a more comfort oriented manner. The plan is for completion of 1 unit of packed red cells. Monitor his condition closely and assembled family members. Review of Systems Narrative: Patient is having some left sciatic pain intermittently. No complaint of chest pain no shortness of breath. He can lay completely flat in bed. His ambulation has become impossible for him according to his although the patient stated to her that he was up walking around yesterday she is unable to verify that. His mental status has deteriorated to the point that he is not able to communicate coherently. 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) Hyperlipidemia (Acute) Hypertension (Chronic) Hypogonadism (Chronic) Impaired mobility and ADLs (Acute) 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 (Acute) buttermaker current use of anticoagulant (Acute) Lupus erythematosus (Acute) Major depressive disorder (Acute) Meralgia paresthetica (Acute) MSSA (methicillin susceptible Staphylococcus aureus) (Chronic) Muscle wasting (Chronic) Nephrolithiasis (Chronic) Olecranon bursitis (Acute) Osteoarthritis of lumbar spine (Acute) Osteomyelitis (Acute) Palliative care patient (Chronic) Psychosis (Acute) Recurrent UTI (urinary tract infection) (Chronic) SNHL (sensorineural hearing loss) (Acute) Testicular hypogonadism (Acute) Thermal injury (Resolved) s/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, 07/05/18 Urinary incontinence (Chronic) Vascular dementia (Chronic) [place] [facility] [place] [facility] (Chronic) Dr Bruce Turner is PCP Surgical History Colonoscopy - IV Sedation (Inactive 10/28/16) EGD - IV Sedation (Inactive) H/O cervical spine surgery (Chronic) H/O hand surgery (Chronic) History of cholecystectomy (Chronic) History of lumbosacral spine surgery (Chronic) History of Kallie fundoplication (Chronic) History of repair of hiatal hernia (Chronic) Family History Mother , age 85 Vascular dementia Depression severe, with h/o ECT Heart disease Father , age 87 Heart failure Sister No problems noted. Brother Hyperlipidemia Hypertension Daughter No problems noted. 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 Pets and animals: No What is your relationship status?: How often do you talk on the phone with friends or family?: never How often do you get together with friends or relatives?: once per week Panel score (0-1 are the most socially isolated patients): 1 What type of physical activity do you participate in: none and other Details: goes up and down stairs slowly with help once a day; that is his exercise Duration: < 15 minutes/day Frequency: daily Special jennifer needs: No Seatbelt use: always Working smoke detector in home: Yes Fire extinguisher in home: Yes Do you feel safe at home: Yes Do you feel safe in your relationship?: Yes Additional Social history: Patient is and has 2 daughters; one bio, one adopted. Originally from [place], moved to [place] approximately a decade ago. 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 He is a lifelong non-smoker; denies alcohol use and illicit drug use. Unable to work now. Needs help with all ADLs. Wants [place]. Meds Home Medications and Allergies Home Medications Medication Instructions Recorded Confirmed Type metoprolol tartrate 50 mg PO DAILY 06/14/15 04/27/19 History atorvastatin [Lipitor] 40 mg PO HS 04/13/17 04/27/19 History apixaban 5 mg PO BID 11/15/18 04/27/19 History carboxymethylcellulose sodium 2 drp OPHTHALMIC (EYE) BID PRN 11/15/18 04/27/19 History mirabegron 50 mg PO DAILY 11/15/18 04/27/19 History sertraline 100 mg tablet 100 mg PO DAILY tab 01/31/19 04/27/19 History risperidone 4 mg tablet 2 mg PO BID tab 02/01/19 04/27/19 History tamsulosin 0.4 mg capsule 0.4 mg PO DAILY #90 cap 02/02/19 04/27/19 Rx bupropion HCl 75 mg tablet 75 mg PO DAILY tab 03/17/19 04/27/19 History acetaminophen 650 mg PO Q4H PRN PRN 04/27/19 04/27/19 History alogliptin 25 mg PO DAILY 04/27/19 04/27/19 History ascorbic acid (vitamin C) 500 mg PO DAILY 04/27/19 04/27/19 History bisacodyl [Dulcolax (bisacodyl)] 10 mg RI DAILY PRN 04/27/19 04/27/19 History cholecalciferol (vitamin D3) 2,000 unit PO DAILY 04/27/19 04/27/19 History [Vitamin D3] cyclobenzaprine 5 mg PO QHS 04/27/19 04/27/19 History gabapentin 600 mg PO TID 04/27/19 04/27/19 History ibuprofen 400 mg PO Q8H PRN 04/27/19 04/27/19 History multivit,pxyegyv-vft-ulpzf acd 1 mcg PO 04/27/19 History multivitamin 1 tab PO DAILY 04/27/19 04/27/19 History polysaccharide iron complex 150 mg PO DAILY 04/27/19 04/27/19 History solifenacin [Vesicare] 5 mg PO DAILY 04/27/19 04/27/19 History Allergies Allergy/AdvReac Type Severity Reaction Status Date / Time nitroglycerin Allergy Hives Unverified 04/27/19 11:18 pioglitazone HCl [From Actos] AdvReac Mild leg Unverified 04/27/19 11:18 swelling Exam Narrative Exam Narrative: On exam the patient is lying completely flat in bed comfortably. He has malar redness bilaterally which is his baseline. He is able to focus and greet me in a normal manner. The content of his speech is not completely coherent. He is able to follow commands to a certain extent. He can move both upper extremities with good purposeful movements. Both upper and lower extremities show evidence of significant muscle wasting. His abdomen is quite rounded and protuberant especially in relation to his atrophied limbs. The abdominal exam is nontender for him there is no palpable masses I do not detect a fluid wave. His lungs are generally clear on the right and left heart sounds are strong and regular. I do not hear a murmur. The lower extremities show no evidence of edema and otherwise good distal perfusion. He has had an amputation of his right first toe. The amputation site is clean and without erythema. Results Labs Result diagrams: 04/27/19 11:11 04/27/19 11:11 Labs: Laboratory Results - last 24 hr 04/27/19 04/27/19 04/27/19 11:11 11:11 11:11 WBC 13.50 H RBC 2.24 L Hgb 6.5 L* Hct 21.5 L MCV 96.0 H MCH 29.0 MCHC 30.2 L RDW 17.3 H Plt Count 235 MPV 10.2 Immature Gran % See Differential Neutrophils % 81.0 Lymphocytes % 7.0 Monocytes % 9.0 Eosinophils % 1.0 Basophils % 0.0 Metamyelocytes % 1.0 Myelocytes % 1.0 Absolute Neutrophils 10.94 H Absolute Lymphocytes 0.95 L Absolute Monocytes 1.22 H Absolute Eosinophils 0.14 Absolute Basophils 0.00 Differential Comment Manual differential RBC Morphology See below Polychromasia Present Anisocytosis 1+ PT INR APTT Sodium 138 Potassium 4.2 Chloride 104 Carbon Dioxide 24.5 Anion Gap 9.5 BUN 50 H Creatinine 0.83 Estimated GFR/1.73 m2 >= 60.00 Glucose 294 H Calcium 8.7 Total Bilirubin 0.1 L AST 14 L ALT 32 Alkaline Phosphatase 77 Total Protein 5.3 L Albumin 2.4 L Patient ABO/Rh O Positive Antibody Screen Negative Crossmatch See Detail Reaction Clerical Check Clerical Work Check Pre-Trans Blood Type Pre-Trans Bld Appearanc Pre-Trans FRANK Post-Trans Blood Type Post-Trans Spec Appear Post-Trans FRANK Reaction Pathol Review 04/27/19 04/27/19 11:11 13:51 WBC RBC Hgb Hct MCV MCH MCHC RDW Plt Count MPV Immature Gran % Neutrophils % Lymphocytes % Monocytes % Eosinophils % Basophils % Metamyelocytes % Myelocytes % Absolute Neutrophils Absolute Lymphocytes Absolute Monocytes Absolute Eosinophils Absolute Basophils Differential Comment RBC Morphology Polychromasia Anisocytosis PT 10.5 INR 1.0 APTT 18.3 L Sodium Potassium Chloride Carbon Dioxide Anion Gap BUN Creatinine Estimated GFR/1.73 m2 Glucose Calcium Total Bilirubin AST ALT Alkaline Phosphatase Total Protein Albumin Patient ABO/Rh Antibody Screen Crossmatch Reaction Clerical Check Cancelled Clerical Work Check Cancelled Pre-Trans Blood Type Cancelled Pre-Trans Bld Appearanc Cancelled Pre-Trans FRANK Cancelled Post-Trans Blood Type Cancelled Post-Trans Spec Appear Cancelled Post-Trans FRANK Cancelled Reaction Pathol Review Cancelled Last Vital Signs Temp 36.7 C 04/27/19 16:04 Pulse 94 H 04/27/19 16:04 Resp 14 04/27/19 16:04 BP 92/57 L 04/27/19 16:04 Pulse Ox 91 L 04/27/19 16:04
[2019-04-27] MEDS: Insulin Aspart 300 UNITS/3 ML PEN SC (17:37)
[2019-04-27] MEDS: Gabapentin 600 MG TAB PO (19:47)
[2019-04-27] MEDS: risperiDONE 1 MG TAB 2 MG PO (19:47)
[2019-04-27] MEDS: Acetaminophen 325 MG TAB PO (20:01)
--- NOTE | 2019-04-27 21:42 | PCNE_ITS ---
Date of service: 04/27/19 History of Present Illness History of Present Illness Chief Complaint: gi bleeding in setting of anticoagulation for DVT Narrative: Benigno was discharged from [facility], on 04/25/19. He was admitted there for another attempt at diagnosis of his neurological degenerative disease and advancing dementia. He was supposed to have a muscle biospy to ascertain the cause of his rapidly progressive muscular atrophy of all 4 limbs. He is followed by Dr Maher, neurologist at [facility]. He has also undergone an extensive neurological work-up by the [facility] neurological team. This was his second intensive attempt at diagnosis by [facility]. He has no clear diagnosis for his advancing neurological illness, though the records imply that he suffers from a combination of severe spinal degeneration with neurological compromise and vascular dementia. Note that brain MRIs show he has had several small strokes. He was still able to function normally and work until February 2018 when he had neck surgery at [facility]. He has never returned to his baseline since that surgery, according to his , Oma, who accompanied him on MedSur. He was admitted from [facility] due to a new GI bleed. His labs came b ack critical. He received one unit of PRBs on admission. His requested that the second unit be cancelled. Benigno's COLST form indicates he wants no aggressive care or interventions, only care that will increase his comfort. He is without pain or dyspnea. Note that throughout the course of the day, I saw Benigno first at the SNF, as the ambulance crew arrived to transfer him to [facility], and then at the ER briefly where I shared his GOC and COLST with the ER physician. Consults Consult date: 04/27/19 Requesting physician: Bruce Chowdary Assessment and Plan Assessment and plan (1) Autonomic dysfunction: Status: Chronic Assessment and plan: new since this admission hypotension loss of bowel and urine control (2) GI bleeding: Status: Chronic Assessment and plan: was on anticoagulation for history of DVT now bleeding low hemoglobin received one unit of prbs wanting to hold off on second unit for now (3) Goals of care, counseling/discussion: Status: Acute Assessment and plan: is very clear that Benigno does not want to be a n invalid he doesn't want to live a long life in a snf he would not want any aggressive interventions their decision making capacity as a team is very much affected by and limited by their lack of neurological diagnosis discussed what they want to do to continue to pursue a diagnosis open to seeing Dr Jaeger next week if she can fit Benigno in (4) Palliative care patient: Status: Chronic Assessment and plan: will continue to follow him both at [facility] and back at [facility] when he returns is on observation status now (5) Impaired mobility and ADLs: Status: Acute Assessment and plan: ongoing getting worse by the week! (6) Vascular dementia: Status: Chronic Assessment and plan: has had several strokes needs help with decision making family coming to visit [facility] and through the weekend--children, brother, sister (7) Muscle wasting: Status: Chronic Assessment and plan: ongoing started in February 2018 but rate of muscle wasting has accelerated no longer ambulatory won't be able to return to [place], where he had been going the last 2 months or so Review of Systems Constitutional Constitutional: Reports as per HPI, Reports fatigue, Reports frequent falls, Reports lethargy and Reports weakness Comments: Note that when I saw Benigno after admission, he was sleeping soundly. He'd been awake and alert, though not oriented, at the SNF in the am. Eyes Eyes: Reports requires corrective lenses ENT Ears, Nose, Mouth, and Throat: Reports abnormal hearing, Reports dysphagia, Reports dry mouth and Reports neck pain Cardiovascular Cardiovascular: Reports dyspnea on exertion Respiratory Respiratory: Reports dyspnea on exertion Gastrointestinal Gastrointestinal: Reports dysphagia and Reports fecal incontinence Genitourinary Genitourinary: Reports urinary incontinence Musculoskeletal Musculoskeletal: Reports abnormal gait, Reports back pain, Reports myalgias, Reports atrophy, Reports arthralgias, Reports limited range of motion, Reports loss of height, Reports muscle weakness, Reports neck pain and Reports stiffness Integumentary/Breasts Skin/Breast: Reports dry skin Neurologic Neurologic: Reports abnormal hearing, Reports abnormal speech, Reports abnormal gait, Reports confusion, Reports frequent falls, Reports memory loss, Reports radicular pain, Reports seizure-like activity (eyes roving, nystagmus, myoclonus) and Reports weakness Psychiatric Psychiatric: Reports confusion and Reports memory loss Endocrine Endocrine: Reports fatigue Hematologic/Lymphatic Hematologic/Lymphatic: Reports easy bleeding (both hematuria and gi bleeding) PFSH Medical History Adenomatous polyp of colon (Acute) Autonomic dysfunction (Chronic) BPH (benign prostatic hyperplasia) (Chronic) Cellulitis of right hand (Resolved 12/23/15) Delirium (Acute) Depression (Chronic) Diabetes mellitus (Chronic) Diabetic neuropathy (Chronic) DJD (degenerative joint disease) (Chronic) Dyslipidemia (Chronic) Frequent falls (Acute) Generalized anxiety disorder (Acute) GERD (gastroesophageal reflux disease) (Chronic) Goals of care, counseling/discussion (Acute) History of colon polyps (Chronic) History of DVT (deep vein thrombosis) (Chronic) 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) Hyperlipidemia (Acute) Hypertension (Chronic) Hypogonadism (Chronic) Impaired mobility and ADLs (Acute) 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 (Acute) 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) Lupus erythematosus (Acute) Major depressive disorder (Acute) Meralgia paresthetica (Acute) MSSA (methicillin susceptible Staphylococcus aureus) (Chronic) Muscle wasting (Chronic) Nephrolithiasis (Chronic) Olecranon bursitis (Acute) Osteoarthritis of lumbar spine (Acute) Osteomyelitis (Acute) Palliative care patient (Chronic) Psychosis (Acute) Recurrent UTI (urinary tract infection) (Chronic) SNHL (sensorineural hearing loss) (Acute) Testicular hypogonadism (Acute) Thermal injury (Resolved) s/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, 07/05/18 Urinary incontinence (Chronic) Vascular dementia (Chronic) [place] 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 Brother Hyperlipidemia Hypertension Daughter No problems noted. 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 Pets and animals: No What is your relationship status?: How often do you talk on the phone with friends or family?: never How often do you get together with friends or relatives?: once per week Panel score (0-1 are the most socially isolated patients): 1 What type of physical activity do you participate in: none and other Details: goes up and down stairs slowly with help once a day; that is his exercise Duration: < 15 minutes/day Frequency: daily Special jennifer needs: No Seatbelt use: always Working smoke detector in home: Yes Fire extinguisher in home: Yes Do you feel safe at home: Yes Do you feel safe in your relationship?: Yes Additional Social history: Patient is and has 2 daughters; one bio, one adopted. Originally from [place], moved to [place] approximately a decade ago. 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 He is a lifelong non-smoker; no alcohol use and illicit drug use. Unable to work. Rapid functional decline last 6 months. Non-ambulatory now. Exam Const General: comfortable and no acute distress Nutritional Appearance: other (thin extremities and obese abdomen) Orientation: oriented to person Other: was obtunded by the time I saw him late afternoon on med surg; had received hydromorphone in the ER had been alert in the SNF [facility] Head: normocephalic and atraumatic General nose exam: external nose normal Face and sinus: normal facial exam and face symmetric Mouth: oral mucosae normal Eyes Conjunctivae: conjunctivae normal Sclera: sclerae normal Other: roving movements nystagmus cannot focus Neck Neck: no lymphadenopathy, tender, no JVD and other (holds neck stiffly) Chest Chest: abnormal inspection of the chest barrel chest Resp Effort & Inspection: normal respiratory effort Auscultation: clear to auscultation bilaterally (in anterior medellin) and diminished lung sounds Cardio Jugular venous pressure: no JVD Rate: regular rate Rhythm: regular rhythm Heart Sounds: S1 normal and S2 normal GI Inspection: normal to inspection and distended Palpation: firm Auscultation: normal bowel sounds Back/Spine/Pelvis Cervical Spine: scars present and cervical spinal tenderness Skin General skin exam: no rashes or lesions noted and dry skin Trauma: no lacerations or abrasions Hair: general thinning Neuro General: alert, awake and unable to assess gait Cognition: abnormal cognition (mild to moderate dementia; often parrots what was said before ) Speech: anomia (repeats what others say; ? decision making ability?) Motor: strength abnormal Sensory Exam: no sensory deficits noted Extrem General: edema and muscle atrophy Psych Appearance: grossly normal Mental Status: mental status grossly normal Speech and Movement: speech clear (but content minimal) Mood: congruent mood Affect: normal affect Attitude: cooperative Thought Process: impoverished Insight: limited Judgment: limited Results Last Vital Signs Temp 99.5 F 04/27/19 21:01 Pulse 97 H 04/27/19 21:01 Resp 18 04/27/19 21:01 BP 86/56 L 04/27/19 21:01 Pulse Ox 96 04/27/19 21:01 Labs Result diagrams: 04/29/19 06:34 04/29/19 06:34 Labs: Laboratory Results - last 24 hr 04/27/19 04/27/19 04/27/19 11:11 11:11 11:11 WBC 13.50 H RBC 2.24 L Hgb 6.5 L* Hct 21.5 L MCV 96.0 H MCH 29.0 MCHC 30.2 L RDW 17.3 H Plt Count 235 MPV 10.2 Immature Gran % See Differential Neutrophils % 81.0 Lymphocytes % 7.0 Monocytes % 9.0 Eosinophils % 1.0 Basophils % 0.0 Metamyelocytes % 1.0 Myelocytes % 1.0 Absolute Neutrophils 10.94 H Absolute Lymphocytes 0.95 L Absolute Monocytes 1.22 H Absolute Eosinophils 0.14 Absolute Basophils 0.00 Differential Comment Manual differential RBC Morphology See below Polychromasia Present Anisocytosis 1+ PT INR APTT Sodium 138 Potassium 4.2 Chloride 104 Carbon Dioxide 24.5 Anion Gap 9.5 BUN 50 H Creatinine 0.83 Estimated GFR/1.73 m2 >= 60.00 Glucose 294 H Calcium 8.7 Total Bilirubin 0.1 L AST 14 L ALT 32 Alkaline Phosphatase 77 Total Protein 5.3 L Albumin 2.4 L Patient ABO/Rh O Positive Antibody Screen Negative Crossmatch See Detail Reaction Clerical Check Clerical Work Check Pre-Trans Blood Type Pre-Trans Bld Appearanc Pre-Trans FRANK Post-Trans Blood Type Post-Trans Spec Appear Post-Trans FRANK Reaction Pathol Review 04/27/19 04/27/19 11:11 13:51 WBC RBC Hgb Hct MCV MCH MCHC RDW Plt Count MPV Immature Gran % Neutrophils % Lymphocytes % Monocytes % Eosinophils % Basophils % Metamyelocytes % Myelocytes % Absolute Neutrophils Absolute Lymphocytes Absolute Monocytes Absolute Eosinophils Absolute Basophils Differential Comment RBC Morphology Polychromasia Anisocytosis PT 10.5 INR 1.0 APTT 18.3 L Sodium Potassium Chloride Carbon Dioxide Anion Gap BUN Creatinine Estimated GFR/1.73 m2 Glucose Calcium Total Bilirubin AST ALT Alkaline Phosphatase Total Protein Albumin Patient ABO/Rh Antibody Screen Crossmatch Reaction Clerical Check Cancelled Clerical Work Check Cancelled Pre-Trans Blood Type Cancelled Pre-Trans Bld Appearanc Cancelled Pre-Trans FRANK Cancelled Post-Trans Blood Type Cancelled Post-Trans Spec Appear Cancelled Post-Trans FRANK Cancelled Reaction Pathol Review Cancelled
[2019-04-27 21:55] LABS: Bilirubin Negative (Negative); Blood Negative (Negative); Clarity Clear (Clear); Glucose 500 mg/dL (Negative); Ketones Negative (Negative); Leukocyte Esterase Negative (Negative); Nitrite Negative (Negative); Urobilinogen 0.2 EU/dL (Up TO 0.2); pH 5.5 (5-8)
[2019-04-28 06:28] VITALS: BP 110/76; PULSE 77; RESP 18; TEMP 36.2; O2SAT 96
[2019-04-28 07:43] LABS: HCT 23.8 % (40.0-50.0); HGB 7.3 g/dL (13.5-17.5); Mean Corp. HGB Concentration 30.7 g/dL (32.0-36.0); Mean Corpuscular Hemoglobin 28.7 pg (27.0-33.0); Mean Corpuscular Volume 93.7 fL (80-95); Platelet Count 206 x1000/uL (130-400); RBC 2.54 m/cumm (4.50-6.00); RBC Distribution Width 17.5 % (11.8-14.1); White Blood Cell Count 12.08 k/cumm (4.4-10.8)
[2019-04-28 07:44] LABS: Anion Gap 7.3 mmol/L (3-11); BUN 26 mg/dL (7-18); CO2 26.7 mmol/L (21.0-32.0); CREATININE 0.86 mg/dL (0.70-1.30); Chloride 104 mmol/L (98-107); Glucose 224 mg/dL (74-106); Potassium 4.5 mmol/L (3.5-5.1); Sodium 138 mmol/L (136-145)
[2019-04-28 08:14] LABS: Absolute Neutrophil Count 9.06 k/cumm (1.2-6.7)
[2019-04-28 08:15] LABS: Absolute Basophil Count 0.12 k/cumm (0.0-0.2); Absolute Eosinophil Count 0.36 k/cumm (0.0-0.7); Absolute Lymphocyte Count 1.57 k/cumm (1.2-3.4); Absolute Monocyte Count 0.72 k/cumm (0.11-0.7); Anisocytosis 1+; Microcytosis 1+; Nucleated RBC 2 /100WBC; Polychromasia Present
[2019-04-28 08:16] LABS: Diff Comment Manual Differential
[2019-04-28] MEDS: Insulin Aspart 300 UNITS/3 ML PEN SC ×3 (08:18→17:00)
[2019-04-28 08:46] VITALS: BP 127/83; PULSE 96; RESP 20; TEMP 37.3; O2SAT 98
[2019-04-28] MEDS: risperiDONE 1 MG TAB 2 MG PO ×2 (09:24→19:35)
[2019-04-28] MEDS: Sertraline 50 MG TAB 100 MG PO (09:24)
[2019-04-28] MEDS: Gabapentin 600 MG TAB PO ×3 (09:24→19:35)
[2019-04-28] MEDS: Mirabegron 50 MG TABCR PO (09:25)
[2019-04-28] MEDS: Tamsulosin 0.4 MG CAPCR PO (09:25)
[2019-04-28] MEDS: buPROPion 75 MG TAB PO (09:25)
[2019-04-28] MEDS: Acetaminophen 325 MG TAB PO ×2 (12:19→19:35)
[2019-04-28] MEDS: Normal Saline Flush 10 ML SYR IVP (12:20)
[2019-04-28] MEDS: Pantoprazole 40 MG VIAL IVP (12:23)
[2019-04-28 12:40] VITALS: BP 132/79; PULSE 100; RESP 18; TEMP 37.2; O2SAT 98
[2019-04-28] MEDS: oxyCODONE 5 MG TAB PO ×2 (14:05→19:34)
--- NOTE | 2019-04-28 15:17 | CHAPLAIN ---
I was called in last night, requested by Benigno's sister and brother. When I arrived, after some discussion, they asked if I would call the salesforce administrator for anointing of the sick for Benigno, and Benigno agreed that he wanted this. Fr. Sotelo arrived a short time later and had a time of confession alone with Benigno and then offered Benigno the anointing of the sick. While waiting for the salesforce administrator, Benigno told me that he has vascular dementia and that recent confusion along with needing some blood brought him to [facility]. He was clear in telling me about his medical history up to this point. 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 Benigno also shared some personal history, telling me about his 20 years in the [place], [place] and spending some of each summer with relatives in [place]. He expected his two daughters to arrive today. Benigno seems clear that his condition has worsened, but he did not talk about dying. I'll visit Benigno again today.
[2019-04-28 15:55] VITALS: BP 99/62; PULSE 98; RESP 18; TEMP 37.4; O2SAT 97
--- NOTE | 2019-04-28 16:27 | PDOC.CMIN ---
- If Service Date Differs Date of service: 04/28/19 Time of Service: 16:27 Care Management Initial Assess REASON FOR HOSPITALIZATION:: GI Bleed/Severe Anemia PAST MEDICAL HISTORY/PAST SURGICAL HISTORY:: Medical History. Adenomatous polyp of colon (Acute). BPH (benign prostatic hyperplasia) (Chronic). Cellulitis of right hand (Resolved 12/23/15). Delirium (Acute). Depression (Chronic). Diabetes mellitus (Chronic). Diabetic neuropathy (Chronic). DJD (degenerative joint disease) (Chronic). Dyslipidemia (Chronic). Frequent falls (Acute). Generalized anxiety disorder (Acute). GERD (gastroesophageal reflux disease) (Chronic). Goals of care, counseling/discussion (Acute). History of colon polyps (Chronic). History of DVT (deep vein thrombosis) (Chronic). 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 Hyperlipidemia (Acute). Hypertension (Chronic). Hypogonadism (Chronic). Impaired mobility and ADLs (Acute). 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 (Acute). 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 Lupus erythematosus (Acute). Major depressive disorder (Acute). Meralgia paresthetica (Acute). MSSA (methicillin susceptible Staphylococcus aureus) (Chronic). Muscle wasting (Chronic). Nephrolithiasis (Chronic). Olecranon bursitis (Acute). Osteoarthritis of lumbar spine (Acute). Osteomyelitis (Acute). Palliative care patient (Chronic). Psychosis (Acute). Recurrent UTI (urinary tract infection) (Chronic). SNHL (sensorineural hearing loss) (Acute). Testicular hypogonadism (Acute). Thermal injury (Resolved). s/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, 07/05/18. Urinary incontinence (Chronic). Vascular dementia (Chronic). 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 Dr Bruce Turner is PCP. Surgical History . Colonoscopy - IV Sedation (Inactive 10/28/16). EGD - IV Sedation (Inactive). H/O cervical spine surgery (Chronic). H/O hand surgery (Chronic). History of cholecystectomy (Chronic). History of lumbosacral spine surgery (Chronic). History of Kallie fundoplication (Chronic). History of repair of hiatal hernia (Chronic) PREVIOUS FUNCTIONAL STATUS/SOCIAL/FAMILY SUPPORTS:: Benigno lives in [place] with his , Oma. He is a proud who served 20 years. His health has been declining rapidly since a surgical procedure about a year ago. He has several family members identified as supportive, including children and his sister. He is no longer independent and his mobility has been steadily declining. He recently was admitted to [facility] as his can no longer care for him at home. CURRENT FUNCTIONAL STATUS:: Benigno was lying in bed when CM met with him. His , sister, children and other family members were in the room with him. His stated that they have had several medical work ups completed with no answers as to why he has declined so quickly. 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 He was smiling with his family around him. His also reported that they have been working with Dr. German and have discussed Hospice. Dr. German stated that she does not think he is a hospice candidate at this time, but supports the family in their goals of care. CM will continue to follow. ADVANCE DIRECTIVES:: On file, his Oma is listed as agent. She is his DPOA. Has patient been provided with information about the portal?: Yes Did the patient sign up for the portal?: Yes CODE STATUS:: DNR/DNI INSURANCE COVERAGE / FINANCIAL ISSUES:: [facility]/ [facility] CURRENT HOME/COMMUNITY SERVICES/EQUIPMENT:: Benigno is currently living at [facility] who assist him with ADL's. PRIMARY CARE PHYSICIAN:: Bruce Turner POTENTIAL DISCHARGE NEEDS:: Possible consult with Neuro to be conducted at [facility] PATIENT/FAMILY EDUCATION NEEDS:: Review discharge instructions, discussion of goals of care ANTICIPATED BARRIERS TO DISCHARGE:: None at this time. TRANSPORTATION:: Anticipate ambulance transfer back to [facility] PLAN:: Anticipate Benigno will return to [facility] when medically cleared. He will be transported by ambulance when ready. CM will continue to follow.
--- NOTE | 2019-04-28 16:41 | PGE_ITS ---
Date of Service Date of service: 04/28/19 Time of Service: 16:41 Assessment and Plan Assessment and plan (1) GI bleeding: Status: Chronic Assessment and plan: While on anticoagulation. He and his family do not want aggressive work-up or treatment. His anticoagulation has been stopped. He had a heme positive stool today. He received 1 unit of packed red blood cells. His hemoglobin is improved but remains low at 7.3. He would be willing to have another blood transfusion if indicated. Repeat H&H tomorrow morning, transfuse as needed. (2) [facility] current use of anticoagulant: Status: Acute Assessment and plan: He was on anticoagulation for DVT. The apixaban is been discontinued, plan to avoid anticoagulation at this time. (3) Palliative care patient: Status: Chronic Assessment and plan: Had been followed by Dr. German. He and his are clear that they do not want aggressive interventions. He is a DNR/DNI. Palliative will continue to follow him. (4) Vascular dementia: Status: Chronic Assessment and plan: Progressive vascular dementia since 2011. He will need an outpatient referral to neurology with Dr. Jaeger so she can see him at the rehab. (5) Muscle wasting: Status: Chronic Assessment and plan: Idiopathic muscle wasting disease. He was recently diagnosed with spinal stenosis that could be contributing to some of the muscle wasting. No further work-up planned at this time. (6) Delirium: Status: Acute Assessment and plan: He had acute delirium in November 2018. He has been on risperidone since that time. His is asking to have the dose decreased, will trial at a decreased dose and monitor. (7) Diabetic foot ulcer: Status: Acute Assessment and plan: With a recent toe amputation. No sign of infection at this time. (8) Discharge planning issues: Status: Acute Assessment and plan: He is a DNR/DNI. He is on observation status. He would like conservative medical management with the possibility of transitioning to comfort measures at some point. He is followed by palliative care. He will return to [facility] and rehab when able. This case was discussed with Dr. Zheng who is in agreement. Subjective Subjective Interval history since last seen: Mr. Agosto reports that he is doing OK today. He states if he was doing better, he would not be here. He had a black bowel movement today, he denies bright red blood. He received a blood transfusion last evening. He states that he would be agreeable to having another blood transfusion if needed. He reports shortness of breath with exertion, slightly worse than his baseline shortness of breath. He denies wheezing, cough, chest pain, chest palpitations. He is eating and drinking and tolerating his diet. No nausea, vomiting or diarrhea. He was seen by Dr. German for palliative care. He and his family indicate that they prefer more conservative measures but are not ready for comfort measures at this time. Dr. German is requesting a Neurology consult so Dr. Jaeger can see him at the Rehab. Exam Narrative Exam Narrative: General: appears older than stated age, awake, alert and oriented at this time. Appear comfortable laying in bed. Answers questions appropriately. In no acute distress. HEENT: atruamatic, pupils symmetrical and round, EOMI, MMM. Neck: supple, no JVD. Cardiovascular: heart has regular rate and rhythm, no murmur appreciated. Respiratory: even and unlabored, clear bilaterally. GI: round, protuberant abdomen, normal bowel sounds 4 quadrants, abdomen is soft, nontender palpation. Extremities: He can move his extremities freely, evident muscle wasting on bila teral upper and lower extremities. No clubbing, cyanosis or edema. First right toe amputation noted. Objective Objective Clinical Data: Abnormal lab results 04/27/19 04/28/19 04/28/19 Range/Units 21:38 07:00 07:00 WBC 12.08 H (4.4-10.8) k/cumm RBC 2.54 L (4.50-6.00) m/cumm Hgb 7.3 L (13.5-17.5) g/dL Hct 23.8 L (40.0-50.0) % MCHC 30.7 L (32.0-36.0) g/dL RDW 17.5 H (11.8-14.1) % Absolute Neutrophils 9.06 H (1.2-6.7) k/cumm Absolute Monocytes 0.72 H (0.11-0.7) k/cumm BUN 26 H D (7-18) mg/dL Glucose 224 H (74-106) mg/dL Urine Glucose 500 H (Negative) mg/dL Vital Signs Temperature 37.4 C 04/28/19 15:55 Temperature Source Tympanic 04/28/19 15:55 Pulse 98 H 04/28/19 15:55 Pulse Rhythm Irregular 04/28/19 09:30 Pulse 99 H 04/27/19 14:00 Respiratory Rate 18 04/28/19 15:55 Respiratory Effort Non-Labored 04/28/19 09:30 Respiratory Depth Normal 04/28/19 09:30 Respiratory Pattern Normal 04/28/19 09:30 Blood Pressure 99/62 L 04/28/19 15:55 Blood Pressure Mean 83 04/27/19 13:46 Pulse Oximetry 97 04/28/19 15:55 Oxygen Delivery Method Room Air 04/28/19 15:55 Oxygen Flow Rate 0 04/28/19 15:55 Pain Level 2 04/28/19 15:55 Comment 04/27/19 17:11 Intake & Output 04/27/19 04/28/19 04/28/19 23:59 11:59 23:59 Intake Total 1041.333 / 1041.333 240 / 480 240 / 480 Output Total 400 / 400 Balance 641.333 / 641.333 240 / 480 240 / 480 Weight 73.3 kg 73.3 kg Intake: IV 591.333 / 591.333 Oral 200 / 200 240 / 480 240 / 480 Blood Product 250 / 250 Rbc Leuko Reduced Unit 250 / 250 [id number] Output: Urine 400 / 400 Other: Urine Color Yellow Yellow Urine Appearance Clear Urine Odor Normal Normal Comment incontinent of a large amount of urine. pt unable to hold his urine or stool when he stood up Stool Occult Blood Positive Positive Stool Size Moderate Small Stool Characteristics Soft Soft Black Formed Black Voiding Methods Urinal Incontinent Laboratory Results WBC 12.08 k/cumm (4.4-10.8) H 04/28/19 07:00 RBC 2.54 m/cumm (4.50-6.00) L 04/28/19 07:00 Hgb 7.3 g/dL (13.5-17.5) L 04/28/19 07:00 Hct 23.8 % (40.0-50.0) L 04/28/19 07:00 MCV 93.7 fL (80-95) 04/28/19 07:00 MCH 28.7 pg (27.0-33.0) 04/28/19 07:00 MCHC 30.7 g/dL (32.0-36.0) L 04/28/19 07:00 RDW 17.5 % (11.8-14.1) H 04/28/19 07:00 Plt Count 206 x1000/uL (130-400) 04/28/19 07:00 MPV 10.0 fL (8.0-11.0) 04/28/19 07:00 Immature Gran % See Differential 04/28/19 07:00 Neutrophils % 75.0 04/28/19 07:00 Lymphocytes % 13.0 04/28/19 07:00 Monocytes % 6.0 04/28/19 07:00 Eosinophils % 3.0 04/28/19 07:00 Basophils % 1.0 04/28/19 07:00 Metamyelocytes % 2.0 % 04/28/19 07:00 Myelocytes % 1.0 % 04/27/19 11:11 Absolute Neutrophils 9.06 k/cumm (1.2-6.7) H 04/28/19 07:00 Absolute Lymphocytes 1.57 k/cumm (1.2-3.4) 04/28/19 07:00 Absolute Monocytes 0.72 k/cumm (0.11-0.7) H 04/28/19 07:00 Absolute Eosinophils 0.36 k/cumm (0.0-0.7) 04/28/19 07:00 Absolute Basophils 0.12 k/cumm (0.0-0.2) 04/28/19 07:00 Nucleated RBCs 2 /100WBC 04/28/19 07:00 Differential Comment Manual differential 04/28/19 07:00 RBC Morphology See below 04/28/19 07:00 Polychromasia Present 04/28/19 07:00 Anisocytosis 1+ 04/28/19 07:00 Microcytosis 1+ 04/28/19 07:00 PT 10.5 sec (9.3-11.0) 04/27/19 11:11 INR 1.0 (0.9-1.1) 04/27/19 11:11 APTT 18.3 sec (21.0-31.4) L 04/27/19 11:11 Sodium 138 mmol/L (136-145) 04/28/19 07:00 Potassium 4.5 mmol/L (3.5-5.1) 04/28/19 07:00 Chloride 104 mmol/L (98-107) 04/28/19 07:00 Carbon Dioxide 26.7 mmol/L (21.0-32.0) 04/28/19 07:00 Anion Gap 7.3 mmol/L (3-11) 04/28/19 07:00 BUN 26 mg/dL (7-18) H D 04/28/19 07:00 Creatinine 0.86 mg/dL (0.70-1.30) 04/28/19 07:00 Estimated GFR/1.73 m2 >= 60.00 (mL/min/1.73m2) 04/28/19 07:00 Glucose 224 mg/dL (74-106) H 04/28/19 07:00 Calcium 9.0 mg/dL (8.5-10.1) 04/28/19 07:00 Total Bilirubin 0.1 mg/dL (0.2-1.0) L 04/27/19 11:11 AST 14 U/L (15-37) L 04/27/19 11:11 ALT 32 U/L (16-63) 04/27/19 11:11 Alkaline Phosphatase 77 U/L (46-116) 04/27/19 11:11 Total Protein 5.3 g/dL (6.4-8.2) L 04/27/19 11:11 Albumin 2.4 g/dL (3.4-5.0) L 04/27/19 11:11 Urine Color Yellow (Yellow) 04/27/19 21:38 Urine Clarity Clear (Clear) 04/27/19 21:38 Urine pH 5.5 (5-8) 04/27/19 21:38 Ur Specific [place] 1.010 (1.005-1.025) 04/27/19 21:38 Urine Protein Negative mg/dL (Negative) 04/27/19 21:38 Urine Ketones Negative mg/dL (Negative) 04/27/19 21:38 Urine Blood Negative (Negative) 04/27/19 21:38 Urine Nitrite Negative (Negative) 04/27/19 21:38 Urine Bilirubin Negative (Negative) 04/27/19 21:38 Urine Urobilinogen 0.2 EU/dL (Up TO 0.2) 04/27/19 21:38 Ur Leukocyte Esterase Negative (Negative) 04/27/19 21:38 Urine Glucose 500 mg/dL (Negative) H 04/27/19 21:38 Patient ABO/Rh O Positive 04/27/19 11:11 Antibody Screen Negative 04/27/19 11:11 Crossmatch See Detail 04/27/19 11:11 Reaction Clerical Check Cancelled 04/27/19 13:51 Clerical Work Check Cancelled 04/27/19 13:51 Pre-Trans Blood Type Cancelled 04/27/19 13:51 Pre-Trans Bld Appearanc Cancelled 04/27/19 13:51 Pre-Trans FRANK Cancelled 04/27/19 13:51 Post-Trans Blood Type Cancelled 04/27/19 13:51 Post-Trans Spec Appear Cancelled 04/27/19 13:51 Post-Trans FRANK Cancelled 04/27/19 13:51 Reaction Pathol Review Cancelled 04/27/19 13:51
--- NOTE | 2019-04-28 19:13 | W.PALPGNOTE ---
Date of service: 04/28/19 Assessment and Plan Assessment and plan (1) GI bleeding: Status: Chronic Assessment and plan: off his apixaban for now has h.o DVT will recheck H/H in one week (2) Impaired mobility and ADLs: Status: Acute Assessment and plan: returning to Rehab to resume PT/OT tomorrow (3) Vascular dementia: Status: Chronic Assessment and plan: better than he usually is today could be because his family gathered, he trevor to the occasion (4) Muscle wasting: Status: Chronic Assessment and plan: no muscle biopsy done during [place] [facility] [place] thought to be due to spinal abnormalities with nerve compression will wait for Dr Jaeger's assessment, too (5) Anemia: Status: Chronic (6) H/O cervical spine surgery: Status: Chronic Assessment and plan: per family, his health really took a dive after his February 2018 spine surgery (7) History of lumbosacral spine surgery: Status: Chronic (8) Autonomic dysfunction: Status: Acute Assessment and plan: worsening fecal and urinary incontinence today looking for neurology input ? etiology diabetes? something else? spinal cord compression? (9) Psychosis: Status: Acute Assessment and plan: none recently sister asking if he can trial lower doses of risperidone seems reasonable, given his residing in Rehab for next several weeks at a minimum advised Gena Tipton of family request Subjective Subjective Patient reports: no new complaints, feels better, still having pain (but better controlled), pain is less, voiding w/o difficulty (incontinent of urine), bowel movement (fecal incontinence when he stood up for PT) and blood in stool (heme +, not grossly bloody) Interval history since last seen: Met with Benigno, his , brother, two daughters and their partners and his sister. He is feeling much better. No further GI bleeding. Doesn't want another transfusion, per his report to me. (Gena Tipton, [employer], stated that he told her he would accept another transfusion if needed). His spirits were good. He was in bed. He is still feeling quite weak--not just due to the GI bleed, but to long-standing neurological deficits.. Plan, to which all agreed, is for [facility] to [facility], [facility]. He and his would like to meet with Dr Jaeger about Benigno's illness. The neurology team [place] [facility] has worked him up on 3 separate admissions since his neck surgery in February 2018. He is having autonomic dysfunction, which is new x the last two weeks or so, with hypotension, fecal and urinary incontinence, chills and temperature instability. He has had muscle wasting, with rapid deterioration x 3 months or so. The [facility] team has most recently attributed this to nerve compression from his severe spinal disease. Overall, the family understands that Benigno's rapid decline over the last 14 months appears to be due to a combination of spinal disease and vascular dementia--he has had hypertension for years and has evidence of several small strokes on his brain MRI--though he is not following the usual course of these diseases. Perhaps Dr Jaeger can help shed some light on him when she evaluates him. Exam Const General: cooperative, comfortable and no acute distress Nutritional Appearance: other (thin extremities and obese abdomen) Orientation: alert, awake, oriented to person and oriented to place Other: better neurologically than I have seen him in months HENMT Head: normocephalic and atraumatic Ears: hearing grossly normal bilaterally General nose exam: external nose normal Face and sinus: normal facial exam and face symmetric Mouth: oral mucosae normal Eyes Conjunctivae: conjunctivae normal Sclera: sclerae normal Other: not having the roving movements he had last night, focused, intentional no nystagmus Neck Neck: no lymphadenopathy, tender, no JVD and other (holds neck stiffly) Chest Chest: abnormal inspection of the chest barrel chest Resp Effort & Inspection: normal respiratory effort and able to speak in complete sentences Auscultation: clear to auscultation bilaterally (in anterior medellin) and diminished lung sounds Cardio Jugular venous pressure: no JVD Rate: regular rate Rhythm: regular rhythm Heart Sounds: S1 normal and S2 normal GI Inspection: normal to inspection and distended Palpation: firm Auscultation: normal bowel sounds Back/Spine/Pelvis Cervical Spine: scars present and cervical spinal tenderness Skin General skin exam: no rashes or lesions noted and dry skin Trauma: no lacerations or abrasions Hair: general thinning Neuro General: alert, awake and unable to assess gait Cognition: abnormal cognition (MCI; today was closest to normal cognition I have seen) Speech: anomia (but clear with his thoughts most of the time) Motor: strength abnormal Sensory Exam: no sensory deficits noted Extrem General: edema and muscle atrophy Psych Appearance: grossly normal Mental Status: mental status grossly normal Speech and Movement: speech clear Mood: congruent mood Affect: normal affect Attitude: cooperative Thought Process: impoverished Insight: fair Judgment: fair Objective Objective Clinical Data: Abnormal lab results 04/27/19 04/28/19 04/28/19 Range/Units 21:38 07:00 07:00 WBC 12.08 H (4.4-10.8) k/cumm RBC 2.54 L (4.50-6.00) m/cumm Hgb 7.3 L (13.5-17.5) g/dL Hct 23.8 L (40.0-50.0) % MCHC 30.7 L (32.0-36.0) g/dL RDW 17.5 H (11.8-14.1) % Absolute Neutrophils 9.06 H (1.2-6.7) k/cumm Absolute Monocytes 0.72 H (0.11-0.7) k/cumm BUN 26 H D (7-18) mg/dL Glucose 224 H (74-106) mg/dL Urine Glucose 500 H (Negative) mg/dL Vital Signs Temperature 99.3 F 04/28/19 15:55 Temperature Source Tympanic 04/28/19 15:55 Pulse 98 H 04/28/19 15:55 Pulse Rhythm Irregular 04/28/19 17:00 Pulse 99 H 04/27/19 14:00 Respiratory Rate 18 04/28/19 15:55 Respiratory Effort Non-Labored 04/28/19 17:00 Respiratory Depth Normal 04/28/19 17:00 Respiratory Pattern Normal 04/28/19 17:00 Blood Pressure 99/62 L 04/28/19 15:55 Blood Pressure Mean 83 04/27/19 13:46 Pulse Oximetry 97 04/28/19 15:55 Oxygen Delivery Method Room Air 04/28/19 15:55 Oxygen Flow Rate 0 04/28/19 15:55 Pain Level 2 04/28/19 15:55 Comment 04/27/19 17:11 Intake & Output 04/27/19 04/28/19 04/28/19 23:59 11:59 23:59 Intake Total 1041.333 / 1041.333 240 / 480 240 / 480 Output Total 400 / 400 Balance 641.333 / 641.333 240 / 480 240 / 480 Weight 161 lb 9.581 oz 161 lb 9.581 oz Intake: IV 591.333 / 591.333 Oral 200 / 200 240 / 480 240 / 480 Blood Product 250 / 250 Rbc Leuko Reduced Unit 250 / 250 [id number] Output: Urine 400 / 400 Other: Urine Color Yellow Yellow Urine Appearance Clear Clear Urine Odor Normal Normal Comment incontinent of a large amount of urine. pt unable to hold his urine or stool when he stood up Stool Occult Blood Positive Positive Stool Size Moderate Small Stool Characteristics Soft Soft Black Formed Black Voiding Methods Urinal Incontinent Laboratory Results WBC 12.08 k/cumm (4.4-10.8) H 04/28/19 07:00 RBC 2.54 m/cumm (4.50-6.00) L 04/28/19 07:00 Hgb 7.3 g/dL (13.5-17.5) L 04/28/19 07:00 Hct 23.8 % (40.0-50.0) L 04/28/19 07:00 MCV 93.7 fL (80-95) 04/28/19 07:00 MCH 28.7 pg (27.0-33.0) 04/28/19 07:00 MCHC 30.7 g/dL (32.0-36.0) L 04/28/19 07:00 RDW 17.5 % (11.8-14.1) H 04/28/19 07:00 Plt Count 206 x1000/uL (130-400) 04/28/19 07:00 MPV 10.0 fL (8.0-11.0) 04/28/19 07:00 Immature Gran % See Differential 04/28/19 07:00 Neutrophils % 75.0 04/28/19 07:00 Lymphocytes % 13.0 04/28/19 07:00 Monocytes % 6.0 04/28/19 07:00 Eosinophils % 3.0 04/28/19 07:00 Basophils % 1.0 04/28/19 07:00 Metamyelocytes % 2.0 % 04/28/19 07:00 Myelocytes % 1.0 % 04/27/19 11:11 Absolute Neutrophils 9.06 k/cumm (1.2-6.7) H 04/28/19 07:00 Absolute Lymphocytes 1.57 k/cumm (1.2-3.4) 04/28/19 07:00 Absolute Monocytes 0.72 k/cumm (0.11-0.7) H 04/28/19 07:00 Absolute Eosinophils 0.36 k/cumm (0.0-0.7) 04/28/19 07:00 Absolute Basophils 0.12 k/cumm (0.0-0.2) 04/28/19 07:00 Nucleated RBCs 2 /100WBC 04/28/19 07:00 Differential Comment Manual differential 04/28/19 07:00 RBC Morphology See below 04/28/19 07:00 Polychromasia Present 04/28/19 07:00 Anisocytosis 1+ 04/28/19 07:00 Microcytosis 1+ 04/28/19 07:00 PT 10.5 sec (9.3-11.0) 04/27/19 11:11 INR 1.0 (0.9-1.1) 04/27/19 11:11 APTT 18.3 sec (21.0-31.4) L 04/27/19 11:11 Sodium 138 mmol/L (136-145) 04/28/19 07:00 Potassium 4.5 mmol/L (3.5-5.1) 04/28/19 07:00 Chloride 104 mmol/L (98-107) 04/28/19 07:00 Carbon Dioxide 26.7 mmol/L (21.0-32.0) 04/28/19 07:00 Anion Gap 7.3 mmol/L (3-11) 04/28/19 07:00 BUN 26 mg/dL (7-18) H D 04/28/19 07:00 Creatinine 0.86 mg/dL (0.70-1.30) 04/28/19 07:00 Estimated GFR/1.73 m2 >= 60.00 (mL/min/1.73m2) 04/28/19 07:00 Glucose 224 mg/dL (74-106) H 04/28/19 07:00 Calcium 9.0 mg/dL (8.5-10.1) 04/28/19 07:00 Total Bilirubin 0.1 mg/dL (0.2-1.0) L 04/27/19 11:11 AST 14 U/L (15-37) L 04/27/19 11:11 ALT 32 U/L (16-63) 04/27/19 11:11 Alkaline Phosphatase 77 U/L (46-116) 04/27/19 11:11 Total Protein 5.3 g/dL (6.4-8.2) L 04/27/19 11:11 Albumin 2.4 g/dL (3.4-5.0) L 04/27/19 11:11 Urine Color Yellow (Yellow) 04/27/19 21:38 Urine Clarity Clear (Clear) 04/27/19 21:38 Urine pH 5.5 (5-8) 04/27/19 21:38 Ur Specific [place] 1.010 (1.005-1.025) 04/27/19 21:38 Urine Protein Negative mg/dL (Negative) 04/27/19 21:38 Urine Ketones Negative mg/dL (Negative) 04/27/19 21:38 Urine Blood Negative (Negative) 04/27/19 21:38 Urine Nitrite Negative (Negative) 04/27/19 21:38 Urine Bilirubin Negative (Negative) 04/27/19 21:38 Urine Urobilinogen 0.2 EU/dL (Up TO 0.2) 04/27/19 21:38 Ur Leukocyte Esterase Negative (Negative) 04/27/19 21:38 Urine Glucose 500 mg/dL (Negative) H 04/27/19 21:38 Patient ABO/Rh O Positive 04/27/19 11:11 Antibody Screen Negative 04/27/19 11:11 Crossmatch See Detail 04/27/19 11:11 Reaction Clerical Check Cancelled 04/27/19 13:51 Clerical Work Check Cancelled 04/27/19 13:51 Pre-Trans Blood Type Cancelled 04/27/19 13:51 Pre-Trans Bld Appearanc Cancelled 04/27/19 13:51 Pre-Trans FRANK Cancelled 04/27/19 13:51 Post-Trans Blood Type Cancelled 04/27/19 13:51 Post-Trans Spec Appear Cancelled 04/27/19 13:51 Post-Trans FRANK Cancelled 04/27/19 13:51 Reaction Pathol Review Cancelled 04/27/19 13:51
[2019-04-28 20:05] VITALS: BP 105/67; PULSE 105; RESP 18; TEMP 37.5; O2SAT 99
[2019-04-28 23:05] VITALS: BP 107/66; PULSE 84; RESP 17; TEMP 37.1; O2SAT 98
[2019-04-29] MEDS: oxyCODONE 5 MG TAB PO ×3 (03:27→11:01)
[2019-04-29 07:09] LABS: Anion Gap 7.2 mmol/L (3-11); BUN 24 mg/dL (7-18); CO2 26.8 mmol/L (21.0-32.0); CREATININE 0.76 mg/dL (0.70-1.30); Calcium 8.4 mg/dL (8.5-10.1); Chloride 106 mmol/L (98-107); Glucose 213 mg/dL (74-106); Magnesium 1.7 mg/dL (1.8-2.4); Potassium 4.2 mmol/L (3.5-5.1); Sodium 140 mmol/L (136-145)
[2019-04-29 07:12] LABS: Mean Corp. HGB Concentration 30.2 g/dL (32.0-36.0); Mean Corpuscular Hemoglobin 28.8 pg (27.0-33.0); Mean Corpuscular Volume 95.3 fL (80-95); Platelet Count 190 x1000/uL (130-400); RBC 2.15 m/cumm (4.50-6.00); RBC Distribution Width 17.9 % (11.8-14.1)
[2019-04-29 07:21] LABS: HGB 6.2 g/dL (13.5-17.5)
[2019-04-29 07:22] LABS: HCT 20.5 % (40.0-50.0)
[2019-04-29 07:48] VITALS: BP 121/75; PULSE 85; RESP 17; TEMP 36.7; O2SAT 96
[2019-04-29] MEDS: Insulin Aspart 300 UNITS/3 ML PEN SC ×2 (08:11→11:54)
[2019-04-29] MEDS: Acetaminophen 325 MG TAB PO (08:24)
[2019-04-29] MEDS: buPROPion 75 MG TAB PO (08:25)
[2019-04-29] MEDS: Mirabegron 50 MG TABCR PO (08:25)
[2019-04-29] MEDS: risperiDONE 1 MG TAB 2 MG PO (08:25)
[2019-04-29] MEDS: Gabapentin 600 MG TAB PO (08:26)
[2019-04-29] MEDS: Tamsulosin 0.4 MG CAPCR PO (08:26)
[2019-04-29] MEDS: Sertraline 50 MG TAB 100 MG PO (08:27)
--- NOTE | 2019-04-29 11:17 | PDOC.CMDIS ---
LACE Index Scoring Tool - Questions: Length of Stay (in days): 2 Acuity (Admit via E.D.?): Yes Comorbidities: Diabetes w/o Complication, Dementia E.D. Visits: 5 - Answers: Total Score: 14 Risk of Readmission: High Risk Care Management Discharge Reason for Hospitalization: GI Bleed/Severe Anemia Discharge Plan: Benigno will return to [facility] on comfort measures only. He will transport via [facility] as David was unreachable by this commercial insurance underwriter. CM provided RN-RN contact coordination and notified RN, RNCC and MD of discharge planning. Patient/Family Education Needs: Review of instructions, goals of care with Palliative consults, transfer coordination, LIGHT BULB TESTER status. Services Needed at Discharge: Care Home Facility (Return to [facility] ), Transportation ([facility] )
--- NOTE | 2019-04-29 11:23 | NUR.NOTE ---
Nursing Note: Report phoned to [facility] nurse. All questions answered
[2019-04-29] MEDS: Pantoprazole 40 MG VIAL IVP (12:15)
[2019-04-29] MEDS: Normal Saline Flush 10 ML SYR IVP (12:16)
--- NOTE | 2019-04-29 12:45 | DSE_ITS ---
Date of service: 04/29/19 Time of Service: 12:45 DS: Diagnosis Discharge Diagnosis (1) GI bleeding: Status: Chronic (2) Impaired mobility and ADLs: Status: Acute (3) Vascular dementia: Status: Chronic (4) Muscle wasting: Status: Chronic (5) Anemia: Status: Chronic (6) H/O cervical spine surgery: Status: Chronic (7) History of lumbosacral spine surgery: Status: Chronic (8) Autonomic dysfunction: Status: Acute (9) Psychosis: Status: Acute Discharge Plan Disposition Patient Disposition: [facility] (LEVEL 2) [facility] Condition: Critical Discharge Details Chief Complaint: GI Bleed Clinical Impression: Acute GI bleeding Reason For Visit: GI BLEED/SEVERE ANEMIA Admit Date/Time: 04/27/19 13:23 Admit Provider: Bruce Chowdary Attending Provider: Bruce Chowdary Primary Care Provider: Bruce Turner ED Provider: Grady Arias Hospital Course Hospital Course: 58-year-old man with a progressive muscle wasting disease of uncertain etiology associated with some progressive dementia felt to be vascular as well as current anticoagulation on apixaban for remote history of DVT, presented with bright red blood per rectum with borderline hypotension and hemoglobin of 6.5. He was transfused 1 unit of red cells, and is hemoglobin did improve to 7.3 the day following admission. Following day, the hemoglobin dropped to 6.2. Transfusion of additional 2 units was initially ordered, but after discussion with patient, a large group of his family including his (who is his healthcare proxy), Dr. Burton from palliative care, and myself the patient decided not to proceed with transfusion. He has been through multiple hospitalizations and extensive work-ups for his medical condition, and his condition has continued to progress. He prefers to focus on comfort measures, with the understanding that his anemia is life-threatening. He was treated with pantoprazole, this will be continued along with 2 weeks of Carafate to treat possible ulcer, as the CAT scan on admission was consistent with some possible blood in the stomach. He is clear that he does not want to be rehospitalized, and his family is in agreement. Dr. Mcclellan urged him to consider one additional consult with Dr. Jaeger, though he has had neurologic evaluations both at the [place] and [facility]. This will be scheduled as soon as possible, and if no additional evaluation recommended they will pursue a formal hospice status. Per patient request, risperidone decreased as he has not had recent psychotic symptoms. The patient's tamsulosin and Myrbetriq are also stopped as he does not feel like they are helping him given his limited bladder control. Home Meds and New Rx's Prescriptions: New polyethylene glycol 3350 17 gram Powder In Packet 17 g PO DAILY PRN PRN (Reason: Constipation) Qty: 1 RF: 0 sucralfate 1 gram Tablet 1 g PO AC & HS Qty: 60 RF: 0 magnesium hydroxide [Milk of Magnesia] 400 mg/5 mL Suspension 30 ml PO DAILY PRN PRNQty: 100 RF: 0 risperidone [Risperdal] 1 mg Tablet 1 mg PO BID Qty: 60 RF: 0 oxycodone 5 mg Tablet 5 - 10 mg PO Q4H PRN PRNQty: 50 RF: 0 pantoprazole 40 mg tablet,delayed release (DR/EC) 40 mg PO DAILY Qty: 90 RF: 1 fentanyl 12 mcg/hr patch 72 hour 1 patch TD Q72H Qty: 10 RF: 0 lorazepam 1 mg tablet 1 mg PO TID PRN (Reason: anxiety) Qty: 14 RF: 0 Continued sertraline 100 mg tablet 100 mg PO DAILY RF: 0 bupropion HCl 75 mg tablet 75 mg PO DAILY RF: 0 metoprolol tartrate 25 MG tablet 50 mg PO DAILY RF: 0 atorvastatin [Lipitor] 40 MG tablet 40 mg PO HS RF: 0 carboxymethylcellulose sodium 0.5 % Drops 2 drp OPHTHALMIC (EYE) BID PRNRF: 0 acetaminophen 325 mg Tablet 650 mg PO Q4H PRN PRNRF: 0 polysaccharide iron complex 150 mg iron Capsule 150 mg PO DAILY RF: 0 ascorbic acid (vitamin C) 500 mg Tablet 500 mg PO DAILY RF: 0 bisacodyl [Dulcolax (bisacodyl)] 10 mg Suppository 10 mg MT DAILY PRNRF: 0 gabapentin 300 mg Capsule 600 mg PO TID RF: 0 cyclobenzaprine 5 mg Tablet 5 mg PO QHS RF: 0 cholecalciferol (vitamin D3) [Vitamin D3] 2,000 unit Tablet 2,000 unit PO DAILY RF: 0 multivit,dfbunoy-cch-iqnks acd 267 mcg Tablet 1 mcg PO RF: 0 alogliptin 25 mg Tablet 25 mg PO DAILY RF: 0 solifenacin [Vesicare] 10 mg tablet 5 mg PO DAILY RF: 0 Discontinued risperidone 4 mg tablet 2 mg PO BID RF: 0 tamsulosin 0.4 mg capsule 0.4 mg PO DAILY Qty: 90 RF: 4 apixaban 5 mg Tablet 5 mg PO BID RF: 0 mirabegron 50 mg Tablet Extended Release 24 Hr 50 mg PO DAILY RF: 0 multivitamin Tablet 1 tab PO DAILY RF: 0 ibuprofen 400 mg Tablet 400 mg PO Q8H PRNRF: 0 Discharge Instructions Instructions: Gastrointestinal Bleeding (DC) Care Plan Goals: DO NOT HOSPITALIZE. Comfort Care. Stand Alone Forms: Nursing Discharge Form Referrals: Pascale Jaeger MD [[facility] STAFF PHYSICIAN] - (progressive neuromuscular weakness of unclear etiology. Has had evaluation at [facility] and [facility]. Dr. German has contacted Dr. Xie) Activity:: Activity as Tolerated Equipment/Supplies:: Per previous orders Diet:: As Tolerated Discharge Orders Discharge Orders: Discharge Order (Routine); Ordered 04/29/19 Ordered By: Garcia Fonseca DS: Summary Status at Discharge Functional status at discharge: bed bound Overall status at discharge: patient is not back to baseline Mental Status: mental status grossly normal Speech and Movement: speech and movement normal Mood: congruent mood Affect: normal affect Time Spent with Patient providing and/or coordinating discharge services: Greater than 30 minutes Specific discharge activities: goals of care discussion, care coordination Exam Narrative Exam Narrative: General: appears older than stated age, awake, alert and oriented at this time and pleasently conversant. Appear comfortable laying in bed. Answers questions appropriately. In no acute distress. HEENT: atruamatic, pupils symmetrical and round, EOMI, MMM. Neck: supple, no JVD. Cardiovascular: heart has regular rate and rhythm, no murmur appreciated. Respiratory: even and unlabored, clear bilaterally with slight crackles right base only. GI: round, protuberant abdomen, normal bowel sounds 4 quadrants, abdomen is soft, nontender palpation. Extremities: He can move his extremities freely, evident muscle wasting on bilateral upper and lower extremities. No clubbing, cyanosis or edema. First right toe amputation noted. Psych Mental Status: mental status grossly normal Speech and Movement: speech and movement normal Mood: congruent mood Affect: normal affect DS: Data Vitals/I&O Vitals and I&O: Vital Signs Temperature 36.7 C 04/29/19 07:48 Temperature Source Tympanic 04/29/19 07:48 Pulse 85 04/29/19 07:48 Pulse Rhythm Irregular 04/29/19 08:30 Pulse 99 H 04/27/19 14:00 Respiratory Rate 17 04/29/19 07:48 Respiratory Effort Non-Labored 04/29/19 08:30 Respiratory Depth Normal 04/29/19 08:30 Respiratory Pattern Normal 04/29/19 08:30 Blood Pressure 121/75 04/29/19 07:48 Blood Pressure Mean 83 04/27/19 13:46 Pulse Oximetry 96 04/29/19 07:48 Oxygen Delivery Method Room Air 04/29/19 07:48 Oxygen Flow Rate 0 04/29/19 07:48 Pain Level 5 04/29/19 11:01 Comment 04/27/19 17:11 Intake & Output 04/28/19 04/29/19 04/29/19 23:59 11:59 23:59 Intake Total 240 / 480 480 / 480 Output Total 550 / 550 Balance 240 / 480 -70 / -70 Weight 73.3 kg Intake: Oral 240 / 480 480 / 480 Output: Urine 550 / 550 Other: Urine Color Yellow Urine Appearance Clear Clear Urine Odor Normal Comment pt trying to void now Voiding Methods Urinal Data Completed and Pending Labs on day of discharge: Labs from last 24 hours 04/29/19 04/29/19 04/27/19 06:34 06:34 11:11 WBC 8.70 RBC 2.15 L Hgb 6.2 L* Hct 20.5 L* MCV 95.3 H MCH 28.8 MCHC 30.2 L RDW 17.9 H Plt Count 190 MPV 10.0 Sodium 140 Potassium 4.2 Chloride 106 Carbon Dioxide 26.8 Anion Gap 7.2 BUN 24 H Creatinine 0.76 Estimated GFR/1.73 m2 >= 60.00 Glucose 213 H Calcium 8.4 L Magnesium 1.7 L Patient ABO/Rh O Positive Antibody Screen Negative Crossmatch See Detail PFSH Medical History Adenomatous polyp of colon (Acute) Autonomic dysfunction (Acute) BPH (benign prostatic hyperplasia) (Chronic) Cellulitis of right hand (Resolved 12/23/15) Delirium (Acute) Depression (Chronic) Diabetes mellitus (Chronic) Diabetic neuropathy (Chronic) DJD (degenerative joint disease) (Chronic) Dyslipidemia (Chronic) Frequent falls (Acute) Generalized anxiety disorder (Acute) GERD (gastroesophageal reflux disease) (Chronic) Goals of care, counseling/discussion (Acute) History of colon polyps (Chronic) History of DVT (deep vein thrombosis) (Chronic) 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) Hyperlipidemia (Acute) Hypertension (Chronic) Hypogonadism (Chronic) Impaired mobility and ADLs (Acute) 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 (Acute) 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 (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) Lupus erythematosus (Acute) Major depressive disorder (Acute) Meralgia paresthetica (Acute) MSSA (methicillin susceptible Staphylococcus aureus) (Chronic) Muscle wasting (Chronic) Nephrolithiasis (Chronic) Olecranon bursitis (Acute) Osteoarthritis of lumbar spine (Acute) Osteomyelitis (Acute) Palliative care patient (Chronic) Psychosis (Acute) Recurrent UTI (urinary tract infection) (Chronic) SNHL (sensorineural hearing loss) (Acute) Testicular hypogonadism (Acute) Thermal injury (Resolved) s/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, 07/05/18 Urinary incontinence (Chronic) Vascular dementia (Chronic) Ora [employer] (Chronic) Dr Bruce Turner is PCP Surgical History Colonoscopy - IV Sedation (Inactive 10/28/16) EGD - IV Sedation (Inactive) H/O cervical spine surgery (Chronic) H/O hand surgery (Chronic) History of cholecystectomy (Chronic) History of lumbosacral spine surgery (Chronic) History of Kallie fundoplication (Chronic) History of repair of hiatal hernia (Chronic) Family History Mother , age 85 Vascular dementia Depression severe, with h/o ECT Heart disease Father , age 87 Heart failure Sister No problems noted. Brother Hyperlipidemia Hypertension Daughter No problems noted. 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 Pets and animals: No What is your relationship status?: How often do you talk on the phone with friends or family?: never How often do you get together with friends or relatives?: once per week Panel score (0-1 are the most socially isolated patients): 1 What type of physical activity do you participate in: none and other Details: goes up and down stairs slowly with help once a day; that is his exercise Duration: < 15 minutes/day Frequency: daily Special jennifer needs: No Seatbelt use: always Working smoke detector in home: Yes Fire extinguisher in home: Yes Do you feel safe at home: Yes Do you feel safe in your relationship?: Yes Additional Social history: Patient is and has 2 daughters; one bio, one adopted. Originally from [place], moved to [place] approximately a decade ago. 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 He is a lifelong non-smoker; denies alcohol use and illicit drug use. Unable to work now. Needs help with all ADLs. Wants [place].
--- NOTE | 2019-04-30 12:05 | PCPN_ITS ---
Date of service: 04/29/19 Assessment and Plan Assessment and plan (1) Autonomic dysfunction: Status: Chronic Assessment and plan: new symptom since this admission fecal and urinary incontinence new episodes of hypotension began on his recent [facility] admission linked to his neurological degeneration (2) Goals of care, counseling/discussion: Status: Acute Assessment and plan: family are all unanimous in their support of Benigno returning to SNF without transfusion they all believe that if Benigno were in a normal state of health, he would not want more interventions he is willing to take GI medications to help heal presumed GI bleed from anticoagulation HE IS AT risk for repeat DVT off his anticoagulation his family is aware (3) Impaired mobility and ADLs: Status: Acute Assessment and plan: not clear if he will be able to improve he on acute rehab care at SNF he wants to continue to try to get better (4) Vascular dementia: Status: Chronic Assessment and plan: moderate waxes and wanes to some degree, especially if anxious needs help with decision making (5) Muscle wasting: Status: Chronic Assessment and plan: due to his spinal disease, [facility] cancelled muscle biospy after his MRI of spine returned..... (6) H/O cervical spine surgery: Status: Chronic Assessment and plan: Per family, his health problems really took a dive after his surgery in February 2018 Subjective Subjective Patient reports: still having pain, bowel movement and blood in stool Interval history since last seen: I was called in to meet with family and Benigno again. He had labwork done today that showed another drop in his Hgb. He had a dark bloody stool today. He is still having both fecal and urinary incontinence. I was asked to help decide about transfusion. His , sister, daughters and their partners and brother were all present for the meeting again. Primary nurse Roger and hospitalist Dr Garcia Fonseca also participated. Benigno clearly states he wants to return to [facility]. This was the plan for today; only when his labs came back showing the drop in hemoglobin did the option of a blood transfusion prior to return come up. His family believes he should not have a transfusion at this time because it does not work toward his goals. His goal, overall, is to go home. This is impossible given his degree of debility and lack of local caregivers. (Only his is local; other family has gathered given seriousness of Benigno's overall condition). Other than returning home, he states that he wants nothing done to prolong his life as he has never wanted to live for long in a SNF. He and his family acknowledge that his health has been on a constant persistent slow decline since February 2018 when he had neck surgery. Since that time, he has not been able to return to work. He has had 3 extensive neurological work- ups, two at [facility] and one at the [facility] in [place]. No neurologist has been able to explain his constellation of symptoms. It appears that he has at least two serious life-threatening illnesses: vascular dementia and spinal degeneration causing musculoskeletal wasting and lack of normal autonomic function. We reviewed the fact that we were hoping to have Dr Jaeger weigh in with her opinion about his prognosis. It is possible, if not likely, that he would qualify for hospice. Given the relative mystery of his diagnosis, however, I am loathe to head in that direction without input from Dr Jaeger. Exam Const General: cooperative, comfortable and no acute distress Nutritional Appearance: other (thin extremities and obese abdomen) Orientation: alert, awake, oriented to person and oriented to place Other: better neurologically than I have seen him in months HENMT Head: normocephalic and atraumatic Ears: hearing grossly normal bilaterally General nose exam: external nose normal Face and sinus: normal facial exam and face symmetric Mouth: oral mucosae normal Eyes Conjunctivae: conjunctivae normal Sclera: sclerae normal Other: not having the roving movements he had last night, focused, intentional no nystagmus Neck Neck: no lymphadenopathy, tender, no JVD and other (holds neck stiffly) Chest Chest: abnormal inspection of the chest barrel chest Resp Effort & Inspection: normal respiratory effort and able to speak in complete sentences Auscultation: clear to auscultation bilaterally (in anterior medellin) and diminished lung sounds Cardio Jugular venous pressure: no JVD Rate: regular rate Rhythm: regular rhythm Heart Sounds: S1 normal and S2 normal GI Inspection: normal to inspection and distended Palpation: firm Auscultation: normal bowel sounds Back/Spine/Pelvis Cervical Spine: scars present and cervical spinal tenderness Skin General skin exam: no rashes or lesions noted and dry skin Trauma: no lacerations or abrasions Hair: general thinning Neuro General: alert, awake and unable to assess gait Cognition: abnormal cognition (mild to moderate dementia; often parrots what was said before ) Speech: anomia (repeats what others say; ? decision making ability?) Motor: strength abnormal Sensory Exam: no sensory deficits noted Extrem General: edema and muscle atrophy Psych Appearance: grossly normal Mental Status: mental status grossly normal Speech and Movement: speech clear (but content minimal) Mood: congruent mood Affect: normal affect Attitude: cooperative Thought Process: impoverished Insight: limited Judgment: limited Objective Objective Clinical Data: Vital Signs Temperature 98.1 F 04/29/19 07:48 Temperature Source Tympanic 04/29/19 07:48 Pulse 85 04/29/19 07:48 Pulse Rhythm Irregular 04/29/19 08:30 Pulse 99 H 04/27/19 14:00 Respiratory Rate 17 04/29/19 07:48 Respiratory Effort Non-Labored 04/29/19 08:30 Respiratory Depth Normal 04/29/19 08:30 Respiratory Pattern Normal 04/29/19 08:30 Blood Pressure 121/75 04/29/19 07:48 Blood Pressure Mean 83 04/27/19 13:46 Pulse Oximetry 96 04/29/19 07:48 Oxygen Delivery Method Room Air 04/29/19 07:48 Oxygen Flow Rate 0 04/29/19 07:48 Pain Level 5 04/29/19 12:01 Comment 04/27/19 17:11 Laboratory Results WBC 8.70 k/cumm (4.4-10.8) 04/29/19 06:34 RBC 2.15 m/cumm (4.50-6.00) L 04/29/19 06:34 Hgb 6.2 g/dL (13.5-17.5) L* 04/29/19 06:34 Hct 20.5 % (40.0-50.0) L* 04/29/19 06:34 MCV 95.3 fL (80-95) H 04/29/19 06:34 MCH 28.8 pg (27.0-33.0) 04/29/19 06:34 MCHC 30.2 g/dL (32.0-36.0) L 04/29/19 06:34 RDW 17.9 % (11.8-14.1) H 04/29/19 06:34 Plt Count 190 x1000/uL (130-400) 04/29/19 06:34 MPV 10.0 fL (8.0-11.0) 04/29/19 06:34 Immature Gran % See Differential 04/28/19 07:00 Neutrophils % 75.0 04/28/19 07:00 Lymphocytes % 13.0 04/28/19 07:00 Monocytes % 6.0 04/28/19 07:00 Eosinophils % 3.0 04/28/19 07:00 Basophils % 1.0 04/28/19 07:00 Metamyelocytes % 2.0 % 04/28/19 07:00 Myelocytes % 1.0 % 04/27/19 11:11 Absolute Neutrophils 9.06 k/cumm (1.2-6.7) H 04/28/19 07:00 Absolute Lymphocytes 1.57 k/cumm (1.2-3.4) 04/28/19 07:00 Absolute Monocytes 0.72 k/cumm (0.11-0.7) H 04/28/19 07:00 Absolute Eosinophils 0.36 k/cumm (0.0-0.7) 04/28/19 07:00 Absolute Basophils 0.12 k/cumm (0.0-0.2) 04/28/19 07:00 Nucleated RBCs 2 /100WBC 04/28/19 07:00 Differential Comment Manual differential 04/28/19 07:00 RBC Morphology See below 04/28/19 07:00 Polychromasia Present 04/28/19 07:00 Anisocytosis 1+ 04/28/19 07:00 Microcytosis 1+ 04/28/19 07:00 PT 10.5 sec (9.3-11.0) 04/27/19 11:11 INR 1.0 (0.9-1.1) 04/27/19 11:11 APTT 18.3 sec (21.0-31.4) L 04/27/19 11:11 Sodium 140 mmol/L (136-145) 04/29/19 06:34 Potassium 4.2 mmol/L (3.5-5.1) 04/29/19 06:34 Chloride 106 mmol/L (98-107) 04/29/19 06:34 Carbon Dioxide 26.8 mmol/L (21.0-32.0) 04/29/19 06:34 Anion Gap 7.2 mmol/L (3-11) 04/29/19 06:34 BUN 24 mg/dL (7-18) H 04/29/19 06:34 Creatinine 0.76 mg/dL (0.70-1.30) 04/29/19 06:34 Estimated GFR/1.73 m2 >= 60.00 (mL/min/1.73m2) 04/29/19 06:34 Glucose 213 mg/dL (74-106) H 04/29/19 06:34 Calcium 8.4 mg/dL (8.5-10.1) L 04/29/19 06:34 Magnesium 1.7 mg/dL (1.8-2.4) L 04/29/19 06:34 Total Bilirubin 0.1 mg/dL (0.2-1.0) L 04/27/19 11:11 AST 14 U/L (15-37) L 04/27/19 11:11 ALT 32 U/L (16-63) 04/27/19 11:11 Alkaline Phosphatase 77 U/L (46-116) 04/27/19 11:11 Total Protein 5.3 g/dL (6.4-8.2) L 04/27/19 11:11 Albumin 2.4 g/dL (3.4-5.0) L 04/27/19 11:11 Urine Color Yellow (Yellow) 04/27/19 21:38 Urine Clarity Clear (Clear) 04/27/19 21:38 Urine pH 5.5 (5-8) 04/27/19 21:38 Ur Specific [place] 1.010 (1.005-1.025) 04/27/19 21:38 Urine Protein Negative mg/dL (Negative) 04/27/19 21:38 Urine Ketones Negative mg/dL (Negative) 04/27/19 21:38 Urine Blood Negative (Negative) 04/27/19 21:38 Urine Nitrite Negative (Negative) 04/27/19 21:38 Urine Bilirubin Negative (Negative) 04/27/19 21:38 Urine Urobilinogen 0.2 EU/dL (Up TO 0.2) 04/27/19 21:38 Ur Leukocyte Esterase Negative (Negative) 04/27/19 21:38 Urine Glucose 500 mg/dL (Negative) H 04/27/19 21:38 Patient ABO/Rh O Positive 04/27/19 11:11 Antibody Screen Negative 04/27/19 11:11 Crossmatch See Detail 04/27/19 11:11 Reaction Clerical Check Cancelled 04/27/19 13:51 Clerical Work Check Cancelled 04/27/19 13:51 Pre-Trans Blood Type Cancelled 04/27/19 13:51 Pre-Trans Bld Appearanc Cancelled 04/27/19 13:51 Pre-Trans FRANK Cancelled 04/27/19 13:51 Post-Trans Blood Type Cancelled 04/27/19 13:51 Post-Trans Spec Appear Cancelled 04/27/19 13:51 Post-Trans FRANK Cancelled 04/27/19 13:51 Reaction Pathol Review Cancelled 04/27/19 13:51
== END 2019-04-29 13:06 | disposition intermediate care facility (04) ==
LOC: ER 13:43 → MS 14:22
PROVIDERS: Nurse Practitioner; Admitting Provider Family Medicine; Emergency Provider Student in an Organized Health Care Education/Training Program; PCP Internal Medicine; Visit Provider Family Medicine
DX: K92.2 Gastrointestinal hemorrhage, unspecified (principal); D50.0 Iron deficiency anemia secondary to blood loss (chronic); Z74.09 Other reduced mobility; F01.50 Vascular dementia, unspecified severity, without behavioral disturbance, psychotic disturbance, mood disturbance, and anxiety; M62.50 Muscle wasting and atrophy, not elsewhere classified, unspecified site; F45.8 Other somatoform disorders; F29 Unspecified psychosis not due to a substance or known physiological condition; N40.0 Benign prostatic hyperplasia without lower urinary tract symptoms; E11.9 Type 2 diabetes mellitus without complications; F32.9 Major depressive disorder, single episode, unspecified; K21.9 Gastro-esophageal reflux disease without esophagitis; I10 Essential (primary) hypertension; E78.5 Hyperlipidemia, unspecified; Z51.5 Encounter for palliative care; Z66 Do not resuscitate; Z89.411 Acquired absence of right great toe; Z79.891 Long term (current) use of opiate analgesic; Z86.718 Personal history of other venous thrombosis and embolism; Z79.4 Long term (current) use of insulin
CPT/HCPCS: 36415; 36430; 80048; 80053; 85027; 86850; 86900; 86901; 86920; 87081; 93005; 96361; 96365; 96366; 96375; 99222; 99226; 99239; 99255; 99285; 74177; 81003; 83735; 85025; 85610; 85730; 86880; 93010; 99219; 99225; G0378; J3490; P9016

== ENCOUNTER 2019-05-02 10:02 | Outpatient (CLI) | payer OTHER, SELFPAY ==
[2019-05-02 10:44] LABS: HCT 22.3 % (40.0-50.0); Mean Corp. HGB Concentration 28.7 g/dL (32.0-36.0); Mean Corpuscular Hemoglobin 28.4 pg (27.0-33.0); Mean Corpuscular Volume 99.1 fL (80-95); Mean Platelet Volume 9.8 fL (8.0-11.0); Platelet Count 267 x1000/uL (130-400); RBC 2.25 m/cumm (4.50-6.00); RBC Distribution Width 19.1 % (11.8-14.1); White Blood Cell Count 11.33 k/cumm (4.4-10.8)
[2019-05-02 11:09] LABS: HGB 6.4 g/dL (13.5-17.5)
[2019-05-02 11:10] LABS: Absolute Eosinophil Count 0.23 k/cumm (0.0-0.7); Absolute Lymphocyte Count 0.57 k/cumm (1.2-3.4); Absolute Monocyte Count 0.45 k/cumm (0.11-0.7); Absolute Neutrophil Count 9.97 k/cumm (1.2-6.7); Anisocytosis 2+; Diff Comment Manual Differential; Nucleated RBC 8 /100WBC
[2019-05-02 11:11] LABS: Hypochromasia 1+; Macrocytosis 1+; Microcytosis 1+
[2019-05-02 11:12] LABS: Poikilocytes 1+; Polychromasia Present
[2019-05-02 11:15] LABS: Anion Gap 6.1 mmol/L (3-11); BUN 17 mg/dL (7-18); CO2 29.9 mmol/L (21.0-32.0); CREATININE 0.69 mg/dL (0.70-1.30); Calcium 8.7 mg/dL (8.5-10.1); Chloride 104 mmol/L (98-107); Glucose 224 mg/dL (74-106); Potassium 4.5 mmol/L (3.5-5.1); Sodium 140 mmol/L (136-145)
[2019-05-02 11:47] LABS: Hemoglobin A1C 8.1 % (4.5-6.2)
== END 2019-05-02 10:22 ==
PROVIDERS: PCP Internal Medicine; Visit Provider Nurse Practitioner Adult Health
DX: E11.40 Type 2 diabetes mellitus with diabetic neuropathy, unspecified (principal); M05.9 Rheumatoid arthritis with rheumatoid factor, unspecified; I63.9 Cerebral infarction, unspecified
CPT/HCPCS: 36415; 80048; 83036; 85025

== ENCOUNTER 2019-05-05 14:14 | Outpatient (REF) | payer OTHER, SELFPAY ==
[2019-05-05 14:15] LABS: Abs Immature Grans 0.37 k/cumm (0.0-0.09); Absolute Basophil Count 0.04 k/cumm (0.0-0.2); Absolute Eosinophil Count 0.11 k/cumm (0.0-0.7); Basophils % 0.3; Eosinophils % 0.8; Mean Corp. HGB Concentration 27.9 g/dL (32.0-36.0); Mean Corpuscular Hemoglobin 28.3 pg (27.0-33.0); Mean Corpuscular Volume 101.4 fL (80-95); Mean Platelet Volume 9.5 fL (8.0-11.0); Platelet Count 331 x1000/uL (130-400); RBC 1.45 m/cumm (4.50-6.00); RBC Distribution Width 20.2 % (11.8-14.1); White Blood Cell Count 13.68 k/cumm (4.4-10.8)
[2019-05-05 14:36] LABS: HGB 4.1 g/dL (13.5-17.5)
[2019-05-05 14:37] LABS: HCT 14.7 % (40.0-50.0)
[2019-05-05 14:47] LABS: Absolute Neutrophil Count 10.67 k/cumm (1.2-6.7)
[2019-05-05 14:48] LABS: Absolute Lymphocyte Count 1.92 k/cumm (1.2-3.4); Atypical Lymphocytes % 0
[2019-05-05 14:50] LABS: Absolute Monocyte Count 0.55 k/cumm (0.11-0.7)
[2019-05-05 14:51] LABS: Diff Comment Manual Differential; Nucleated RBC 2 /100WBC; Other Cells 0; Promyelocytes % 0 %
[2019-05-05 14:52] LABS: Anisocytosis 2+; Hypochromasia 2+; Polychromasia Present
== END 2019-05-05 14:34 ==
LOC: LBN 14:14
PROVIDERS: PCP Internal Medicine; Visit Provider Nurse Practitioner Adult Health
DX: K92.2 Gastrointestinal hemorrhage, unspecified (principal); D64.9 Anemia, unspecified
CPT/HCPCS: 85025